=== PATIENT | male | born 1940 | race Caucasian/White ===

== ENCOUNTER 2020-03-17 11:54 | Outpatient (CLI) | payer MEDICARE, OTHER, SELFPAY ==
--- NOTE | ~2020-03-17 | CT_ITS ---
EXAMINATION: CT IAC/mastoids BI wo con DATE: 03/17/2020 14:23 INDICATION: Hearing loss. TECHNIQUE: Computed tomography (CT) of the temporal bones was performed without intravenous contrast. Automated exposure control and iterative reconstruction technique were employed. The dose-length pro duct was 276.05 mGy-cm. COMPARISON: Head CT 07/26/2011 FINDINGS: There are likely changes of ocular lens replacement surgeries. There is internal fixation o f right mandible. RIGHT TEMPORAL BONE: The right internal auditory canal, cochlea, vestibule, semicircular canals, vestibular aqueduct, gonsales tid canal, jugular bulb, facial nerve course, ossicles, Prussak space, and scutum are normal. There i s a myringotomy tube in expected position. There is a small volume of material in the external audito ry canal, likely cerumen. There is a right mastoid effusion. LEFT TEMPORAL BONE: The left internal auditory canal, cochlea, vestibule, semicircular canals, vestibular aqueduct, carot id canal, jugular bulb, facial nerve course, ossicles, Prussak space, scutum, tympanic membrane, and external auditory canal are normal. There is a trace left mastoid effusion. IMPRESSION: 1. Right myringotomy tube in expected position. 2. Right mastoid effusion. Trace left mastoid effusion. Reviewed, dictated and finalized at location A.
--- NOTE | ~2020-03-17 | CT_ITS ---
EXAMINATION: CT brain wo/w con DATE: 03/17/2020 14:24 INDICATION: Reduced mobility. Carotid artery stenosis. TECHNIQUE: Computed tomography (CT) of the head was performed without and with 100 cc Omnipaque 350 i ntravenous contrast. The dose-length product was 1210.67 mGy-cm. Automated exposure control and itera tive reconstruction technique were employed. COMPARISON: None FINDINGS: No acute intracranial hemorrhage, infarction, mass or mass effect. Generalized atrophy. The re are scattered moderate periventricular and subcortical white matter changes, most likely related t o small vessel ischemic disease (microangiopathy). No abnormal contrast enhancement. There is intracr anial atherosclerosis. No ventriculomegaly or midline shift. Paranasal sinuses and mastoids are pneum atized. No depressed skull fractures. Midline sagittal images are unremarkable. IMPRESSION: 1. No acute intracranial abnormality. 2: Chronic age-related findings. Reviewed, dictated and finalized at location A.
[2020-03-17 12:27] LABS: Basophils Absolute Auto 0.1 K/mm3 (0.0-0.1); Basophils Percent Auto 1.1 % (0.2-1.2); Eosinophils Absolute Auto 0.3 K/mm3 (0-0.3); Hematocrit 37.5 % (42.0-52.0); Hemoglobin 12.1 g/dL (14.0-18.0); Immature Granulocyte Absolute 0.01 K/mm3 (0.00-0.031); Immature Granulocyte Percent A 0.2 % (0-0.5); Lymphocytes Absolute Auto 1.32 K/mm3 (0.9-3.2); Mean Corpuscular HGB Conc 32.3 g/dl (32-36); Mean Corpuscular Hemoglobin 28.7 pg (26-34); Mean Corpuscular Volume 89.1 fl (80-100); Mean Platelet Volume 10.5 fl (7.4-10.4); Monocytes Absolute Auto 0.6 K/mm3 (0.1-0.6); Monocytes Percent Auto 9.7 % (2.6-8.5); Platelet Count Result 230 k/mm3 (150-375); Red Blood Count 4.21 M/mm3 (4.6-6.20); Red Cell Distribution Width 15.4 % (11.5-14.5); White Blood Count 6.3 K/mm3 (4.5-10.0)
[2020-03-17 14:09] LABS: Estimated Glomerular Filt Rate > 60
== END 2020-03-17 11:55 | disposition home or self-care (01) ==
PROVIDERS: PCP Internal Medicine; Visit Provider Internal Medicine
DX: E11.9 Type 2 diabetes mellitus without complications (principal); Z74.09 Other reduced mobility; Z85.89 Personal history of malignant neoplasm of other organs and systems; Z96.22 Myringotomy tube(s) status; H74.8X3 Other specified disorders of middle ear and mastoid, bilateral
CPT/HCPCS: 36415; 70470; 70480; 85025; Q9967

== ENCOUNTER 2020-04-22 12:38 | Inpatient (IN) | payer MEDICARE, OTHER, SELFPAY ==
[2020-04-22] VITALS (11 sets, daily range): BP systolic 135–158; BP diastolic 65–94; PULSE 50–93; RESP 12–19; TEMP 36.2–36.8; O2SAT 96–100; BMI 37.4; BMI 37.5
--- NOTE | ~2020-04-22 | XR_ITS ---
EXAMINATION: XR chest 1V portable DATE: 04/22/2020 13:13 INDICATION: Shortness of breath. Atrial fibrillation. TECHNIQUE: frontal view of the chest was obtained. COMPARISON: Chest radiograph dated 08/09/2019 FINDINGS: Mild elevation of the left hemidiaphragm. No focal airspace opacities, pulmonary edema, pleural effus ion or pneumothorax. Heart size appears enlarged however this may be exaggerated by AP technique and lordotic positioning. Old fracture deformities at the lateral right eighth rib and at the inferior as pect of the right scapular body. Multiple surgical clips project the right axilla and at the base of the right neck. IMPRESSION: 1. Heart size appears enlarged however this may be exaggerated by AP technique and lordotic positioni ng. No other acute cardiopulmonary disease. Reviewed, dictated and finalized at location A. IMPRESSION: 1. Heart size appears enlarged however this may be exaggerated by AP technique and lordotic positioning. No other acute cardiopulmonary disease.
[2020-04-22 13:00] LABS: Basophils Absolute Auto 0.1 K/mm3 (0.0-0.1); Basophils Percent Auto 0.8 % (0.2-1.2); Eosinophils Absolute Auto 0.3 K/mm3 (0-0.3); Eosinophils Percent Auto 3.8 % (0-4.4); Hematocrit 37.9 % (42.0-52.0); Hemoglobin 12.3 g/dL (14.0-18.0); Immature Granulocyte Absolute 0.03 K/mm3 (0.00-0.031); Immature Granulocyte Percent A 0.4 % (0-0.5); Lymphocytes Absolute Auto 1.31 K/mm3 (0.9-3.2); Lymphocytes Percent Auto 17.7 % (18.3-44.2); Mean Corpuscular HGB Conc 32.5 g/dl (32-36); Mean Corpuscular Hemoglobin 29.1 pg (26-34); Mean Corpuscular Volume 89.8 fl (80-100); Mean Platelet Volume 10.9 fl (7.4-10.4); Monocytes Absolute Auto 0.9 K/mm3 (0.1-0.6); Monocytes Percent Auto 11.8 % (2.6-8.5); Neutrophils Absolute Auto 4.8 K/mm3 (1.3-6.7); Neutrophils Percent Auto 65.5 % (45.5-73.1); Platelet Count Result 241 k/mm3 (150-375); Red Blood Count 4.22 M/mm3 (4.6-6.20); Red Cell Distribution Width 14.6 % (11.5-14.5); White Blood Count 7.4 K/mm3 (4.5-10.0)
--- NOTE | 2020-04-22 13:02 | ED.ARRPALP ---
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 Patient otherwise resting comfortably in the room with no other complaints Related Data Home Medications Medication Instructions Recorded Confirmed aspirin 81 mg tablet,delayed 81 mg PO DAILY 08/20/19 04/22/20 release blood sugar diagnostic #10 each 08/20/19 04/22/20 cholecalciferol (vitamin D3) 50 2,000 unit PO DAILY 08/20/19 04/22/20 mcg (2,000 unit) tablet desvenlafaxine succinate 100 mg 100 mg PO DAILY 08/20/19 04/22/20 tablet,extended release 24 hr ezetimibe 10 mg tablet 10 mg PO DAILY 08/20/19 04/22/20 oxycodone-acetaminophen 5 mg-325 1 tablet PO Q4H PRN 08/20/19 04/22/20 mg tablet omega-3 fatty acids 1,000 mg 2,000 mg PO DAILY cap 03/17/20 04/22/20 capsule quetiapine 50 mg tablet,extended 0.5 mg PO tablet 04/22/20 04/22/20 release 24 hr Allergies Allergy/AdvReac Type Severity Reaction Status Date / Time No Known Allergies Allergy Verified 04/22/20 12:53 Review of Systems Review of Systems: All systems reviewed & are unremarkable except as noted in HPI and below PMFSH Past Medical History Medical History Abnormal finding of blood chemistry, unspecified Anxiety with depression Aortic valve stenosis, acquired Atrial flutter Benign essential hypertension BMI 37.0-37.9, adult BMI 38.0-38.9,adult DM type 2 (diabetes mellitus, type 2) Encounter for routine adult health examination without abnormal findings Follow up Fracture, ribs History of head and neck cancer Resection of mandible with reconstruction (osteonecrosis) Hyperlipidemia Hypertension Hypothyroidism (acquired) Impaired functional mobility, balance, gait, and endurance Left carotid stenosis Multiple falls 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 Orthostatic hypotension Osteonecrosis Pulmonary nodules PVD (peripheral vascular disease) Vitamin D deficiency Surgical History Surgical History H/O neck surgery Status post myringotomy with insertion of tube Family History Family History Mother Diabetes mellitus Hypertension Family history of cardiovascular disease Family history of diabetes mellitus in first degree relative Family history of heart disease in male family member before age 55 Social History Social History Smoking status: Never smoker Second hand tobacco smoke exposure: No Alcohol intake: never Exam Narrative: Exam Narrative: GENERAL: Well-appearing, well-nourished, and in no acute distress. HEAD: Normocephalic, atraumatic. EYES: PERRLA and EOMI. ENT: Nares clear, no rhinorrhea or epistaxis. Mucous membranes moist. Oropharynx without tonsillar hypertrophy exudate or other lesions. NECK: Supple. No adenopathy or masses. CHEST: Clear to auscultation. No respiratory distress. No wheezes rales or rhonchi HEART: Regular rate and rhythm. II/ murmur. Normal peripheral pulses. ABDOMEN: Soft, nontender, nondistended EXTREMITIES: Normal range of motion. No edema. SKIN: Warm, dry, no rash. NEURO: No focal deficits. Alert and oriented x3
[2020-04-22] MEDS: SODIUM CHLORIDE 0.9% IV 500 ML 999 ML IV CONT ×2 (13:05→13:34)
[2020-04-22 13:10] LABS: INR 1.1; Partial Thromboplastin Time 29.7 SECONDS (22.3-36.8); Prothrombin Time 13.9 Seconds (11.1-14.7)
[2020-04-22 13:19] LABS: Alanine Aminotransferase 24 U/L (4-50); Albumin Level 4.1 g/dL (3.5-5.1); Alkaline Phosphatase 123 U/L (38-126); Aspartate Amino Transferase 35 U/L (17-59); Bilirubin,Total 0.4 mg/dL (0.2-1.3); Blood Urea Nitrogen 24 mg/dL (9-20); Calcium 8.9 mg/dL (8.4-10.2); Carbon Dioxide 27 mmol/L (22-30); Chloride 105 mmol/L (98-107); Estimated CRCL calculation 65 ml/min; Estimated Glomerular Filt Rate > 60; Glucose 117 mg/dL (75-110); Potassium 4.5 mmol/L (3.4-5.0); Sodium 137 mmol/L (137-145)
[2020-04-22 13:31] LABS: NT Pro B Type Natriuretic Pept 720 PG/ML (5-100); Troponin I 0.012 ng/mL (0.000-0.034)
[2020-04-22 14:51] LABS: Add Urine Microscopic? YES; Appearance Urine Clear (Clear); Bilirubin Urine Negative (Negative); Blood Urine Negative (Negative); Color Urine Yellow (Yellow); Glucose Urine UA Negative (Negative); Ketones Urine Negative (Negative); Leukocyte Esterase Ur Negative LEU/UL (Negative); Mucus Urine Rare /lpf; Nitrate Urine Negative (Negative); Protein Urine Negative (Negative); Specific Grav Ur 1.028 (1.001-1.035); Squamous Epithelial Cell Urine Occasional /hpf (Few); WBC Urine 0-3 /hpf
--- NOTE | 2020-04-22 15:18 | ECG_ITS ---
Measurements Intervals [place] Rate: 92 P: [place]: 0 QRS: 16 QRSD: 94 T: 75 QT: 332 QTc: 413 Interpretive Statements ATRIAL FLUTTER BORDERLINE ST-T WAVE ABNORMALITY- HIGH LATERAL LEADS ABNORMAL ECG Electronically Signed On 04-22-2020 15:39:31 CDT by Girish Tompkins D.O.
[2020-04-22 16:29] LABS: Troponin I 0.017 ng/mL (0.000-0.034)
[2020-04-22 16:33] LABS: Glucose Point of Care 90 (65-105)
--- NOTE | 2020-04-22 17:22 | PM.IMHP ---
H&P: HPI History of Present Illness Chief complaint: atrial flutter,orthostatic hypotension Narrative: Mitch Romo is a 80 year old male who has a history of aortic stenosis. His significant other stated that he had his last echo she believes in December. Patient has had some gait instability and shortness of breath with exertion. The patient had a visit with his primary care doctor today and they noted that he had an irregular heartbeat. Patient was found to be in atrial flutter with controlled rate. Cardiology has been consulted and suggested that the patient be admitted and have another echo. The patient was also orthostatic. Chest x-ray was read as heart size appears enlarged however may be exaggerated by AP technique and lordotic positioning. Troponins are negative so far x2. He has no complaints of chest pain. He has no palpitations. He is currently on an aspirin. His has bled score is 2 which appears to be high risk. No anticoagulation was started at this time. His atrial flutters 3-1 at this time. Review of Systems Review of Systems: All systems reviewed & are unremarkable except as noted in HPI and below Constitutional: Constitutional: Reports as per HPI and Reports no additional constitutional complaints Eyes: Eyes: Reports as per HPI and Reports no additional eye complaints ENT: Reports system reviewed and no additional complaints, except as documented and Reports Normal hearing present Cardiovascular: Cardiovascular: Reports no additional cardiovascular complaints Respiratory: Respiratory: Reports no additional respiratory complaints and Reports no additional respiratory complaints Gastrointestinal: Gastrointestinal: Reports as per HPI and Reports no additional gastrointestinal complaints Musculoskeletal: Musculoskeletal: Reports no additional musculoskeletal complaints Integumentary/Breasts: Skin/Breast: Reports system reviewed and no additional complaints, except as docu and Reports as per HPI Neurologic: Reports system reviewed and no additional complaints, except as documented, Reports as per HPI and Reports Normal hearing present Psychiatric: Psychiatric: Reports no additional psychiatric complaints and Reports as per HPI Endocrine: Endocrine: Reports no additional endocrine complaints Hematologic/Lymphatic: Hematologic/Lymphatic: Reports no additional hematologic/lymphatic complaints Allergic/Immunologic: Allergic/Immunologic: Reports no additional allergic/immunologic complaints [facility] Past Medical History Medical History (Updated 04/22/20 @ 17:36 by Neena Bueno NP) Abnormal finding of blood chemistry, unspecified Anxiety with depression Aortic valve stenosis, acquired Atrial flutter Atrial flutter Benign essential hypertension BMI 37.0-37.9, adult BMI 38.0-38.9,adult DM type 2 (diabetes mellitus, type 2) Encounter for routine adult health examination without abnormal findings Follow up Fracture, ribs History of head and neck cancer Resection of mandible with reconstruction (osteonecrosis) Hyperlipidemia Hypertension Hypothyroidism (acquired) Impaired functional mobility, balance, gait, and endurance Left carotid stenosis Multiple 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 H/O prostatectomy H/O rectal polypectomy H/O spinal fusion H/O ventral hernia repair History of bilateral carpal tunnel release Status post left hip replacement Status post myringotomy with insertion of tube Total knee replacement status Bilateral Family History Family History (Updated 04/22/20 @ 17:38
--- NOTE | 2020-04-22 17:57 | PC.NURSE ---
Called to give report to nurse. Was asked by Laura if pt was new onset of Afib or if this was ongoing. Informed Laura that this was new onset. Laura states let me call you back, we normally dont take new onset .
[2020-04-22 18:51] LABS: Glucose Point of Care 91 (65-105)
[2020-04-22] MEDS: FAMOTIDINE 20 MG/2 ML VIAL IV PUSH (21:09)
[2020-04-22] MEDS: LACTATED RINGERS 1,000 ML 75 ML IV CONT (23:04)
[2020-04-22 23:20] LABS: Glucose Point of Care 100 (65-105)
[2020-04-23] VITALS (19 sets, daily range): BP systolic 123–158; BP diastolic 72–92; PULSE 71–93; RESP 12–18; TEMP 36.4–36.9; O2SAT 95–99
[2020-04-23] MEDS: LEVOTHYROXINE SODIUM 125 MCG TABLET PO (05:41)
[2020-04-23 05:44] LABS: Basophils Absolute Auto 0.1 K/mm3 (0.0-0.1); Basophils Percent Auto 1.5 % (0.2-1.2); Eosinophils Absolute Auto 0.4 K/mm3 (0-0.3); Eosinophils Percent Auto 7.1 % (0-4.4); Hematocrit 37.2 % (42.0-52.0); Hemoglobin 11.9 g/dL (14.0-18.0); Immature Granulocyte Absolute 0.01 K/mm3 (0.00-0.031); Immature Granulocyte Percent A 0.2 % (0-0.5); Lymphocytes Absolute Auto 1.61 K/mm3 (0.9-3.2); Lymphocytes Percent Auto 26.6 % (18.3-44.2); Mean Corpuscular Hemoglobin 28.7 pg (26-34); Mean Corpuscular Volume 89.6 fl (80-100); Mean Platelet Volume 10.8 fl (7.4-10.4); Monocytes Absolute Auto 0.7 K/mm3 (0.1-0.6); Monocytes Percent Auto 10.7 % (2.6-8.5); Neutrophils Absolute Auto 3.3 K/mm3 (1.3-6.7); Neutrophils Percent Auto 53.9 % (45.5-73.1); Platelet Count Result 235 k/mm3 (150-375); Red Blood Count 4.15 M/mm3 (4.6-6.20); Red Cell Distribution Width 14.5 % (11.5-14.5); White Blood Count 6.1 K/mm3 (4.5-10.0)
--- NOTE | 2020-04-23 06:00 | ECHO_ITS ---
Patient Info Name: Mitch Romo Age: 80 years : 1940 Gender: Male Ht: 66 in Wt: 233 lbs BSA: 2.27 m2 BP: 123 / 72 mmHg Heart Rhythm: Atrial Flutter Technical Quality: Good Exam Date: 04/23/2020 11:04 AM Exam Location: [facility] Pul[facility] Patient Status: Outpatient Admit Date: 04/22/2020 Staff Ordering Physician: Gavin Fletcher PA-C Ethnographic Materials Conservator: Luis Manuel Chung RDCS, RT Attending Provider: Briana Ventura PA-C Referring Physician: Chance DEVLIN; Exam Type: CA echo doppler color flow Study Info Indications I49.8 - Other specified cardiac arrhythmias Complete two-dimensional, color flow and Doppler transthoracic echocardiogram is performed with contrast to opacify the left ventricle and to improve the deliniation of the left ventricle endocardial borders. Summary 1. Left ventricular systolic function is normal, estimated at 55-60%. 2. There is moderate concentric increased left ventricular wall thickness. 3. There is severe aortic valve stenosis with a peak velocity of 373 cm/s, mean gradient of 28 mmHg, and aortic valve area of 0.8 cm2. 4. Atrial flutter with controlled ventricular response. Left Ventricle Left ventricular chamber dimension is normal. Left ventricular systolic function is normal, estimated at 55-60%. There is moderate concentric increased left ventricular wall thickness. The left ventricular diastolic function is grade II diastolic dysfunction. Right Ventricle Right ventricular chamber dimension is normal. Left Atria Left atrial chamber dimension is moderately enlarged. Right Atria Right atrial chamber dimension is normal. Aortic Valve The aortic valve is trileaflet. There is moderate aortic valve sclerosis. There is severe aortic valve stenosis with a peak velocity of 373 cm/s, mean gradient of 28 mmHg, and aortic valve area of 0.8 cm2. There is mild aortic valve regurgitation. Pulmonic Valve The pulmonic valve is not well visualized. Mitral Valve The mitral valve has normal leaflets. There is mild mitral valve regurgitation. The mitral valve annulus is mildly calcified. Tricuspid Valve The tricuspid valve leaflets are normal. Pericardium/Pleural The pericardium appears normal. Aorta The aortic root size at the sinus of Valsalva is normal. Left Ventricular Outflow Tract Name Value Normal LVOT 2D LVOT Diameter 2.2 cm LVOT Doppler LVOT Peak Gradient 3 mmHg LVOT Mean Gradient 2 mmHg LVOT VTI 18 cm LVOT VTI/AV VTI Ratio 0.2 LVOT Stroke Volume 70 ml Mitral Valve Name Value Normal MV Doppler MV Peak Gradient 2 mmHg MV Mean Gradient 1 mmHg MV Decel [place] 429 cm/s2 MV PHT
[2020-04-23 06:05] LABS: Alanine Aminotransferase 22 U/L (4-50); Albumin Level 3.8 g/dL (3.5-5.1); Alkaline Phosphatase 112 U/L (38-126); Aspartate Amino Transferase 31 U/L (17-59); Bilirubin,Total 0.5 mg/dL (0.2-1.3); Blood Urea Nitrogen 20 mg/dL (9-20); Calcium 8.6 mg/dL (8.4-10.2); Carbon Dioxide 26 mmol/L (22-30); Chloride 104 mmol/L (98-107); Estimated CRCL calculation 73 ml/min; Estimated Glomerular Filt Rate > 60; Glucose 115 mg/dL (75-110); Potassium 4.2 mmol/L (3.4-5.0); Sodium 136 mmol/L (137-145)
[2020-04-23] MEDS: ONDANSETRON INJ 4 MG/2 ML VIAL IV PUSH (06:56)
[2020-04-23 08:24] LABS: Glucose Point of Care 122 (65-105)
[2020-04-23] MEDS: FAMOTIDINE 20 MG/2 ML VIAL IV PUSH ×2 (09:16→21:05)
[2020-04-23] MEDS: GABAPENTIN 400 MG CAPSULE 1200 MG PO ×3 (09:17→16:51)
[2020-04-23] MEDS: PRAVASTATIN SODIUM 20 MG TABLET PO (09:18)
[2020-04-23] MEDS: CHOLECALCIFEROL 1,000 UNIT TABLET 2000 UNITS PO (09:18)
[2020-04-23] MEDS: ASPIRIN 81 MG ENTERIC TABLET PO (09:19)
[2020-04-23] MEDS: OMEGA 3 POLYUNSAT FATTY ACIDS 1 GM CAP 2 GM PO (09:19)
[2020-04-23] MEDS: EZETIMIBE 10 MG TABLET PO (09:19)
[2020-04-23] MEDS: DESVENLAFAXINE SUCCINATE 50 MG TAB.ER.24H 100 MG PO (09:20)
[2020-04-23] MEDS: LACTATED RINGERS 1,000 ML 75 ML IV CONT (09:23)
--- NOTE | 2020-04-23 10:30 | PM.IMPN ---
Progress Note: A&P Assessment and Plan (1) Atrial flutter: Qualifiers: Atrial flutter type: unspecified Qualified Code(s): I48.92 - Unspecified atrial flutter Code(s): I48.92 - Unspecified atrial flutter Status: Acute Assessment and Plan: The patient has new-onset atrial flutter. Cardiology was consulted. His rate is well-controlled. He is not on any AV cisco blocking agents. His HAS-BLED score was 2 indicating a moderate bleeding risk. [id number] Score was 5. He was not anticoagulated due to recent falls, HAS-BLED score, and orthostasis. Await further cardiology recommendations. (2) Aortic stenosis: Code(s): I35.0 - Nonrheumatic aortic (valve) stenosis Status: Acute Assessment and Plan: Per reports, his previous echo demonstrated severe aortic stenosis. Repeat echocardiogram was ordered. Cardiology has been consulted. Management per cardiology. (3) Coronary artery disease: Code(s): I25.10 - Atherosclerotic heart disease of [place] coronary artery without angina pectoris Status: Chronic Assessment and Plan: He has a hx of CAD. He had a stress test 11/2018 which revealed infarction with no inducible ischemia. Continue ASA and statin. He is not on a beta-lucy. Await cardiology input. (4) Orthostatic hypotension: Code(s): I95.1 - Orthostatic hypotension Status: Acute Assessment and Plan: He was orthostatic during his PCP visit. Subsequent readings do not demonstrate orthostasis. Continue to monitor. (5) Hyperlipidemia: Qualifiers: Hyperlipidemia type: mixed hyperlipidemia Qualified Code(s): E78.2 - Mixed hyperlipidemia Code(s): E78.5 - Hyperlipidemia, unspecified Status: Acute Assessment and Plan: Continue pravastatin, omega-3, and ezetimibe. (6) Anxiety with depression: Code(s): F41.8 - Other specified anxiety disorders Status: Acute Assessment and Plan: No acute issues. He does not sleep well when he does not have his quetiapine. Continue quetiapine and desvenlafaxine. (7) Benign essential hypertension: Code(s): I10 - Essential (primary) hypertension Status: Acute Assessment and Plan: Losartan was discontinued by PCP due to orthostasis during his PCP visit. Repeat orthostatic BP measurements do not demonstrate orthostatic hypotension. Cardiology is on board. Blood pressures are reasonably controlled with mild elevation of 147 systolic. Continue to monitor. (8) Hypothyroidism (acquired): Code(s): E03.9 - Hypothyroidism, unspecified Status: Acute Assessment and Plan: TSH was 2.19. Continue levothyroxine. 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 Most recent HbA1c was 6.2. Continue ACHS glucose monitoring, sliding scale insulin, and hypoglycemia protocol. Continue januvia. Continue to monitor. Subjective Date/time seen: 04/23/20 10:30 Interval history: Mr. Romo is an 80 y.o. male who is seen in follow-up for atrial flutter and severe aortic stenosis. He went to an appointment with his primary care provider and was advised to proceed to the hospital for further cardiac evaluation as he was found to be in atrial flutter on EKG. He is awaiting an echocardiogram. He reports increasing dyspnea with ambulation of 50-100 feet. He reports a hx of exertional dyspnea for 6 weeks which worsened in the past week. He also reports gait unsteadiness and difficulty with balance. He was orthostatic and his losartan was discontinued by
[2020-04-23 13:13] LABS: Glucose Point of Care 112 (65-105)
[2020-04-23 18:30] LABS: Glucose Point of Care 151 (65-105)
[2020-04-23] MEDS: QUEtiapine FUMARATE 25 MG TABLET PO (21:05)
[2020-04-23 21:27] LABS: Glucose Point of Care 151 (65-105)
[2020-04-24] VITALS (13 sets, daily range): BP systolic 113–152; BP diastolic 67–97; PULSE 69–96; RESP 16–20; TEMP 36.4–36.8; O2SAT 95–98
[2020-04-24] MEDS: LEVOTHYROXINE SODIUM 125 MCG TABLET PO (05:58)
[2020-04-24 08:32] LABS: Glucose Point of Care 135 (65-105)
[2020-04-24] MEDS: EZETIMIBE 10 MG TABLET PO (08:48)
[2020-04-24] MEDS: OMEGA 3 POLYUNSAT FATTY ACIDS 1 GM CAP 2 GM PO (08:48)
[2020-04-24] MEDS: GABAPENTIN 400 MG CAPSULE 1200 MG PO ×3 (08:48→17:38)
[2020-04-24] MEDS: PRAVASTATIN SODIUM 20 MG TABLET PO (08:49)
[2020-04-24] MEDS: ASPIRIN 81 MG ENTERIC TABLET PO (08:49)
--- NOTE | 2020-04-24 09:30 | PC.NURSE ---
I notified pharmacy that I was missing the 0900 dose of Pepcid and the barcodes would not scan for the Vitamin D and Pritiq. They said they would tube up the medication and fix the barcodes in the computer.
[2020-04-24] MEDS: FAMOTIDINE 20 MG/2 ML VIAL IV PUSH ×2 (10:19→20:27)
[2020-04-24] MEDS: CHOLECALCIFEROL 1,000 UNIT TABLET 2000 UNITS PO (10:19)
[2020-04-24] MEDS: DESVENLAFAXINE SUCCINATE 50 MG TAB.ER.24H 100 MG PO (10:19)
--- NOTE | 2020-04-24 11:39 | PM.IMPN ---
Progress Note: A&P Assessment and Plan (1) Atrial flutter: Qualifiers: Atrial flutter type: unspecified Qualified Code(s): I48.92 - Unspecified atrial flutter Code(s): I48.92 - Unspecified atrial flutter Status: Acute Assessment and Plan: The patient has new-onset atrial flutter. Cardiology was consulted. His rate is well-controlled. His HAS-BLED score was 2 indicating a moderate bleeding risk. [id number] Score was 5. Discussed with Dr. Headley and will initiate therapeutic lovenox and hold Sunday for anticipated cardiac cath. Await further cardiology recommendations. (2) Aortic stenosis: Code(s): I35.0 - Nonrheumatic aortic (valve) stenosis Status: Acute Assessment and Plan: Per reports, his previous echo demonstrated severe aortic stenosis. Repeat echocardiogram was ordered and demonstrated severe aortic valve stenosis with a peak velocity of 373 cm/s, mean gradient of 28 mmHg, and aortic valve area of 0.8 cm2. Management per cardiology. (3) Coronary artery disease: Code(s): I25.10 - Atherosclerotic heart disease of [place] coronary artery without angina pectoris Status: Chronic Assessment and Plan: He has a hx of CAD. He had a stress test 11/2018 which revealed infarction with no inducible ischemia. Continue ASA and statin. He is not on a beta-lucy. Await cardiology input. (4) Orthostatic hypotension: Code(s): I95.1 - Orthostatic hypotension Status: Acute Assessment and Plan: He was orthostatic during his PCP visit. Subsequent readings do not demonstrate orthostasis. Continue to monitor. (5) Hyperlipidemia: Qualifiers: Hyperlipidemia type: mixed hyperlipidemia Qualified Code(s): E78.2 - Mixed hyperlipidemia Code(s): E78.5 - Hyperlipidemia, unspecified Status: Acute Assessment and Plan: Continue pravastatin, omega-3, and ezetimibe. (6) Anxiety with depression: Code(s): F41.8 - Other specified anxiety disorders Status: Acute Assessment and Plan: No acute issues. Continue quetiapine and desvenlafaxine. (7) Benign essential hypertension: Code(s): I10 - Essential (primary) hypertension Status: Acute Assessment and Plan: Losartan was discontinued by PCP due to orthostasis during his PCP visit. Repeat orthostatic BP measurements do not demonstrate orthostatic hypotension. Cardiology is on board. Blood pressures are reasonably but mildly elevated. Management per cardiology. (8) Hypothyroidism (acquired): Code(s): E03.9 - Hypothyroidism, unspecified Status: Acute Assessment and Plan: TSH was 2.19. Continue levothyroxine. (9) DM type 2 (diabetes mellitus, type 2): Qualifiers: Diabetes mellitus senior living insulin use: without extermination inspector use Diabetes mellitus complication status: without complication Qualified Code(s): E11.9 - Type 2 diabetes mellitus without complications Code(s): E11.9 - Type 2 diabetes mellitus without complications Status: Acute Assessment and Plan: Blood sugars were reviewed and are well-controlled. Most recent HbA1c was 6.2. Continue ACHS glucose monitoring, sliding scale insulin, and hypoglycemia protocol. Continue januvia. Continue to monitor. Subjective Date/time seen: 04/24/20 11:39 Interval history: Mr. Romo is an 80 y.o. male who is seen in follow-up for atrial flutter and severe aortic stenosis. He denies dyspnea, chest pain, and palpitations. He is eating well. He ambulated in the halls with therapy. He denies dizziness, lightheadedness, and headaches. He has no other concerns. Review of Systems Review of Systems: All systems reviewed & are unremarkable except as noted in HPI and below Exam Narrative: Exam Narrative: General: Pleasant and well-developed 80 y.o. male appears younger than his stated age sitting in the chair.
--- NOTE | 2020-04-24 12:20 | PM.PNCARD ---
Progress Note: A&P Additional Plan sever symptomatic, Atrial flutter, plan LMWH (hold on Sunday morning, statin, LHC on sunday Subjective Date/time seen: 04/24/20 12:20 Interval history: no acute events HR was been controlled in 90 in Tele No chest pain or SOB Review of Systems Review of Systems: All systems reviewed & are unremarkable except as noted in HPI and below Exam Const: General: comfortable and no acute distress Neck: Neck: not supple and no JVD Carotids: no bruits Resp: Effort & Inspection: normal respiratory effort Auscultation: clear to auscultation bilaterally, no crackles and no rales Cardio: Heart sounds: Murmur heart sound present (ESM at base) Other: Irregular rate and rhythm Extrem: General: no edema Objective Data Vital Signs Vital Signs: Vital Signs - 24 hr 04/23/20 15:00 04/23/20 15:45 04/23/20 15:48 Temperature Pulse Rate 91 71 80 Respiratory Rate Blood Pressure 126/79 132/84 Pulse Oximetry 04/23/20 15:51 04/23/20 16:00 04/23/20 18:00 Temperature 36.8 C Pulse Rate 92 91 92 Respiratory Rate 18 Blood Pressure 145/81 H 146/83 H Pulse Oximetry 99 04/23/20 20:00 04/23/20 22:03 04/23/20 22:04 Temperature 36.6 C 36.6 C 36.6 C Pulse Rate 93 85 90 Respiratory Rate 16 16 16 Blood Pressure 151/92 H 153/90 H 158/90 H Pulse Oximetry 96 95 96 04/24/20 00:00 04/24/20 02:00 04/24/20 04:00 Temperature 36.7 C Pulse Rate 77 69 75 Respiratory Rate 16 Blood Pressure 134/73 Pulse Oximetry 95 04/24/20 08:00 04/24/20 10:00 Temperature 36.4 C Pulse Rate 94 95 Respiratory Rate 20 Blood Pressure 146/67 H 145/74 H Pulse Oximetry 97 Intake/Output Intake/Output: Intake & Output 04/21/20 04/22/20 04/23/20 04/24/20 23:59 23:59 23:59 23:59 Intake Total 1000 2310 360 Balance 1000 2310 360 Meds/Results Medications: Active Medications Generic Name Dose Route Start Last Admin Trade Name Freq PRN Reason Stop Dose Admin Aspirin 81 mg 04/23/20 09:00 04/24/20 08:49 Aspirin Ec PO 81 mg DAILY YFN Administration Desvenlafaxine Succinate 100 mg 04/23/20 09:00 04/24/20 10:19 Pristiq PO 05/23/20 09:01 100 mg DAILY YFN Administration Dextrose 12.5 gm 04/22/20 17:47 Dextrose 50% Syringe IV PUSH PRN PRN Hypoglycemia Protocol Ezetimibe 10 mg 04/23/20 09:00 04/24/20 08:48 Zetia PO 10 mg DAILY YFN Administration Enoxaparin Sodium 105 mg 04/24/20 12:00 Lovenox SUB-Q Q12H YFN Famotidine 20 mg 04/22/20 21:00 04/24/20 10:19 Pepcid Iv IV PUSH 20 mg Q12HR YFN Administration Fish Oil 2 gm 04/23/20 09:00 04/24/20 08:48 Lovaza PO 2 gm DAILY YFN Administration Gabapentin 1,200 mg 04/23/20 09:00 04/24/20 08:48 Neurontin PO 1,200 mg TID YFN Administration Glucagon 1 mg 04/22/20 17:47 Glucagon For Inj IM PRN PRN Hypoglycemia Protocol Glucose 15 gm 04/22/20 17:47 Glutose 15 PO PRN PRN Hypoglycemia Protocol Dextrose 1,000 mls @ 100 mls/hr 04/22/20 17:47 Dextrose 5% 1,000 Ml IVPB PRN PRN Hypoglycemia Protocol Insulin Aspart 2 - 5 units 04/23/20 08:00 04/24/20 08:44 Novolog SUB-Q Not Given TIDWM [facility] Protocol Levothyroxine Sodium 125 mcg 04/23/20 06:30 04/24/20 05:58 Synthroid PO 125 mcg DAILY@0630 YFN Administration Ondansetron HCl 4 mg 04/22/20 16:19 04/23/20 06:56 Zofran Inj IV PUSH 4 mg Q4H PRN Administration Nausea Oxycodone/Acetaminophen 1 tablet 04/22/20 17:56 Percocet 5-325 Mg PO Q4H PRN Pain 7-10 Pravastatin Sodium 20 mg 04/23/20 09:00 04/24/20 08:49 Pravastatin Sodium PO 20 mg DAILY YFN Administration Quetiapine Fumarate 25 mg 04/23/20 21:00 04/23/20 21:05 Seroquel PO 25 mg HS YFN Administration Sitagliptin Phosphate 100 mg 04/23/20 09:00 04/24/20 08:49 Januvia PO 100 mg DAILY YFN
[2020-04-24 12:30] LABS: Glucose Point of Care 100 (65-105)
[2020-04-24] MEDS: ENOXAPARIN 120 MG/0.8 ML SYRINGE 105 MG SUB-Q (12:45)
[2020-04-24 17:38] LABS: Glucose Point of Care 113 (65-105)
[2020-04-24] MEDS: QUEtiapine FUMARATE 25 MG TABLET PO (20:27)
[2020-04-24 20:50] LABS: Glucose Point of Care 177 (65-105)
[2020-04-25] VITALS (16 sets, daily range): BP systolic 138–165; BP diastolic 73–92; PULSE 69–94; RESP 16–18; TEMP 36.3–36.6; O2SAT 95–99
[2020-04-25] MEDS: ENOXAPARIN 120 MG/0.8 ML SYRINGE 105 MG SUB-Q ×2 (00:36→12:27)
[2020-04-25 05:18] LABS: Basophils Absolute Auto 0.1 K/mm3 (0.0-0.1); Basophils Percent Auto 1.3 % (0.2-1.2); Eosinophils Absolute Auto 0.5 K/mm3 (0-0.3); Eosinophils Percent Auto 6.6 % (0-4.4); Hematocrit 34.9 % (42.0-52.0); Hemoglobin 11.1 g/dL (14.0-18.0); Immature Granulocyte Absolute 0.02 K/mm3 (0.00-0.031); Immature Granulocyte Percent A 0.3 % (0-0.5); Lymphocytes Absolute Auto 1.63 K/mm3 (0.9-3.2); Lymphocytes Percent Auto 23.4 % (18.3-44.2); Mean Corpuscular HGB Conc 31.8 g/dl (32-36); Mean Corpuscular Hemoglobin 28.4 pg (26-34); Mean Corpuscular Volume 89.3 fl (80-100); Mean Platelet Volume 10.7 fl (7.4-10.4); Monocytes Absolute Auto 0.8 K/mm3 (0.1-0.6); Monocytes Percent Auto 11.3 % (2.6-8.5); Neutrophils Percent Auto 57.1 % (45.5-73.1); Platelet Count Result 206 k/mm3 (150-375); Red Blood Count 3.91 M/mm3 (4.6-6.20); Red Cell Distribution Width 14.3 % (11.5-14.5)
[2020-04-25 05:35] LABS: Blood Urea Nitrogen 18 mg/dL (9-20); Calcium 8.6 mg/dL (8.4-10.2); Carbon Dioxide 28 mmol/L (22-30); Chloride 103 mmol/L (98-107); Estimated CRCL calculation 65 ml/min; Estimated Glomerular Filt Rate > 60; Glucose 110 mg/dL (75-110); Potassium 4.1 mmol/L (3.4-5.0); Sodium 136 mmol/L (137-145)
[2020-04-25] MEDS: LEVOTHYROXINE SODIUM 125 MCG TABLET PO (05:39)
[2020-04-25 08:26] LABS: Glucose Point of Care 105 (65-105)
[2020-04-25] MEDS: DESVENLAFAXINE SUCCINATE 50 MG TAB.ER.24H 100 MG PO (09:42)
[2020-04-25] MEDS: OMEGA 3 POLYUNSAT FATTY ACIDS 1 GM CAP 2 GM PO (09:43)
[2020-04-25] MEDS: GABAPENTIN 400 MG CAPSULE 1200 MG PO ×3 (09:43→16:23)
[2020-04-25] MEDS: PRAVASTATIN SODIUM 20 MG TABLET PO (09:43)
[2020-04-25] MEDS: FAMOTIDINE 20 MG/2 ML VIAL IV PUSH ×2 (09:44→20:15)
[2020-04-25] MEDS: ASPIRIN 81 MG ENTERIC TABLET PO (09:45)
[2020-04-25] MEDS: EZETIMIBE 10 MG TABLET PO (09:45)
[2020-04-25] MEDS: CHOLECALCIFEROL 1,000 UNIT TABLET 2000 UNITS PO (09:46)
--- NOTE | 2020-04-25 11:25 | PC.NURSE ---
Spoke with Dr. Headley about the orders for the cardiac catheterization scheduled for 04/26/2020. He stated that the orders were meant to be completed 04/26/2020 in the preop area.
[2020-04-25 11:51] LABS: Glucose Point of Care 121 (65-105)
--- NOTE | 2020-04-25 12:27 | PM.IMPN ---
Progress Note: A&P Assessment and Plan (1) Atrial flutter: Qualifiers: Atrial flutter type: unspecified Qualified Code(s): I48.92 - Unspecified atrial flutter Code(s): I48.92 - Unspecified atrial flutter Status: Acute Assessment and Plan: The patient has new-onset atrial flutter. Cardiology was consulted. His rate is controlled in the 90s. His HAS-BLED score was 2 indicating a moderate bleeding risk. [id number] Score was 5. Discuss[address] with [address] Headley. Continue therapeutic lovenox and hold after midnight tonight for cardiac cath tomorrow. (2) Aortic stenosis: Code(s): I35.0 - Nonrheumatic aortic (valve) stenosis Status: Acute Assessment and Plan: Per reports, his previous echo demonstrated severe aortic stenosis. Repeat echocardiogram was ordered and demonstrated severe aortic valve stenosis with a peak velocity of 373 cm/s, mean gradient of 28 mmHg, and aortic valve area of 0.8 cm2. Management per cardiology. (3) Coronary artery disease: Code(s): I25.10 - Atherosclerotic heart disease of [place] coronary artery without angina pectoris Status: Chronic Assessment and Plan: He has a hx of CAD. He had a stress test 11/2018 which revealed infarction with no inducible ischemia. Continue ASA and statin. He is not on a beta-lucy. Await cardiology input. (4) Orthostatic hypotension: Code(s): I95.1 - Orthostatic hypotension Status: Acute Assessment and Plan: He was orthostatic during his PCP visit. Subsequent readings do not demonstrate orthostasis. Continue to monitor. (5) Hyperlipidemia: Qualifiers: Hyperlipidemia type: mixed hyperlipidemia Qualified Code(s): E78.2 - Mixed hyperlipidemia Code(s): E78.5 - Hyperlipidemia, unspecified Status: Acute Assessment and Plan: Continue pravastatin, omega-3, and ezetimibe. (6) Anxiety with depression: Code(s): F41.8 - Other specified anxiety disorders Status: Acute Assessment and Plan: No acute issues. Continue quetiapine and desvenlafaxine. (7) Benign essential hypertension: Code(s): I10 - Essential (primary) hypertension Status: Acute Assessment and Plan: Losartan was discontinued by PCP due to orthostasis during his PCP visit. Repeat orthostatic BP measurements do not demonstrate orthostatic hypotension. Cardiology is on board. Blood pressures are reasonably controlled with some readings mildly elevated with systolic in the 140s. Continue to monitor. (8) Hypothyroidism (acquired): Code(s): E03.9 - Hypothyroidism, unspecified Status: Acute Assessment and Plan: TSH was 2.19. Continue levothyroxine. 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 Most recent HbA1c was 6.2. Continue ACHS glucose monitoring, sliding scale insulin, and hypoglycemia protocol. Continue januvia. Continue to monitor. Subjective Date/time seen: 04/25/20 12:27 Interval history: Mr. Romo is an 80 y.o. male who is seen in follow-up for atrial flutter and severe aortic stenosis. He is comfortable and awaiting cardiac cath tomorrow. His appetite is good. He denies chest pain, dyspnea at rest or with exertion, and palpitations. He denies dizziness, lightheadedness, and headaches. He had a regular bowel movement yesterday. He has no other complaints. Review of Systems Review of Systems: All systems reviewed & are unremarkable except as noted in HPI and below Exam Narrative: Exam Narrative: General
[2020-04-25 16:34] LABS: Glucose Point of Care 111 (65-105)
[2020-04-25] MEDS: QUEtiapine FUMARATE 25 MG TABLET PO (20:15)
[2020-04-25 21:32] LABS: Glucose Point of Care 115 (65-105)
[2020-04-26] VITALS (25 sets, daily range): BP systolic 110–160; BP diastolic 59–94; PULSE 67–94; RESP 12–20; TEMP 36.3–36.7; O2SAT 94–100
[2020-04-26 07:38] LABS: Glucose Point of Care 100 (65-105)
[2020-04-26] MEDS: FAMOTIDINE 20 MG/2 ML VIAL IV PUSH ×2 (08:09→20:36)
--- NOTE | 2020-04-26 10:19 | PM.IMPN ---
Progress Note: A&P Assessment and Plan (1) Atrial flutter: Qualifiers: Atrial flutter type: unspecified Qualified Code(s): I48.92 - Unspecified atrial flutter Code(s): I48.92 - Unspecified atrial flutter Status: Acute Assessment and Plan: The patient has new-onset atrial flutter. Cardiology was consulted. His rate is reasonably controlled. His HAS-BLED score was 2 indicating a moderate bleeding risk. [id number] Score was 5. Discussed with Dr. Headley and lovenox was initiated and held after midnight for cardiac cath today. Management per cardiology. (2) Aortic stenosis: Code(s): I35.0 - Nonrheumatic aortic (valve) stenosis Status: Acute Assessment and Plan: Per reports, his previous echo demonstrated severe aortic stenosis. Repeat echocardiogram was ordered and demonstrated severe aortic valve stenosis with a peak velocity of 373 cm/s, mean gradient of 28 mmHg, and aortic valve area of 0.8 cm2. Management per cardiology. (3) Coronary artery disease: Code(s): I25.10 - Atherosclerotic heart disease of [place] coronary artery without angina pectoris Status: Chronic Assessment and Plan: He has a hx of CAD. He had a stress test 11/2018 which revealed infarction with no inducible ischemia. Continue ASA and statin. He is not on a beta-lucy. He will undergo cardiac cath today. Management per cardiology. (4) Orthostatic hypotension: Code(s): I95.1 - Orthostatic hypotension Status: Acute Assessment and Plan: He was orthostatic during his PCP visit. Subsequent readings do not demonstrate orthostasis. He received IV fluids in the emergency department and losartan was discontinued prior to admission by his PCP. Continue to monitor. (5) Hyperlipidemia: Qualifiers: Hyperlipidemia type: mixed hyperlipidemia Qualified Code(s): E78.2 - Mixed hyperlipidemia Code(s): E78.5 - Hyperlipidemia, unspecified Status: Acute Assessment and Plan: Continue pravastatin, omega-3, and ezetimibe. (6) Anxiety with depression: Code(s): F41.8 - Other specified anxiety disorders Status: Acute Assessment and Plan: No acute issues. Continue quetiapine and desvenlafaxine. (7) Benign essential hypertension: Code(s): I10 - Essential (primary) hypertension Status: Acute Assessment and Plan: Losartan was discontinued by PCP due to orthostasis during his PCP visit. Repeat orthostatic BP measurements do not demonstrate orthostatic hypotension. Cardiology is on board. BP was elevated overnight. BP today is 137/78 at target. Continue to monitor. Await cardiology recommendations. (8) Hypothyroidism (acquired): Code(s): E03.9 - Hypothyroidism, unspecified Status: Acute Assessment and Plan: TSH was 2.19. Continue levothyroxine. (9) DM type 2 (diabetes mellitus, type 2): Qualifiers: Diabetes mellitus senior living insulin use: without senior living use Diabetes mellitus complication status: without complication Qualified Code(s): E11.9 - Type 2 diabetes mellitus without complications Code(s): E11.9 - Type 2 diabetes mellitus without complications Status: Acute Assessment and Plan: Blood sugars were reviewed and are well-controlled. Most recent HbA1c was 6.2. Continue ACHS glucose monitoring, sliding scale insulin, and hypoglycemia protocol. Continue januvia. Continue to monitor. Subjective Date/time seen: 04/26/20 10:19 Interval history: Mr. Romo is an 80 y.o. male who is seen in follow-up for atrial flutter and severe aortic stenosis. No acute events were noted overnight. He is awaiting cardic cath today. He ambulated the halls without difficulty today and has no complaints of chest pain, dyspnea, or palpitations. He is eating well. His bowels are regular. He has no urinary complaints. He has no complaints of cough, f
[2020-04-26 11:33] LABS: Glucose Point of Care 102 (65-105)
--- NOTE | 2020-04-26 12:37 | WPDMODSED ---
Moderate Sedation Note-Pt Data Patient Data Allergies Allergy/AdvReac Type Severity Reaction Status Date / Time No Known Allergies Allergy Verified 04/22/20 12:53 Home Medications Medication Instructions Recorded Confirmed Type pravastatin 20 mg tablet 20 mg PO DAILY #90 tablet 08/13/19 04/22/20 Rx aspirin 81 mg tablet,delayed 81 mg PO DAILY 08/20/19 04/22/20 History release blood sugar diagnostic #10 each 08/20/19 04/22/20 History cholecalciferol (vitamin D3) 50 2,000 unit PO DAILY 08/20/19 04/22/20 History mcg (2,000 unit) tablet desvenlafaxine succinate 100 mg 100 mg PO DAILY 08/20/19 04/22/20 History tablet,extended release 24 hr ezetimibe 10 mg tablet 10 mg PO DAILY 08/20/19 04/22/20 History gabapentin 600 mg tablet 1,200 mg PO TID #540 tablet 11/07/19 04/22/20 Rx levothyroxine 125 mcg tablet 125 mcg PO DAILY #90 tablet 02/06/20 04/22/20 Rx omega-3 fatty acids 1,000 mg 2,000 mg PO DAILY cap 03/17/20 04/22/20 History capsule quetiapine 25 mg PO HS 04/22/20 04/22/20 History sitagliptin [Januvia] 100 mg PO DAILY 04/22/20 04/22/20 History Current Medications: Active Medications Aspirin (Aspirin Ec) 81 mg PO DAILY [facility] Last Admin: 04/25/20 09:45 Dose: 81 mg Documented by: Desvenlafaxine Succinate (Pristiq) 100 mg PO DAILY [facility] Stop: 05/23/20 09:01 Last Admin: 04/25/20 09:42 Dose: 100 mg Documented by: Dextrose (Dextrose 50% Syringe) 12.5 gm IV PUSH PRN PRN; Protocol PRN Reason: Hypoglycemia Ezetimibe (Zetia) 10 mg PO DAILY [facility] Last Admin: 04/25/20 09:45 Dose: 10 mg Documented by: Famotidine (Pepcid Iv) 20 mg IV PUSH Q12HR [facility] Last Admin: 04/26/20 08:09 Dose: 20 mg Documented by: Fish Oil (Lovaza) 2 gm PO DAILY [facility] Last Admin: 04/25/20 09:43 Dose: 2 gm Documented by: Gabapentin (Neurontin) 1,200 mg PO TID [facility] Last Admin: 04/26/20 12:01 Dose: Not Given Documented by: Glucagon (Glucagon For Inj) 1 mg IM PRN PRN; Protocol PRN Reason: Hypoglycemia Glucose (Glutose 15) 15 gm PO PRN PRN; Protocol PRN Reason: Hypoglycemia Dextrose (Dextrose 5% 1,000 Ml) 1,000 mls @ 100 mls/hr IVPB PRN PRN; Protocol PRN Reason: Hypoglycemia Sodium Chloride (Normal Saline Iv) 500 mls @ 50 mls/hr IV CONT .Q10H [facility] Insulin Aspart (Novolog) 2 - 5 units SUB-Q TIDWM [facility]; Protocol Last Admin: 04/26/20 11:21 Dose: Not Given Documented by: Levothyroxine Sodium (Synthroid) 125 mcg PO DAILY@0630 [facility] Last Admin: 04/26/20 06:46 Dose: Not Given Documented by: Ondansetron HCl (Zofran Inj) 4 mg IV PUSH Q4H PRN PRN Reason: Nausea Last Admin: 04/23/20 06:56 Dose: 4 mg Documented by: Oxycodone/Acetaminophen (Percocet 5-325 Mg) 1 tablet PO Q4H PRN PRN Reason: Pain 7-10 Pravastatin Sodium (Pravastatin Sodium) 20 mg PO DAILY [facility] Last Admin: 04/25/20 09:43 Dose: 20 mg Documented by: Quetiapine Fumarate (Seroquel) 25 mg PO HS [facility] Last Admin: 04/25/20 20:15 Dose: 25 mg Documented by: Sitagliptin Phosphate (Januvia) 100 mg PO DAILY [facility] Last Admin: 04/25/20 09:43 Dose: 100 mg Documented by: Vitamin D (Vitamin D) 2,000 unit PO DAILY [facility] Last Admin: 04/25/20 09:46 Dose: 2,000 unit Documented by: Sedation/Anesthesia: No previous sedation/anesthesia problems (including family history). [facility] Past Medical History Medical History Abnormal finding of blood chemistry, unspecified Anxiety with depression Aortic valve stenosis, acquired Atrial flutter Atrial flutter Benign essential hypertension BMI 37.0-37.9, adult BMI 38.0-38.9,adult DM type 2 (diabetes mellitus, type 2) Encounter for routine adult health examination without abnormal findings Follow up Fracture, ribs History of head and neck cancer Resection of mandible with reconstruction (osteonecrosis) Hyperlipidemia Hypertension Hypothyroidism (acquired) Impaired functional mobility, balance, gait, and endurance Left carotid stenosis Multiple falls On [facility]
--- NOTE | 2020-04-26 12:37 | WPDHPUPDATE1 ---
History and Physical Update Update Date/Time: 04/26/20 12:37 History and Physical has been reviewed, including an updated exam of the patient. There are NO changes in the patient's condition. Risks, benefits, and alternatives have been discussed and questions answered. Patient agrees to proceed with procedure.
--- NOTE | 2020-04-26 12:37 | WPDCARDPROC ---
Cardiac Cath Procedure Note Date of procedure:: 04/26/20 Performing physician:: Hua Starks MD Date of service 04/26/2020 Indication:: severe aortic stenosis Brief clinical history:: this is a 80-year-old patient who does have a history of aortic stenosis and admitted to the hospital with shortness of breath, gait instability and was found to have orthostatic hypotension and new onset atrial flutter. echocardiogram suggestive to moderate or severe aortic stenosis. valve area reported to be 1 centimeter sq. Was brought to the [facility] for transcatheter aortic valve replacement. Procedure Procedure performed:: 1-Moderate sedation that started at 12:40 p.m.and ended at 2:05 p.m. with total duration 85 minutes using 3 mg of Versed and 75mcg fentanyl. The registered nurse was Pasquale Casiano. 2-Selective left and right coronary angiogram. 3- IFR of ostial left circumflex artery. 4- right heart catheterization. 4- Peripheral arterial distal aorta bilateral common, external iliacs bilateral arteries and bilateral common femoral arteries. 5-Deployment of 6 [place] Angio-Seal. Sedation/Medication given:: Moderate sedation. Access site:: Right common femoral artery and vein. Estimated blood loss:: 10cc Procedure note:: After informed consent patient was brought in to [facility] with the was draped and prepped in usual manner. Moderate sedation was given and the right groin was infiltrated using 1% lidocaine. 6 [place] sheath was obtained using micropuncture needle and the modified Seldinger technique. 7 [place] right femoral venous sheath was inserted using modified Seldinger technique. then after swan catheter was advanced to the right atrium, right ventricle, pulmonary artery with measurement of pressures and thermodilution cardiac output. We could not wedge just the pulmonary artery catheter.Selective left coronary angiogram was done using Five [place] CLS 3.5 guide catheter with the tip of the catheter placed in the left main coronary artery. then after that we did right away IFR of the ostium left circumflex artery lesion.Selective right coronary angiogram was done using JR4 catheter with the tip of the catheter placed to the right coronary artery. After that 5 [place] pigtail catheter was advanced To the distal our catheterization and peripheral angiogram was done.. Right common femoral arterial angiogram was done. Findings:: 1- left coronary artery is a large artery that divides into large LAD, large circumflex artery. Left main is Free of disease. 2- left anterior descending artery is a large artery that runs To the apex. Minimal irregularities. Medium-sized diagonal branch with minimal irregularities. 3- leftcircumflex artery is a large artery Has ostial 50% stenosis to 60%. Large OM 1 branch with minimal irregularities. 4- right coronary artery is Large artery and dominant and free of disease. 5- Opening arterial pressure was 120/80 and closing pressure 110/70. 6- right femoral artery angiogram shows no significant disease in the right common femoral artery. 7- Peripheral arterial angiogram shows no significant atherosclerotic disease however that left common iliac, left external iliac also severely tortuous. The right common iliac and external iliacs less tortuous. 8- IFR of ostial left circumflex artery lesion was 0.97. 9- right heart catheterization findings: - right atrial pressure was 10. - right ventricular pressure was 45/10. - pulmonary arterial pressure was 45/25 with a mean of 35. - thermodilution cardiac output was 4.5 liters/minute and the index was 2.12 - [place] cardiac output was 4.97 liters/minute and the index was 2.32 pulmonary artery oxygen saturation 54% - right atrial oxygen saturation was 58% - arterial oxygen saturation was 89% Conclusion:: 1- Ostial left circumflex artery 50% with IFR 0.97. 2- mild pulmonary hypertension. 3- tortuous left iliac arteries with no significant disease. 4- Underlying atrial flutter. Asse
--- NOTE | 2020-04-26 15:37 | PCCCNOTE ---
On 04/26/20, the student, Marcelle Olivier, provided care and completed [facility] documentation on this patient. I have reviewed the student's documentation and agree with the findings.
[2020-04-26] MEDS: GABAPENTIN 400 MG CAPSULE 1200 MG PO (16:18)
[2020-04-26] MEDS: OMEGA 3 POLYUNSAT FATTY ACIDS 1 GM CAP 2 GM PO (16:19)
[2020-04-26] MEDS: DESVENLAFAXINE SUCCINATE 50 MG TAB.ER.24H 100 MG PO (16:19)
[2020-04-26] MEDS: PRAVASTATIN SODIUM 20 MG TABLET PO (16:19)
[2020-04-26] MEDS: CHOLECALCIFEROL 1,000 UNIT TABLET 2000 UNITS PO (16:19)
[2020-04-26] MEDS: EZETIMIBE 10 MG TABLET PO (16:19)
[2020-04-26 16:28] LABS: Glucose Point of Care 89 (65-105)
[2020-04-26] MEDS: SODIUM CHLORIDE 0.9% IV 1,000 ML 100 ML IV CONT (16:28)
[2020-04-26] MEDS: ASPIRIN 81 MG ENTERIC TABLET PO (16:34)
[2020-04-26] MEDS: QUEtiapine FUMARATE 25 MG TABLET PO (20:36)
[2020-04-26 22:07] LABS: Glucose Point of Care 190 (65-105)
[2020-04-27] VITALS (12 sets, daily range): BP systolic 109–146; BP diastolic 56–81; PULSE 68–94; RESP 16–18; TEMP 36.6–36.7; O2SAT 94–98
[2020-04-27 05:08] LABS: Basophils Absolute Auto 0.1 K/mm3 (0.0-0.1); Basophils Percent Auto 0.8 % (0.2-1.2); Eosinophils Absolute Auto 0.4 K/mm3 (0-0.3); Eosinophils Percent Auto 4.6 % (0-4.4); Hematocrit 34.5 % (42.0-52.0); Hemoglobin 11.1 g/dL (14.0-18.0); Immature Granulocyte Absolute 0.02 K/mm3 (0.00-0.031); Immature Granulocyte Percent A 0.2 % (0-0.5); Lymphocytes Absolute Auto 1.16 K/mm3 (0.9-3.2); Mean Corpuscular HGB Conc 32.2 g/dl (32-36); Mean Corpuscular Hemoglobin 28.7 pg (26-34); Mean Corpuscular Volume 89.1 fl (80-100); Mean Platelet Volume 10.7 fl (7.4-10.4); Monocytes Absolute Auto 0.9 K/mm3 (0.1-0.6); Monocytes Percent Auto 10.6 % (2.6-8.5); Neutrophils Absolute Auto 5.8 K/mm3 (1.3-6.7); Neutrophils Percent Auto 69.8 % (45.5-73.1); Platelet Count Result 203 k/mm3 (150-375); Red Blood Count 3.87 M/mm3 (4.6-6.20); Red Cell Distribution Width 14.4 % (11.5-14.5); White Blood Count 8.3 K/mm3 (4.5-10.0)
[2020-04-27 05:17] LABS: Blood Urea Nitrogen 15 mg/dL (9-20); Calcium 8.5 mg/dL (8.4-10.2); Carbon Dioxide 27 mmol/L (22-30); Chloride 103 mmol/L (98-107); Estimated CRCL calculation 73 ml/min; Estimated Glomerular Filt Rate > 60; Glucose 100 mg/dL (75-110); Sodium 136 mmol/L (137-145)
[2020-04-27] MEDS: LEVOTHYROXINE SODIUM 125 MCG TABLET PO (06:37)
[2020-04-27] MEDS: FAMOTIDINE 20 MG/2 ML VIAL IV PUSH (08:22)
[2020-04-27] MEDS: ENOXAPARIN 120 MG/0.8 ML SYRINGE 105 MG SUB-Q (08:23)
[2020-04-27] MEDS: GABAPENTIN 400 MG CAPSULE 1200 MG PO ×3 (08:24→18:19)
[2020-04-27] MEDS: CHOLECALCIFEROL 1,000 UNIT TABLET 2000 UNITS PO (08:24)
[2020-04-27] MEDS: OMEGA 3 POLYUNSAT FATTY ACIDS 1 GM CAP 2 GM PO (08:24)
[2020-04-27] MEDS: DESVENLAFAXINE SUCCINATE 50 MG TAB.ER.24H 100 MG PO (08:24)
[2020-04-27] MEDS: ASPIRIN 81 MG ENTERIC TABLET PO (08:25)
[2020-04-27] MEDS: EZETIMIBE 10 MG TABLET PO (08:25)
[2020-04-27] MEDS: PRAVASTATIN SODIUM 20 MG TABLET PO (08:25)
[2020-04-27 08:34] LABS: Glucose Point of Care 138 (65-105)
--- NOTE | 2020-04-27 08:56 | PM.PNCARD ---
Progress Note: A&P Assessment and Plan (1) Aortic stenosis: Code(s): I35.0 - Nonrheumatic aortic (valve) stenosis Status: Acute Assessment and Plan: severe. Workup for TAVR will continue as an outpatient. (2) Coronary artery disease: Code(s): I25.10 - Atherosclerotic heart disease of [place] coronary artery without angina pectoris Status: Chronic Assessment and Plan: [id number] circumflex disease. Continue current meds (3) Atrial flutter: Qualifiers: Atrial flutter type: unspecified Qualified Code(s): I48.92 - Unspecified atrial flutter Code(s): I48.92 - Unspecified atrial flutter Status: Acute Assessment and Plan: discontinue enoxaparin and start Xarelto 20 mg p.o. daily. Plan for outpatient cardioversion and approximately 6 weeks. Discontinue fish oil to reduce bleeding risk (4) Left carotid stenosis: Code(s): I65.22 - Occlusion and stenosis of left carotid artery Status: Acute Subjective Date/time seen: 04/27/20 08:56 Interval history: Reason for admission: Weakness, atrial flutter, aortic stenosis Date of service 04/27/2020: Feels okay. Underwent coronary angiogram yesterday showing no obstructive coronary disease. Groin feels fine today. No chest pain or shortness of breath Review of Systems Review of Systems: All systems reviewed & are unremarkable except as noted in HPI and below Constitutional: Constitutional: Denies weakness Eyes: Eyes: Denies blurry vision ENT: Denies tinnitus Cardiovascular: Cardiovascular: Denies no additional cardiovascular complaints and Denies chest pain Respiratory: Respiratory: Denies cough Gastrointestinal: Gastrointestinal: Denies abdominal pain Genitourinary: Genitourinary: Denies dysuria Musculoskeletal: Musculoskeletal: Denies neck pain Integumentary/Breasts: Skin/Breast: Denies rash Neurologic: Denies confusion Psychiatric: Psychiatric: Denies behavioral changes Endocrine: Endocrine: Denies cold intolerance Hematologic/Lymphatic: Hematologic/Lymphatic: Denies easy bleeding Allergic/Immunologic: Allergic/Immunologic: Denies throat swelling Exam Const: General: comfortable and no acute distress Neck: Neck: not supple and no JVD Carotids: no bruits Resp: Effort & Inspection: normal respiratory effort Auscultation: clear to auscultation bilaterally, no crackles and no rales Cardio: Heart sounds: Murmur heart sound present (ESM at base) Other: regularly irregular. Right groin site has mild bruising but free of hematoma or bruit Skin: General skin exam: normal color Neuro: General: oriented to person Extrem: General: no edema Psych: Appearance: grossly normal Objective Data Vital Signs Vital Signs: Vital Signs - 24 hr 04/26/20 10:00 04/26/20 10:23 04/26/20 10:26 Temperature 36.5 C Pulse Rate 94 92 94 Respiratory Rate 18 Blood Pressure 137/78 146/89 H 151/85 H Pulse Oximetry 95 04/26/20 10:29 04/26/20 12:00 04/26/20 14:30 Temperature 36.3 C L Pulse Rate 92 80 86 Respiratory Rate 20 Blood Pressure 154/82 H 127/94 H Pulse Oximetry 97 04/26/20 14:45 04/26/20 15:00 04/26/20 15:15 Temperature Pulse Rate 81 78 70 Respiratory Rate 14 17 18 Blood Pressure 154/83 H 128/86 145/87 H Pulse Oximetry 96 94 96 04/26/20 15:48 04/26/20 16:00 04/26/20 16:15 Temperature 36.4 C Pulse Rate 84 90 90 Respiratory Rate 16 18 Blood Pressure 147/85 H 153/88 H Pulse Oximetry 99 99 04/26/20 17:15 04/26/20 18:15 04/26/20 19:15 Temperature 36.4 C 36.6 C 36.6 C Pulse Rate 76 78 79 Respiratory Rate 18 18 12 Blood Pressure 151/82 H 160/59 H 120/89 Pulse Oximetry 99 98 99 04/26/20 20:00 04/26/20 20:15 04/26/20 20:37 Temperature 36.6 C 36.6 C 36.6 C Pulse Rate 71 70 89 Respiratory Rate 12 16 12 Blood Pressure 120/89 125/90 152/81 H Pulse Oximetry 99 98 100 04/26/20 20:44 04/26/20 20:49 04/27/20 00:00 Temper
--- NOTE | 2020-04-27 11:24 | PM.DS ---
DS: Admitting Diagnosis Admitting Diagnosis Admitting Diagnosis: Unspecified atrial flutter DS: Discharge Diagnosis Discharge Diagnosis (1) Atrial flutter: Qualifiers: Atrial flutter type: unspecified Qualified Code(s): I48.92 - Unspecified atrial flutter Code(s): I48.92 - Unspecified atrial flutter Status: Acute (2) Aortic stenosis: Code(s): I35.0 - Nonrheumatic aortic (valve) stenosis Status: Acute (3) Coronary artery disease: Code(s): I25.10 - Atherosclerotic heart disease of [place] coronary artery without angina pectoris Status: Chronic (4) Orthostatic hypotension: Code(s): I95.1 - Orthostatic hypotension Status: Resolved (5) Hyperlipidemia: Qualifiers: Hyperlipidemia type: mixed hyperlipidemia Qualified Code(s): E78.2 - Mixed hyperlipidemia Code(s): E78.5 - Hyperlipidemia, unspecified Status: Acute (6) Anxiety with depression: Code(s): F41.8 - Other specified anxiety disorders Status: Acute (7) Benign essential hypertension: Code(s): I10 - Essential (primary) hypertension Status: Acute (8) Hypothyroidism (acquired): Code(s): E03.9 - Hypothyroidism, unspecified Status: Acute (9) DM type 2 (diabetes mellitus, type 2): Qualifiers: Diabetes mellitus complication status: without complication Diabetes mellitus [facility] insulin use: without bed bug exterminator use Qualified Code(s): E11.9 - Type 2 diabetes mellitus without complications Code(s): E11.9 - Type 2 diabetes mellitus without complications Status: Acute DS: Summary Hospital Course Reason for hospitalization: Atrial flutter Hospital Course: Mr. Romo is an 80 y.o. male with PMH significant for severe aortic stenosishypertension, T2DM, HLD, and hypothyroidism who presented to the emergency department at the request of his primary care doctor for the evaluation of atrial flutter noted on EKG at his outpatient PCP follow-up visit. He was also orthostatic and found to be very dehydrated so he was gently rehydrated. Initial workup in the emergency department revealed WBC 7,400, Hb 12.3, Hct 37.9, platelets 241, sodium 137, potassium 4.5, chloride 105, CO2 27, BUN 24, Cr 0.9, glucose 117, AST 35, ALT 24, ALP 123, troponin 0.012, BNP 720, UA with 3-5 RBC and 2 urobilinogen, CXR with possible heart enlargement with no other acute cardiopulmonary disease, and EKG with atrial flutter and borderline ST-T wave abnormality in the high lateral leads. Cardiology was consulted and the patient was not anticoagulated in the ED due to risk for falls and orthostatic hypotension. His rate was well-controlled. His orthostatic hypotension resolved with IV fluid rehydration. I discussed the case with cardiology and we started therapeutic lovenox as [id number] score 2was 5 and HAS-BLED score 2. Repeat echocardiogram was ordered and demonstrated severe aortic stenosis with a peak velocity of 373 cm/s, mean gradient of 28 mmHg, and aortic valve area of 0.8 cm2. He underwent cardiac catheterization 04/26/[address] Starks which reveale ostial left circumflex artery 50% with IFR 0.97, mild pulmonary hypertension, tortuous left iliac arteries with no significant disease, and underlying atrial flutter. He will be presented to the TAVR committee for consideration of TAVR. Blood pressures were elevated so I discussed this with cardiology and his losartan was resumed and he was monitored. He was discharged on xarelto and I discussed the risks of bleeding including fatal bleeding. He was cleared from a cardiology standpoint for discharge and he was discharged in stable condition on the afternoon of 04/27/20. He will follow-up with cardiology June 08, 2020 for cardioversion. He understood the plan for discharge and all questions were answered. Status at Discharge Functional status at discharge: independent ambulation Overall status at discharge: patient is back to baseline
[2020-04-27 11:30] LABS: Glucose Point of Care 121 (65-105)
[2020-04-27] MEDS: LOSARTAN POTASSIUM 25 MG TABLET PO (11:40)
--- NOTE | 2020-04-27 13:50 | PCCCNOTE ---
On 04/27/20, the student, Marcelle Olivier, provided care and completed [facility] documentation on this patient. I have reviewed the student's documentation and agree with the findings.
[2020-04-27 16:54] LABS: Glucose Point of Care 103 (65-105)
--- NOTE | 2020-04-27 17:26 | PM.CNCAR ---
Assessment and Plan Additional Plan 80-year-old man with a history of severe aortic valve stenosis. Echocardiogram done earlier this morning demonstrates valve area is critical at this time not surprisingly he is more symptomatic. Because of his valvular heart disease he has also developed atrial flutter. His atrial flutter is of unknown chronicity but has not been identified on previous exams. It is my opinion that he is probably more symptomatic from his aortic valve stenosis that he is of his atrial flutter since his heart rate is very well controlled indicating that he has significant AV node dysfunction. I would recommend arranging for right and left heart catheterization during this admission followed by a plan to be formulated for either surgical or percutaneous aortic valve replacement. Mark May MD [facility] History of Present Illness History of Present Illness Consult date/time: Date of service: 2019 Consult reason: aortic stenosis and shortness of breath Reason For Visit: atrial flutter,orthostatic hypotension Narrative: this is an 80-year-old man who has a history of aortic valve stenosis and is followed by Dr. Fuentes of our practice. He apparently was seen by his PCP day prior to admission and was reporting symptoms of increasing exertional shortness of breath. By physical exam he was somewhat orthostatic and he was found to be atrial flutter which was not previously identified. He was admitted to the hospital for evaluation of this and in this setting I been asked to see him in consultation. The patient in my opinion is not really aware of his arrhythmia. He does not really note the onset abnormal cardiac eating or tachy palpitations. His atrial flutter is very well rate controlled his sh heart rate is in the range of about 90 beats per minute most of the time. He is followed in our office by Dr. Fuentes as mentioned above and is known to have aortic valve disease. Aortic stenosis was measured by last echocardiogram in the office with the estimated valve area of about 1.0 cm2. He was either asymptomatic or mildly symptomatic and ongoing longitudinal follow-up of this was recommended. The patient states that in the last 2 months or so he is noticing a significant decrease in his exertional tolerance because of shortness of breath. As a normal daily life activities which he could previously perform without much difficulty he now has to stop because of dyspnea. He is not having any chest pain he is not experiencing orthopnea or PND. An echocardiogram was done upon this admission which I read a short time ago upon seeing the patient and his valve area looks to be severe with a peak systolic velocity in the aorta of about 3.8 m/sec and a calculated valve area of about 0.7-0.8. Long discussion was had with the patient about the fact that he has aortic valve stenosis appears to be quite severe at this point he also is in atrial flutter which is strictly speaking I would describe as being up uncertain chronicity. Review of Systems Constitutional: Constitutional: Reports lethargy Eyes: Eyes: Reports no additional eye complaints ENT: Reports system reviewed and no additional complaints, except as documented Cardiovascular: Cardiovascular: Reports as per HPI Respiratory: Respiratory: Reports dyspnea on exertion Gastrointestinal: Gastrointestinal: Reports no additional gastrointestinal complaints Genitourinary: Genitourinary: Reports no additional male genitourinary complaints Musculoskeletal: Musculoskeletal: Reports no additional musculoskeletal complaints Integumentary/Breasts: Skin/Breast: Reports system reviewed and no additional complaints, except as docu Neurologic: Reports system reviewed and no additional complaints, except as documented Psychiatric: Psychiatric: Reports no additional psychiatric complaints Endocrine: Endocrine: Reports no additional endocrine complaints Hematologic/Lymphatic: Hematologic
[2020-04-27] MEDS: RIVAROXABAN 20 MG TABLET PO (18:19)
== END 2020-04-27 18:37 | disposition home or self-care (01) | DRG 287 ==
LOC: ANHED 16:21 → ANH2MED 16:53
PROVIDERS: Emergency Medicine Emergency Medical Services; Internal Medicine Cardiovascular Disease; Nurse Practitioner; Physician Assistant; Admitting Provider Internal Medicine; Emergency Provider Emergency Medicine; PCP Internal Medicine; Visit Provider Internal Medicine
PROC: 4A033BC Measurement of Arterial Pressure, Coronary, Percutaneous Approach (ICD-10-PCS; CPT 93571; principal; 2020-04-26 11:45)
PROC: 4A023N8 Measurement of Cardiac Sampling and Pressure, Bilateral, Percutaneous Approach (ICD-10-PCS; 2020-04-26 11:45)
PROC: 4A023N8 Measurement of Cardiac Sampling and Pressure, Bilateral, Percutaneous Approach (ICD-10-PCS; CPT 93566; 2020-04-26 11:45)
DX: I35.0 Nonrheumatic aortic (valve) stenosis; I48.92 Unspecified atrial flutter; I27.20 Pulmonary hypertension, unspecified; E11.51 Type 2 diabetes mellitus with diabetic peripheral angiopathy without gangrene; I65.22 Occlusion and stenosis of left carotid artery; I95.1 Orthostatic hypotension; I10 Essential (primary) hypertension; I25.10 Atherosclerotic heart disease of native coronary artery without angina pectoris; E78.2 Mixed hyperlipidemia; E55.9 Vitamin D deficiency, unspecified; F41.8 Other specified anxiety disorders; R29.6 Repeated falls; Z96.642 Presence of left artificial hip joint; Z96.653 Presence of artificial knee joint, bilateral; Z79.82 Long term (current) use of aspirin; Z79.84 Long term (current) use of oral hypoglycemic drugs; Z85.46 Personal history of malignant neoplasm of prostate; Z98.1 Arthrodesis status; Z98.42 Cataract extraction status, left eye; Z98.41 Cataract extraction status, right eye
CPT/HCPCS: 36415; 71045; 80048; 80053; 81001; 82948; 83735; 83880; 84443; 84484; 85025; 85610; 85730; 93005; 93306; 93456; 93571; 96361; 96365; 96375; 97110; 97116; 97161; 97165; 97530; 99285; A9270; C1760; C1769; C1887; C1894; G0269; G0378; J0583; J1644; J1650; J2250; J2405; J3010; J7030; J7040; J7120

== ENCOUNTER 2020-06-05 01:21 | Outpatient (CLI) | payer MEDICARE, OTHER, SELFPAY ==
[2020-06-05 19:30] LABS: SARS-CoV-2 RNA PCR Negative
== END 2020-06-05 01:22 | disposition home or self-care (01) ==
LOC: ANHCOVIDDT 01:22
PROVIDERS: PCP Internal Medicine; Visit Provider Internal Medicine Cardiovascular Disease
DX: Z01.812 Encounter for preprocedural laboratory examination (principal); Z11.59 Encounter for screening for other viral diseases
CPT/HCPCS: 87635; C9803; U0003

== ENCOUNTER → 2020-06-08 01:23 | Day surgery (SDC) | payer MEDICARE, OTHER, SELFPAY ==
[2020-06-07 16:23] VITALS: BMI 36.3
--- NOTE | 2020-06-08 06:17 | ECG_ITS ---
Measurements Intervals Lawson Rate: 70 P: 50 AK: 212 QRS: 2 QRSD: 96 T: 32 QT: 378 QTc: 410 Interpretive Statements SINUS RHYTHM WITH FIRST DEGREE AV BLOCK EARLY PRECORDIAL R/S TRANSITION LEFT VENTRICULAR HYPERTROPHY ABNORMAL ECG Electronically Signed On 06-08-2020 9:23:00 CDT by Girish Tompkins D.O.
--- NOTE | 2020-06-08 11:27 | SUR.PREOP ---
Pt brought to [facility] rm 04 by wheelchair with . EKG performed and given to Dr. Fuentes. Procedure cancelled d/t normal rhythm per EKG. Pt taken to private car by wheelchair with
== END ==
PROVIDERS: PCP Internal Medicine; Visit Provider Internal Medicine Cardiovascular Disease
PROC: 5A2204Z Restoration of Cardiac Rhythm, Single (ICD-10-PCS; principal; 2020-06-08 10:00)
DX: I48.91 Unspecified atrial fibrillation (principal); Z53.8 Procedure and treatment not carried out for other reasons
CPT/HCPCS: 93005; 99211; G0463; J7040

== ENCOUNTER 2020-07-27 11:53 | Outpatient (CLI) | payer MEDICARE, OTHER, SELFPAY ==
--- NOTE | ~2020-07-27 | XR_ITS ---
EXAMINATION: XR hand LT min 3V INDICATION: Left hand pain TECHNIQUE: Three views of the left hand are obtained. 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 No fracture is identi fied. There is soft tissue swelling of the hand. Calcified atherosclerosis is noted. IMPRESSION: 1. Advanced polyarticular osteoarthritis without acute osseous abnormality identified. Reviewed, dictated and finalized at location A. IMPRESSION: 1. Advanced polyarticular osteoarthritis without acute osseous abnormality iden tified.
--- NOTE | ~2020-07-27 | XR_ITS ---
EXAMINATION: XR hip LT min 3V w AP pelvis INDICATION: Left hip pain TECHNIQUE: AP view of the pelvis and three views of the left hip are obtained. COMPARISON: None available FINDINGS: There is no fracture. Changes of left total hip arthroplasty are noted. No hardware failure or loosening is identified. There is advanced osteoarthritis in the right hip. Surgical changes are noted in the lumbar spine. There is calcified atherosclerosis. IMPRESSION: 1. No acute osseous abnormality. Reviewed, dictated and finalized at location A.
--- NOTE | ~2020-07-27 | XR_ITS ---
EXAMINATION: XR wrist LT min 3V DATE: 07/27/2020 12:37 INDICATION: Left wrist pain and swelling TECHNIQUE: Three views of the left wrist were obtained. COMPARISON: None available FINDINGS: There is advanced osteoarthritis of the wrist. No fracture is identified. Wrist soft tissue swelling is noted. There is calcified atherosclerosis. IMPRESSION: 1. Soft tissue swelling and advanced osteoarthritis without evidence of acute osseous abnormality. Reviewed, dictated and finalized at location A. IMPRESSION: 1. Soft tissue swelling and advanced osteoarthritis without evidence of acute o sseous abnormality.
[2020-07-27 12:27] LABS: Basophils Absolute Auto 0.1 K/mm3 (0.0-0.1); Basophils Percent Auto 0.6 % (0.2-1.2); Eosinophils Absolute Auto 0.2 K/mm3 (0-0.3); Eosinophils Percent Auto 1.5 % (0-4.4); Hematocrit 31.2 % (42.0-52.0); Immature Granulocyte Absolute 0.03 K/mm3 (0.00-0.031); Immature Granulocyte Percent A 0.3 % (0-0.5); Lymphocytes Absolute Auto 1.12 K/mm3 (0.9-3.2); Lymphocytes Percent Auto 10.9 % (18.3-44.2); Mean Corpuscular HGB Conc 32.1 g/dl (32-36); Mean Corpuscular Hemoglobin 25.6 pg (26-34); Mean Platelet Volume 10.2 fl (7.4-10.4); Monocytes Absolute Auto 0.7 K/mm3 (0.1-0.6); Neutrophils Absolute Auto 8.2 K/mm3 (1.3-6.7); Neutrophils Percent Auto 79.7 % (45.5-73.1); Platelet Count Result 260 k/mm3 (150-375); Red Cell Distribution Width 14.7 % (11.5-14.5); White Blood Count 10.3 K/mm3 (4.5-10.0)
[2020-07-27 12:40] LABS: Anion Gap 4 mmol/L (8-16); Blood Urea Nitrogen 21 mg/dL (9-20); CRP 8.4 mg/dL (<1.0); Calcium 9.3 mg/dL (8.4-10.2); Carbon Dioxide 30 mmol/L (22-30); Chloride 104 mmol/L (98-107); Estimated Glomerular Filt Rate > 60; Glucose 111 mg/dL (75-110); Potassium 4.6 mmol/L (3.4-5.0); Sodium 138 mmol/L (137-145); Uric Acid 4.3 mg/dL (3.5-8.5)
[2020-07-27 12:42] LABS: Rheumatoid Factor < 8.6 IU/ML (<12)
[2020-07-27 13:36] LABS: Erythrocyte Sedimentation Rate 28 mm/hr (0-20)
[2020-07-30 21:42] LABS: Anti Cyclic Citrullinated Pept <16 Units (<20)
== END 2020-07-27 11:54 | disposition home or self-care (01) ==
PROVIDERS: PCP Internal Medicine; Visit Provider Internal Medicine
DX: M25.442 Effusion, left hand (principal); M70.62 Trochanteric bursitis, left hip; M25.552 Pain in left hip
CPT/HCPCS: 36415; 73110; 73130; 73502; 80048; 84550; 85025; 85652; 86140; 86200; 86430

== ENCOUNTER 2020-09-06 12:50 | Outpatient (CLI) | payer MEDICARE, OTHER, SELFPAY ==
--- NOTE | ~2020-09-06 | US_ITS ---
EXAMINATION: US art doppler w press JUAN CANCINO EXAM DATE: 09/06/2020 13:40 INDICATION: I73.9 - Peripheral vascular disease, unspecified Decreased Pulses Left Foot. TECHNIQUE: Segmental pressures and plethysmographic and Doppler waveforms of the brachial and lower e xtremity arteries were obtained. There is no prior study for comparison. FINDINGS: Right and left brachial artery pressures of 152 mm Hg and 150 mm Hg, respectively, are concordant (no rmal difference <= 30 mmHg). RIGHT LEG: The ankle-brachial index (KARLA) is 1.11 (normal >= 0.9-1). The great toe-brachial index (TBI) is 0.84 (normal >= 0.65). The lower extremity ratios, segmental pressure gradients as follows; Dorsalis pedis: 1.11 (169 mmHg). Posterior tibial: Could not obtain ( mmHg). (Normal gradients <= 20-30 mmHg between adjacent levels on the same leg or the same levels on the two legs). Arterial waveforms are monophasic dorsalis pedis, otherwise biphasic. Could not obtain thigh pressures. LEFT LEG: The ankle-brachial index (KARLA) is 1.22 (normal >= 0.9-1). The great toe-brachial index (TBI) is 0.74 (normal >= 0.65). The lower extremity ratios, segmental pressure gradients as follows; Dorsalis pedis: 1.22 (185 mmHg). Posterior tibial: Could not obtain ( mmHg). (Normal gradients <= 20-30 mmHg between adjacent levels on the same leg or the same levels on the two legs). Arterial waveforms are monophasic dorsalis pedis, otherwise biphasic. Could not obtain thigh pressures. IMPRESSION: 1. Right ankle-brachial index 1.11, normal. 2. Left ankle-brachial index 1.22, normal. Reviewed, dictated and finalized at location A. 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
== END 2020-09-06 12:51 | disposition home or self-care (01) ==
PROVIDERS: PCP Internal Medicine; Visit Provider Internal Medicine
DX: I73.9 Peripheral vascular disease, unspecified (principal); M79.606 Pain in leg, unspecified; R20.9 Unspecified disturbances of skin sensation
CPT/HCPCS: 93923

== ENCOUNTER 2020-09-13 16:52 | Outpatient (CLI) | payer MEDICARE, OTHER, SELFPAY ==
--- NOTE | ~2020-09-13 | CT_ITS ---
EXAMINATION: CTA abd aorta runoff DATE: 09/13/2020 17:34 INDICATION: Peripheral vascular disease, occult lower extremity TECHNIQUE: Computed tomographic angiography (CTA) of the abdomen, pelvis, and both lower extremities was performed with 150 mL Omnipaque-350 intravenous contrast. The dose-length product (DLP) was 1738. 34 mGy-cm. Maximum intensity projection 3D-reconstructions of the arteries were created by the techno logist on a separate workstation. Automated exposure control and iterative reconstruction technique w ere employed. COMPARISON: None FINDINGS: ABDOMINAL AORTA AND ITS BRANCHES: There is calcified atherosclerosis of the aorta without aneurysm or dissection. Calcified atheroscler osis is also noted in the proximal superior mesenteric artery. The celiac axis and inferior mesenteri c artery are normal in appearance. There is a single right renal artery. Three left renal arteries ar e present. PELVIC VASCULATURE: There is a large vessel calcified atherosclerosis without hemodynamically significant stenosis. RIGHT LOWER EXTREMITY VASCULATURE: There is mild calcified atherosclerosis throughout the superficial femoral artery without hemodynamic ally significant stenosis. Evaluation of the popliteal artery is limited by streak artifact from knee arthroplasty. The tibioperoneal trunk is unremarkable. There is calcified atherosclerosis with occlu nilay involving much of the posterior tibial artery. The anterior tibial artery demonstrates mild athe rosclerosis without hemodynamically significant stenosis. There are areas of calcified atherosclerosi s with focal moderate stenosis in the peroneal artery. There is a three-vessel runoff at the ankle. LEFT LOWER EXTREMITY VASCULATURE: There is mild calcified atherosclerosis throughout the superficial femoral artery without hemodynamic ally significant stenosis. Evaluation of the popliteal artery is limited by streak artifact from knee arthroplasty. The tibioperoneal trunk is unremarkable. There is calcified atherosclerosis throughout the anterior tibial, posterior tibial, and peroneal arteries with multifocal areas of occlusion and reconstitution the anterior tibial artery and peroneal artery are patent at the ankle. ADDITIONAL FINDINGS: Minimal dependent atelectasis is present in the lung bases. The liver, pancreas, gallbladder, and adr enal glands are normal. There is a 13 mm cyst in the otherwise normal spleen. Cysts of the kidneys me asure up to 2.4 cm on the left. No pathologically enlarged abdominal or pelvic lymph nodes are identi fied. There is no free intraperitoneal gas or evidence of bowel obstruction. There are changes of mes h ventral hernia repair. A moderate volume of colonic stool is present. Colonic diverticulosis is pre sent without evidence of diverticulitis. There are changes of left total hip arthroplasty. There is s evere right hip osteoarthritis. Bilateral total knee arthroplasties are noted. There is a large right inguinal hernia containing fat. Severe thoracic and lumbar spondylosis is noted with changes of post erior fusion seen in the lumbar spine. There is advanced osteoarthritis of the right midfoot. IMPRESSION: 1. Vascular disease as detailed above. Reviewed, dictated and finalized at location A. 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
[2020-09-13 17:14] LABS: Estimated Glomerular Filt Rate > 60
== END 2020-09-13 16:53 | disposition home or self-care (01) ==
PROVIDERS: PCP Internal Medicine; Visit Provider Internal Medicine
DX: R20.9 Unspecified disturbances of skin sensation (principal); I35.0 Nonrheumatic aortic (valve) stenosis; R09.89 Other specified symptoms and signs involving the circulatory and respiratory systems; I70.0 Atherosclerosis of aorta; I70.8 Atherosclerosis of other arteries; I70.213 Atherosclerosis of native arteries of extremities with intermittent claudication, bilateral legs; D73.4 Cyst of spleen; K57.30 Diverticulosis of large intestine without perforation or abscess without bleeding; Z96.642 Presence of left artificial hip joint; M16.11 Unilateral primary osteoarthritis, right hip; K40.90 Unilateral inguinal hernia, without obstruction or gangrene, not specified as recurrent; M19.071 Primary osteoarthritis, right ankle and foot
CPT/HCPCS: 75635; Q9967

== ENCOUNTER 2020-11-18 15:00 | Outpatient (RCR) | payer MEDICARE, OTHER, SELFPAY ==
[2020-08-20 15:55] VITALS: BP 168/70; PULSE 65; RESP 16; TEMP 36.4; O2SAT 97
[2020-08-23 19:07] LABS: Glucose Point of Care 115 (65-105)
[2020-08-25 14:33] LABS: Glucose Point of Care 92 (65-105)
[2020-08-26 14:55] LABS: Glucose Point of Care 94 (65-105)
[2020-09-09 14:45] LABS: Glucose Point of Care 114 (65-105)
[2020-09-09 14:45] LABS: Glucose Point of Care 82 (65-105)
[2020-09-13 14:36] LABS: Glucose Point of Care 85 (65-105)
[2020-09-15 14:46] LABS: Glucose Point of Care 110 (65-105)
[2020-09-20 15:03] LABS: Glucose Point of Care 99 (65-105)
[2020-09-27 15:00] LABS: Glucose Point of Care 94 (65-105)
[2020-09-29 15:06] LABS: Glucose Point of Care 88 (65-105)
[2020-10-04 14:59] LABS: Glucose Point of Care 124 (65-105)
[2020-10-11 14:59] LABS: Glucose Point of Care 94 (65-105)
[2020-10-14 15:14] LABS: Glucose Point of Care 111 (65-105)
[2020-10-14 15:14] LABS: Glucose Point of Care 99 (65-105)
[2020-10-14 15:14] LABS: Glucose Point of Care 111 (65-105)
[2020-10-18 15:36] LABS: Glucose Point of Care 130 (65-105)
[2020-10-18 15:36] LABS: Glucose Point of Care 80 (65-105)
[2020-10-18 15:36] LABS: Glucose Point of Care 75 (65-105)
[2020-10-20 15:07] LABS: Glucose Point of Care 107 (65-105)
[2020-10-21 15:09] LABS: Glucose Point of Care 88 (65-105)
[2020-10-25 16:22] LABS: Glucose Point of Care 111 (65-105)
[2020-10-27 16:05] LABS: Glucose Point of Care 102 (65-105)
[2020-10-27 16:05] LABS: Glucose Point of Care 119 (65-105)
[2020-10-28 16:10] LABS: Glucose Point of Care 97 (65-105)
[2020-11-01 18:01] LABS: Glucose Point of Care 127 (65-105)
[2020-11-03 16:18] LABS: Glucose Point of Care 127 (65-105)
[2020-11-04 18:50] LABS: Glucose Point of Care 108 (65-105)
[2020-11-08 16:13] LABS: Glucose Point of Care 136 (65-105)
[2020-11-10 16:34] LABS: Glucose Point of Care 85 (65-105)
[2020-11-11 16:04] LABS: Glucose Point of Care 96 (65-105)
[2020-11-15 16:12] LABS: Glucose Point of Care 90 (65-105)
[2020-11-17 16:13] LABS: Glucose Point of Care 77 (65-105)
[2020-11-18 16:00] LABS: Glucose Point of Care 131 (65-105)
== END 2020-11-18 23:59 | disposition home or self-care (01) ==
LOC: ANHCPREHAB 15:00
PROVIDERS: PCP Internal Medicine; Visit Provider Internal Medicine Cardiovascular Disease
DX: Z95.2 Presence of prosthetic heart valve (principal); E11.9 Type 2 diabetes mellitus without complications; Z79.899 Other long term (current) drug therapy
CPT/HCPCS: 82948; 93798

== ENCOUNTER 2020-12-31 10:01 | Outpatient (RCR) | payer MEDICARE, OTHER, SELFPAY ==
[2020-12-31 10:50] LABS: Hematocrit 29.7 % (42.0-52.0); Hemoglobin 8.7 g/dL (14.0-18.0)
[2020-12-31 11:35] VITALS: BP 141/71; PULSE 62; RESP 16; TEMP 36.5; O2SAT 98
[2020-12-31 11:50] VITALS: BP 152/65; PULSE 62; RESP 15; TEMP 36.7; O2SAT 100
[2020-12-31 12:50] VITALS: BP 157/83; PULSE 67; RESP 16; TEMP 36.5; O2SAT 100
[2020-12-31 13:50] VITALS: BP 181/91; PULSE 63; RESP 18; TEMP 36.4; O2SAT 100
[2020-12-31 14:40] VITALS: BP 154/65; PULSE 67; RESP 17; TEMP 36.8; O2SAT 100
== END 2021-03-30 23:59 | disposition home or self-care (01) ==
LOC: ANHLAB 10:01
PROVIDERS: PCP Internal Medicine; Visit Provider Internal Medicine
DX: D50.0 Iron deficiency anemia secondary to blood loss (chronic) (principal)
CPT/HCPCS: 36415; 36430; 85014; 85018; 86850; 86900; 86901; 86920; J7050; P9016

== ENCOUNTER → 2021-01-08 05:17 | Outpatient (CLI) | payer MEDICARE, OTHER, SELFPAY ==
[2021-01-08 19:34] LABS: SARS-CoV-2 RNA PCR Negative
== END ==
PROVIDERS: PCP Internal Medicine; Visit Provider Internal Medicine Gastroenterology
DX: Z01.812 Encounter for preprocedural laboratory examination (principal); Z20.822 Contact with and (suspected) exposure to COVID-19
CPT/HCPCS: C9803; U0003; U0005

== ENCOUNTER 2021-01-12 01:18 | Day surgery (SDC) | payer MEDICARE, OTHER, SELFPAY ==
[2021-01-03 13:55] VITALS: BMI 34.8
[2021-01-12 08:12] VITALS: BP 130/75; PULSE 59; RESP 16; TEMP 36.4; O2SAT 99; BMI 36.2
[2021-01-12] MEDS: LACTATED RINGERS 1,000 ML 150 ML IV CONT (08:29)
[2021-01-12] MEDS: AMPICILLIN 2 GM/NS 100 ML 2 GM/100 ML BAG IVPB (08:32)
[2021-01-12 08:37] LABS: Glucose Point of Care 108 (65-105)
--- NOTE | 2021-01-12 08:42 | PM.HPGS ---
History of Present Illness History of Present Illness Consent: Risks, benefits, and alternatives have been discussed and questions answered. Patient agrees to proceed with procedure. Chief complaint: iron deficiency anemia Narrative: Mitch Romo is a 81 year old male who has been found to have iron deficiency anemia. His blood counts have been dropping requiring that he have a transfusion Review of Systems Review of Systems: All systems reviewed & are unremarkable except as noted in HPI and below PMFSH Past Medical History Medical History Abnormal finding of blood chemistry, unspecified Anxiety with depression Aortic valve stenosis, acquired Atrial flutter Atrial flutter Atrial flutter Benign essential hypertension BMI 35.0-35.9,adult BMI 36.0-36.9,adult DM type 2 (diabetes mellitus, type 2) Encounter for routine adult health examination with abnormal findings Encounter for routine adult health examination without abnormal findings Follow up Fracture, ribs Hearing loss of both ears Hip pain, left History of head and neck cancer Resection of mandible with reconstruction (osteonecrosis) Hospital discharge follow-up Hyperlipidemia Hypertension Hypothyroidism (acquired) Impaired functional mobility, balance, gait, and endurance Iron deficiency anemia Left carotid stenosis Multiple falls Need for shingles vaccine On oysterman drug therapy Orthostatic hypotension Osteonecrosis Painful and cold lower extremity Prostate cancer Status post prostatectomy Pulmonary nodules PVD (peripheral vascular disease) Swelling of joint, hand, left Vitamin D deficiency Surgical History Surgical History H/O bilateral cataract extraction H/O elbow surgery Left H/O inguinal hernia repair H/O neck surgery Radical neck surgery for cancer with subsequent radiation and chemotherapy. H/O prostatectomy H/O rectal polypectomy H/O spinal fusion H/O ventral hernia repair History of bilateral carpal tunnel release Status post left hip replacement Status post myringotomy with insertion of tube Total knee replacement status Bilateral Family History Family History Mother Diabetes mellitus Hypertension Family history of cardiovascular disease Family history of diabetes mellitus in first degree relative Family history of heart disease in male family member before age 55 Sibling Hypertension Brother and sister Diabetes mellitus Brother and sister Social History Social History Social History: Patient has a son and daughter he is retired from [employer]. 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 His significant other is a nurse. Patient is a lifelong nonsmoker. He does use any marijuana or illicit drugs. He does use any alcohol either. He desires to be a full code. Smoking status: Never smoker Second hand tobacco smoke exposure: Yes Alcohol intake: never Substance use: never Substance use type: does not use Living arrangements: with family Gender identity (if verbalized by the patient): Male Spiritual care concerns: No Meds Home Medications and Allergies Home Medications Medication Instructions Recorded Confirmed Type blood sugar diagnostic #10 each 08/20/19 12/30/20 History cholecalciferol (vitamin D3) 50 2,000 unit PO DAILY 08/20/19 01/12/21 History mcg (2,000 unit) tablet desvenlafaxine succinate 100 mg 100 mg PO DAILY 08/20/19 01/12/21 History tablet,extended release 24 hr quetiapine 50 mg PO HS 04/22/20 01/12/21 History rivaroxaban [Xarelto] 20 mg PO DAILY@1700 #30 tablet 04/27/20 01/12/21 Rx ezetimibe 10 mg tablet 10 mg PO DAILY #90 tablet 07/13/20 01/12/21 Rx hydrocodone 5 mg-acetaminophen 325 See Rx Inst
--- NOTE | 2021-01-12 08:51 | WPDANESEPPF ---
Anes - Initial Pre Proc Eval Procedure: Operation Date: 01/12/21 09:00 Proposed Procedures p Esophagogastroduodenoscopy & Colonoscopy - Andi Pope MD Date/Time: 01/12/21 08:51 Surgeon: Andi Pope MD Pre Op Diagnosis: iron deficiency anemia Patient Data Age: 81 Gender: M Height: 5 ft 6 in Weight: 101.8 kg Last Vital Signs Temp 97.6 F 01/12/21 08:12 Pulse 59 L 01/12/21 08:12 Resp 16 01/12/21 08:12 BP 130/75 01/12/21 08:12 Pulse Ox 99 01/12/21 08:12 Allergies Allergy/AdvReac Type Severity Reaction Status Date / Time No Known Allergies Allergy Verified 01/12/21 08:11 Home Medications Medication Instructions Recorded Confirmed Type blood sugar diagnostic #10 each 08/20/19 12/30/20 History cholecalciferol (vitamin D3) 50 2,000 unit PO DAILY 08/20/19 01/12/21 History mcg (2,000 unit) tablet desvenlafaxine succinate 100 mg 100 mg PO DAILY 08/20/19 01/12/21 History tablet,extended release 24 hr quetiapine 50 mg PO HS 04/22/20 01/12/21 History rivaroxaban [Xarelto] 20 mg PO DAILY@1700 #30 tablet 04/27/20 01/12/21 Rx ezetimibe 10 mg tablet 10 mg PO DAILY #90 tablet 07/13/20 01/12/21 Rx hydrocodone 5 mg-acetaminophen 325 See Rx Instructions PO PRN PRN #60 08/26/20 01/12/21 Rx mg tablet tablet losartan 25 mg tablet See Rx Instructions .ROUTE 10/04/20 01/12/21 Rx .COMPLEX #90 tablet blood sugar diagnostic #100 ea 10/25/20 12/30/20 Rx gabapentin 300 mg capsule 600 mg PO BID 90 Days #360 cap 11/01/20 01/12/21 Rx levothyroxine 125 mcg tablet 125 mcg PO DAILY #90 tablet 11/01/20 01/12/21 Rx pravastatin 20 mg tablet See Rx Instructions .ROUTE 11/01/20 01/12/21 Rx .COMPLEX #90 tablet sitagliptin 100 mg tablet 100 mg PO DAILY #90 tablet 11/01/20 01/12/21 Rx ferrous sulfate 325 mg (65 mg 325 mg PO BID #60 tablet 12/30/20 01/12/21 Rx iron) tablet stannous fluoride [Fluoride] 1 applic DENTAL TID 01/03/21 01/12/21 History Laboratory Tests 01/12/21 08:27 POC Capillary Glucose 108 mg/dl mg/dl (65-105) Patient hx anesthesia problems: none Family hx anesthesia problems: none PMFSH Past Medical History Medical History Abnormal finding of blood chemistry, unspecified Anxiety with depression Aortic valve stenosis, acquired Atrial flutter Atrial flutter Atrial flutter Benign essential hypertension BMI 35.0-35.9,adult BMI 36.0-36.9,adult DM type 2 (diabetes mellitus, type 2) Encounter for routine adult health examination with abnormal findings Encounter for routine adult health examination without abnormal findings Follow up Fracture, ribs Hearing loss of both ears Hip pain, left History of head and neck cancer Resection of mandible with reconstruction (osteonecrosis) Hospital discharge follow-up Hyperlipidemia Hypertension Hypothyroidism (acquired) Impaired functional mobility, balance, gait, and endurance Iron deficiency anemia Left carotid stenosis Multiple falls Need for shingles vaccine 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 H/O prostatectomy H/O rectal polypectomy H/O spinal fusion H/O ventral hernia repair History of bilateral carpal tunnel release Status post left hip replacement Status post myringotomy with insertion of tube Total knee replacement status Bilateral Family History Family History Mother Diabetes mellitus Hypertension Family history of cardiovascu
[2021-01-12] MEDS: GENTAMICIN 80MG/SOD CHL 50 ML 80 MG/50 ML BAG 100 MG IVPB (09:01)
[2021-01-12 09:30] VITALS: BP 101/53; PULSE 52; RESP 16; O2SAT 94
[2021-01-12 09:40] VITALS: BP 126/68; PULSE 51; RESP 16; O2SAT 98
[2021-01-12 09:50] VITALS: BP 135/70; PULSE 55; RESP 16; O2SAT 100
--- NOTE | 2021-01-12 10:36 | SUR.PHASEII ---
Dr. Pope made aware of positive H. Pylori.
== END 2021-01-12 10:05 | disposition home or self-care (01) ==
PROVIDERS: PCP Internal Medicine; Visit Provider Internal Medicine Gastroenterology
PROC: 0DJ08ZZ Inspection of Upper Intestinal Tract, Via Natural or Artificial Opening Endoscopic (ICD-10-PCS; CPT 43235; principal; 2021-01-12 09:00)
DX: D50.9 Iron deficiency anemia, unspecified (principal); K21.00 Gastro-esophageal reflux disease with esophagitis, without bleeding; K29.50 Unspecified chronic gastritis without bleeding; B96.81 Helicobacter pylori [H. pylori] as the cause of diseases classified elsewhere; K22.70 Barrett's esophagus without dysplasia; K57.30 Diverticulosis of large intestine without perforation or abscess without bleeding; I48.92 Unspecified atrial flutter; I10 Essential (primary) hypertension; E11.51 Type 2 diabetes mellitus with diabetic peripheral angiopathy without gangrene; E78.5 Hyperlipidemia, unspecified; E03.9 Hypothyroidism, unspecified; F41.8 Other specified anxiety disorders; Z85.46 Personal history of malignant neoplasm of prostate; E55.9 Vitamin D deficiency, unspecified; Z98.1 Arthrodesis status; Z79.01 Long term (current) use of anticoagulants; Z79.84 Long term (current) use of oral hypoglycemic drugs; Z79.891 Long term (current) use of opiate analgesic
CPT/HCPCS: 45378; 43239; 87081; 88305; 88342; J0290; J1580; J2704; J7120

== ENCOUNTER 2021-08-04 13:29 | Outpatient (CLI) | payer MEDICARE, OTHER, SELFPAY ==
--- NOTE | ~2021-08-04 | XR_ITS ---
EXAMINATION: XR chest 2V EXAM DATE: 08/04/2021 13:49 INDICATION: Possible aspiration Last Night, Cough/Wheeze Today. TECHNIQUE: Frontal and lateral projections of the chest obtained and reviewed. There is no prior shirlene dy for comparison. FINDINGS: Stent across the aortic valve. The lungs are clear. There are no pleural effusions. The cardiomediastinal silhouette is within normal limits. There is no pneumothorax suspected. Moderate thoracic spondylosis. Lumbar posterior fusion hardware. Right axillary surgical clips. IMPRESSION: No acute cardiopulmonary findings. Reviewed, dictated and finalized at location B.
== END 2021-08-04 13:30 | disposition home or self-care (01) ==
LOC: ANHIMG 13:34
PROVIDERS: PCP Internal Medicine; Visit Provider Internal Medicine
DX: R05.9 Cough, unspecified (principal)
CPT/HCPCS: 71046

== ENCOUNTER 2021-10-31 15:18 | Outpatient (CLI) | payer MEDICARE, OTHER, SELFPAY ==
--- NOTE | ~2021-10-31 | XR_ITS ---
XR elbow LT 2V DATE: 10/31/2021 15:40 INDICATION: Abscess of bursa TECHNIQUE: AP and lateral views COMPARISON: 07/26/2011 left elbow FINDINGS: There is dorsal soft tissue swelling at the elbow and proximal forearm. There are 2 plates along the distal humerus with multiple through screws, providing internal fixation for an old comminuted distal humeral fracture. There is a plate with multiple through screws along the dorsal aspect of olecranon process in very pr oximal shaft. No recent fracture or dislocation is detected. No joint effusion is evident. No periosteal reaction or definite bone destruction is noted. It is osteoarthritic change at the elbo w joint. IMPRESSION: Postoperative change of the distal humerus and proximal ulna Posterior soft tissue swelling of the elbow and proximal forearm No periosteal reaction or obvious bone destruction is noted. 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 LEY CAR OPERATOR IMPRESSION: Postoperative change of the distal humerus and proximal ulna Posterior soft tissue swelling of the elbow and proximal forearm No periosteal reaction or obvious bone destruction is noted. 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
== END 2021-10-31 15:19 | disposition home or self-care (01) ==
PROVIDERS: PCP Internal Medicine; Visit Provider Internal Medicine
DX: M71.029 Abscess of bursa, unspecified elbow (principal); Z98.890 Other specified postprocedural states; M79.89 Other specified soft tissue disorders; M19.022 Primary osteoarthritis, left elbow
CPT/HCPCS: 73070

== ENCOUNTER 2021-11-11 15:35 | Outpatient (CLI) | payer MEDICARE, OTHER, SELFPAY ==
[2021-11-11 16:25] LABS: Basophils Absolute Auto 0.1 K/mm3 (0.0-0.1); Basophils Percent Auto 0.7 % (0.2-1.2); Eosinophils Absolute Auto 0.1 K/mm3 (0-0.3); Eosinophils Percent Auto 0.7 % (0-4.4); Hematocrit 40.1 % (42.0-52.0); Hemoglobin 12.6 g/dL (14.0-18.0); Immature Granulocyte Absolute 0.03 K/mm3 (0.00-0.031); Immature Granulocyte Percent A 0.3 % (0-0.5); Lymphocytes Percent Auto 13.1 % (18.3-44.2); Mean Corpuscular HGB Conc 31.4 g/dl (32-36); Mean Corpuscular Hemoglobin 30.2 pg (26-34); Mean Corpuscular Volume 96.2 fl (80-100); Mean Platelet Volume 9.7 fl (7.4-10.4); Monocytes Absolute Auto 0.9 K/mm3 (0.1-0.6); Monocytes Percent Auto 8.8 % (2.6-8.5); Neutrophils Absolute Auto 8.2 K/mm3 (1.3-6.7); Neutrophils Percent Auto 76.4 % (45.5-73.1); Platelet Count Result 310 k/mm3 (150-375); Red Blood Count 4.17 M/mm3 (4.6-6.20); Red Cell Distribution Width 12.5 % (11.5-14.5); White Blood Count 10.7 K/mm3 (4.5-10.0)
[2021-11-11 16:37] LABS: Alanine Aminotransferase 17 U/L (4-50); Albumin Level 3.9 g/dL (3.5-5.1); Alkaline Phosphatase 113 U/L (38-126); Anion Gap 6 mmol/L (8-16); Aspartate Amino Transferase 25 U/L (17-59); Bilirubin,Total 0.6 mg/dL (0.2-1.3); Blood Urea Nitrogen 19 mg/dL (9-20); CRP 8.2 mg/dL (<1.0); Calcium 9.5 mg/dL (8.4-10.2); Carbon Dioxide 28 mmol/L (22-30); Chloride 103 mmol/L (98-107); Estimated Glomerular Filt Rate > 60; Glucose 120 mg/dL (65-110); Potassium 4.6 mmol/L (3.4-5.0); Sodium 137 mmol/L (137-145)
[2021-11-11 17:02] LABS: Erythrocyte Sedimentation Rate 34 mm/hr (0-20)
== END 2021-11-11 15:36 | disposition home or self-care (01) ==
PROVIDERS: PCP Internal Medicine; Visit Provider Orthopaedic Surgery
DX: M25.522 Pain in left elbow (principal); M25.422 Effusion, left elbow
CPT/HCPCS: 36415; 80053; 85025; 85652; 86140; 87070; 87075; 87077; 87186; 87205

== ENCOUNTER 2021-11-14 11:27 | Emergency (ER) | payer MEDICARE, OTHER, SELFPAY ==
--- NOTE | ~2021-11-14 | CT_ITS ---
EXAMINATION: CT brain wo con DATE: 11/14/2021 11:50 INDICATION: Fall, left-sided head injury, left periorbital hematoma. Patient is on blood thinners. Hi story of osteonecrosis of the mandible. TECHNIQUE: Computed tomography (CT) of the head was performed without intravenous contrast. The mA wa s adjusted according to patient size. Iterative reconstruction technique was employed. Exam dose: 60 5.33 mGy-cm total exam DLP. COMPARISON: 03/17/2020 CT brain FINDINGS: Vertebrobasilar and prominent bilateral carotid siphon and supraclinoid internal carotid ar beck calcifications are noted. There is nonspecific diminished attenuation cerebral white matter, lik isabella due to chronic small vessel ischemic changes. No intracranial mass lesion or hemorrhage or cerebrovascular accident is evident. There is minimal bi lateral basal ganglia calcification. There is moderate central and cortical cerebral atrophy. No subdural or epidural hematoma is detected. No fracture or bone destruction of the cranial vault. The mastoid air cells are unremarkable. Minimal mucoperiosteal thickening of the paranasal sinuses. IMPRESSION: Cerebral atherosclerosis and chronic small vessel ischemic changes of the cerebral white matter No acute intracranial finding. Moderate central and cortical cerebral atrophy No skull fracture Reviewed, dictated and finalized at Location [facility]. Reviewed, dictated and finalized at location A. LOGY NAVIGATOR
--- NOTE | ~2021-11-14 | CT_ITS ---
EXAMINATION: CT facial bones wo con DATE: 11/14/2021 11:50 INDICATION: Left-sided head injury. Left periorbital hematoma. TECHNIQUE: Computed tomography (CT) of the facial bones and maxillofacial region was performed withou t intravenous contrast. Automated exposure control and iterative reconstruction technique were employ ed. Exam dose: 276.83 mGy-cm total exam DLP. COMPARISON: November 14, 2021 CT brain FINDINGS: Plate and screws of the right side of the mandible are noted. There is minimal mucoperiosteal thickening of the paranasal sinuses. Frontozygomatic sutures, orbital rims and philip, zygomatic arches and remainder of the facial bones a re intact, without evidence of recent fracture. No orbital blowout fracture. Leftward deviation of the nasal septum. C1 and C2 appear normally aligned and the odontoid process is intact. Levoscoliosis of the cervical spine. Severe degenerative disc disease at included C4-5 and C5-6. Prominent uncovertebral joint spurring at C3-4 and C4-5 and C5-C6. Degenerative change of the cervica l apophyseal joints. IMPRESSION: No orbital or facial fracture is demonstrated Reviewed, dictated and finalized at [facility]. Reviewed, dictated and finalized at location A. S SPECIALIST
[2021-11-14 11:29] VITALS: BP 149/85; PULSE 71; RESP 17; TEMP 36.7; O2SAT 100
--- NOTE | 2021-11-14 14:17 | ED.GENADULT ---
HPI - General Adult General Chief complaint: Head Injury Stated complaint: Fall Time Seen by Provider: 11/14/21 12:46 Source: patient Mode of arrival: ambulatory Limitations: no limitations History of Present Illness HPI narrative: Patient presents for evaluation after sustaining a ground-level fall yesterday around 1630. He indicates he tripped while outdoors and landed on the concrete. He hit his face against the ground. No loss of consciousness. He is on xarelto normally for a-fib but his last dose of medication was 24 hrs prior to time of the fall. He has a planned left elbow surgery tomorrow with Dr Ardon so was advised to stop his xarelto. He notes some bruising around the left eye. He denies any dizziness, nausea, vomiting. Denies headache. She did experience the pain in the parietal aspect of his head when he stood up this morning after getting up out of bed. The pain was mild and resolved within seconds. He contacted his jewelry drilling machine operator, who advised that he come in for further evaluation. Denies any neck pain or any other injuries. Date of last tetanus was about 7 to 8 years ago. Related Data Home Medications Medication Instructions Recorded Confirmed blood sugar diagnostic #10 each 08/20/19 11/02/21 cholecalciferol (vitamin D3) 50 2,000 unit PO DAILY 08/20/19 11/02/21 mcg (2,000 unit) tablet desvenlafaxine succinate 100 mg 100 mg PO DAILY 08/20/19 11/02/21 tablet,extended release 24 hr stannous fluoride 1 applic DENTAL TID 01/03/21 11/02/21 trazodone 50 mg tablet 50 mg PO QHS PRN 02/04/21 11/02/21 aspirin 81 mg tablet,delayed 81 mg PO DAILY 04/22/21 11/02/21 release lorazepam 0.5 mg tablet 0.5 mg PO DAILY PRN 09/09/21 11/02/21 mirtazapine 15 mg tablet 22.5 mg PO DAILY tablet 09/09/21 11/02/21 Allergies Allergy/AdvReac Type Severity Reaction Status Date / Time No Known Allergies Allergy Verified 11/14/21 11:37 Review of Systems Review of Systems: CONSTITUTIONAL: Denies fever, chills, or sweats. EYES: Denies visual changes, redness, or discharge. ENT: Denies rhinorrhea, congestion, sore throat, or otalgia. CARDIOVASCULAR: Denies chest pain, palpitations, or edema. RESPIRATORY: Denies cough or dyspnea. GASTROINTESTINAL: Denies abdominal pain, nausea, vomiting, or diarrhea. GENITOURINARY: Denies dysuria or hematuria. SKIN: Reports bruising around the left eye. Denies rash or itching. MUSCULOSKELETAL: Denies back pain, joint pain, or myalgia. NEUROLOGIC: Denies headache, numbness, dizziness, or weakness. PSYCHIATRIC: Denies anxiety or depression. [facility] Past Medical History Medical History Abnormal finding of blood chemistry, unspecified Anxiety with depression Aortic valve stenosis, acquired Atrial flutter Atrial flutter Benign essential hypertension BMI 33.0-33.9,adult BMI 35.0-35.9,adult BMI 36.0-36.9,adult Cough DM type 2 (diabetes mellitus, type 2) Encounter for Medicare annual wellness exam Encounter for routine adult health examination with abnormal findings Encounter for routine adult health examination without abnormal findings Follow up Fracture, ribs Hearing loss of both ears Hip pain, left History of head and neck cancer Resection of mandible with reconstruction (osteonecrosis) History of prostate cancer Hospital discharge follow-up Hx of colonic polyps Hyperlipidemia Hypertension Hypothyroidism (acquired) Impaired functional mobility, balance, gait, and endurance Iron deficiency anemia Left carotid stenosis Multiple falls Need for shingles vaccine On senior living drug therapy Orthostatic hypotension Osteonecrosis Painful and cold lower extremity Peripheral neuropathy Prostate cancer Status post prostatectomy Pulmonary nodules PVD (peripheral vascular disease) Skin cancer SVT (supraventricular tachycardia) Swelling of joint, hand, left Vitamin D deficiency Surgical History Surgical History (Reviewed 11/14/21 @ 1
[2021-11-14] MEDS: TETANUS,DIPHTHERIA,AC PERTUSSIS ADULT (0.5 ML) BOOSTRIX IM (14:22)
== END 2021-11-14 14:31 | disposition home or self-care (01) ==
PROVIDERS: Emergency Provider Nurse Practitioner; PCP Internal Medicine
DX: S05.12XA Contusion of eyeball and orbital tissues, left eye, initial encounter (principal); Z23 Encounter for immunization; I48.92 Unspecified atrial flutter; I10 Essential (primary) hypertension; E11.42 Type 2 diabetes mellitus with diabetic polyneuropathy; E11.51 Type 2 diabetes mellitus with diabetic peripheral angiopathy without gangrene; E78.5 Hyperlipidemia, unspecified; E03.9 Hypothyroidism, unspecified; I65.22 Occlusion and stenosis of left carotid artery; I35.0 Nonrheumatic aortic (valve) stenosis; D50.9 Iron deficiency anemia, unspecified; E55.9 Vitamin D deficiency, unspecified; F41.8 Other specified anxiety disorders; Z86.010 Personal history of colon polyps; Z85.46 Personal history of malignant neoplasm of prostate; Z85.828 Personal history of other malignant neoplasm of skin; Z85.89 Personal history of malignant neoplasm of other organs and systems; Z90.79 Acquired absence of other genital organ(s); Z79.82 Long term (current) use of aspirin; Z79.01 Long term (current) use of anticoagulants; Z98.42 Cataract extraction status, left eye; Z98.41 Cataract extraction status, right eye; Z98.1 Arthrodesis status; Z95.2 Presence of prosthetic heart valve; Z96.642 Presence of left artificial hip joint; Z96.653 Presence of artificial knee joint, bilateral; I67.2 Cerebral atherosclerosis; W01.0XXA Fall on same level from slipping, tripping and stumbling without subsequent striking against object, initial encounter
CPT/HCPCS: 70450; 70486; 90471; 90715; 99284

== ENCOUNTER 2021-12-08 13:49 | Outpatient (CLI) | payer MEDICARE, OTHER, SELFPAY ==
[2021-12-08 14:38] LABS: Basophils Absolute Auto 0.1 K/mm3 (0.0-0.1); Basophils Percent Auto 1.1 % (0.2-1.2); Eosinophils Absolute Auto 0.1 K/mm3 (0-0.3); Eosinophils Percent Auto 1.7 % (0-4.4); Hematocrit 34.4 % (42.0-52.0); Immature Granulocyte Absolute 0.02 K/mm3 (0.00-0.031); Immature Granulocyte Percent A 0.3 % (0-0.5); Lymphocytes Absolute Auto 1.36 K/mm3 (0.9-3.2); Lymphocytes Percent Auto 19.3 % (18.3-44.2); Mean Corpuscular Hemoglobin 29.7 pg (26-34); Mean Platelet Volume 10.2 fl (7.4-10.4); Monocytes Absolute Auto 0.7 K/mm3 (0.1-0.6); Monocytes Percent Auto 9.2 % (2.6-8.5); Neutrophils Absolute Auto 4.8 K/mm3 (1.3-6.7); Neutrophils Percent Auto 68.4 % (45.5-73.1); Platelet Count Result 181 k/mm3 (150-375); Red Cell Distribution Width 13.3 % (11.5-14.5)
[2021-12-08 14:49] LABS: Anion Gap 5 mmol/L (8-16); Blood Urea Nitrogen 23 mg/dL (9-20); Calcium 8.9 mg/dL (8.4-10.2); Carbon Dioxide 29 mmol/L (22-30); Chloride 103 mmol/L (98-107); Estimated Glomerular Filt Rate > 60; Glucose 104 mg/dL (65-110); Potassium 4.5 mmol/L (3.4-5.0); Sodium 137 mmol/L (137-145)
== END 2021-12-08 13:50 | disposition home or self-care (01) ==
LOC: ANHLAB 13:51
PROVIDERS: PCP Internal Medicine; Visit Provider Internal Medicine
DX: R60.0 Localized edema (principal); R60.9 Edema, unspecified; I10 Essential (primary) hypertension
CPT/HCPCS: 36415; 80048; 85025

== ENCOUNTER 2021-12-15 15:09 | Outpatient (CLI) | payer MEDICARE, OTHER, SELFPAY ==
[2021-12-15 16:03] LABS: Anion Gap 4 mmol/L (8-16); Blood Urea Nitrogen 29 mg/dL (9-20); Carbon Dioxide 32 mmol/L (22-30); Chloride 101 mmol/L (98-107); Estimated Glomerular Filt Rate > 60; Glucose 111 mg/dL (65-110); Potassium 4.3 mmol/L (3.4-5.0); Sodium 137 mmol/L (137-145)
== END 2021-12-15 15:10 | disposition home or self-care (01) ==
LOC: ANHLAB 15:12
PROVIDERS: PCP Internal Medicine; Visit Provider Internal Medicine
DX: R60.9 Edema, unspecified (principal); I10 Essential (primary) hypertension
CPT/HCPCS: 36415; 80048

== ENCOUNTER 2022-01-09 08:13 | Outpatient (CLI) | payer MEDICARE, OTHER, SELFPAY ==
[2022-01-09 08:49] LABS: Basophils Absolute Auto 0.1 K/mm3 (0.0-0.1); Basophils Percent Auto 0.8 % (0.2-1.2); Eosinophils Absolute Auto 0.5 K/mm3 (0-0.3); Eosinophils Percent Auto 8.1 % (0-4.4); Hematocrit 21.6 % (42.0-52.0); Immature Granulocyte Absolute 0.01 K/mm3 (0.00-0.031); Immature Granulocyte Percent A 0.2 % (0-0.5); Lymphocytes Absolute Auto 1.58 K/mm3 (0.9-3.2); Lymphocytes Percent Auto 26.1 % (18.3-44.2); Mean Corpuscular HGB Conc 30.1 g/dl (32-36); Mean Corpuscular Volume 93.1 fl (80-100); Mean Platelet Volume 9.7 fl (7.4-10.4); Monocytes Absolute Auto 0.7 K/mm3 (0.1-0.6); Monocytes Percent Auto 10.9 % (2.6-8.5); Neutrophils Absolute Auto 3.3 K/mm3 (1.3-6.7); Neutrophils Percent Auto 53.9 % (45.5-73.1); Platelet Count Result 204 k/mm3 (150-375); Red Blood Count 2.32 M/mm3 (4.6-6.20); Red Cell Distribution Width 14.6 % (11.5-14.5); White Blood Count 6.1 K/mm3 (4.5-10.0)
[2022-01-09 08:51] LABS: Add Urine Microscopic? NO; Appearance Urine Clear (Clear); Bilirubin Urine Negative (Negative); Blood Urine Negative (Negative); Color Urine Yellow (Yellow); Glucose Urine UA Negative (Negative); Ketones Urine Negative (Negative); Leukocyte Esterase Ur Negative LEU/UL (Negative); Nitrate Urine Negative (Negative); Protein Urine Negative (Negative); Specific Grav Ur 1.023 (1.001-1.035); Urobilinogen Urine Negative mg/dL (<2.0)
[2022-01-09 08:56] LABS: Hemoglobin 6.5 g/dL (14.0-18.0)
[2022-01-09 08:58] LABS: INR 1.1; Prothrombin Time 14.2 Seconds (11.1-14.7)
[2022-01-09 09:00] LABS: Alanine Aminotransferase 20 U/L (4-50); Albumin Level 3.5 g/dL (3.5-5.1); Alkaline Phosphatase 83 U/L (38-126); Anion Gap 4 mmol/L (8-16); Aspartate Amino Transferase 38 U/L (17-59); Bilirubin,Total 0.1 mg/dL (0.2-1.3); Blood Urea Nitrogen 22 mg/dL (9-20); Calcium 8.3 mg/dL (8.4-10.2); Carbon Dioxide 26 mmol/L (22-30); Chloride 107 mmol/L (98-107); Cholesterol 107 mg/dL (0-200); Estimated Glomerular Filt Rate > 60; Glucose 142 mg/dL (65-110); HDL Direct 46 mg/dL; Sodium 137 mmol/L (137-145); Triglycerides 80 mg/dL (<150)
[2022-01-09 09:11] LABS: LDL Cholesterol Direct 38 mg/dL
[2022-01-09 09:30] LABS: Prostate Specific Antigen < 0.1 ng/mL (< OR = 4.0)
[2022-01-09 09:32] LABS: Iron 14 ug/dL (49-181)
[2022-01-09 09:41] LABS: Percent Iron Saturation 4 % (20-50)
[2022-01-09 09:54] LABS: Free T4 Free Thyroxine 0.78 ng/mL (0.78-2.19); Vitamin D 25 Hydroxy 79.8 ng/mL
[2022-01-09 10:05] LABS: Hemoglobin A1C 5.9 % (<5.7)
== END 2022-01-09 08:14 | disposition home or self-care (01) ==
PROVIDERS: PCP Internal Medicine; Visit Provider Internal Medicine
DX: K92.1 Melena (principal); Z85.46 Personal history of malignant neoplasm of prostate; E55.9 Vitamin D deficiency, unspecified; E11.9 Type 2 diabetes mellitus without complications; E78.2 Mixed hyperlipidemia; E03.9 Hypothyroidism, unspecified; Z79.899 Other long term (current) drug therapy; I10 Essential (primary) hypertension
CPT/HCPCS: 36415; 80053; 80061; 81003; 82306; 82728; 83036; 83540; 83550; 84153; 84439; 84443; 85025; 85610

== ENCOUNTER 2022-01-09 09:31 | Inpatient (IN) | payer MEDICARE, OTHER, SELFPAY ==
[2022-01-09] VITALS (23 sets, daily range): BP systolic 97–143; BP diastolic 47–65; PULSE 56–78; RESP 18–20; TEMP 36.5–37.8; O2SAT 96–100; BMI 32.3
--- NOTE | 2022-01-09 12:57 | ED.GIBLEED ---
HPI - GI Bleed General Chief complaint: Recheck/Abnormal Lab/Rx Stated complaint: low in iron Source: patient and family Mode of arrival: ambulatory Limitations: no limitations History of Present Illness HPI Narrative: 82-year-old male presents emergency room secondary to black stools. Been gone for several days. He contacted his primary physician he came and had some outpatient labs done today. He called him to come back to the emergency room because his hemoglobin was less than 7. Patient had a scope done a few months ago and had an ulcer at that time. There is no history of any bleeding ulcers. At that time there was no bleeding from the ulcer. He has been taking Xarelto but he stopped that on Sunday. He is feeling extremely fatigued and weak at this time. Denies any chest pain or shortness of breath. Related Data Home Medications Medication Instructions Recorded Confirmed blood sugar diagnostic #10 each 08/20/19 12/20/21 cholecalciferol (vitamin D3) 50 2,000 unit PO DAILY 08/20/19 12/20/21 mcg (2,000 unit) tablet desvenlafaxine succinate 100 mg 100 mg PO DAILY 08/20/19 12/20/21 tablet,extended release 24 hr stannous fluoride 1 applic DENTAL TID 01/03/21 12/20/21 trazodone 50 mg tablet 50 mg PO QHS PRN 02/04/21 12/20/21 aspirin 81 mg tablet,delayed 81 mg PO DAILY 04/22/21 12/20/21 release lorazepam 0.5 mg tablet 0.5 mg PO DAILY PRN 09/09/21 12/20/21 mirtazapine 15 mg tablet 22.5 mg PO DAILY tablet 09/09/21 12/20/21 amoxicillin 500 mg capsule 500 mg PO ONCE PRN cap 12/08/21 12/20/21 cephalexin 500 mg capsule 500 mg PO Q8H PRN 12/19/21 12/20/21 Allergies Allergy/AdvReac Type Severity Reaction Status Date / Time No Known Allergies Allergy Verified 01/09/22 11:01 Review of Systems Review of Systems: CONSTITUTIONAL: Denies fever, chills, or sweats. Feeling fatigue and weak EYES: Denies visual changes, redness, or discharge. ENT: Denies rhinorrhea, congestion, sore throat, or otalgia. CARDIOVASCULAR: Denies chest pain, palpitations, or edema. RESPIRATORY: Denies cough or dyspnea. GASTROINTESTINAL: Denies abdominal pain, nausea, vomiting, or diarrhea. Having black stools GENITOURINARY: Denies dysuria or hematuria. SKIN: Denies rash or itching. MUSCULOSKELETAL: Denies back pain, joint pain, or myalgia. NEUROLOGIC: Denies headache, numbness, or weakness. PSYCHIATRIC: Denies anxiety or depression. [facility] Past Medical History Medical History Abnormal finding of blood chemistry, unspecified Anxiety with depression Aortic valve stenosis, acquired Atrial flutter Atrial flutter Benign essential hypertension BMI 33.0-33.9,adult BMI 34.0-34.9,adult BMI 35.0-35.9,adult BMI 36.0-36.9,adult Cough DM type 2 (diabetes mellitus, type 2) Edema Encounter for Medicare annual wellness exam Encounter for routine adult health examination with abnormal findings Encounter for routine adult health examination without abnormal findings Follow up Fracture, ribs Hearing loss of both ears Hip pain, left History of head and neck cancer Resection of mandible with reconstruction (osteonecrosis) History of prostate cancer Hospital discharge follow-up Hx of colonic polyps Hyperlipidemia Hypertension Hypothyroidism (acquired) Impaired functional mobility, balance, gait, and endurance Iron deficiency anemia Left carotid stenosis Multiple falls Need for shingles vaccine On long term acute care registered nurse drug therapy Orthostatic hypotension Osteonecrosis Painful and cold lower extremity Peripheral neuropathy Prostate cancer Status post prostatectomy Pulmonary nodules PVD (peripheral vascular disease) Skin cancer SVT (supraventricular tachycardia) Swelling of joint, hand, left Vitamin D deficiency Surgical History Surgical History H/O bilateral cataract extraction H/O elbow surgery Left H/O inguinal hernia repair H/O neck surgery
--- NOTE | 2022-01-09 14:00 | PM.IMHP ---
H&P: HPI History of Present Illness Date/Time: 01/09/22 14:00 Chief Complaint: Dark stools and low hemoglobin. Narrative: This is a pleasant 82-year-old male with history of peptic ulcer, atrial fibrillation/flutter on chronic anticoagulation, aortic valve stenosis status post TAVR, hypertension, peripheral vascular disease, diabetes, and other comorbidities who presented to the emergency department for evaluation of dark stools and low hemoglobin. He reports passing 2 to 3 black, tarry stools daily for the last 2 days. This morning he contacted his doctor who ordered some lab work and he was found to have a hemoglobin and hematocrit of 6.5 and 21.6% respectively. mentions that he has looked a bit pale these last several days and the patient endorses feeling more fatigued and short of breath with exertion. He denies syncope, presyncope, epigastric pain, abdominal pain, belching, bloating, nausea, and vomiting. Review of Systems Review of Systems: Twelve systems were reviewed. No fever, chills, or sweats. He is currently taking cephalexin 3 times a day for the next month or so as he had septic arthritis in the left elbow, status post incision and drainage and removal of hardware per Dr. Ardon about a month ago. He is not having any discomfort at the site when he denies redness and drainage at this site. Except as documented, all other systems were reviewed and are negative. [facility] Past Medical History Medical History (Updated 01/09/22 @ 20:15 by Abigail Duron PA-C) Anxiety with depression Aortic valve stenosis Status post TAVR. 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 Hyperlipidemia Hypothyroidism Iron deficiency anemia Left carotid stenosis Orthostatic hypotension Osteonecrosis Peripheral neuropathy Peripheral vascular disease Prostate cancer Status post prostatectomy. Pulmonary nodules Skin cancer Type 2 diabetes mellitus Vitamin D deficiency Surgical History Surgical History (Updated 01/09/22 @ 13:27 by Abigail Duron PA-C) History of bilateral carpal tunnel release History of bilateral cataract extraction History of bilateral knee replacement History of colonoscopy with polypectomy History of elbow surgery Left elbow surgery. History of inguinal hernia repair History of prostatectomy History of radical neck dissection History of spinal fusion History of total left hip arthroplasty History of transcatheter aortic valve replacement (TAVR) (07/2020) History of ventral hernia repair Status post myringotomy with insertion of tube Status post surgical removal of malignant neoplasm of skin Family History Family History Mother Diabetes mellitus Hypertension Family history of cardiovascular disease Family history of diabetes mellitus in first degree relative Family history of heart disease in male family member before age 55 Sibling Hypertension Brother and sister Diabetes mellitus Brother and sister Social History Social History (Updated 01/09/22 @ 20:04 by Abigail Duron PA-C) Social History: The patient lives in [place]. He is retired from [employer]. Lifelong nonsmoker. No alcohol or illicit substance abuse. Surrogate decision maker: Jose Romo, son or Vani Wild, significant other. Code status: Full code. Spiritual care concerns: No Meds Home Medications and Allergies Home Medications Medication Instructions Recorded Confirmed Type blood sugar diagnostic #10 each 08/20/19 01/09/22 History cholecalciferol (vitamin D3) 50 2,000 unit PO DAILY 08/20/19 01/09/22 History mcg (2,000 unit) tablet desvenlafaxine succinate 100 mg 100 mg PO DAILY 08/20/19 01/09/22 History tablet,extended release 24 hr Xarelto 20 mg PO DAILY@1700 #30 tablet 04/27/20 01/09/22 Rx
[2022-01-09] MEDS: SODIUM CHLORIDE 0.9% IV 250 ML 30 ML IV CONT (19:08)
[2022-01-09 20:09] LABS: Glucose Point of Care 138 mg/dl (65-105)
[2022-01-09 21:10] LABS: CRP < 0.5 mg/dL (<1.0)
[2022-01-09] MEDS: PANTOPRAZOLE SODIUM IV 40 MG VIAL IV PUSH (21:46)
[2022-01-09] MEDS: QUEtiapine FUMARATE 25 MG TABLET 50 MG PO (21:46)
[2022-01-10] MEDS: CEPHALEXIN 500 MG CAPSULE PO ×3 (00:30→23:02)
[2022-01-10 00:36] LABS: Hematocrit 24.8 % (42.0-52.0); Hemoglobin 7.8 g/dL (14.0-18.0)
[2022-01-10 05:53] VITALS: BP 156/68; PULSE 66; RESP 17; TEMP 36.8; O2SAT 98
[2022-01-10 06:20] LABS: Hematocrit 24.3 % (42.0-52.0); Hemoglobin 7.8 g/dL (14.0-18.0); Mean Corpuscular HGB Conc 32.1 g/dl (32-36); Mean Corpuscular Hemoglobin 27.7 pg (26-34); Mean Corpuscular Volume 86.2 fl (80-100); Platelet Count Result 205 k/mm3 (150-375); Red Blood Count 2.82 M/mm3 (4.6-6.20); Red Cell Distribution Width 15.2 % (11.5-14.5); White Blood Count 5.7 K/mm3 (4.5-10.0)
[2022-01-10 06:31] LABS: Alanine Aminotransferase 18 U/L (4-50); Albumin Level 3.1 g/dL (3.5-5.1); Alkaline Phosphatase 75 U/L (38-126); Anion Gap 3 mmol/L (8-16); Aspartate Amino Transferase 32 U/L (17-59); Bilirubin,Total 0.4 mg/dL (0.2-1.3); Blood Urea Nitrogen 17 mg/dL (9-20); Calcium 8.2 mg/dL (8.4-10.2); Carbon Dioxide 28 mmol/L (22-30); Chloride 107 mmol/L (98-107); Estimated CRCL calculation 60 ml/min; Estimated Glomerular Filt Rate > 60; Glucose 109 mg/dL (65-110); Magnesium 2.2 mg/dL (1.6-2.3); Potassium 4.2 mmol/L (3.4-5.0); Sodium 138 mmol/L (137-145)
[2022-01-10 06:59] LABS: Thyroid Stimulating Hormone Reflex 0.899 uIU/mL (0.465-4.68)
[2022-01-10] MEDS: PANTOPRAZOLE SODIUM IV 40 MG VIAL IV PUSH ×2 (08:12→20:50)
--- NOTE | 2022-01-10 08:17 | WPDGICN ---
Assessment and Plan Assessment and plan (1) Melena: Code(s): K92.1 - Melena Status: Acute Assessment and Plan: Probable upper gastrointestinal bleed. We will hold his Xarelto and I will schedule him for EGD to be done tomorrow. After 2 units of blood his hemoglobin has increased from 6.4-7.8 (2) Profound anemia: Code(s): D64.9 - Anemia, unspecified Status: Acute Assessment and Plan: He was anemic last year at this time when I performed EGD and colonoscopy. At that time his blood counts were not is low. Hemoglobin was 11.8 and I believe iron levels were low also. His hemoglobin is up to 14 in August, dropped to 12.6 in November and is now 6.5 as noted above. (3) BMI 34.0-34.9,adult: Code(s): Z68.34 - Body mass index [BMI] 34.0-34.9, adult Status: Acute Assessment and Plan: he believes that his weight has been stable. (4) Hx of colonic polyps: Code(s): Z86.010 - Personal history of colonic polyps Status: Acute Assessment and Plan: he had a colonoscopy 1 year ago. He had diverticular disease but no polyps were seen at that time. (5) Aortic stenosis: Qualifiers: Cardiac valve disease etiology: etiology unspecified Qualified Code(s): I35.0 - Nonrheumatic aortic (valve) stenosis Code(s): I35.0 - Nonrheumatic aortic (valve) stenosis Status: Acute (6) Atrial flutter: Qualifiers: Atrial flutter type: unspecified Qualified Code(s): I48.92 - Unspecified atrial flutter Code(s): I48.92 - Unspecified atrial flutter Status: Acute Assessment and Plan: he has been maintained on Xarelto. Denies any recent palpitations (7) Septic arthritis: Code(s): M00.9 - Pyogenic arthritis, unspecified Status: Acute Assessment and Plan: He is currently taking cephalexin 3 times a day for the next month or so as he had septic arthritis in the left elbow, status post incision and drainage and removal of hardware per Dr. Ardon about a month ago. He is not having any discomfort at the site when he denies redness and drainage at this site. Except as documented, all other systems were reviewed and are negative. He denies fever chills GI Consult Note Consult date/time: 01/10/22 08:17 HPI: Mitch Romo is a 82 year old male presented to the emergency room yesterday when his primary care physician had ordered lab work finding his hemoglobin was 6.5. The patient had black stools for the last couple of days. It began Sunday. He states that he stopped taking Xarelto either Sunday or Sunday. He has had no nausea, vomiting, heartburn or abdominal pain. He denies using NSAIDs, other than the fact that he does take his aspirin. He is chronically on Xarelto, having a history of atrial flutter and also aortic valve stenosis. He has a history of peptic ulcer disease. I had performed an EGD on him a year so back which was unremarkable for any acute changes. His had noticed that he was looking pale recently and he has been quite fatigued lately, short of breath with walking around. He has not had any vomiting nausea or abdominal pain. He is maintained on omeprazole. He has not been using any NSAIDs, although he does take aspirin daily Review of Systems Review of Systems: All systems reviewed & are unremarkable except as noted in HPI and below PMFSH Past Medical History Medical History Anxiety with depression Aortic valve stenosis Status post TAVR. 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 Hyperlipidemia Hypothyroidism Iron deficiency anemia Left carotid stenosis Orthostatic hypotension Osteonecrosis Peripheral neuropathy Peripheral vascular disease Prostate cancer Status post prostatectomy. Pulmonary nodules
[2022-01-10 08:20] LABS: Glucose Point of Care 110 mg/dl (65-105)
[2022-01-10 08:21] VITALS: O2SAT 98
[2022-01-10 11:37] LABS: Glucose Point of Care 123 mg/dl (65-105)
--- NOTE | 2022-01-10 13:07 | PM.IMPN ---
Progress Note: A&P Assessment and Plan (1) Melena: Code(s): K92.1 - Melena Status: Acute Assessment and Plan: - Patient reports melena for the last several days and no has profound anemia. He has been started on IV Protonix b.i.d. and will be NPO after midnight for possible endoscopy tomorrow. Dr. Pope has been consulted and his input is appreciated. -Dr. Pope to do EGD tomorrow. -hold Xarelto -monitor H&H trend and transfuse as needed. -fall precautions (2) Profound anemia: Qualifiers: Anemia type: other cause Code(s): D64.9 - Anemia, unspecified Status: Acute Assessment and Plan: - Acute on chronic anemia secondary to GI blood loss. Transfuse to stable hemoglobin. - Trend Hgb/Hct on CBC. (3) Septic arthritis: Qualifiers: Septic arthritis location: elbow Septic arthritis organism: due to unspecified organism Laterality: left Qualified Code(s): M00.9 - Pyogenic arthritis, unspecified Code(s): M00.9 - Pyogenic arthritis, unspecified Status: Acute Assessment and Plan: - Recent left elbow septic arthritis. Continue cephalexin 500 mg t.i.d.. 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 Initiate sliding scale insulin, Accu-Cheks, and hypoglycemic protocol. -hold oral hypoglycemics. Subjective Date/time seen: 01/10/22 7130 This patient was examined at the bedside in interval assessment after being admitted last evening with complaints having dark stools for the past 2 days. Hemoglobin on presentation was 6.5 with hematocrit of 21.6 and patient was fatigued and short of breath on exertion. Patient's hemoglobin continues to be 7.8 with a hematocrit of 24.3. As his stools were dark GI was consulted and Dr. Pope is holding his Xarelto currently and he will have EGD performed tomorrow. Patient denies any current pain, dyspnea, nausea, vomiting, diarrhea. Review of Systems Review of Systems: All systems reviewed & are unremarkable except as noted in HPI and below Exam Narrative: General: Well-developed elderly male lying in bed at this time in no acute distress HEENT: PERRL, EOMI. Sclerae anicteric. Conjunctiva pale. Tacky mucous membranes. Oropharynx clear. Defects in the right lower face from previous resection of cancer. Neck: Supple. Respiratory: Lungs are clear to auscultation bilaterally. Cardiovascular: Regular rate and rhythm with S1-S2. Soft murmur at the left upper sternal border. Gastrointestinal: Abdomen is soft, protuberant, nontender, and nondistended with positive bowel sounds. Skin: Warm and dry. Generalized pallor. Musculoskeletal: Left elbow incision site is healed. There is a small round area on the tip of the elbow that looks like it had previously been opened but is now scabbed over. There is perhaps a mild surrounding erythema but no warmth, tenderness, or induration. He has good range of motion without pain. Extremities: No cyanosis or clubbing. 1+ juan manuel ankle edema. Neurological: Alert. Cranial nerves 2-12 are grossly intact. No gross focal deficits to casual conversation. Psychiatric: Pleasant and cooperative with normal mood and affect. Judgment and insight intact. Objective Data Vital Signs Vital Signs: Vital Signs - 24 hr 01/09/22 13:15 01/09/22 13:16 01/09/22 13:17 Temperature Pulse Rate Respiratory Rate Blood Pressure 105/52 L Pulse Oximetry 100 100 99 01/09/22 13:30 01/09/22 13:45 01/09/22 14:00 Temperature Pulse Rate Respiratory Rate Blood Pressure Pulse Oximetry 100 100 100
[2022-01-10 14:00] VITALS: BP 119/64; PULSE 65; RESP 18; TEMP 36.2; O2SAT 99
[2022-01-10 16:46] LABS: Glucose Point of Care 130 mg/dl (65-105)
[2022-01-10] MEDS: MIRTAZAPINE 7.5 MG TABLET 22.5 MG PO (20:50)
[2022-01-10] MEDS: QUEtiapine FUMARATE 25 MG TABLET 50 MG PO (20:50)
[2022-01-10 22:27] VITALS: BP 135/58; PULSE 69; RESP 14; TEMP 37.5; O2SAT 99
[2022-01-10 23:13] LABS: Glucose Point of Care 120 mg/dl (65-105)
[2022-01-11] VITALS (8 sets, daily range): BP systolic 112–138; BP diastolic 53–66; PULSE 59–68; RESP 17–21; TEMP 36.1–36.9; O2SAT 97–100
[2022-01-11 06:30] LABS: Basophils Absolute Auto 0.1 K/mm3 (0.0-0.1); Basophils Percent Auto 1.1 % (0.2-1.2); Eosinophils Absolute Auto 0.4 K/mm3 (0-0.3); Eosinophils Percent Auto 7.4 % (0-4.4); Hematocrit 25.1 % (42.0-52.0); Hemoglobin 7.9 g/dL (14.0-18.0); Immature Granulocyte Absolute 0.01 K/mm3 (0.00-0.031); Immature Granulocyte Percent A 0.2 % (0-0.5); Lymphocytes Absolute Auto 1.57 K/mm3 (0.9-3.2); Mean Corpuscular HGB Conc 31.5 g/dl (32-36); Mean Corpuscular Hemoglobin 27.9 pg (26-34); Mean Corpuscular Volume 88.7 fl (80-100); Monocytes Absolute Auto 0.6 K/mm3 (0.1-0.6); Monocytes Percent Auto 11.4 % (2.6-8.5); Neutrophils Absolute Auto 2.8 K/mm3 (1.3-6.7); Neutrophils Percent Auto 50.9 % (45.5-73.1); Platelet Count Result 213 k/mm3 (150-375); Red Blood Count 2.83 M/mm3 (4.6-6.20); Red Cell Distribution Width 15.1 % (11.5-14.5); White Blood Count 5.4 K/mm3 (4.5-10.0)
[2022-01-11 06:41] LABS: Alanine Aminotransferase 17 U/L (4-50); Albumin Level 3.1 g/dL (3.5-5.1); Alkaline Phosphatase 78 U/L (38-126); Anion Gap 1 mmol/L (8-16); Aspartate Amino Transferase 28 U/L (17-59); Bilirubin,Total 0.5 mg/dL (0.2-1.3); Blood Urea Nitrogen 15 mg/dL (9-20); Carbon Dioxide 30 mmol/L (22-30); Chloride 106 mmol/L (98-107); Estimated CRCL calculation 60 ml/min; Estimated Glomerular Filt Rate > 60; Glucose 111 mg/dL (65-110); Magnesium 2.1 mg/dL (1.6-2.3); Potassium 3.7 mmol/L (3.4-5.0); Sodium 137 mmol/L (137-145)
[2022-01-11 07:59] LABS: Glucose Point of Care 118 mg/dl (65-105)
[2022-01-11] MEDS: CEPHALEXIN 500 MG CAPSULE PO (08:45)
[2022-01-11] MEDS: BUMETANIDE 1 MG TABLET PO (08:45)
[2022-01-11] MEDS: PRAVASTATIN SODIUM 20 MG TABLET BY MOUTH (08:45)
[2022-01-11] MEDS: CHOLECALCIFEROL 1,000 UNITS TABLET 2000 UNITS PO (08:45)
[2022-01-11] MEDS: DESVENLAFAXINE SUCCINATE 50 MG TAB.ER.24H 100 MG PO (08:45)
[2022-01-11] MEDS: EZETIMIBE 10 MG TABLET BY MOUTH (08:45)
[2022-01-11] MEDS: LOSARTAN POTASSIUM 25 MG TABLET BY MOUTH (08:45)
[2022-01-11] MEDS: PANTOPRAZOLE SODIUM IV 40 MG VIAL IV PUSH (08:46)
[2022-01-11 11:02] LABS: Glucose Point of Care 130 mg/dl (65-105)
--- NOTE | 2022-01-11 11:03 | SUR.PREOP ---
1100- DR. MERAZ AWARE OF PT VALVE REPLACEMENT. DR. MERAZ STATES NO ANTIBIOTICS NECESSARY. PT INFORMED.
--- NOTE | 2022-01-11 11:05 | PC.NURSE ---
pt at egd in gi lab
--- NOTE | 2022-01-11 12:00 | WPDANESEPPF ---
Anes - Initial Pre Proc Eval Procedure: Operation Date: 01/11/22 13:00 Proposed Procedures p Esophagogastroduodenoscopy - Andi Pope MD Date/Time: 01/11/22 12:00 Surgeon: SHANA Naranjo Pre Op Diagnosis: Upper Gi Bleed, Anemia, Anticoagulated Patient Data Age: 82 Gender: M Height: 1.68 m Weight: 96 kg Last Vital Signs Temp 36.1 C L 01/11/22 10:45 Pulse 68 01/11/22 10:45 Resp 18 01/11/22 10:45 BP 122/53 L 01/11/22 10:45 Pulse Ox 97 01/11/22 10:45 Allergies Allergy/AdvReac Type Severity Reaction Status Date / Time No Known Allergies Allergy Verified 01/11/22 10:59 Home Medications Medication Instructions Recorded Confirmed Type blood sugar diagnostic #10 each 08/20/19 01/11/22 History cholecalciferol (vitamin D3) 50 2,000 unit PO DAILY 08/20/19 01/11/22 History mcg (2,000 unit) tablet desvenlafaxine succinate 100 mg 100 mg PO DAILY 08/20/19 01/11/22 History tablet,extended release 24 hr Xarelto 20 mg PO DAILY@1700 #30 tablet 04/27/20 01/11/22 Rx blood sugar diagnostic #100 ea 10/25/20 01/11/22 Rx trazodone 50 mg tablet 50 mg PO QHS PRN 02/04/21 01/11/22 History aspirin 81 mg tablet,delayed 81 mg PO DAILY 04/22/21 01/11/22 History release ezetimibe 10 mg tablet See Rx Instructions .ROUTE 07/15/21 01/11/22 Rx .COMPLEX #90 tablet omeprazole 40 mg capsule,delayed See Rx Instructions .ROUTE 08/09/21 01/11/22 Rx release .COMPLEX #180 cap pravastatin 20 mg tablet See Rx Instructions .ROUTE 08/09/21 01/11/22 Rx .COMPLEX #90 tablet lorazepam 0.5 mg tablet 0.5 mg PO DAILY PRN 09/09/21 01/11/22 History mirtazapine 15 mg tablet 22.5 mg PO DAILY tablet 09/09/21 01/11/22 History losartan 25 mg tablet See Rx Instructions .ROUTE 10/21/21 01/11/22 Rx .COMPLEX #90 tablet levothyroxine 125 mcg tablet See Rx Instructions .ROUTE 11/01/21 01/11/22 Rx .COMPLEX #90 tablet sitagliptin 100 mg tablet See Rx Instructions .ROUTE 11/01/21 01/11/22 Rx .COMPLEX #90 tablet bumetanide 1 mg tablet 1 mg PO DAILY #30 tablet 12/08/21 01/11/22 Rx cephalexin 500 mg capsule 500 mg PO 0800,1600,0000 12/19/21 01/11/22 History quetiapine [Seroquel] 50 mg PO QHS 01/09/22 01/11/22 History Laboratory Tests 01/10/22 01/10/22 01/11/22 16:44 23:10 06:10 WBC 5.4 K/mm3 K/mm3 (4.5-10.0) RBC 2.83 M/mm3 L M/mm3 (4.6-6.20) Hgb 7.9 g/dL L g/dL (14.0-18.0) Hct 25.1 % L % (42.0-52.0) MCV 88.7 fl fl (80-100) MCH 27.9 pg pg (26-34) MCHC 31.5 g/dl L g/dl (32-36) RDW 15.1 % H % (11.5-14.5) Plt Count 213 k/mm3 k/mm3 (150-375) MPV 10.0 fl fl (7.4-10.4) Immature Gran % (Auto) 0.2 % % (0-0.5) Neut % (Auto) 50.9 % % (45.5-73.1) Lymph % (Auto) 29.0 % % (18.3-44.2) Stoddard % (Auto) 11.4 % H % (2.6-8.5) Eos % (Auto) 7.4 % H % (0-4.4) Baso % (Auto) 1.1 % % (0.2-1.2) Lymph # (Auto) 1.57 K/mm3 K/mm3 (0.9-3.2) Stoddard # (Auto) 0.6 K/mm3 K/mm3 (0.1-0.6) Eos # (Auto) 0.4 K/mm3 H K/mm3 (0-0.3) Baso # (Auto) 0.1 K/mm3 K/mm3 (0.0-0.1) Abs Immat Gran (auto) 0.01 K/mm3 K/mm3 (0.00-0.031) Absolute Neuts (auto) 2.8 K/mm3 K/mm3 (1.3-6.7) Absolute Nucleated RBC 0.0 K/mm3 K/mm3 (0.0-0.012) Nucleated RBC % 0.0 % % (0.0-0.2) Sodium Potassium Chloride Carbon Dioxide Anion Gap BUN Creatinine Estim Creat Clear Calc Estimated GFR Glucose POC Capillary Glucose 130 mg/dl H mg/dl 120 mg/dl H mg/dl (65-105) (65-105) Calcium Magnesium Total Bilirubin AST ALT Alkaline Phosphatase Total Protein Albumin 01/11/22
[2022-01-11] MEDS: SIMETHICONE ORAL SUSPENSION 20 MG/0.3 ML 30 ML BOTTLE 0.6 ML PO (12:56)
[2022-01-11] MEDS: LACTATED RINGERS 1,000 ML 150 ML IV CONT (12:59)
--- NOTE | 2022-01-11 14:11 | PM.DS ---
DS: Admitting Diagnosis Discharge Date 01/11/2022 Admitting Diagnosis 1) Melena 2) Profound Anemia 3) Septic Arthritis 4) Type 2 DM DS: Discharge Diagnosis Discharge Diagnosis (1) Melena: Code(s): K92.1 - Melena Status: Acute Assessment and Plan: - Patient reports melena for the last several days and no has profound anemia. He has been started on IV Protonix b.i.d. and will be NPO after midnight for possible endoscopy tomorrow. Dr. Pope has been consulted and his input is appreciated. -Dr. Pope to do EGD tomorrow. -hold Xarelto -monitor H&H trend and transfuse as needed. -fall precautions - 01/11/22: Date of discharge - Pt. has had no further melena. His anemia is stable and is slightly increased today over yesterday. EGD showed no abnormalities. Pt. has tolerated a po diet and is stable for discharge at this time. He will need follow up with his PCP and Solar Installation Supervisor within one week's time for further evaluation and to review the recommended labs that are going to be ordered to recheck his Hgb. The general recommendation from GI is to decrease the dose of anticoagulation if it is possible, however, the patient is being treated for a-fib/flutter and the recommended dose of Xarelto is 20 mg po daily for Non-valvular Atrial fibrillation according to the guidelines. As there is no active bleeding and his Hgb is stable, I will defer to Cardiology as outpatient whether or not to decrease the dose of Xarelto. (2) Profound anemia: Qualifiers: Anemia type: other cause Code(s): D64.9 - Anemia, unspecified Status: Acute Assessment and Plan: - Acute on chronic anemia secondary to GI blood loss. Transfuse to stable hemoglobin. - Trend Hgb/Hct on CBC. - 01/11/22: Date of discharge - Pt. has had no further melena. His anemia is stable and is slightly increased today over yesterday. EGD showed no abnormalities. Pt. has tolerated a po diet and is stable for discharge at this time. He will need follow up with his PCP and Solar Installation Supervisor within one week's time for further evaluation and to review the recommended labs that are going to be ordered to recheck his Hgb. The general recommendation from GI is to decrease the dose of anticoagulation if it is possible, however, the patient is being treated for a-fib/flutter and the recommended dose of Xarelto is 20 mg po daily for Non-valvular Atrial fibrillation according to the guidelines. As there is no active bleeding and his Hgb is stable, I will defer to Cardiology as outpatient whether or not to decrease the dose of Xarelto. (3) Septic arthritis: Qualifiers: Laterality: left Septic arthritis location: elbow Septic arthritis organism: due to unspecified organism Qualified Code(s): M00.9 - Pyogenic arthritis, unspecified Code(s): M00.9 - Pyogenic arthritis, unspecified Status: Acute Assessment and Plan: - Recent left elbow septic arthritis. Continue cephalexin 500 mg t.i.d.. - 01/11/22: Date of discharge - Pt. will be advised to continue his home dose of Keflex. (4) Type 2 diabetes mellitus: Qualifiers: Diabetes mellitus complication status: without complication Diabetes mellitus client services manager insulin use: without client services manager use Qualified Code(s): E11.9 - Type 2 diabetes mellitus without complications Code(s): E11.9 - Type 2 diabetes mellitus without complications Status: Acute Assessment and Plan: - Recent hemoglobin A1c was less than 6%. Initiate sliding scale insulin, Accu-Cheks, and hypoglycemic protocol. -hold oral hypoglycemics. - 01/11/22: Pt's home oral hypoglycemics were held while he was here and he was receiving SSI for diabetic coverage. The pt.'s home medication will be continued upon discharge as he has good control. DS: Summary Hospital Course Reason for hospitalization: Dark Stool and anemia Hospital Course: This pleasant 82-year-old male with history of peptic ulcer, atrial fibril
--- NOTE | 2022-01-11 14:27 | PC.NURSE ---
On 01/11/22, the student, Garrett Araujo, provided care and completed [facility] documentation on this patient. I have reviewed the student's documentation and agree with the findings.
--- NOTE | 2022-01-11 15:02 | PC.NURSE ---
Informed hospitalist Anupama of Md Pope's recommendation to decrease xarelto dose, pt currently taking 20 mg po daily. Md Pope recommended 10 mg po daily. Md Fuentes sanitary engineering teacher called per 's request, awaiting call back to see if ok to decrease xarelto to 10 mg po daily.
--- NOTE | 2022-01-11 15:22 | PC.NURSE ---
pt to follow up outpatient with Md Fuentes r/t xarelto dosing.
== END 2022-01-11 15:55 | disposition home or self-care (01) | DRG 378 ==
LOC: ANHED 12:17 → ANH3MEDSUR 16:40
PROVIDERS: Internal Medicine Gastroenterology; Physician Assistant; Admitting Provider Internal Medicine; Emergency Provider Emergency Medicine; PCP Internal Medicine; Visit Provider Nurse Practitioner Adult Health
PROC: 0DJ08ZZ Inspection of Upper Intestinal Tract, Via Natural or Artificial Opening Endoscopic (ICD-10-PCS; CPT 43235; principal; 2022-01-11 13:00)
DX: K92.1 Melena (principal); D62 Acute posthemorrhagic anemia; I48.92 Unspecified atrial flutter; M00.9 Pyogenic arthritis, unspecified; K21.9 Gastro-esophageal reflux disease without esophagitis; I35.0 Nonrheumatic aortic (valve) stenosis; F41.8 Other specified anxiety disorders; E11.42 Type 2 diabetes mellitus with diabetic polyneuropathy; E78.5 Hyperlipidemia, unspecified; E03.9 Hypothyroidism, unspecified; I10 Essential (primary) hypertension; D50.9 Iron deficiency anemia, unspecified; R29.6 Repeated falls; R91.8 Other nonspecific abnormal finding of lung field; I65.22 Occlusion and stenosis of left carotid artery; E55.9 Vitamin D deficiency, unspecified; I48.91 Unspecified atrial fibrillation; Z96.642 Presence of left artificial hip joint; Z96.653 Presence of artificial knee joint, bilateral; E66.9 Obesity, unspecified; Z68.34 Body mass index [BMI] 34.0-34.9, adult; Z79.82 Long term (current) use of aspirin; Z85.89 Personal history of malignant neoplasm of other organs and systems; Z85.46 Personal history of malignant neoplasm of prostate; Z85.828 Personal history of other malignant neoplasm of skin; Z98.42 Cataract extraction status, left eye; Z98.41 Cataract extraction status, right eye; Z98.1 Arthrodesis status; Z95.2 Presence of prosthetic heart valve; Z86.010 Personal history of colon polyps; Z79.01 Long term (current) use of anticoagulants; Z87.11 Personal history of peptic ulcer disease
CPT/HCPCS: 36415; 36430; 80053; 80061; 81003; 82306; 82728; 82948; 83036; 83540; 83550; 83735; 84153; 84439; 84443; 85014; 85018; 85025; 85027; 85610; 86140; 86850; 86900; 86901; 86920; 96374; 96376; 99285; A9270; C9113; G0378; J2704; J7050; J7120; P9016

== ENCOUNTER 2022-01-14 10:45 | Outpatient (CLI) | payer MEDICARE, OTHER, SELFPAY ==
[2022-01-14 11:18] LABS: Basophils Absolute Auto 0.1 K/mm3 (0.0-0.1); Eosinophils Absolute Auto 0.3 K/mm3 (0-0.3); Eosinophils Percent Auto 3.9 % (0-4.4); Hemoglobin 8.7 g/dL (14.0-18.0); Immature Granulocyte Absolute 0.02 K/mm3 (0.00-0.031); Immature Granulocyte Percent A 0.3 % (0-0.5); Lymphocytes Absolute Auto 1.21 K/mm3 (0.9-3.2); Lymphocytes Percent Auto 16.8 % (18.3-44.2); Mean Corpuscular HGB Conc 31.1 g/dl (32-36); Mean Corpuscular Hemoglobin 27.4 pg (26-34); Mean Corpuscular Volume 88.1 fl (80-100); Mean Platelet Volume 9.8 fl (7.4-10.4); Monocytes Absolute Auto 0.6 K/mm3 (0.1-0.6); Monocytes Percent Auto 8.7 % (2.6-8.5); Neutrophils Percent Auto 69.3 % (45.5-73.1); Platelet Count Result 283 k/mm3 (150-375); Red Blood Count 3.18 M/mm3 (4.6-6.20); Red Cell Distribution Width 14.6 % (11.5-14.5); White Blood Count 7.2 K/mm3 (4.5-10.0)
== END 2022-01-14 10:46 | disposition home or self-care (01) ==
LOC: ANHLAB 10:47
PROVIDERS: PCP Internal Medicine; Visit Provider Nurse Practitioner Adult Health
DX: D64.9 Anemia, unspecified (principal)
CPT/HCPCS: 36415; 85025

== ENCOUNTER 2022-02-08 12:59 | Inpatient (IN) | payer MEDICARE, OTHER, SELFPAY ==
[2022-02-08] VITALS (38 sets, daily range): BP systolic 76–145; BP diastolic 35–86; PULSE 56–74; RESP 9–24; TEMP 36.1–36.8; O2SAT 98–100; BMI 35.4
--- NOTE | ~2022-02-08 | NM_ITS ---
EXAMINATION: NM Meckel's DATE: 02/10/2022 13:23 INDICATION: Blood in stool. TECHNIQUE: 15.1 mCi Tc 99m pertechnetate was administered intravenously. Scintigraphic images of the abdomen were obtained for one hour. COMPARISON: CT abdomen and pelvis 09/13/2020 FINDINGS: There is no ectopic gastric mucosa to suggest a Meckel's diverticulum. IMPRESSION: 1. No ectopic gastric mucosa to suggest a Meckel's diverticulum. Reviewed, dictated and finalized at location A.
--- NOTE | 2022-02-08 13:24 | ED.RECABL ---
HPI - Recheck/Abnormal Lab/Rx General Chief Complaint: Recheck/Abnormal Lab/Rx Stated Complaint: shortness of breath, weak, low hgb Time Seen by Provider: 02/08/22 13:23 Source: patient and family Limitations: no limitations History of Present Illness HPI narrative: Patient is 83 years old white male came to the emergency room with low hemoglobin of 6.2 yesterday. Patient complaining of intermittent black stools since January 2022. Currently on aspirin and Xarelto for atrial fibrillation. Patient complaining of general weakness, shortness of breath on exertion for a while. He denies any fever, chills, nausea, vomiting, chest pain or abdominal pain Related Data Home Medications Medication Instructions Recorded Confirmed blood sugar diagnostic #10 each 08/20/19 01/23/22 cholecalciferol (vitamin D3) 50 2,000 unit PO DAILY 08/20/19 01/23/22 mcg (2,000 unit) tablet desvenlafaxine succinate 100 mg 100 mg PO DAILY 08/20/19 01/23/22 tablet,extended release 24 hr trazodone 50 mg tablet 50 mg PO QHS PRN 02/04/21 01/23/22 aspirin 81 mg tablet,delayed 81 mg PO DAILY 04/22/21 01/23/22 release lorazepam 0.5 mg tablet 0.5 mg PO DAILY PRN 09/09/21 01/23/22 cephalexin 500 mg capsule 500 mg PO 0800,1600,0000 12/19/21 01/23/22 quetiapine [Seroquel] 50 mg PO QHS 01/09/22 01/23/22 mirtazapine 15 mg tablet 15 mg PO DAILY 01/20/22 01/23/22 Allergies Allergy/AdvReac Type Severity Reaction Status Date / Time No Known Allergies Allergy Verified 01/11/22 10:59 Review of Systems Review of Systems: All systems reviewed & are unremarkable except as noted in HPI and below PMFSH Past Medical History Medical History A-fib Anxiety with depression Aortic valve stenosis Status post TAVR. 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 Hyperlipidemia Hypothyroidism Iron deficiency anemia Left carotid stenosis Orthostatic hypotension Osteonecrosis Peripheral neuropathy Peripheral vascular disease Prostate cancer Status post prostatectomy. Pulmonary nodules Skin cancer Type 2 diabetes mellitus Vitamin D deficiency Surgical History Surgical History History of bilateral carpal tunnel release History of bilateral cataract extraction History of bilateral knee replacement History of colonoscopy with polypectomy History of elbow surgery Left elbow surgery. History of inguinal hernia repair History of prostatectomy History of radical neck dissection History of spinal fusion History of total left hip arthroplasty History of transcatheter aortic valve replacement (TAVR) (07/2020) History of ventral hernia repair Status post myringotomy with insertion of tube Status post surgical removal of malignant neoplasm of skin Family History Family History Mother Diabetes mellitus Hypertension Family history of cardiovascular disease Family history of diabetes mellitus in first degree relative Family history of heart disease in male family member before age 55 Sibling Hypertension Brother and sister Diabetes mellitus Brother and sister Social History Social History Social History: The patient lives in [place]. He is retired from [employer]. Lifelong nonsmoker. No alcohol or illicit substance abuse. Surrogate decision maker: Jose Romo, son or Vani Wild, significant other. Code status: Full code. Smoking status: Never smoker Spiritual care concerns: No Exam Narrative: General appearance: Well-developed, well-nourished Skin: Normal color Head: Normocephalic, nontraumatic Eyes: Clear conjunctiva ENT: Oropharynx normal, ears normal, nose normal Neck: Supple, nontender
[2022-02-08 13:36] LABS: Basophils Absolute Auto 0.1 K/mm3 (0.0-0.1); Basophils Percent Auto 0.9 % (0.2-1.2); Eosinophils Absolute Auto 0.1 K/mm3 (0-0.3); Eosinophils Percent Auto 1.9 % (0-4.4); Immature Granulocyte Absolute 0.03 K/mm3 (0.00-0.031); Immature Granulocyte Percent A 0.5 % (0-0.5); Lymphocytes Absolute Auto 0.86 K/mm3 (0.9-3.2); Mean Corpuscular HGB Conc 29.9 g/dl (32-36); Mean Corpuscular Hemoglobin 23.4 pg (26-34); Mean Corpuscular Volume 78.5 fl (80-100); Mean Platelet Volume 10.4 fl (7.4-10.4); Monocytes Absolute Auto 0.5 K/mm3 (0.1-0.6); Monocytes Percent Auto 8.9 % (2.6-8.5); Neutrophils Absolute Auto 4.2 K/mm3 (1.3-6.7); Neutrophils Percent Auto 72.8 % (45.5-73.1); Platelet Count Result 355 k/mm3 (150-375); Red Blood Count 2.56 M/mm3 (4.6-6.20); Red Cell Distribution Width 17.3 % (11.5-14.5); White Blood Count 5.7 K/mm3 (4.5-10.0)
[2022-02-08 13:46] LABS: Alanine Aminotransferase 18 U/L (4-50); Albumin Level 3.7 g/dL (3.5-5.1); Alkaline Phosphatase 76 U/L (38-126); Anion Gap 2 mmol/L (8-16); Aspartate Amino Transferase 32 U/L (17-59); Bilirubin,Total 0.3 mg/dL (0.2-1.3); Blood Urea Nitrogen 25 mg/dL (9-20); Calcium 8.5 mg/dL (8.4-10.2); Carbon Dioxide 28 mmol/L (22-30); Chloride 105 mmol/L (98-107); Estimated CRCL calculation 61 ml/min; Estimated Glomerular Filt Rate > 60; Glucose 119 mg/dL (65-110); Potassium 4.4 mmol/L (3.4-5.0); Sodium 135 mmol/L (137-145)
[2022-02-08 13:50] LABS: Hematocrit 20.1 % (42.0-52.0)
[2022-02-08 13:51] LABS: Anisocytosis 1+ (NORMAL); Hypochromasia 2+ (NORMAL); INR 1.5; Macrocytosis 1+ (NORMAL); Ovalocytes 1+ (NORMAL); Platelet Estimate Adequate (Adequate); Poikilocytosis 3+ (NORMAL); Prothrombin Time 17.1 Seconds (11.1-14.7)
[2022-02-08 13:52] LABS: Helmet Cells 1+ (NORMAL); Partial Thromboplastin Time 32.1 SECONDS (22.3-36.8); Schistocytes 1+ (NORMAL)
[2022-02-08] MEDS: SODIUM CHLORIDE 0.9% IV 1,000 ML 999 ML IV CONT (14:14)
[2022-02-08 14:55] LABS: SARS-CoV-2 RNA PCR Negative
--- NOTE | 2022-02-08 15:23 | WPDGICN ---
Assessment and Plan Assessment and plan (1) Anemia: Qualifiers: Anemia type: iron deficiency Iron deficiency anemia type: chronic blood loss Qualified Code(s): D50.0 - Iron deficiency anemia secondary to blood loss (chronic) Code(s): D64.9 - Anemia, unspecified Status: Acute Assessment and Plan: was again his hemoglobin has dropped, now down to 6.0. Blood transfusion has been ordered by the emergency room physician. Xarelto is being held. I explained to his that we did not start him on iron is since he left the hospital because we did want to be confused with black stools (2) GI bleed: Qualifiers: GI bleed type/associated pathology: gastritis Gastritis type: unspecified gastritis Qualified Code(s): K29.71 - Gastritis, unspecified, with bleeding Code(s): K92.2 - Gastrointestinal hemorrhage, unspecified Status: Acute Assessment and Plan: obviously has recurrent gastrointestinal bleeding of obscure origin and negative EGD and colonoscopy. I will schedule him for capsule endoscopy of the small bowel. I explained to the patient and his as did the physicians at [facility], that often no specific site is seen when bleeding is caused by an anticoagulant. (3) Atrial fibrillation: Qualifiers: Atrial fibrillation type: unspecified chronic Qualified Code(s): I48.20 - Chronic atrial fibrillation, unspecified Code(s): I48.91 - Unspecified atrial fibrillation Status: Acute (4) S/P TAVR (transcatheter aortic valve replacement): Code(s): Z95.2 - Presence of prosthetic heart valve Status: Acute Assessment and Plan: As noted above he has been restarted on Xarelto but it is hoped that he may be able to be switched to Plavix after having Watchman procedure (5) Hypotension: Code(s): I95.9 - Hypotension, unspecified Status: Acute Assessment and Plan: on arrival his blood pressure was 84/35, a little higher now GI Consult Note Consult date/time: 02/08/22 15:23 HPI: Mitch Romo is a 82 year old male who presented emergency room with weakness and shortness of breath. Yesterday he had a blood count done and was found to have a hemoglobin of 6.2. He has had black tarry stools last few days. He was hospitalized just 1 month ago with a similar occurrence. He has been on Xarelto for atrial fibrillation and aortic valvular stenosis which has been repaired. After his last discharge he stayed off Xarelto for 8 days with the consent of his ruffling hemmer automatic. It was restarted 2 weeks ago and now he is having tarry stools again. He denies nausea vomiting abdominal pain or any other gastrointestinal symptoms. His appetite is good. Neck weight 2 weeks ago his hemoglobin was 8.7. Exactly 1 year ago I had seen him for the same type of problem, severe anemia. EGD and colonoscopy were done to investigate his anemia And nothing was found at that time other than diverticulosis and mild gastritis. his states that he because of recurrent bleeding, his ruffling hemmer automatic is considering taking him off Xarelto. First he will need to have a NEIDA which is scheduled for February 19. Following that it was planned that he would undergo a Watchman procedure. After that he would be on Xarelto for few more weeks and then switch to Plavix. Review of Systems Review of Systems: All systems reviewed & are unremarkable except as noted in HPI and below [facility] Past Medical History Medical History A-fib Anxiety with depression Aortic valve stenosis Status post TAVR. 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 Hyperlipidemia Hypothyroidism Iron deficiency anemia Left carotid stenosis Orthostatic hypotension Osteonecrosis Peripheral neuropathy Periphera
[2022-02-08] MEDS: PANTOPRAZOLE SODIUM IV 40 MG VIAL IV PUSH (15:55)
[2022-02-08] MEDS: TUBING, BLOOD PLUM PUMP TUBING 1 EACH XX (15:56)
[2022-02-08] MEDS: SODIUM CHLORIDE 0.9% IV 250 ML 30 ML IV CONT (15:56)
--- NOTE | 2022-02-08 16:45 | ADMGEN ---
This patient, Mitch Romo, was admitted to Medical Room 255-. Patient/family oriented to hospital policies and general routines including ID bracelet, bed and alarms, visiting hours, pain management, procedures, bathroom and other care routines, personal items, smoking policy, room service/diet, and visiting hours. Information on how to activate the Rapid Response Team has been discussed. Patient/Family are encouraged to report perceived risks to care and to ask questions if they do not understand what they are told or what they should do.
--- NOTE | 2022-02-08 20:00 | PM.IMHP ---
H&P: HPI History of Present Illness Date/Time: 02/08/22 20:00 Chief Complaint: Low hemoglobin. Narrative: This is a Linette bello 82-year-old male with history of peptic ulcer, atrial fibrillation/flutter on chronic anticoagulation, aortic valve stenosis status post TAVR, hypertension, peripheral vascular disease, diabetes, and several other comorbidities who presented to the emergency department for evaluation from home after he was found to have a low hemoglobin on labs drawn yesterday. He is known to myself and the hospitalist service with a recent admission on 01/09/2022 for melena and symptomatic anemia after presenting with similar complaints. Upper endoscopy per Dr. Pope showed nonerosive reflux disease with no evidence of bleeding. He received a couple of units of blood and was discharged within 2 days. His anticoagulation was resumed a week thereafter and he was seen by his script coordinator on at which time he was apparently referred for consideration of Watchman device. Unfortunately he continues to have intermittent dark stools and has become progressively more weak and short of breath and labs drawn yesterday reportedly showed a hemoglobin of 6.2 and he was referred back to the ER. He has not had any overt dark tarry stools for several days though his stool was Hemoccult positive in the ER. Today his hemoglobin hematocrit were 6.0 and 20.1% respectively and he is being admitted in this setting. At the time my evaluation he is receiving his 2nd unit of blood and is feeling okay. He denies lightheadedness, dizziness, chest pain, pleuritic pain, nausea, and vomiting. Review of Systems Review of Systems: Twelve systems were reviewed. No fever, chills, or sweats. No cold or flu symptoms. Intermittent claudication of the left lower leg due to known vascular disease. Followed by Dr. Velasquez. Appetite is good. Except as documented, all other systems were reviewed and are negative. [facility] Past Medical History Medical History (Updated 02/08/22 @ 20:42 by Abigail Duron PA-C) Anxiety with depression Aortic valve stenosis Status post TAVR. 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 Hyperlipidemia Hypothyroidism Iron deficiency anemia Left carotid stenosis Orthostatic hypotension Osteonecrosis Paroxysmal atrial fibrillation Peripheral neuropathy Peripheral vascular disease Prostate cancer Status post prostatectomy. Pulmonary nodules Skin cancer Type 2 diabetes mellitus Vitamin D deficiency Surgical History Surgical History History of bilateral carpal tunnel release History of bilateral cataract extraction History of bilateral knee replacement History of colonoscopy with polypectomy History of elbow surgery Left elbow surgery. History of inguinal hernia repair History of prostatectomy History of radical neck dissection History of spinal fusion History of total left hip arthroplasty History of transcatheter aortic valve replacement (TAVR) (07/2020) History of ventral hernia repair Status post myringotomy with insertion of tube Status post surgical removal of malignant neoplasm of skin Family History Family History Mother Diabetes mellitus Hypertension Family history of cardiovascular disease Family history of diabetes mellitus in first degree relative Family history of heart disease in male family member before age 55 Sibling Hypertension Brother and sister Diabetes mellitus Brother and sister Social History Social History (Updated 02/08/22 @ 20:31 by Abigail Duron PA-C) Social History: The patient lives in [place]. He is retired from [employer]. Lifelong nonsmoker. No alcohol or illicit substance abuse. Surrogate dec
[2022-02-08] MEDS: SODIUM CHLORIDE 0.9% IV 250 ML 30 ML (20:41)
[2022-02-08] MEDS: SODIUM CHLORIDE 0.9% IV 1,000 ML 100 ML IV CONT (23:04)
[2022-02-08] MEDS: QUEtiapine FUMARATE 25 MG TABLET 50 MG PO (23:04)
[2022-02-08] MEDS: CEPHALEXIN 500 MG CAPSULE PO (23:05)
[2022-02-08] MEDS: MIRTAZAPINE 15 MG TABLET PO (23:05)
[2022-02-09] VITALS (16 sets, daily range): BP systolic 114–176; BP diastolic 51–100; PULSE 53–76; RESP 14–18; TEMP 36.2–36.7; O2SAT 96–100
[2022-02-09 00:13] LABS: Glucose Point of Care 97 mg/dl (65-105)
[2022-02-09 00:33] LABS: Hematocrit 24.4 % (42.0-52.0); Hemoglobin 7.5 g/dL (14.0-18.0)
[2022-02-09] MEDS: SODIUM CHLORIDE 0.9% IV 250 ML 30 ML IV CONT (01:58)
[2022-02-09 06:13] LABS: Basophils Absolute Auto 0.1 K/mm3 (0.0-0.1); Basophils Percent Auto 1.4 % (0.2-1.2); Eosinophils Absolute Auto 0.3 K/mm3 (0-0.3); Eosinophils Percent Auto 6.5 % (0-4.4); Hematocrit 26.9 % (42.0-52.0); Hemoglobin 8.3 g/dL (14.0-18.0); Immature Granulocyte Absolute 0.01 K/mm3 (0.00-0.031); Immature Granulocyte Percent A 0.2 % (0-0.5); Lymphocytes Absolute Auto 1.19 K/mm3 (0.9-3.2); Lymphocytes Percent Auto 24.3 % (18.3-44.2); Mean Corpuscular HGB Conc 30.9 g/dl (32-36); Mean Corpuscular Hemoglobin 25.2 pg (26-34); Mean Corpuscular Volume 81.8 fl (80-100); Mean Platelet Volume 9.9 fl (7.4-10.4); Monocytes Absolute Auto 0.6 K/mm3 (0.1-0.6); Monocytes Percent Auto 12.9 % (2.6-8.5); Neutrophils Absolute Auto 2.7 K/mm3 (1.3-6.7); Neutrophils Percent Auto 54.7 % (45.5-73.1); Platelet Count Result 284 k/mm3 (150-375); Red Blood Count 3.29 M/mm3 (4.6-6.20); Red Cell Distribution Width 17.9 % (11.5-14.5); White Blood Count 4.9 K/mm3 (4.5-10.0)
[2022-02-09 06:24] LABS: Anion Gap 3 mmol/L (8-16); Blood Urea Nitrogen 20 mg/dL (9-20); Calcium 7.8 mg/dL (8.4-10.2); Carbon Dioxide 27 mmol/L (22-30); Chloride 107 mmol/L (98-107); Estimated CRCL calculation 69 ml/min; Estimated Glomerular Filt Rate > 60; Glucose 94 mg/dL (65-110); Magnesium 2.2 mg/dL (1.6-2.3); Potassium 4.2 mmol/L (3.4-5.0); Sodium 137 mmol/L (137-145)
--- NOTE | 2022-02-09 06:55 | WPDGIPROGNO ---
Progress Note: A&P Assessment and Plan (1) Anemia: Qualifiers: Anemia type: iron deficiency Iron deficiency anemia type: chronic blood loss Qualified Code(s): D50.0 - Iron deficiency anemia secondary to blood loss (chronic) Code(s): D64.9 - Anemia, unspecified Status: Acute Assessment and Plan: was again his hemoglobin has dropped, now down to 6.0. Blood transfusion has been ordered by the emergency room physician. Xarelto is being held. I explained to his that we did not start him on iron is since he left the hospital because we did want to be confused with black stools 5/5 after receiving a total 3 units of blood, his hemoglobin is 8.3. There is no evidence of active bleeding this morning. (2) GI bleed: Qualifiers: GI bleed type/associated pathology: gastritis Gastritis type: unspecified gastritis Qualified Code(s): K29.71 - Gastritis, unspecified, with bleeding Code(s): K92.2 - Gastrointestinal hemorrhage, unspecified Status: Acute Assessment and Plan: obviously has recurrent gastrointestinal bleeding of obscure origin and negative EGD and colonoscopy. I will schedule him for capsule endoscopy of the small bowel. I explained to the patient and his as did the physicians at [facility], that often no specific site is seen when bleeding is caused by an anticoagulant. 5 Givens capsule study has just been started. We will have images to review tomorrow. By lunch time we can start him on clear or full liquids. I told that the capsule will progressed more readily if he is moving about somewhat this morning. (3) Atrial fibrillation: Qualifiers: Atrial fibrillation type: unspecified chronic Qualified Code(s): I48.20 - Chronic atrial fibrillation, unspecified Code(s): I48.91 - Unspecified atrial fibrillation Status: Acute (4) S/P TAVR (transcatheter aortic valve replacement): Code(s): Z95.2 - Presence of prosthetic heart valve Status: Acute Assessment and Plan: As noted above he has been restarted on Xarelto but it is hoped that he may be able to be switched to Plavix after having Watchman procedure (5) Hypotension: Code(s): I95.9 - Hypotension, unspecified Status: Acute Assessment and Plan: on arrival his blood pressure was 84/35, a little higher now 5/5 today blood pressure is 176/58 Subjective Date/time seen: 02/09/22 06:55 He has had no black stools during the night. He did have 1 yesterday evening about time was coming up to his room. He is NPO, and has just received his Givens capsule for the video endoscopy study. We should be able to upload the pictures late today for review tomorrow. Review of Systems Review of Systems: All systems reviewed & are unremarkable except as noted in HPI and below Exam Const: General: alert Nutritional Appearance: overweight Orientation/consciousness: patient oriented x3 Resp: Auscultation: clear to auscultation bilaterally Cardio: Rhythm: regular rhythm GI: Auscultation: normal bowel sounds Skin: General skin exam: no ecchymosis, no petechiae and pallor Neuro: General: patient oriented x3 Objective Data Vital Signs Vital Signs: Vital Signs - 24 hr 02/08/22 13:11 02/08/22 13:22 02/08/22 13:23 Temperature 36.6 C Pulse Rate 57 L 59 L 58 L Respiratory Rate 18 14 12 Blood Pressure 84/35 L 98/55 L Pulse Oximetry 100 100 02/08/22 13:30 02/08/22 13:32 02/08/22 13:45 Temperature Pulse Rate 57 L 57 L 59 L Respiratory Rate 14 14 14 Blood Pressure 97/53 L Pulse Oximetry 100 100 02/08/22 13:46 02/08/22 14:00 02/08/22 14:02 Temperature Pulse Rate 57 L 62 59 L Respiratory Rate 12 19 15 Blood Pressure 92/48 L 76/54 L Pulse Oximetry 02/08/22 14:03 02/08/22 14:12 02/08/22 14:15 Temperature Pulse Rate 74 58 L 56 L Respiratory Rate 16 13 Blood Pressure 80/70 L Pulse Ox
--- NOTE | 2022-02-09 06:58 | SUR.OPER ---
Patient in room 255 when for the swallowing of endoscopy capsule. Instructions for patient undergoing Capsule Endoscopy reviewed with patient. Consent form signed. Sensor array applied to patient's abdomen and connected to recorded. Patient swallowed capsule with 16 ozs of water infused with Simethicone. Patient instructed they may have clear liquids at 0835 this AM and eat or drink at 1035 this AM. This was also reported to the floor nurse. Patient instructed that GI nurse will return at 1500 this afternoon for removal of recording device.
--- NOTE | 2022-02-09 08:15 | P.PNIM_ITS ---
Progress Note: A&P Assessment and Plan (1) Profound anemia: Qualifiers: Anemia type: unspecified type Qualified Code(s): D64.9 - Anemia, unspecified Code(s): D64.9 - Anemia, unspecified Status: Acute Assessment and Plan: * Patient once again presents with symptomatic anemia with a hemoglobin of 6.0, likely due to ongoing GI loss. * Current H/H 8.3/26.9 * Transfused 2 units since admission * GI consulted * EGD was performed recently did not show any bleeding * Capsule endoscopy * Transfuse to stable hemoglobin. * Trend H&H. * Seems to be an acute blood loss anemia * Hold aspirin * Get anemia labs in the am (2) GI bleed: Qualifiers: GI bleed type/associated pathology: gastritis Gastritis type: unspecified gastritis Qualified Code(s): K29.71 - Gastritis, unspecified, with bleeding Code(s): K92.2 - Gastrointestinal hemorrhage, unspecified Status: Acute Assessment and Plan: * Ongoing occult GI blood loss with intermittent melena. * Continue IV Protonix 40 mg BID * Dr. Peters consulted, input appreciated. * NPO for capsule endoscopy (3) Hypotension: Code(s): I95.9 - Hypotension, unspecified Status: Acute Assessment and Plan: * Current BP is 151/90 * Seems to be resolved * Secondary to hypovolemia from profound anemia. Improved with blood transfusion. * Hold antihypertensives and monitor closely. (4) Type 2 diabetes mellitus: Qualifiers: Diabetes mellitus half-way insulin use: without half-way use Diabetes mellitus complication status: without complication Qualified Code(s): E11.9 - Type 2 diabetes mellitus without complications Code(s): E11.9 - Type 2 diabetes mellitus without complications Status: Acute Assessment and Plan: Recent hemoglobin A1c was 5.9%. * Hold sitagliptin as he will be NPO tonight. * Initiate sliding scale insulin, Accu-Cheks, and hypoglycemic protocol. (5) Paroxysmal atrial fibrillation: Code(s): I48.0 - Paroxysmal atrial fibrillation Status: Acute Assessment and Plan: Currently in a sinus rhythm. * Xarelto on hold secondary to anemia and GI blood loss. * Possible candidate for Watchman device per cardiology. (6) Chronic anticoagulation: Code(s): Z79.01 - [facility] (current) use of anticoagulants Status: Acute Assessment and Plan: On Xarelto for stroke prophylaxis due to paroxysmal atrial fibrillation. * Xarelto on hold secondary to anemia and GI blood loss. * As above, possible candidate for Watchman device. (7) Hypertension: Code(s): I10 - Essential (primary) hypertension Status: Acute Assessment and Plan: * Current BP is 151/90 * Restart home losartan and metoprolol * Trend BP * Adjust therapy as indicated Time Spent With Patient Time with patient: Greater than 35 minutes Subjective Date/time seen: 02/09/22 08:15 Interval history: Date/Time: 02/08/22 20:00 Narrative: This is a Linette bello 82-year-old male with history of peptic ulcer, atrial fibrillation/flutter on chronic anticoagulation, aortic valve stenosis status post TAVR, hypertension, peripheral vascular disease, diabetes, and several other comorbidities who presented to the emergency department for evaluation from home after he was found to have a low hemoglobin on labs drawn yesterday. He is known to myself and the hospitalist service with a recent
--- NOTE | 2022-02-09 08:15 | PM.IMPN ---
Progress Note: A&P Assessment and Plan (1) Profound anemia: Qualifiers: Anemia type: unspecified type Qualified Code(s): D64.9 - Anemia, unspecified Code(s): D64.9 - Anemia, unspecified Status: Acute Assessment and Plan: Patient once again presents with symptomatic anemia with a hemoglobin of 6.0, likely due to ongoing GI loss. Current H/H 8.3/26.9 Transfused 2 units since admission GI consulted EGD was performed recently did not show any bleeding Capsule endoscopy Transfuse to stable hemoglobin. Trend H&H. Seems to be an acute blood loss anemia Hold aspirin Get anemia labs in the am (2) GI bleed: Qualifiers: GI bleed type/associated pathology: gastritis Gastritis type: unspecified gastritis Qualified Code(s): K29.71 - Gastritis, unspecified, with bleeding Code(s): K92.2 - Gastrointestinal hemorrhage, unspecified Status: Acute Assessment and Plan: Ongoing occult GI blood loss with intermittent melena. Continue IV Protonix [address] Peters consulted, input appreciated. NPO for capsule endoscopy (3) Hypotension: Code(s): I95.9 - Hypotension, unspecified Status: Acute Assessment and Plan: Current BP is 151/90 Seems to be resolved Secondary to hypovolemia from profound anemia. Improved with blood transfusion. Hold antihypertensives and monitor closely. (4) Type 2 diabetes mellitus: Qualifiers: Diabetes mellitus fdc insulin use: without fdc use Diabetes mellitus complication status: without complication Qualified Code(s): E11.9 - Type 2 diabetes mellitus without complications Code(s): E11.9 - Type 2 diabetes mellitus without complications Status: Acute Assessment and Plan: Recent hemoglobin A1c was 5.9%. Hold sitagliptin as he will be NPO tonight. Initiate sliding scale insulin, Accu-Cheks, and hypoglycemic protocol. (5) Paroxysmal atrial fibrillation: Code(s): I48.0 - Paroxysmal atrial fibrillation Status: Acute Assessment and Plan: Currently in a sinus rhythm. Xarelto on hold secondary to anemia and GI blood loss. Possible candidate for Watchman device per cardiology. (6) Chronic anticoagulation: Code(s): Z79.01 - last greaser (current) use of anticoagulants Status: Acute Assessment and Plan: On Xarelto for stroke prophylaxis due to paroxysmal atrial fibrillation. Xarelto on hold secondary to anemia and GI blood loss. As above, possible candidate for Watchman device. (7) Hypertension: Code(s): I10 - Essential (primary) hypertension Status: Acute Assessment and Plan: Current BP is 151/90 Restart home losartan and metoprolol Trend BP Adjust therapy as indicated Time Spent With Patient Time with patient: Greater than 35 minutes Subjective Date/time seen: 02/09/22 08:15 Interval history: Date/Time: 02/08/22 20:00 Narrative: This is a Linette bello 82-year-old male with history of peptic ulcer, atrial fibrillation/flutter on chronic anticoagulation, aortic valve stenosis status post TAVR, hypertension, peripheral vascular disease, diabetes, and several other comorbidities who presented to the emergency department for evaluation from home after he was found to have a low hemoglobin on labs drawn yesterday. He is known to myself and the hospitalist service with a recent admission on 01/09/2022 for melena and symptomatic anemia after presenting with similar complaints. Upper endoscopy per Dr. Pope showed nonerosive reflux disease with no evidence of bleeding. He received a couple of units of blood and was discharged within 2 days. His anticoagulation was resumed a week thereafter and he was seen by his assembling fabricator on at which time he was apparently referred for consideration of Watchman device. Unfortunately he continues to have intermittent dark
[2022-02-09 09:21] LABS: Glucose Point of Care 100 mg/dl (65-105)
[2022-02-09] MEDS: PANTOPRAZOLE SODIUM IV 40 MG VIAL IV PUSH (09:45)
[2022-02-09] MEDS: CEPHALEXIN 500 MG CAPSULE PO ×2 (09:45→16:27)
[2022-02-09] MEDS: EZETIMIBE 10 MG TABLET PO (09:45)
[2022-02-09] MEDS: DESVENLAFAXINE SUCCINATE 50 MG TAB.ER.24H PO (09:46)
[2022-02-09 11:41] LABS: Glucose Point of Care 100 mg/dl (65-105)
[2022-02-09] MEDS: SODIUM CHLORIDE 0.9% IV 1,000 ML 100 ML IV CONT ×2 (11:51→21:20)
--- NOTE | 2022-02-09 16:07 | SUR.OPER ---
Recorder box removal from patient in room 255. Patient voiced no complaints. States they have understanding of instructions.
[2022-02-09 16:32] LABS: Glucose Point of Care 95 mg/dl (65-105)
--- NOTE | 2022-02-09 20:16 | PC.NURSE ---
Report given to Dorothy Simon Pt being moved to room 330-2 Pt aware and belongings sent with patient
[2022-02-09] MEDS: QUEtiapine FUMARATE 25 MG TABLET 50 MG PO (21:14)
[2022-02-09] MEDS: MIRTAZAPINE 15 MG TABLET PO (21:14)
[2022-02-09 21:39] LABS: Glucose Point of Care 94 mg/dl (65-105)
[2022-02-10] MEDS: CEPHALEXIN 500 MG CAPSULE PO ×4 (00:13→23:10)
[2022-02-10] MEDS: LEVOTHYROXINE SODIUM 125 MCG TABLET BY MOUTH (05:32)
[2022-02-10 05:49] VITALS: BP 148/65; PULSE 61; RESP 18; TEMP 36.6; O2SAT 95
--- NOTE | 2022-02-10 06:53 | WPDGIPROGNO ---
Progress Note: A&P Assessment and Plan (1) Anemia: Qualifiers: Anemia type: iron deficiency Iron deficiency anemia type: chronic blood loss Qualified Code(s): D50.0 - Iron deficiency anemia secondary to blood loss (chronic) Code(s): D64.9 - Anemia, unspecified Status: Acute Assessment and Plan: was again his hemoglobin has dropped, now down to 6.0. Blood transfusion has been ordered by the emergency room physician. Xarelto is being held. I explained to his that we did not start him on iron is since he left the hospital because we did want to be confused with black stools 5/5 after receiving a total 3 units of blood, his hemoglobin is 8.3. There is no evidence of active bleeding this morning. (2) GI bleed: Qualifiers: GI bleed type/associated pathology: gastritis Gastritis type: unspecified gastritis Qualified Code(s): K29.71 - Gastritis, unspecified, with bleeding Code(s): K92.2 - Gastrointestinal hemorrhage, unspecified Status: Acute Assessment and Plan: obviously has recurrent gastrointestinal bleeding of obscure origin and negative EGD and colonoscopy. I will schedule him for capsule endoscopy of the small bowel. I explained to the patient and his as did the physicians at [facility], that often no specific site is seen when bleeding is caused by an anticoagulant. 02/09 Givens capsule study has just been started. We will have images to review tomorrow. By lunch time we can start him on clear or full liquids. I told that the capsule will progressed more readily if he is moving about somewhat this morning. 02/10 Capsule study is entirely negative for any site of gastrointestinal bleeding. Likewise, there was no blood present between the esophagus and terminal ileum. (3) Atrial fibrillation: Qualifiers: Atrial fibrillation type: unspecified chronic Qualified Code(s): I48.20 - Chronic atrial fibrillation, unspecified Code(s): I48.91 - Unspecified atrial fibrillation Status: Acute Assessment and Plan: 02/10 After his last hospitalization, Dr. Fuentes told him that he could stay off Xarelto for 1 week. The patient is due to have his [facility] at [facility] in 10 days. We will consult Cardiology as to what to do with Xarelto between now and then (4) S/P TAVR (transcatheter aortic valve replacement): Code(s): Z95.2 - Presence of prosthetic heart valve Status: Acute Assessment and Plan: As noted above he has been restarted on Xarelto but it is hoped that he may be able to be switched to Plavix after having Watchman procedure (5) Hypotension: Code(s): I95.9 - Hypotension, unspecified Status: Acute Assessment and Plan: on arrival his blood pressure was 84/35, a little higher now 02/09 today blood pressure is 176/58 Subjective Date/time seen: 02/10/22 06:53 he had 1 bowel movement yesterday. It was more normal color, not black and tarry. Capsule study is in progress. I have began looking at the images. So far nothing seen in the stomach or duodenum. Hopefully will have all images reviewed by this afternoon. I spoke to the patient and his this morning. The plan is that he is going to have his MARY a week from Sunday at [facility], but he sees Dr. Fuentes here. I have just completed reviewing the images from his video capsule endoscopy. There was no blood present in the upper gastrointestinal tract or small bowel. No lesions were seen anywhere throughout. Exam Const: General: alert Nutritional Appearance: overweight Orientation/consciousness: patient oriented x3 Resp: Auscultation: clear to auscultation bilaterally Cardio: Rhythm: regular rhythm GI: Auscultation: normal bowel sounds Skin: General skin exam: no ecchymosis, no petechiae and pallor Neuro: General: patient oriented x3 Objective Data Vital Signs Vital Signs: Vital Sign
[2022-02-10 08:00] VITALS: O2SAT 97
[2022-02-10 08:26] LABS: Glucose Point of Care 95 mg/dl (65-105)
[2022-02-10 08:56] LABS: Basophils Absolute Auto 0.1 K/mm3 (0.0-0.1); Eosinophils Absolute Auto 0.2 K/mm3 (0-0.3); Eosinophils Percent Auto 3.1 % (0-4.4); Immature Granulocyte Absolute 0.02 K/mm3 (0.00-0.031); Immature Granulocyte Percent A 0.3 % (0-0.5); Lymphocytes Absolute Auto 1.44 K/mm3 (0.9-3.2); Mean Corpuscular Hemoglobin 25.2 pg (26-34); Mean Platelet Volume 9.6 fl (7.4-10.4); Monocytes Absolute Auto 0.7 K/mm3 (0.1-0.6); Monocytes Percent Auto 9.5 % (2.6-8.5); Neutrophils Absolute Auto 4.8 K/mm3 (1.3-6.7); Neutrophils Percent Auto 66.1 % (45.5-73.1); Platelet Count Result 295 k/mm3 (150-375); Red Blood Count 3.57 M/mm3 (4.6-6.20); Red Cell Distribution Width 18.2 % (11.5-14.5); White Blood Count 7.2 K/mm3 (4.5-10.0)
[2022-02-10 09:09] LABS: Alanine Aminotransferase 17 U/L (4-50); Albumin Level 3.5 g/dL (3.5-5.1); Alkaline Phosphatase 80 U/L (38-126); Anion Gap 3 mmol/L (8-16); Aspartate Amino Transferase 30 U/L (17-59); Bilirubin,Total 0.6 mg/dL (0.2-1.3); Blood Urea Nitrogen 12 mg/dL (9-20); Calcium 8.3 mg/dL (8.4-10.2); Carbon Dioxide 29 mmol/L (22-30); Chloride 107 mmol/L (98-107); Estimated CRCL calculation 62 ml/min; Estimated Glomerular Filt Rate > 60; Glucose 99 mg/dL (65-110); Potassium 4.1 mmol/L (3.4-5.0); Sodium 139 mmol/L (137-145)
[2022-02-10] MEDS: SODIUM CHLORIDE 0.9% IV 1,000 ML 100 ML IV CONT (09:10)
[2022-02-10] MEDS: EZETIMIBE 10 MG TABLET PO (09:11)
[2022-02-10] MEDS: DESVENLAFAXINE SUCCINATE 50 MG TAB.ER.24H PO (09:11)
[2022-02-10] MEDS: PANTOPRAZOLE SODIUM IV 40 MG VIAL IV PUSH (09:11)
--- NOTE | 2022-02-10 10:45 | PM.IMPN ---
Progress Note: A&P Assessment and Plan (1) Profound anemia: Qualifiers: Anemia type: unspecified type Qualified Code(s): D64.9 - Anemia, unspecified Code(s): D64.9 - Anemia, unspecified Status: Acute Assessment and Plan: Patient once again presents with symptomatic anemia with a hemoglobin of 6.0, likely due to ongoing GI loss. Current H/H 9.0/30.0 Transfused 2 units since admission GI consulted EGD was performed recently did not show any bleeding Capsule endoscopy no signs of bleeding Saundra did not show any abnormality Transfuse to stable hemoglobin. Trend H&H. Seems to be an acute blood loss anemia Hold aspirin Get anemia labs Iron >10, TIBC 418, % Sat 2, Folate 560, B12 >20, ferritin 10.60, Transferrin 296 Combination of iron deficiency/acute blood loss Started Iron 325mg PO BID with stool softners (2) GI bleed: Qualifiers: GI bleed type/associated pathology: gastritis Gastritis type: unspecified gastritis Qualified Code(s): K29.71 - Gastritis, unspecified, with bleeding Code(s): K92.2 - Gastrointestinal hemorrhage, unspecified Status: Acute Assessment and Plan: Ongoing occult GI blood loss with intermittent melena. Continue IV Protonix [address] Pope consulted, input appreciated. NPO for capsule endoscopy (3) Hypotension: Code(s): I95.9 - Hypotension, unspecified Status: Acute Assessment and Plan: Current BP is 148/65 Seems to be resolved Secondary to hypovolemia from profound anemia. Improved with blood transfusion. Hold antihypertensives and monitor closely. (4) Type 2 diabetes mellitus: Qualifiers: Diabetes mellitus alf insulin use: without terminal operations supervisor use Diabetes mellitus complication status: without complication Qualified Code(s): E11.9 - Type 2 diabetes mellitus without complications Code(s): E11.9 - Type 2 diabetes mellitus without complications Status: Acute Assessment and Plan: Recent hemoglobin A1c was 5.9%. Hold sitagliptin as he will be NPO tonight. Initiate sliding scale insulin, Accu-Cheks, and hypoglycemic protocol. Glucose 107 and stable (5) Paroxysmal atrial fibrillation: Code(s): I48.0 - Paroxysmal atrial fibrillation Status: Acute Assessment and Plan: Currently in a sinus rhythm. Xarelto on hold secondary to anemia and GI blood loss. Possible candidate for Watchman device per cardiology. (6) Chronic anticoagulation: Code(s): Z79.01 - nursing home (current) use of anticoagulants Status: Acute Assessment and Plan: On Xarelto for stroke prophylaxis due to paroxysmal atrial fibrillation. Xarelto on hold secondary to anemia and GI blood loss. As above, possible candidate for Watchman device. Continue to hold Xarelto (7) Hypertension: Code(s): I10 - Essential (primary) hypertension Status: Acute Assessment and Plan: Current BP is 148/65 Restart home losartan and metoprolol Trend BP Adjust therapy as indicated Subjective Date/time seen: 02/10/22 18:25 Interval history: Date/Time: 02/08/22 20:00 Narrative: This is a Linette belol 82-year-old male with history of peptic ulcer, atrial fibrillation/flutter on chronic anticoagulation, aortic valve stenosis status post TAVR, hypertension, peripheral vascular disease, diabetes, and several other comorbidities who presented to the emergency department for evaluation from home after he was found to have a low hemoglobin on labs drawn yesterday. He is known to myself and the hospitalist service with a recent admission on 01/09/2022 for melena and symptomatic anemia after presenting with similar complaints. Upper endoscopy per Dr. Pope showed nonerosive reflux disease with no evidence of bleeding. He received a couple of units of blood and was discharged within 2 days. His anticoagulation was resume
--- NOTE | 2022-02-10 10:45 | P.PNIM_ITS ---
Progress Note: A&P Assessment and Plan (1) Profound anemia: Qualifiers: Anemia type: unspecified type Qualified Code(s): D64.9 - Anemia, unspecified Code(s): D64.9 - Anemia, unspecified Status: Acute Assessment and Plan: * Patient once again presents with symptomatic anemia with a hemoglobin of 6.0, likely due to ongoing GI loss. * Current H/H 9.0/30.0 * Transfused 2 units since admission * GI consulted * EGD was performed recently did not show any bleeding * Capsule endoscopy no signs of bleeding * Saundra did not show any abnormality * Transfuse to stable hemoglobin. * Trend H&H. * Seems to be an acute blood loss anemia * Hold aspirin * Get anemia labs Iron >10, TIBC 418, % Sat 2, Folate 560, B12 >20, ferritin 10.60, Transferrin 296 * Combination of iron deficiency/acute blood loss * Started Iron 325mg PO BID with stool softners (2) GI bleed: Qualifiers: GI bleed type/associated pathology: gastritis Gastritis type: unspecified gastritis Qualified Code(s): K29.71 - Gastritis, unspecified, with bleeding Code(s): K92.2 - Gastrointestinal hemorrhage, unspecified Status: Acute Assessment and Plan: * Ongoing occult GI blood loss with intermittent melena. * Continue IV Protonix 40 mg BID * Dr. Pope consulted, input appreciated. * NPO for capsule endoscopy (3) Hypotension: Code(s): I95.9 - Hypotension, unspecified Status: Acute Assessment and Plan: * Current BP is 148/65 * Seems to be resolved * Secondary to hypovolemia from profound anemia. Improved with blood transfusion. * Hold antihypertensives and monitor closely. (4) Type 2 diabetes mellitus: Qualifiers: Diabetes mellitus exterminator termite insulin use: without exterminator termite use Diabetes mellitus complication status: without complication Qualified Code(s): E11.9 - Type 2 diabetes mellitus without complications Code(s): E11.9 - Type 2 diabetes mellitus without complications Status: Acute Assessment and Plan: Recent hemoglobin A1c was 5.9%. * Hold sitagliptin as he will be NPO tonight. * Initiate sliding scale insulin, Accu-Cheks, and hypoglycemic protocol. * Glucose 107 and stable (5) Paroxysmal atrial fibrillation: Code(s): I48.0 - Paroxysmal atrial fibrillation Status: Acute Assessment and Plan: Currently in a sinus rhythm. * Xarelto on hold secondary to anemia and GI blood loss. * Possible candidate for Watchman device per cardiology. (6) Chronic anticoagulation: Code(s): Z79.01 - exterminator termite (current) use of anticoagulants Status: Acute Assessment and Plan: On Xarelto for stroke prophylaxis due to paroxysmal atrial fibrillation. * Xarelto on hold secondary to anemia and GI blood loss. * As above, possible candidate for Watchman device. * Continue to hold Xarelto (7) Hypertension: Code(s): I10 - Essential (primary) hypertension Status: Acute Assessment and Plan: * Current BP is 148/65 * Restart home losartan and metoprolol * Trend BP * Adjust therapy as indicated Subjective Date/time seen: 02/10/22 18:25 Interval history: Date/Time: 02/08/22 20:00 Narrative: This is a Linette bello 82-year-old male with history of peptic ulcer, atrial fibrillation/flutter on chronic anticoagulation, aortic valve stenosis status post TAVR, hypertension, peripheral vascular disease, diabetes, and several other c
[2022-02-10 12:07] LABS: Glucose Point of Care 144 mg/dl (65-105)
--- NOTE | 2022-02-10 13:49 | PM.CNCAR ---
Assessment and Plan Assessment and plan (1) Paroxysmal atrial fibrillation: Code(s): I48.0 - Paroxysmal atrial fibrillation Status: Acute Assessment and Plan: In the process a Watchman workup. He is scheduled for a NEIDA on February 20. He has follow-up with Dr. Tran that day. Obviously long-term anticoagulation is not recommended. This is why Watchman workup is in progress. For now, would hold off on further anticoagulation. Continue aspirin. Can resume anticoagulation at time of NEIDA in preparation for Watchman device. Ideally 45 days of anticoagulation after Watchman procedure but again for now will hold off on anticoagulation until seen on February 20. (2) Chronic anticoagulation: Code(s): Z79.01 - FDC (current) use of anticoagulants Status: Acute Assessment and Plan: As above (3) Hypertension: Code(s): I10 - Essential (primary) hypertension Status: Acute (4) GI bleed: Qualifiers: GI bleed type/associated pathology: gastritis Gastritis type: unspecified gastritis Qualified Code(s): K29.71 - Gastritis, unspecified, with bleeding Code(s): K92.2 - Gastrointestinal hemorrhage, unspecified Status: Acute Assessment and Plan: Scans pending (5) Profound anemia: Qualifiers: Anemia type: unspecified type Qualified Code(s): D64.9 - Anemia, unspecified Code(s): D64.9 - Anemia, unspecified Status: Acute Assessment and Plan: Status post transfusion (6) S/P TAVR (transcatheter aortic valve replacement): Code(s): Z95.2 - Presence of prosthetic heart valve Status: Acute Assessment and Plan: On aspirin History of Present Illness History of Present Illness Consult date/time: 02/10/22 13:49 Requesting physician: Andi Pope MD Consult reason: Other (Bleeding on Xarelto) Reason For Visit: Anemia/GI bleed/on Xarelto Narrative: Reason for consultation: Bleeding while on Xarelto Date of service 02/10/2022 Requesting provider: Dr. Pope History patient 82-year-old male patient of mine who has a history of ulcer disease, atrial fibrillation/flutter on chronic anticoagulation. Aortic valve stenosis status post TAVR. Peripheral vascular disease diabetes. He came to the hospital because labs are drawn through [facility] in preparation for a TAVR. Patient was found to be significantly anemic with a hemoglobin in the 6 range. He was admitted for further workup and evaluation. He was recently hospitalized on 01/09/2022 for melena and symptomatic anemia. He underwent an upper endoscopy which showed nonerosive reflux disease but no active signs of bleeding. He was given 2 units of blood anticoagulation was resumed week after discharge. Patient has been having intermittent dark stools and had program progressively more weak and short of breath over the past several weeks. He was admitted with hemoglobin of 6.2. He denies any chest pain, unusual swelling, syncope, presyncope, paroxysmal nocturnal dyspnea, orthopnea Review of Systems Review of Systems: All systems reviewed & are unremarkable except as noted in HPI and below Constitutional: Constitutional: Reports weakness Eyes: Eyes: Denies blurry vision ENT: Reports Normal hearing present Cardiovascular: Cardiovascular: Denies chest pain Respiratory: Respiratory: Reports dyspnea Gastrointestinal: Gastrointestinal: Denies abdominal pain and Reports melena Genitourinary: Genitourinary: Denies dysuria Musculoskeletal: Musculoskeletal: Denies neck pain Integumentary/Breasts: Skin/Breast: Denies dry skin Neurologic: Denies headache(s) Psychiatric: Psychiatric: Denies anxiety Endocrine: Endocrine: Denies excessive sweating Hematologic/Lymphatic: Hematologic/Lymphatic: Denies easy bleeding Allergic/Immunologic: Allergic/Immunologic: Denies GI upset with certain foods PMFSH Past Medical History Medical History (Reviewed
[2022-02-10 14:00] VITALS: BP 163/69; PULSE 74; RESP 18; TEMP 37.1; O2SAT 99
[2022-02-10 16:04] LABS: Transferrin 296 mg/dL (206-381)
[2022-02-10 16:44] LABS: Iron < 10 ug/dL (49-181)
[2022-02-10 16:53] LABS: Percent Iron Saturation 2 % (20-50)
[2022-02-10 17:12] LABS: Folic Acid > 20.0 ng/mL (2.76->20)
[2022-02-10] MEDS: DOCUSATE SODIUM 100 MG CAPSULE PO (20:23)
[2022-02-10] MEDS: QUEtiapine FUMARATE 25 MG TABLET 50 MG PO (20:23)
[2022-02-10] MEDS: FERROUS SULFATE 324 MG TABLET PO (20:23)
[2022-02-10] MEDS: MIRTAZAPINE 15 MG TABLET PO (20:23)
[2022-02-10 20:59] LABS: Glucose Point of Care 156 mg/dl (65-105)
[2022-02-10 22:00] VITALS: BP 150/73; PULSE 66; RESP 18; TEMP 37.3; O2SAT 98
[2022-02-11] MEDS: SODIUM CHLORIDE 0.9% IV 1,000 ML 100 ML IV CONT (04:31)
[2022-02-11 05:00] VITALS: BP 162/72; PULSE 78; RESP 18; TEMP 36.5; O2SAT 97
[2022-02-11 05:03] VITALS: BP 152/74
[2022-02-11 05:06] VITALS: BP 162/79
[2022-02-11] MEDS: LEVOTHYROXINE SODIUM 125 MCG TABLET BY MOUTH (05:48)
[2022-02-11 07:20] LABS: Basophils Absolute Auto 0.1 K/mm3 (0.0-0.1); Basophils Percent Auto 1.5 % (0.2-1.2); Eosinophils Absolute Auto 0.2 K/mm3 (0-0.3); Eosinophils Percent Auto 4.1 % (0-4.4); Hematocrit 27.2 % (42.0-52.0); Hemoglobin 8.2 g/dL (14.0-18.0); Immature Granulocyte Absolute 0.02 K/mm3 (0.00-0.031); Immature Granulocyte Percent A 0.3 % (0-0.5); Lymphocytes Absolute Auto 1.03 K/mm3 (0.9-3.2); Lymphocytes Percent Auto 17.7 % (18.3-44.2); Mean Corpuscular HGB Conc 30.1 g/dl (32-36); Mean Corpuscular Hemoglobin 25.4 pg (26-34); Mean Corpuscular Volume 84.2 fl (80-100); Mean Platelet Volume 10.4 fl (7.4-10.4); Monocytes Absolute Auto 0.8 K/mm3 (0.1-0.6); Neutrophils Absolute Auto 3.7 K/mm3 (1.3-6.7); Neutrophils Percent Auto 63.4 % (45.5-73.1); Platelet Count Result 284 k/mm3 (150-375); Red Blood Count 3.23 M/mm3 (4.6-6.20); Red Cell Distribution Width 18.5 % (11.5-14.5); White Blood Count 5.8 K/mm3 (4.5-10.0)
[2022-02-11 07:32] LABS: Alanine Aminotransferase 14 U/L (4-50); Albumin Level 3.2 g/dL (3.5-5.1); Alkaline Phosphatase 73 U/L (38-126); Anion Gap 3 mmol/L (8-16); Aspartate Amino Transferase 30 U/L (17-59); Bilirubin,Total 0.3 mg/dL (0.2-1.3); Blood Urea Nitrogen 17 mg/dL (9-20); Carbon Dioxide 27 mmol/L (22-30); Chloride 107 mmol/L (98-107); Estimated CRCL calculation 62 ml/min; Estimated Glomerular Filt Rate > 60; Glucose 107 mg/dL (65-110); Sodium 137 mmol/L (137-145)
[2022-02-11 07:55] LABS: Glucose Point of Care 116 mg/dl (65-105)
[2022-02-11] MEDS: CEPHALEXIN 500 MG CAPSULE PO (08:31)
[2022-02-11] MEDS: FERROUS SULFATE 324 MG TABLET PO (08:31)
[2022-02-11] MEDS: EZETIMIBE 10 MG TABLET PO (08:31)
[2022-02-11] MEDS: polyethylene glycoL 3350 17 GM POWD.PACK PO (08:32)
[2022-02-11] MEDS: PANTOPRAZOLE SODIUM IV 40 MG VIAL IV PUSH (08:32)
[2022-02-11] MEDS: DOCUSATE SODIUM 100 MG CAPSULE PO (08:32)
[2022-02-11] MEDS: METOPROLOL SUCCINATE EXT REL 25 MG TABCR PO (08:56)
[2022-02-11] MEDS: DESVENLAFAXINE SUCCINATE 50 MG TAB.ER.24H PO (08:56)
[2022-02-11] MEDS: LOSARTAN POTASSIUM 25 MG TABLET PO (08:56)
--- NOTE | 2022-02-11 10:00 | P.DS_ITS ---
DS: Admitting Diagnosis Discharge Date 02/11/22 1000 Admitting Diagnosis Acute blood loss anemia/GI bleed DS: Discharge Diagnosis Discharge Diagnosis (1) Profound anemia: Qualifiers: Anemia type: unspecified type Qualified Code(s): D64.9 - Anemia, unspecified Code(s): D64.9 - Anemia, unspecified Status: Acute Assessment and Plan: * Patient once again presents with symptomatic anemia with a hemoglobin of 6.0, likely due to ongoing GI loss. * Current H/H 8.2/27.2 * Transfused 2 units since admission * GI consulted * EGD was performed recently did not show any bleeding * Capsule endoscopy no signs of bleeding * Lyman did not show any abnormality * Transfuse to stable hemoglobin. * Trend H&H. * Seems to be an acute blood loss anemia * Hold aspirin * Get anemia labs Iron >10, TIBC 418, % Sat 2, Folate 560, B12 >20, ferritin 10.60, Transferrin 296 * Combination of iron deficiency/acute blood loss * Started Iron 325mg PO BID with stool softeners (2) GI bleed: Qualifiers: GI bleed type/associated pathology: gastritis Gastritis type: unspecified gastritis Qualified Code(s): K29.71 - Gastritis, unspecified, with bleeding Code(s): K92.2 - Gastrointestinal hemorrhage, unspecified Status: Acute Assessment and Plan: * Ongoing occult GI blood loss with intermittent melena. * Continue IV Protonix 40 mg BID * Dr. Pope consulted, input appreciated. * NPO for capsule endoscopy (3) Hypotension: Code(s): I95.9 - Hypotension, unspecified Status: Acute Assessment and Plan: * Current BP is 162/72 * Seems to be resolved * Secondary to hypovolemia from profound anemia. Improved with blood transfusion. * Hold antihypertensives and monitor closely. (4) Type 2 diabetes mellitus: Qualifiers: Diabetes mellitus complication status: without complication Diabetes mellitus penitentiary insulin use: without penitentiary use Qualified Code(s): E11.9 - Type 2 diabetes mellitus without complications Code(s): E11.9 - Type 2 diabetes mellitus without complications Status: Acute Assessment and Plan: Recent hemoglobin A1c was 5.9%. * Hold sitagliptin as he will be NPO tonight. * Initiate sliding scale insulin, Accu-Cheks, and hypoglycemic protocol. * Glucose 107 and stable (5) Paroxysmal atrial fibrillation: Code(s): I48.0 - Paroxysmal atrial fibrillation Status: Acute Assessment and Plan: Currently in a sinus rhythm. * Xarelto on hold secondary to anemia and GI blood loss. * Possible candidate for Watchman device per cardiology. (6) Chronic anticoagulation: Code(s): Z79.01 - alf (current) use of anticoagulants Status: Acute Assessment and Plan: On Xarelto for stroke prophylaxis due to paroxysmal atrial fibrillation. * Xarelto on hold secondary to anemia and GI blood loss. * As above, possible candidate for Watchman device. * Continue to hold Xarelto (7) Hypertension: Code(s): I10 - Essential (primary) hypertension Status: Acute Assessment and Plan: * Current BP is 162/72 * Restart home losartan and metoprolol * Trend BP * Adjust therapy as indicated DS: Summary Hospital Course Hospital Course: Patient is an 82-year-old male with a past medical history of pud, atrial fib, aortic valve stenosis with a TAVR, hypertension, PVD, diabetes who presented to the emergency
--- NOTE | 2022-02-11 10:00 | PM.DS ---
DS: Admitting Diagnosis Discharge Date 02/11/22 1000 Admitting Diagnosis Acute blood loss anemia/GI bleed DS: Discharge Diagnosis Discharge Diagnosis (1) Profound anemia: Qualifiers: Anemia type: unspecified type Qualified Code(s): D64.9 - Anemia, unspecified Code(s): D64.9 - Anemia, unspecified Status: Acute Assessment and Plan: Patient once again presents with symptomatic anemia with a hemoglobin of 6.0, likely due to ongoing GI loss. Current H/H 8.2/27.2 Transfused 2 units since admission GI consulted EGD was performed recently did not show any bleeding Capsule endoscopy no signs of bleeding Saundra did not show any abnormality Transfuse to stable hemoglobin. Trend H&H. Seems to be an acute blood loss anemia Hold aspirin Get anemia labs Iron >10, TIBC 418, % Sat 2, Folate 560, B12 >20, ferritin 10.60, Transferrin 296 Combination of iron deficiency/acute blood loss Started Iron 325mg PO BID with stool softeners (2) GI bleed: Qualifiers: GI bleed type/associated pathology: gastritis Gastritis type: unspecified gastritis Qualified Code(s): K29.71 - Gastritis, unspecified, with bleeding Code(s): K92.2 - Gastrointestinal hemorrhage, unspecified Status: Acute Assessment and Plan: Ongoing occult GI blood loss with intermittent melena. Continue IV Protonix [address] Pope consulted, input appreciated. NPO for capsule endoscopy (3) Hypotension: Code(s): I95.9 - Hypotension, unspecified Status: Acute Assessment and Plan: Current BP is 162/72 Seems to be resolved Secondary to hypovolemia from profound anemia. Improved with blood transfusion. Hold antihypertensives and monitor closely. 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 Hold sitagliptin as he will be NPO tonight. Initiate sliding scale insulin, Accu-Cheks, and hypoglycemic protocol. Glucose 107 and stable (5) Paroxysmal atrial fibrillation: Code(s): I48.0 - Paroxysmal atrial fibrillation Status: Acute Assessment and Plan: Currently in a sinus rhythm. Xarelto on hold secondary to anemia and GI blood loss. Possible candidate for Watchman device per cardiology. 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 Xarelto on hold secondary to anemia and GI blood loss. As above, possible candidate for Watchman device. Continue to hold Xarelto (7) Hypertension: Code(s): I10 - Essential (primary) hypertension Status: Acute Assessment and Plan: Current BP is 162/72 Restart home losartan and metoprolol Trend BP Adjust therapy as indicated DS: Summary Hospital Course Hospital Course: Patient is an 82-year-old male with a past medical history of pud, atrial fib, aortic valve stenosis with a TAVR, hypertension, PVD, diabetes who presented to the emergency room for evaluation of anemia on labs. Patient has had multiple episodes of anemia requiring blood transfusion. Dr. Pope was consulted and patient underwent a capsule endoscopy. Patient is also recently had an EGD and colonoscopy which did not have any abnormalities found at that time. Upon arrival to the ED patient had hemoglobin of 6.2. Patient was given 3 units total of PRBCs. Patient also went through Saundra procedure which did not show any abnormalities at this time. H&H was stable today at 9 and 33.
[2022-02-14 19:36] LABS: Glucose Point of Care 130 mg/dl (65-105)
== END 2022-02-11 11:55 | disposition home or self-care (01) | DRG 811 ==
LOC: ANHED 13:35 → ANH2MED 15:36 → ANH3MEDSUR 02-10 16:09 → ANH2MED 02-13 14:07 → ANH3MEDSUR 02-13 14:07
PROVIDERS: Internal Medicine Gastroenterology; Physician Assistant; Admitting Provider Internal Medicine; Emergency Provider Emergency Medicine; PCP Internal Medicine; Visit Provider Nurse Practitioner
PROC: 0DJ07ZZ Inspection of Upper Intestinal Tract, Via Natural or Artificial Opening (ICD-10-PCS; CPT 91110; principal; 2022-02-09 07:00)
DX: D62 Acute posthemorrhagic anemia (principal); K29.71 Gastritis, unspecified, with bleeding; K92.1 Melena; M87.9 Osteonecrosis, unspecified; I48.20 Chronic atrial fibrillation, unspecified; Z20.822 Contact with and (suspected) exposure to COVID-19; I95.9 Hypotension, unspecified; I48.0 Paroxysmal atrial fibrillation; Z79.01 Long term (current) use of anticoagulants; F41.8 Other specified anxiety disorders; E78.5 Hyperlipidemia, unspecified; Z85.46 Personal history of malignant neoplasm of prostate; E03.9 Hypothyroidism, unspecified; E11.51 Type 2 diabetes mellitus with diabetic peripheral angiopathy without gangrene; I10 Essential (primary) hypertension; E11.42 Type 2 diabetes mellitus with diabetic polyneuropathy; Z95.2 Presence of prosthetic heart valve; Z82.49 Family history of ischemic heart disease and other diseases of the circulatory system; Z79.899 Other long term (current) drug therapy; E86.1 Hypovolemia
CPT/HCPCS: 36415; 36430; 78290; 80048; 80053; 82607; 82728; 82746; 82948; 83540; 83550; 83735; 84466; 85014; 85018; 85025; 85610; 85730; 86850; 86900; 86901; 86920; 91110; 96361; 96374; 96375; 99285; A9270; A9512; C9113; C9803; G0378; J7030; J7050; P9016; U0003; U0005

== ENCOUNTER 2022-10-26 12:49 | Outpatient (CLI) | payer MEDICARE, OTHER, SELFPAY ==
--- NOTE | ~2022-10-26 | US_ITS ---
EXAMINATION: US soft tissue buttock RT DATE: 10/26/2022 13:32 INDICATION: Right buttock mass. TECHNIQUE: Multiple grayscale and Doppler ultrasound images of the buttocks were obtained. COMPARISON: CT abdomen and pelvis 09/13/20 FINDINGS: There is an ill-defined hyperechoic subcutaneous mass measuring 2-3 cm in right buttock in the patient's area of concern. IMPRESSION: 1. Ill-defined hyperechoic subcutaneous mass measuring 2-3 cm in right buttock in the patient's area of concern, likely inflammation. Reviewed, dictated and finalized at location A. NERATION TECHNICIAN
== END 2022-10-26 12:50 | disposition home or self-care (01) ==
LOC: ANHIMG 12:54
PROVIDERS: PCP Internal Medicine; Visit Provider Internal Medicine
DX: R22.41 Localized swelling, mass and lump, right lower limb (principal)
CPT/HCPCS: 76705

== ENCOUNTER 2023-07-31 09:21 | Outpatient (CLI) | payer MEDICARE, OTHER, SELFPAY ==
--- NOTE | ~2023-07-31 | US_ITS ---
EXAMINATION: US carotid duplex BI DATE: 07/31/2023 10:49 INDICATION: Carotid stenosis TECHNIQUE: Grayscale, color Doppler, and pulsed Doppler images of the cervical carotid arteries were obtained. The degree of vessel stenosis is placed in one of the following categories: normal, <50%, 5 0-69%, >=70% but less than near-occlusion, near-occlusion, or total occlusion. Note that percent sten osis relative to normal distal artery lumen diameter is indirectly measured from velocity measurement s as described by Flaco, et al. Radiology 2003; 229:340-346. Notes: Normal: Peak systolic velocity <125 centimeters/sec and no plaque <50%. Peak systolic velocity <125 ( EDV <40; ICA/CCA PSV ratio <2.0; used these factors only a tandem lesions or low cardiac output or co ntralateral disease) 50-69 %: PSV 125-230 (EDV 40-100; ratio 2-4) >= 70% but less than near occlusion: PSV greater than 230 (EDV > 100; ratio> 4.0) Near Occlusion: PSV that is variable; markedly narrowed lumen Occlusion: Absent flow on color/spectral Doppler and no lumen on best scale. COMPARISON: None. FINDINGS: RIGHT: The right common carotid artery (CCA) peak systolic velocity (PSV) is 58 cm/s. The right internal car otid artery (ICA) PSV is 60 cm/s. The right ICA end-diastolic velocity (EDV) is 20 cm/s. The right IC A/CCA PSV ratio is 1.0. The external carotid artery (ECA) PSV is 188 cm/s. Flow not identified in the vertebral artery. LEFT: The left CCA PSV is 89 cm/s. The left ICA PSV is 64 cm/s. The left ICA EDV is 22 cm/s. The left ICA/C CA PSV ratio is 0.7. The ECA PSV is 79 cm/s. There is antegrade flow in the left vertebral artery. IMPRESSION: 1. Less than 50% stenosis in the right internal carotid artery by sonographic criteria. 2. Less than 50% stenosis in the left internal carotid artery by sonographic criteria. 3: No identifiable flow in the right vertebral artery. Reviewed, dictated and finalized at location L. IMPRESSION: 1. Less than 50% stenosis in the right internal carotid artery by sonographic c riteria. 2. Less than 50% stenosis in the left internal carotid artery by sonographic cr iteria. 3: No identifiable flow in the right vertebral artery.
== END 2023-07-31 09:22 | disposition home or self-care (01) ==
LOC: ANHIMG 09:23
PROVIDERS: PCP Internal Medicine; Visit Provider Internal Medicine
DX: I65.23 Occlusion and stenosis of bilateral carotid arteries (principal); R09.89 Other specified symptoms and signs involving the circulatory and respiratory systems
CPT/HCPCS: 93880

== ENCOUNTER 2024-01-15 14:01 | Outpatient (CLI) | payer MEDICARE, OTHER, SELFPAY ==
--- NOTE | ~2024-01-15 | US_ITS ---
EXAMINATION:US venous doppler LE RT INDICATION:Leg edema TECHNIQUE: Multiple grayscale, color flow and Doppler images of the right lower extremity deep venous systems were obtained and reviewed. COMPARISON:No prior studies for comparison. FINDINGS: The common femoral, superficial femoral and popliteal veins demonstrate normal respiratory variation, augmentation and compressibility. Color flow is also seen within the posterior tibial, pe roneal, greater saphenous and profunda veins. IMPRESSION: 1: No lower extremity deep venous thrombosis. Reviewed, dictated and finalized at location A.
== END 2024-01-15 14:02 | disposition home or self-care (01) ==
PROVIDERS: PCP Internal Medicine; Visit Provider Internal Medicine Cardiovascular Disease
DX: R60.0 Localized edema (principal)
CPT/HCPCS: 93971

== ENCOUNTER 2024-03-04 13:09 | Emergency (ER) | payer MEDICARE, OTHER, SELFPAY ==
--- NOTE | ~2024-03-04 | US_ITS ---
EXAMINATION: US venous doppler [facility] DATE: 03/04/2024 15:42 INDICATION: leg swelling . TECHNIQUE: Grayscale images without and with compression and Doppler images of the left lower extremi ty veins were obtained. COMPARISON: None FINDINGS: The left common femoral vein, profunda (deep) femoral vein, femoral vein, popliteal vein, peroneal v ein, posterior tibial veins, gastrocnemius vein, and greater saphenous vein are patent. IMPRESSION: Patent left lower extremity veins. No evidence of deep venous thrombosis. Reviewed, dictated and finalized at location K.
[2024-03-04 13:13] VITALS: BP 108/62; PULSE 58; RESP 20; TEMP 37; O2SAT 97
[2024-03-04 15:53] LABS: Basophils Absolute Auto 0.1 K/mm3 (0.0-0.1); Basophils Percent Auto 0.6 % (0.2-1.2); Eosinophils Absolute Auto 0.3 K/mm3 (0-0.3); Eosinophils Percent Auto 3.5 % (0-4.4); Hematocrit 40.8 % (42.0-52.0); Hemoglobin 12.9 g/dL (14.0-18.0); Immature Granulocyte Absolute 0.02 K/mm3 (0.00-0.031); Immature Granulocyte Percent A 0.3 % (0-0.5); Lymphocytes Absolute Auto 1.58 K/mm3 (0.9-3.2); Lymphocytes Percent Auto 19.8 % (18.3-44.2); Mean Corpuscular HGB Conc 31.6 g/dl (32-36); Mean Corpuscular Hemoglobin 29.9 pg (26-34); Mean Corpuscular Volume 94.7 fl (80-100); Mean Platelet Volume 9.9 fl (7.4-10.4); Monocytes Absolute Auto 0.7 K/mm3 (0.1-0.6); Monocytes Percent Auto 9.2 % (2.6-8.5); Neutrophils Absolute Auto 5.3 K/mm3 (1.3-6.7); Neutrophils Percent Auto 66.6 % (45.5-73.1); Platelet Count Result 198 k/mm3 (150-375); Red Blood Count 4.31 M/mm3 (4.6-6.20); Red Cell Distribution Width 13.6 % (11.5-14.5)
[2024-03-04 16:02] VITALS: BP 125/67; PULSE 68; RESP 20; O2SAT 98
[2024-03-04 16:06] LABS: Alanine Aminotransferase 23 U/L (6-50); Albumin Level 3.8 g/dL (3.5-5.1); Alkaline Phosphatase 89 U/L (38-126); Anion Gap 4 mmol/L (4-12); Aspartate Amino Transferase 34 U/L (17-59); Bilirubin,Total 0.4 mg/dL (0.2-1.3); Blood Urea Nitrogen 24 mg/dL (9-20); Calcium 8.9 mg/dL (8.4-10.2); Carbon Dioxide 29 mmol/L (22-30); Chloride 105 mmol/L (98-107); Estimated CRCL calculation 65 ml/min; Estimated Glomerular Filt Rate > 60; Glucose 147 mg/dL (65-110); Potassium 4.3 mmol/L (3.4-5.0); Sodium 138 mmol/L (137-145)
[2024-03-04 16:15] LABS: NT Pro B Type Natriuretic Pept 291 pg/mL (19.9-100)
--- NOTE | 2024-03-04 16:28 | ED.EXTPRO ---
HPI - Extremity Problem General Chief complaint: Extremity Problem,Nontraumatic Stated complaint: left leg pain Time Seen by Provider: 03/04/24 13:45 History of Present Illness HPI Narrative: [age] male presents to the emergency department for evaluation for left leg swelling. Patient does have a history of a total hip replacement on the right approximately 2 months ago, patient did have recent bilateral lower extremity swelling and did have an outpatient ultrasound of the right leg showing no evidence of DVT. Family is still concerned about the possibility of a DVT on the left leg. Patient states he always does have some swelling of the left leg. Related Data Home Medications Medication Instructions Recorded Confirmed blood sugar diagnostic (Blood #10 ea 08/20/19 12/05/23 Glucose Test strips) cholecalciferol (vitamin D3) 50 2,000 unit PO DAILY 08/20/19 12/05/23 mcg (2,000 unit) tablet desvenlafaxine succinate 100 mg 25 mg PO DAILY 08/20/19 12/05/23 tablet,extended release 24 hr (Pristiq) trazodone 50 mg tablet 50 mg PO QHS PRN Anxiety 02/04/21 12/05/23 aspirin 81 mg tablet,delayed 81 mg PO DAILY 04/22/21 12/05/23 release (Adult Low Dose Aspirin) lorazepam 0.5 mg tablet 0.5 mg PO DAILY PRN Anxiety 09/09/21 12/05/23 quetiapine 50 mg tablet (Seroquel) 50 mg PO QHS 01/09/22 12/05/23 mirtazapine 15 mg tablet 15 mg PO HS 01/20/22 12/05/23 metoprolol succinate 25 mg 25 mg PO DAILY 02/08/22 12/05/23 tablet,extended release 24 hr Fish oil 1,300 mg BYWVUTH 02/28/23 12/05/23 ibuprofen 800 mg tablet 800 mg PO Q6H PRN 02/28/23 12/05/23 multivitamin 1 tablet PO DAILY 02/28/23 12/05/23 Allergies Allergy/AdvReac Type Severity Reaction Status Date / Time No Known Allergies Allergy Verified 03/04/24 13:30 Review of Systems Review of Systems: All systems reviewed & are unremarkable except as noted in HPI and below PMFSH Past Medical History Medical History (Updated 03/04/24 @ 16:31 by Sher Altman MD) Acute UTI Anxiety with depression Aortic valve stenosis Status post TAVR. 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 Hyperlipidemia Hypothyroidism Iron deficiency anemia Left carotid stenosis Mass of right hip region Need for shingles vaccine Oral infection Orthostatic hypotension Osteonecrosis Paroxysmal atrial fibrillation Peripheral neuropathy Peripheral vascular disease Prostate cancer Status post prostatectomy. Pulmonary nodules Rhus dermatitis Skin cancer Strain of left trapezius muscle Vitamin D deficiency Wrist pain, left Surgical History Surgical History History of bilateral carpal tunnel release History of bilateral cataract extraction History of bilateral knee replacement History of colonoscopy with polypectomy History of elbow surgery Left elbow surgery. History of inguinal hernia repair History of prostatectomy History of radical neck dissection History of spinal fusion History of total left hip arthroplasty History of transcatheter aortic valve replacement (TAVR) (07/2020) History of ventral hernia repair Status post myringotomy with insertion of tube Status post surgical removal of malignant neoplasm of skin Family History Family History Mother Diabetes mellitus Hypertension Family history of cardiovascular disease Family history of diabetes mellitus in first degree relative Family history of heart disease in male family member before age 55 Sibling Hypertension Brother and sister Di
== END 2024-03-04 16:41 | disposition home or self-care (01) ==
PROVIDERS: Emergency Provider Emergency Medicine; PCP Internal Medicine
DX: R22.43 Localized swelling, mass and lump, lower limb, bilateral (principal); I35.0 Nonrheumatic aortic (valve) stenosis; I48.0 Paroxysmal atrial fibrillation; I48.92 Unspecified atrial flutter; I65.22 Occlusion and stenosis of left carotid artery; I10 Essential (primary) hypertension; E11.42 Type 2 diabetes mellitus with diabetic polyneuropathy; E78.5 Hyperlipidemia, unspecified; E03.9 Hypothyroidism, unspecified; D50.9 Iron deficiency anemia, unspecified; M19.90 Unspecified osteoarthritis, unspecified site; F41.8 Other specified anxiety disorders; Z98.1 Arthrodesis status; Z95.2 Presence of prosthetic heart valve; Z96.642 Presence of left artificial hip joint; Z96.653 Presence of artificial knee joint, bilateral; Z85.828 Personal history of other malignant neoplasm of skin; Z87.440 Personal history of urinary (tract) infections; Z98.42 Cataract extraction status, left eye; Z98.41 Cataract extraction status, right eye; Z90.79 Acquired absence of other genital organ(s); Z79.82 Long term (current) use of aspirin; Z79.84 Long term (current) use of oral hypoglycemic drugs; Z79.899 Other long term (current) drug therapy
CPT/HCPCS: 36415; 80053; 83880; 85025; 93971; 99284

== ENCOUNTER 2024-04-21 12:58 | Outpatient (CLI) | payer MEDICARE, OTHER, SELFPAY ==
--- NOTE | ~2024-04-21 | XR_ITS ---
Left Knee Technique: AP, lateral, and sunrise views were obtained. Clinical History: Pain Findings: No fracture or dislocation is seen. Left knee arthroplasty in place. Soft tissues are unrem arkable. No joint effusion is seen. Impression: No acute abnormality. Left knee arthroplasty in place. Reviewed, dictated and finalized at location . Impression: No acute abnormality. Left knee arthroplasty in place.
== END 2024-04-21 12:59 | disposition home or self-care (01) ==
LOC: ANHIMG 13:15
PROVIDERS: PCP Internal Medicine; Visit Provider Internal Medicine
DX: M25.562 Pain in left knee (principal)
CPT/HCPCS: 73564

== ENCOUNTER 2024-09-22 08:21 | Outpatient (CLI) | payer MEDICARE, OTHER, SELFPAY ==
--- NOTE | ~2024-09-22 | XR_ITS ---
MODIFIED ESOPHAGRAM HISTORY: Dysphagia. TECHNIQUE: Modified barium esophagram was performed on 09/22/2024. I administered fluoroscopy and per formed the exam with speech pathologist. Patient was seated for lateral fluoroscopic imaging for ing estion of thin liquids, pudding, solids and quantified amounts, followed by thin liquids in uncontrol led amounts. This was recorded on tape. A single fluoroscopic spot image was also recorded. The DAP f or this procedure was 0.827 Gycm2. The amount of fluoroscopy time used during this procedure was 1.1 minutes. FINDINGS: Oral stage: Adequate function. Pharyngeal stage: Postoperative changes at the neck with multiple surgical clips project over the pha rynx. There is mild to moderate vallecular residue. No laryngeal penetration or aspiration. Cervical/esophageal stage: Adequate function. IMPRESSION: Postoperative changes at the neck and mild to moderate vallecular residue. No laryngeal p enetration or aspiration. Please correlate with speech pathologist findings and specific feeding rec ommendations. Reviewed, dictated and finalized at location A. E TRIMMER IMPRESSION: Postoperative changes at the neck and mild to moderate vallecular r esidue. No laryngeal penetration or aspiration. Please correlate with speech p athologist findings and specific feeding recommendations.
--- NOTE | 2024-09-22 12:30 | REHSTMBS ---
Assessment and note entered by Guerline Fitzpatrick, FACILITIES FLIGHT CHECK PILOT Modified Barium Swallow Evaluation Feeding Type Recommended Oral Food Consistency Soft and Bite Size, Level 6 Liquid Consistency Thin (0) Treatment Recommendations Effortful Swallow,Laryngeal Elevation Exercise, Tongue Base Exercise ST Clinical Summary MODIFIED BARIUM SWALLOW STUDY This patient was seen for an outpatient Modified Barium Swallow study at the request of his hospitalist. He reported that solid foods get stuck when he is attempting to swallowing them. He also reported occasional, random difficulty with thin liquids. Patient reported a history of throat cancer with radiation. He stated that a portion of his right jaw was removed however they attempted to place a plate in the same area which never healed and it had to be removed; at that location, he is missing several teeth but he has the other teeth in the front, side, and back on the right side. Patient stated that he always cuts his food into small pieces before placing in the mouth as he is aware that solids can be troublesome. Today the patient was viewed in the lateral position to the level of C5/C6. He was presented with thin liquid contrast medium per cup, then pudding mixed with semi-solid contrast medium, and then fruit cocktail and indu cracker pieces, both coated with the semi-solid mixture. On each presentation, he exhibited quick swallows with no evidence of penetration or aspiration. Results were discussed with patient and he voiced understanding. He was instructed in the use of head flexion to assist with swallowing, add moisture to meats, such as gravies and soups, small bites and sips. Due to the history of surgery and radiation, and current complaints, patient may benefit from direct Speech Therapy for strengthening exercises and safe swallowing techniques. Please order at his facility or through [facility] outpatient. Thank you for this referral.
--- NOTE | 2024-09-23 08:23 | REHSTMBS ---
Assessment and note entered by Guerline Fitzpatrick, BLOCK ENGRAVER Modified Barium Swallow Evaluation Feeding Type Recommended Oral Food Consistency Soft and Bite Size, Level 6 Liquid Consistency Thin (0) Treatment Recommendations Effortful Swallow,Laryngeal Elevation Exercise, Tongue Base Exercise ST Clinical Summary MODIFIED BARIUM SWALLOW STUDY This patient was seen for an outpatient Modified Barium Swallow study at the request of his hospitalist. He reported that solid foods get stuck when he is attempting to swallowing them. He also reported occasional, random difficulty with thin liquids. Patient reported a history of throat cancer with radiation. He stated that a portion of his right jaw was removed however they attempted to place a plate in the same area which never healed and it had to be removed; at that location, he is missing several teeth but he has the other teeth in the front, side, and back on the right side. Patient stated that he always cuts his food into small pieces before placing in the mouth as he is aware that solids can be troublesome. Today the patient was viewed in the lateral position to the level of C5/C6. He was presented with thin liquid contrast medium per cup, then pudding mixed with semi-solid contrast medium, and then fruit cocktail and indu cracker pieces, both coated with the semi-solid mixture. On each presentation, he exhibited quick swallows with no evidence of penetration or aspiration. Moderate vallecular residue was noted manny times during this procedure, requiring secondary swallows to clear. Results were discussed with patient and he voiced understanding. He was instructed in the use of head flexion to assist with swallowing, add moisture to meats, such as gravies and soups, small bites and sips. Due to the history of surgery and radiation, and current complaints, patient may benefit from direct Speech Therapy for strengthening exercises and safe swallowing techniques. Please order at his facility or through [facility] outpatient. Thank you for this referral.
--- OUTSIDE RECORDS SUMMARY | 2024-09-28 06:45 | XMS_ITS | Encounter Summary ---
Author Organization [facility] Address [address] [place] [address] Care Team Providers Care Regional Operations Director Name Role Phone Fawad Hirsch MD Primary Care Provider [phone] Reason for Visit * Reason Comments Refill Request Encounter Details Date Type Department Care Team (Late st Contact Info) Description 06/06/2015 Refill [facility] - Endocrinology [address], [address] [place] [address] Denise Ribeiro MD [address] [place], [place] [id number] Refill Request Social History Tobacco Use Types Packs/Day Years Used Date Smoking Tobacco: Never Assessed Sex and Gender Information Value Date Recorded Sex Assigned at Not on file Gender Identity Not on file Sexual Orientation Not on file documented as of this encounter Plan of Treatment Not on file documented as of this encounter Visit Diagnoses Not on filedocumented in this encounter Care Teams Regional Operations Director Relationship Specialty Start Date End Date Fawad Hirsch MD [address] [place] [id number] PCP - General 07/23/12 documented as of this encounter
--- OUTSIDE RECORDS SUMMARY | 2024-09-28 06:45 | XMS_ITS | Clinical Summary ---
Author Organization [facility] Address [address] [place] [address] Care Team Providers Care Security Escort Name Role Phone Fawad Hirsch MD Primary Care Provider [phone] Source Comments [facility],non-owned Affiliates and Associated Physician Practices is amultiple site organization consisting of ambulatory clinics and hospital sitesin [place], [place], [place] and [place]. This disclosure is being madepursuant to the Care Everywhere program and may not contain all information available regarding this patient. Last updated 18.[facility] Allergies No known active allergies Medications * Be aware that medications may not be up to date on this document. Alwaysverify current medications with the patient. Medication Sig Dispensed Refills Start Date End Date Status predniSONE (DELTASONE) 5 MG tablet TAKE ONE TO TWO TABLETS BY MOUTH ONCE DAILY FOR INFLAMMATION 60 Tab 0 06/07/2015 Active Additional Information Patient not taking.Reported on 10/05/2015 gabapentin (NEURONTIN) 600 MG tablet 2 qam and 2 qhs 360 Tab 3 09/22/2015 Active amoxicillin (AMOXIL) 500 MG capsule TAKE FOUR CAPSULES BY MOUTH ONE HOUR BEFORE APPOINTMENT 08/16/2020 Active desvenlafaxine succinate ER 24hr (PRISTIQ) 100 MG tablet 09/07/2020 Active Social History Tobacco Use Types Packs/Day Years Used Date Smoking Tobacco: Never Alcohol Use Standard Drinks/Week Comments No 0 (1 standard drink = 0.6 oz pur e alcohol) Sex and Gender Information Value Date Recorded Sex Assigned at Not on file Gender Identity Not on file Sexual Orientation Not on file Last Filed Vital Signs Vital Sign Reading Time Taken Comments Blood Pressure 138/84 10/05/2015 3:53 PM RERECORDING MIXER Pulse 78 10/05/2015 3:53 PM RERECORDING MIXER Temperature - - Respiratory Rate 18 07/24/2012 11:5 0 AM CDT Oxygen Saturation 94% 07/24/2012 11: 50 AM CDT Inhaled Oxygen Concentration - - Weight 114.4 kg (252 lb 1.6 oz) 10/05/2015 3:53 PM RERECORDING MIXER Height 170.2 cm (5' 7 ) 10/05/2015 3:53 PM RERECORDING MIXER Body Mass Index 39.48 10/05/2015 3:53 PM RERECORDING MIXER Plan of Treatment Health Maintenance Due Date Last Done Comments MEDICARE AWV ? 12 MONTHS 1940 DTAP/TDAP/TD VACCINES (1 - Tdap) 01/08/1959 ZOSTER VACCINE (1 of 2) 01/08/1990 PNEUMOCOCCAL VACCINE 65+ (1 of 1 - PCV) 01/08/2005 Respiratory Syncytial Virus (RSV) Vaccine Pt: or over 60 yrs (1 - 1-dose 75+ series) 01/08/2015 DEPRESSION SCREENING 10/08/2023 COVID-19 VACCINE (1 - 2023-2 5 season) 2024 INFLUENZA VACCINE (#1) 2024 HEPATITIS B VACCINE Aged Out No longe r eligible based on patient's age to complete this topic HIB VACCINE Aged Out No longer eligi ble based on patient's age to complete this topic HPV VACCINE Aged Out No longer eligi ble based on patient's age to complete this topic MENINGOCOCCAL VACCINE Aged Out No shilpi sol eligible based on patient's age to complete this topic Care Teams Security Escort Relationship Specialty Start Date End Date Fawad Hirsch MD [address] [place] [address] PCP - General 07/23/12
--- OUTSIDE RECORDS SUMMARY | 2024-09-28 06:45 | XMS_ITS | Encounter Summary ---
Author Organization [facility] Address [address] [place] [address] Care Team Providers Care Natural Resource Manager Name Role Phone Fawad Hirsch MD Primary Care Provider [phone] Reason for Referral * OP/Amb RFL Auth (Routine) - Closed Specialty Diagnoses / Procedures Referred By Hunter t Referred To Contact Diagnoses Left hip pain Procedures [place] DRAIN/INJECT LARGE JOINT/BURSA Estella Hardy PA-C [address] [place] [id number] Referral ID Status Reason Start Date Expiration Date Visits Re quested Visits Authorized [id number] Closed 08/20/2020 08/20/2021 1 1 RNATIONAL SALES REPRESENTATIVE Reason for Visit * Reason Comments Establish Care Encounter Details Date Type Department Care Team (Late st Contact Info) Description 08/20/2020 12:45 PM INTERNATIONAL SALES REPRESENTATIVE Office Visit [facility] [id number] [place] [address], [address] [place] [address] Estella Hardy PA-C [address] [place] [id number] Left hip pain (Primary Dx); Greater trochanteric bursitis of left hip Social History Tobacco Use Types Packs/Day Years Used Date Smoking Tobacco: Never Alcohol Use Standard Drinks/Week Comments No 0 (1 standard drink = 0.6 oz pur e alcohol) Sex and Gender Information Value Date Recorded Sex Assigned at Not on file Gender Identity Not on file Sexual Orientation Not on file COVID-19 Exposure Response Date Recorded In the last month, have you been in contact with someone who was confirmed or suspected to have Coronavirus / COVID-19? No / Unsure 08/20/2020 2:00 PM INTERNATIONAL SALES REPRESENTATIVE documented as of this encounter Progress Notes * Estella Hardy PA-C - 08/20/2020 1:20 PM CST Chief complaint: Left hip pain History of present illness: Patient presents today for evaluation of left hip pain [facility]'s Left ABBY 2008. Pain March 2020. Started using walking stick for 6 weeks. Buttock and lateral hip pain. Currently on Xeralto post procedure for Aortic valve replacement. History of Bilateral knee arthroplasties. Has been experiencing balance issues x 1 year. Patient is D iabetic has history of neuropathy and is on Gabapentin. Most recent Hgb A1C was 6.2. Describes his fist few steps are painful and occasionally his leg will want to buckle. He is unable to tolerate laying on his left side. Medrol Dose pack by PCP no relief in pain. Medications: Amoxicillin, aspirin, vitamin D3, Pristiq, Zetia, Neurontin, Januvia, Cozaar, Pravachol, Seroquel, Xarelto, Synthroid, trazodone, and Dennis 5/325 Allergies no known drug allergies Past surgical history: Hernia repair, bilateral carpal tunnel release, bilateral total knee arthroplasties, prostatectomy, left total hip arthroplasty, right neck dissection, T&A, tongue screw removal and lymph node followed by radiation and chemo, abdominal ventral hernia repair, left ankle arthroscopy left elbow ORIF, lumbar decompression fusion, cardiac catheterization, T AVR procedure Physical examination: 80-year-old male, 5 ft 7252 lb alert oriented in no distress mood and affect are appropriate. Nontender to palpation right groin. Painless passive hip internal and external range of motion. Lower extremity motor strength graded 5/5 with resisted hip abduction/adduction and resisted hip flexion. Radiographs: AP pelvis and lateral view of his left hip were obtained in the office today dated 08/20/2020 demonstrate left noncemented femoral stem. Acetabular cup demonstrates asymmetric polyethylene liner wear with vertical cup orientation and 2 screw fixation. Assessment: Left trochanteric bursitis Left total hip Arthroplasty Plan: Proceeded with trochanteric bursa injection. Patient will follow up in 1 month. Orthopedic Procedure note Procedure: Left hip injection The knee was marked and prepped with ChloraPrep. Under sterile technique injected left hip trochanteric bursa with 3 cc of 1 percent lidocaine, and 1 cc of 80 milligram Depo-Medrol. The patient tolerated the procedure well. RNATIONAL SALES REPRESENTATIVE documented in this encounter Procedure Notes * Edwige Ricks RT(R) - 08/20/2020 12:58 PM CSTAssociated Order(s): XR HIP LEFT 2VW OR MORE See progress notes for results RNATIONAL SALES REPRESENTATIVE documented in this encounter Plan of Treatment Not on file documented as of this encounter Procedures Procedure Name Priority Date/Time Associated Diagnosis Comments XR HIP LEFT 2VW OR MORE Routine 08/20/2020 12:50 PM INTERNATIONAL SALES REPRESENTATIVE Left hip pain documented in this encounter Results * XR HIP LEFT 2VW OR MORE (08/20/2020 12:50 PM INTERNATIONAL SALES REPRESENTATIVE) Anatomical Region Laterality Modality Pelvis, Lower Extremity Computed Radiography Narrative 08/20/2020 12:58 PM INTERNATIONAL SALES REPRESENTATIVE Edwige Ricks RT(R) ? 08/20/2020 ??2:46 PM See progress notes for results Estella Hardy PA-C DIAGNOSTIC IMAGING ORDERABLES documented in this encounter Visit Diagnoses Diagnosis Left hip pain- Primary Pain in joint, pelvic region and thigh Greater trochanteric bursitis of left hip Enthesopathy of hip region Left hip pain Pain in joint, pelvic region and thigh documented in this encounter Administered Medications Inactive Administered Medications - up to 3 most recent administrations Medication Order MAR Action Action Date Dose Rate Site lidocaine PF (XYLOCAINE MPF) 1 % injection 3 mL 3 mL, Intra-articular, ONCE, 1 dose, On Sun08/20/20 at 1400 $ Given 08/20/2020 1:37 PM INTERNATIONAL SALES REPRESENTATIVE 3 mL Left Knee methylPREDNISolone acetate (DEPO-Medrol) injection 80 mg 80 mg, Intra-articular, ONCE, 1 dose, On Sun08/20/20 at 1400 $ Given 08/20/2020 1:42 PM INTERNATIONAL SALES REPRESENTATIVE 80 mg Left Hip documented in this encounter Care Teams Natural Resource Manager Relationship Specialty Start Date End Date Fawad Hirsch MD [address] [place] [address] PCP - General 07/23/12 documented as of this encounter
--- OUTSIDE RECORDS SUMMARY | 2024-09-28 06:45 | XMS_ITS | Patient Health Summary ---
Author Organization [facility] Address [address] [place] [address] Care Team Providers Care Glass Rolling Machine Operator Name Role Phone Fawad Hirsch MD Primary Care Provider [phone] Note from [facility],non-owned Affiliates and Associated Physician Practices is amultiple site organization consisting of ambulatory clinics and hospital sitesin [place], [place], [place] and [place]. This disclosure is being madepursuant to the Care Everywhere program and may not contain all information available regarding this patient. Last updated 18.[facility] Allergies No known active allergies Medications * Be aware that medications may not be up to date on this document. Alwaysverify current medications with the patient. * predniSONE (DELTASONE) 5 MG tablet(Started 06/07/2015) TAKE ONE TO TWO TABLETS BY MOUTH ONCE DAILY FOR INFLAMMATION * gabapentin (NEURONTIN) 600 MG tablet(Started 09/22/2015) 2 qam and 2 qhs 3 refills left * amoxicillin (AMOXIL) 500 MG capsule(Started 08/16/2020) TAKE FOUR CAPSULES BY MOUTH ONE HOUR BEFORE APPOINTMENT * desvenlafaxine succinate ER 24hr (PRISTIQ) 100 MG tablet(Started 09/07/2020) Social History Tobacco Use Types Packs/Day Years [...] Comments Blood Pressure 138/84 10/05/2015 3:53 PM GUM MACHINE FILLER Pulse 78 10/05/2015 3:53 PM GUM MACHINE FILLER Temperature - - Respiratory Rate 18 07/24/2012 11:5 0 AM CDT Oxygen Saturation 94% 07/24/2012 11: 50 AM CDT Inhaled Oxygen Concentration - - Weight 114.4 kg (252 lb 1.6 oz) 10/05/2015 3:53 PM GUM MACHINE FILLER Height 170.2 cm (5' 7 ) 10/05/2015 3:53 PM GUM MACHINE FILLER Body Mass Index 39.48 10/05/2015 3:53 PM GUM MACHINE FILLER Procedures * XR HIP LEFT 2VW OR MORE(Performed 08/20/2020) Performed for Left hip pain * IR FL FOR NEEDLE BIOSPY(Performed 07/24/2012) Performed for Pain in joint, ankle and foot * MRI FOOT RIGHT WO CONTRAST(Performed 07/09/2012) Performed for Pain in joint, ankle and foot * MRI ANKLE RIGHT WO CONTRAST(Performed 07/09/2012) Performed for Pain in joint, ankle and foot Results * XR HIP LEFT 2VW OR MORE (08/20/2020 12:50 PM GUM MACHINE FILLER) Anatomical Region Laterality Modality Pelvis, Lower Extremity Computed Radiography Narrative 08/20/2020 12:58 PM GUM MACHINE FILLER Edwige Ricks, RT(R) ? 08/20/2020 ??2:46 PM See progress notes for results Estella Hardy PA-C DIAGNOSTIC IMAGING ORDERABLES * IR FL FOR NEEDLE BIOSPY (07/24/2012 1:46 PM CDT) Anatomical Region Laterality Modality Lung, Abdomen, Chest, Breast X-R ay Angiography 07/24/2012 2:43 PM CDT Impressions 07/24/2012 2:59 PM CDT Successful fluoroscopic guided right ankle joint and right subtalar joint steroid injection as described above. Narrative 07/24/2012 2:59 PM CDT FLUOROSCOPIC GUIDED RIGHT ANKLE JOINT AND RIGHT SUBTALAR JOINT STEROID INJECTION CLINICAL INDICATION: Severe right ankle pain with marked arthritic change of the ankle joint and subtalar joints. Physician: Dr. Box. Complications: None. Sedation: None. Fluoroscopy Time: 10.8 minutes. Procedure/findings: Informed consent was obtained. Following sterile prep and administration of 1% lidocaine local anesthesia a 25-gauge needle was advanced into both the ankle joint and posterior subtalar joint under fluoroscopic guidance. 0.5 mL Omnipaque 300 injection into each joint confirmed intra-articular position of the needle. Following this a mixture containing 40 mg of Kenalog diluted in 3 mL 0.5% Marcaine was injected into each joint. The needle was removed and hemostasis achieved immediately after. Procedure Note Edvin Box MD - 07/24/2012 FLUOROSCOPIC GUIDED RIGHT ANKLE JOINT AND RIGHT SUBTALAR JOINT STEROID INJECTION CLINICAL INDICATION: Severe right ankle pain with marked arthritic change of the ankle joint and subtalar joints. Physician: Dr. Box. Complications: None. Sedation: None. Fluoroscopy Time: 10.8 minutes. Procedure/findings: Informed consent was obtained. Following sterile prep and administration of 1% lidocaine local anesthesia a 25-gauge needle was advanced into both the ankle joint and posterior subtalar joint under fluoroscopic guidance. 0.5 mL Omnipaque 300 injection into each joint confirmed intra-articular position of the needle. Following this a mixture containing 40 mg of Kenalog diluted in 3 mL 0.5% Marcaine was injected into each joint. The needle was removed and hemostasis achieved immediately after. IMPRESSION Successful fluoroscopic guided right ankle joint and right subtalar joint steroid injection as described above. Denise Ribeiro MD IR ORDERABLES * MRI FOOT NON IV CONTRAST RIGHT (07/09/2012 1:45 PM CDT) Anatomical Region Laterality Modality Magnetic Resonan ce 07/09/2012 1:51 PM CDT Impressions 07/09/2012 4:08 PM CDT MARKED SEVERE ARTHRITIC CHANGE INVOLVING THE ANKLE JOINT, SUBTALAR JOINTS, AND MIDFOOT WITH EXTENSIVE SYNOVIAL HYPERTROPHY ABOUT THE ANKLE AND SUBTALAR JOINTS. FOCAL SPLIT TEAR OF THE PERONEUS BREVIS TENDON OCCURRING INFERIOR TO THE LATERAL MALLEOLUS. Narrative 07/09/2012 4:08 PM CDT MRI RIGHT ANKLE WITHOUT CONTRAST MRI RIGHT FOOT WITHOUT CONTRAST CLINICAL INDICATION: Severe right ankle and right foot pain, swelling, and limited range of motion. TECHNIQUE: Standard MR pulse sequences of the right ankle and right foot were obtained in all three orthogonal planes without contrast. FINDINGS: MRI right ankle: There is marked severe arthritic change noted throughout the ankle joint, subtalar joints, and midfoot. There are innumerable sites of high-grade full-thickness cartilage loss with subchondral cystic change and mild marrow edema noted at each of these articulations. There is a focal split tear of the peroneus brevis tendon occurring inferior to the lateral malleolus. The peroneus longus tendon is within normal limits. Signal of the medial and anterior tendons are within normal limits. The anterior and posterior tibiofibular ligaments, anterior and posterior talofibular ligaments, calcaneofibular ligament, and deltoid ligaments are intact. Signal of the Achilles tendon and plantar aponeurosis are within normal limits. The structures of the sinus tarsi and tarsal tunnel are intact. Intermediate signal compatible with synovial hypertrophy is noted throughout the ankle and subtalar joints. MRI right foot: The metatarsophalangeal and interphalangeal joints are within normal limits. Configuration of the sesamoids is within normal limits. Signal of the flexor and dorsal extensor tendons are within normal limits. The capsular structures of the metatarsophalangeal and interphalangeal joints are intact. Procedure Note Edvin Box MD - 07/09/2012 MRI RIGHT ANKLE WITHOUT CONTRAST MRI RIGHT FOOT WITHOUT CONTRAST CLINICAL INDICATION: Severe right ankle and right foot pain, swelling, and limited range of motion. TECHNIQUE: Standard MR pulse sequences of the right ankle and right foot were obtained in all three orthogonal planes without contrast. FINDINGS: MRI right ankle: There is marked severe arthritic change noted throughout the ankle joint, subtalar joints, and midfoot. There are innumerable sites of high-grade full-thickness cartilage loss with subchondral cystic change and mild marrow edema noted at each of these articulations. There is a focal split tear of the peroneus brevis tendon occurring inferior to the lateral malleolus. The peroneus longus tendon is within normal limits. Signal of the medial and anterior tendons are within normal limits. The anterior and posterior tibiofibular ligaments, anterior and posterior talofibular ligaments, calcaneofibular ligament, and deltoid ligaments are intact. Signal of the Achilles tendon and plantar aponeurosis are within normal limits. The structures of the sinus tarsi and tarsal tunnel are intact. Intermediate signal compatible with synovial hypertrophy is noted throughout the ankle and subtalar joints. MRI right foot: The metatarsophalangeal and interphalangeal joints are within normal limits. Configuration of the sesamoids is within normal limits. Signal of the flexor and dorsal extensor tendons are within normal limits. The capsular structures of the metatarsophalangeal and interphalangeal joints are intact. IMPRESSION MARKED SEVERE ARTHRITIC CHANGE INVOLVING THE ANKLE JOINT, SUBTALAR JOINTS, AND MIDFOOT WITH EXTENSIVE SYNOVIAL HYPERTROPHY ABOUT THE ANKLE AND SUBTALAR JOINTS. FOCAL SPLIT TEAR OF THE PERONEUS BREVIS TENDON OCCURRING INFERIOR TO THE LATERAL MALLEOLUS. Denise Ribeiro MD MR ORDERABLES * MRI ANKLE RIGHT WO CONTRAST (07/09/2012 1:45 PM CDT) Anatomical Region Laterality Modality Magnetic Resonan ce 07/09/2012 1:51 PM CDT Impressions 07/09/2012 4:08 PM CDT MARKED SEVERE ARTHRITIC CHANGE INVOLVING THE ANKLE JOINT, SUBTALAR JOINTS, AND MIDFOOT WITH EXTENSIVE SYNOVIAL HYPERTROPHY ABOUT THE ANKLE AND SUBTALAR JOINTS. FOCAL SPLIT TEAR OF THE PERONEUS BREVIS TENDON OCCURRING INFERIOR TO THE LATERAL MALLEOLUS. Narrative 07/09/2012 4:08 PM CDT MRI RIGHT ANKLE WITHOUT CONTRAST MRI RIGHT FOOT WITHOUT CONTRAST CLINICAL INDICATION: Severe right ankle and right foot pain, swelling, and limited range of motion. TECHNIQUE: Standard MR pulse sequences of the right ankle and right foot were obtained in all three orthogonal planes without contrast. FINDINGS: MRI right ankle: There is marked severe arthritic change noted throughout the ankle joint, subtalar joints, and midfoot. There are innumerable sites of high-grade full-thickness cartilage loss with subchondral cystic change and mild marrow edema noted at each of these articulations. There is a focal split tear of the peroneus brevis tendon occurring inferior to the lateral malleolus. The peroneus longus tendon is within normal limits. Signal of the medial and anterior tendons are within normal limits. The anterior and posterior tibiofibular ligaments, anterior and posterior talofibular ligaments, calcaneofibular ligament, and deltoid ligaments are intact. Signal of the Achilles tendon and plantar aponeurosis are within normal limits. The structures of the sinus tarsi and tarsal tunnel are intact. Intermediate signal compatible with synovial hypertrophy is noted throughout the ankle and subtalar joints. MRI right foot: The metatarsophalangeal and interphalangeal joints are within normal limits. Configuration of the sesamoids is within normal limits. Signal of the flexor and dorsal extensor tendons are within normal limits. The capsular structures of the metatarsophalangeal and interphalangeal joints are intact. Procedure Note Edvin Box MD - 07/09/2012 MRI RIGHT ANKLE WITHOUT CONTRAST MRI RIGHT FOOT WITHOUT CONTRAST CLINICAL INDICATION: Severe right ankle and right foot pain, swelling, and limited range of motion. TECHNIQUE: Standard MR pulse sequences of the right ankle and right foot were obtained in all three orthogonal planes without contrast. FINDINGS: MRI right ankle: There is marked severe arthritic change noted throughout the ankle joint, subtalar joints, and midfoot. There are innumerable sites of high-grade full-thickness cartilage loss with subchondral cystic change and mild marrow edema noted at each of these articulations. There is a focal split tear of the peroneus brevis tendon occurring inferior to the lateral malleolus. The peroneus longus tendon is within normal limits. Signal of the medial and anterior tendons are within normal limits. The anterior and posterior tibiofibular ligaments, anterior and posterior talofibular ligaments, calcaneofibular ligament, and deltoid ligaments are intact. Signal of the Achilles tendon and plantar aponeurosis are within normal limits. The structures of the sinus tarsi and tarsal tunnel are intact. Intermediate signal compatible with synovial hypertrophy is noted throughout the ankle and subtalar joints. MRI right foot: The metatarsophalangeal and interphalangeal joints are within normal limits. Configuration of the sesamoids is within normal limits. Signal of the flexor and dorsal extensor tendons are within normal limits. The capsular structures of the metatarsophalangeal and interphalangeal joints are intact. IMPRESSION MARKED SEVERE ARTHRITIC CHANGE INVOLVING THE ANKLE JOINT, SUBTALAR JOINTS, AND MIDFOOT WITH EXTENSIVE SYNOVIAL HYPERTROPHY ABOUT THE ANKLE AND SUBTALAR JOINTS. FOCAL SPLIT TEAR OF THE PERONEUS BREVIS TENDON OCCURRING INFERIOR TO THE LATERAL MALLEOLUS. Denise Ribeiro MD MR ORDERABLES Care Teams Glass Rolling Machine Operator Relationship Specialty Start Date End Date Fawad Hirsch MD [address] [place] [id number] [facility] - General 07/23/12
--- OUTSIDE RECORDS SUMMARY | 2024-09-28 06:45 | XMS_ITS | Referral Summary ---
Author Organization [facility] Address [address] [place] [address] Care Team Providers Care Geoscientist Name Role Phone Fawad Hirsch MD Primary Care Provider [phone] Source Comments [facility],non-owned Affiliates and Associated Physician Practices is amultiple site organization consisting of ambulatory clinics and hospital sitesin [place], [place], [place] and [place]. This disclosure is being madepursuant to the Care Everywhere program and may not contain all information available regarding this patient. Last updated 18.[facility] Allergies No known active allergies Medications * [...] Comments Blood Pressure 138/84 10/05/2015 3:53 PM FUNCTIONAL ANALYST Pulse 78 10/05/2015 3:53 PM FUNCTIONAL ANALYST Temperature - - Respiratory Rate 18 07/24/2012 11:5 0 AM CDT Oxygen Saturation 94% 07/24/2012 11: 50 AM CDT Inhaled Oxygen Concentration - - Weight 114.4 kg (252 lb 1.6 oz) 10/05/2015 3:53 PM FUNCTIONAL ANALYST Height 170.2 cm (5' 7 ) 10/05/2015 3:53 PM FUNCTIONAL ANALYST Body Mass Index 39.48 10/05/2015 3:53 PM FUNCTIONAL ANALYST Plan of Treatment Not on file Care Teams Geoscientist Relationship Specialty Start Date End Date Fawad Hirsch MD [address] [place] [address] PCP - General 07/23/12
--- OUTSIDE RECORDS SUMMARY | 2024-09-28 06:45 | XMS_ITS | Encounter Summary ---
Author Organization [facility] Health Address [address] [facility] [place] [address] Care Team Providers Care Health Workers Name Role Phone Denise Ribeiro MD Primary Care Provider Encounter Details Date Type Department Care Team (Latest Contact Info) Description 07/09/2012 12:19 PM CDT - 07/09/2012 11:59 PM CDT Hospital Encounter [facility] Imaging Services - MRI [address] [place] [address] Discharge Disposition: Home or Self Care Social History Tobacco Use Types Packs/Day Years Used Date Smoking Tobacco: Never Assessed Sex and Gender Information Value Date Recorded Sex Assigned at Not on file Gender Identity Not on file Sexual Orientation Not on file documented as of this encounter Miscellaneous Notes * Miscellaneous Scans - Document, Scanned - 07/11/2012 10:07 PM CDT * Miscellaneous Scans - Document, Scanned - 07/11/2012 9:57 PM CDT documented in this encounter Plan of Treatment Not on file documented as of this encounter Procedures Procedure Name Priority Date/Time Associated Diagnosis Comments MRI ANKLE RIGHT WO CONTRAST Routine 07/09/2012 1:45 PM CDT Pain in joint, ankle and foot documented in this encounter Results * MRI ANKLE RIGHT WO CONTRAST (07/09/2012 [...] LATERAL MALLEOLUS. Denise Ribeiro MD MR ORDERABLES documented in this encounter Visit Diagnoses Diagnosis Pain in joint, ankle and foot documented in this encounter Care Teams Health Workers Relationship Specialty Start Date End Date Denise Ribeiro MD [address] [place] [address] PCP - General 06/28/12 07/22/12 documented as of this encounter
--- OUTSIDE RECORDS SUMMARY | 2024-09-28 06:45 | XMS_ITS | Encounter Summary ---
Author Organization [facility] Address [address] [place] [address]. [place], [place] [id number] [place] [address] Care Team Providers Care Aquatic Habitat Biologist Name Role Phone Unavailable Primary Care Provider Unavailabl e Encounter Details Date Type Department Care Team (Late st Contact Info) Description 06/11/2013 Abstract [facility] CONVERSION [address] [place], [place] [id number] Jon Shanks MD [address] [place] [address], [address] [place] [address] Social History Tobacco Use Types Packs/Day Years Used Date Smoking Tobacco: Never Assessed Sex and Gender Information Value Date Recorded Sex Assigned at Not on file Legal Sex Male 4:35 PM CDT Gender Identity Not on file Sexual Orientation Not on file documented as of this encounter Plan of Treatment Not on file documented as of this encounter Visit Diagnoses Not on filedocumented in this encounter
--- OUTSIDE RECORDS SUMMARY | 2024-09-28 06:45 | XMS_ITS | Encounter Summary ---
Author Organization [facility] Health Address [address] [facility] [place] [address] Care Team Providers Care Surgical Instrument Repair Specialist Name Role Phone Fawad Hirsch MD Primary Care Provider [phone] Encounter Details Date Type Department Care Team (Latest Contact Info) Description 08/10/2020 Travel Social History Tobacco Use Types Packs/Day Years [...] have Coronavirus / COVID-19? No / Unsure 08/10/2020 12:14 PM BUSINESS CONTINUITY ANALYST documented as of this encounter Plan of Treatment Not on file documented as of this encounter Visit Diagnoses Not on filedocumented in this encounter Care Teams Surgical Instrument Repair Specialist Relationship Specialty Start Date End Date Fawad Hirsch MD [address] [place] [address] PCP - General 07/23/12 documented as of this encounter
--- OUTSIDE RECORDS SUMMARY | 2024-09-28 06:45 | XMS_ITS | Encounter Summary ---
Author Organization [facility] Address [address] [facility] [place] [address] Care Team Providers Care Phone Circuit Operator Name Role Phone Fawad Hirsch MD Primary Care Provider [phone] Reason for Visit * Reason Onset Date Comments MEDICATION REFILL 09/22/2015 Encounter Details Date Type Department Care Team (Late st Contact Info) Description 09/22/2015 Refill [facility] - Endocrinology [address] [facility], [address] [place] [address] Denise Ribeiro MD [address] [facility] [address] [place] [id number] MEDICATION REFILL Social History Tobacco Use Types Packs/Day Years Used Date Smoking Tobacco: Never Assessed Sex and Gender Information Value Date Recorded Sex Assigned at Not on file Gender Identity Not on file Sexual Orientation Not on file documented as of this encounter Plan of Treatment Not on file documented as of this encounter Visit Diagnoses Not on filedocumented in this encounter Care Teams Phone Circuit Operator Relationship Specialty Start Date End Date Fawad Hirsch MD [address] [facility] [phone] PCP - General 07/23/12 documented as of this encounter
--- OUTSIDE RECORDS SUMMARY | 2024-09-28 06:45 | XMS_ITS | Encounter Summary ---
Author Organization [facility] Health Address [address] [facility] [place] [address] Care Team Providers Care Account Manager Sales Representative Name Role Phone Fawad Hirsch MD Primary Care Provider [phone] Encounter Details Date Type Department Care Team (Latest Contact Info) Description 08/20/2020 Travel Social History Tobacco Use Types Packs/Day [...] COVID-19? No / Unsure 08/20/2020 2:00 PM PIPE FINISHER documented as of this encounter Plan of Treatment Not on file documented as of this encounter Visit Diagnoses Not on filedocumented in this encounter Care Teams Account Manager Sales Representative Relationship Specialty Start Date End Date Fawad Hirsch MD [address] [place] [phone] PCP - General 07/23/12 documented as of this encounter
--- OUTSIDE RECORDS SUMMARY | 2024-09-28 06:45 | XMS_ITS | Encounter Summary ---
Author Organization [facility] Address [address] [place] [address] Care Team Providers Care Director Paid Media Name Role Phone Fawad Hirsch MD Primary Care Provider [phone] Reason for Visit * Reason Comments Pain Hip left hip pain Encounter Details Date Type Department Care Team (Late st Contact Info) Description 09/17/2020 11:00 AM KAYAKING INSTRUCTOR Office Visit [facility] Orthopedics [address] [place] [phone] Estella Hardy PA-C [address] [place] [phone] Greater trochanteric bursitis of left hip (Primary Dx) Social History Tobacco Use Types Packs/Day Years [...] COVID-19? No / Unsure 08/20/2020 2:00 PM KAYAKING INSTRUCTOR documented as of this encounter Progress Notes * Estella Hardy PA-C - 09/17/2020 11:06 AM CST Chief complaint: Left hip pain History of present illness: Patient presents today follow-up left trochanteric bursa injection. Reports cortisone injection took approximately 3 weeks prior to being effective. Currently rates his pain 0 to 1/10. Ambulates with a walking stick. Patient has had recent vascular workup. And is being referred to a vascular surgeon for his peripheral vascular disease. Currently on Xeralto post procedure for Aortic valve replacement. History of Bilateral knee arthroplasties. Has been experiencing balance issues x 1 year. Patient is tolerating laying left side-lying. Physical examination: 80-year-old male, 5 ft 7 252 lb alert oriented in no distress mood and affect are appropriate. Nontender to palpation right groin. Painless passive hip internal and external range of motion. Lower extremity motor strength graded 5/5 with resisted hip abduction/adduction and resisted hip flexion. Ambulating with a mild antalgic gait. Assessment: Left trochanteric bursitis, resolved Left total hip Arthroplasty Plan: Follow up as needed. Instructed in ITB stretching. Can repeat injection in 3 months. KING INSTRUCTOR * Ro Toscano - 09/17/2020 10:59 AM CST Patient walks in with walking stick. Patient says pain has decreased since cortisone injection in left hip. KING INSTRUCTOR documented in this encounter Plan of Treatment Not on file documented as of this encounter Visit Diagnoses Diagnosis Greater trochanteric bursitis of left hip- Primary Enthesopathy of hip region documented in this encounter Care Teams Director Paid Media Relationship Specialty Start Date End Date Fawad Hirsch MD [address] [place] [address] PCP - General 07/23/12 documented as of this encounter
--- OUTSIDE RECORDS SUMMARY | 2024-09-28 06:45 | XMS_ITS | Encounter Summary ---
Author Organization [facility] Address [address] [place] [address] Care Team Providers Care Lead Applier Name Role Phone Fawad Hirsch MD Primary Care Provider [phone] Reason for Visit * Reason Onset Date Comments Question 08/13/2020 Encounter Details Date Type Department Care Team (Late st Contact Info) Description 08/13/2020 Telephone [facility] Orthopedics [id number] [place] [phone] [place] [address] [address] Question Social History Tobacco Use Types Packs/Day Years [...] COVID-19? No / Unsure 08/10/2020 12:14 PM COVERAGE SPECIALIST documented as of this encounter Miscellaneous Notes * Telephone Encounter - Jeremy Lott - 08/17/2020 10:55 AM COVERAGE SPECIALIST Patient will be seen Sunday08/20/20 RAGE SPECIALIST * Telephone Encounter - Cely Oglesby 08/13/2020 9:11 AM CST Who is calling? Chandrika @ Dr Fawad Hirsch What is the reason for call? Chandrika is wanting to know if the patient can be worked in sooner? They have been trying different medications and he is not getting any relief and he is getting worse. Expected Response from the Clinic? Call back RAGE SPECIALIST documented in this encounter Plan of Treatment Not on file documented as of this encounter Visit Diagnoses Not on filedocumented in this encounter Care Teams Lead Applier Relationship Specialty Start Date End Date Fawad Hirsch MD [address] [place] [phone] PCP - General 07/23/12 documented as of this encounter
--- OUTSIDE RECORDS SUMMARY | 2024-09-28 06:45 | XMS_ITS | Encounter Summary ---
Author Organization [facility] Address [address] [facility] [place] [address] Care Team Providers Care Audio Visual Tech Name Role Phone Fawad Hirsch MD Primary Care Provider [phone] Reason for Visit * Reason Comments Follow-up inflammatory arthrit is Encounter Details Date Type Department Care Team (Late st Contact Info) Description 10/05/2015 4:00 PM CHILDBIRTH AND INFANT CARE TEACHER Office Visit [facility] Medical [facility] - Endocrinology [address] [facility], [address] [place] [address] Peggy Arita, DIRECT ENTRY [place] [address] [facility] [address] [address] Inflammatory arthritis (Primary Dx) Social History Tobacco Use Types Packs/Day Years Used Date Smoking Tobacco: Never Alcohol Use Standard Drinks/Week Comments No 0 (1 standard drink = 0.6 oz pur e alcohol) Sex and Gender Information Value Date Recorded Sex Assigned at Not on file Gender Identity Not on file Sexual Orientation Not on file documented as of this encounter Last Filed Vital Signs Vital Sign Reading Time Taken Comments Blood Pressure 138/84 10/05/2015 3:53 PM CHILDBIRTH AND INFANT CARE TEACHER Pulse 78 10/05/2015 3:53 PM CHILDBIRTH AND INFANT CARE TEACHER Temperature - - Respiratory Rate - - Oxygen Saturation - - Inhaled Oxygen Concentration - - Weight 114.4 kg (252 lb 1.6 oz) 10/05/2015 3:53 PM CHILDBIRTH AND INFANT CARE TEACHER Height 170.2 cm (5' 7 ) 10/05/2015 3:53 PM CHILDBIRTH AND INFANT CARE TEACHER Body Mass Index 39.48 10/05/2015 3:53 PM CHILDBIRTH AND INFANT CARE TEACHER documented in this encounter Progress Notes * Peggy Arita, EZEKIEL-MARIS - 10/05/2015 4:09 PM CST Rheumatology Office Visit Patient: Mitch Romo Date of : 1940 Age: 75 y.o. Sex: male PCP: Fawad Hirsch MD Encounter Date: 10/05/2015 Provider: RAF Valle SUBJECTIVE Chief Complaint(s): Chief Complaint Patient presents with ??? Follow-up inflammatory arthritis HPI: Patient comes in today accompanied by his for routine follow-up on presumed inflammatory arthritis. He was previously maintaining this condition with low- dose prednisone. However, he has been off of it now for 2 months. He is status post lumbar surgery on July [address] Gtz at [facility] in which he had a fusion of L2 to L5 for spinal stenosis. He is recovering fairly w ell. He continues with physical therapy. The surgery has been successful and he is feeling better. Patient had x-rays at his last appointment with Dr. Gtz and these were normal per patient. His next appointment with him is November 04. Patient states I feel pretty good . He stopped his prednisone 5 days prior to the surgery and after the surgery he wanted to try to go without it. Dr. Gtz was also in agreement with him not returning to the prednisone immediately after surgery due to possible interference with bone growth and healing. Patient states he is doing fine without the prednisone. He denies joint pain, stiffness, swelling. Patient does continue with gabapentin for neuropathy.In fact, Dr. Gtz increased his gabapentin to 2 tabs in the morning and 2 tabs in the evening. This remains effective. Patient has no complaints today. Follow-up in 6 months. Current Medications: Current Outpatient Prescriptions Medication ??? gabapentin (NEURONTIN) 600 MG tablet ??? predniSONE (DELTASONE) 5 MG tablet No current facility-administered medications for this visit. Medical History: There is no problem list on file for this patient. Allergies/Intolerance: No Known Allergies Surgical History: No past surgical history on file. Family History: No family history on file. ROS: General/Constitutional Recent Weight Gain: No Recent Weight Loss: No Fatigue: No Weakness: No Fever: No Cardiovascular: Chest pain:No High Blood Pressure: No Heart Murmur: No Irregular Heart Beat: No Respiratory: Shortness of breath at rest: No Awakening suddenly short of breath: No Swollen ankles or legs: No Hemoptysis: No Cough:No Wheezing:No Gastrointestinal: Nausea: No Jaundice: No Vomiting: No Hematemesis: No Constipation: No Blood in stool: No Black tarry stool: No Heartburn: No Frequent diarrhea: No Musculoskeletal Joint stiffness or swelling: No Morning stiffness: No Radiating pain to extremities: No Painful joints: No Integumentary Lower leg discoloration: No Nipple discharge: No Rash: No Hives: No Skin lesions(s): No Color changes in hands or feet related to cold: No Neurologic: Headache: No Dizziness: No Fainting: No Tingling/Numbness: No Memory loss: No Psychiatric: Excessive worries: No Anxiety: No Easily agitated: No Difficulty falling asleep: No Difficulty staying asleep: No OBJECTIVE Vitals: Vitals: 10/05/15 1553 BP: 138/84 Pulse: 78 Weight: 114.352 kg (252 lb 1.6 oz) Examination: General General Appearance: well developed, well nourished, no acute distress noted Head: normocephalic HEENT: unremarkable Lymph Nodes: no lymphadenopathy noted Chest: normal Heart: regular rate and rhythm, grade 3/6 systolic murmur heard best at aortic region, rubs or gallops noted, S1, S2 Audible. Peripheral Pulses: 2+ radial Skin: warm, dry and intact, no suspicious lesions noted. Neurologic: cranial nerves II-XII grossly intact Lungs: clear to auscultation bilaterally, resp even and nonlabored, no tactile fremitus, no cough noted. Musculoskeletal: full range of motion, no swelling or deformities noted, currently wearing back brace Extremities: no clubbing, cyanosis or edema, no venous stasis, no ulcerations noted Psych: alert and oriented. ASSESSMENT ICD-10-CM ICD-9-CM 1. Inflammatory arthritis M19.90 714.9 PLAN Stable. Continue current regimen. Follow up in 6 months. DBIRTH AND INFANT CARE TEACHER documented in this encounter Plan of Treatment Not on file documented as of this encounter Visit Diagnoses Diagnosis Inflammatory arthritis- Primary Unspecified inflammatory polyarthropathy documented in this encounter Care Teams Audio Visual Tech Relationship Specialty Start Date End Date Fawad Hirsch MD [address] [place] [address] PCP - General 07/23/12 documented as of this encounter
--- OUTSIDE RECORDS SUMMARY | 2024-09-28 06:45 | XMS_ITS | Encounter Summary ---
Author Organization [facility] Health Address [address] [place] [address] Care Team Providers Care Transportation Modeler Name Role Phone Fawad Hirsch MD Primary Care Provider [phone] Encounter Details Date Type Department Care Team (Latest Contact Info) Description 07/24/2012 11:10 AM CDT - 07/24/2012 11:59 PM CDT Hospital Encounter [facility] [address] [place] [address] Denise Ribeiro MD [address] [place] [address] [facility] Discharge Disposition: Home or Self Care Social History Tobacco Use Types Packs/Day Years Used Date Smoking Tobacco: Never Assessed Sex and Gender Information Value Date Recorded Sex Assigned at Not on file Gender Identity Not on file Sexual Orientation Not on file documented as of this encounter Last Filed Vital Signs Vital Sign Reading Time Taken Comments Blood Pressure 112/71 07/24/2012 11:50 AM CDT Pulse 72 07/24/2012 11:50 AM CDT Temperature - - Respiratory Rate 18 07/24/2012 11:50 AM CDT Oxygen Saturation 94% 07/24/2012 11:50 AM CDT Inhaled Oxygen Concentration - - Weight 113.4 kg (250 lb) 07/24/2012 11:50 AM CDT Height 170.2 cm (5' 7 ) 07/24/2012 11:50 AM CDT Body Mass Index 39.16 07/24/2012 11:50 AM CDT documented in this encounter Discharge Instructions * Discharge Instructions* Alice Lorenzo RN - 07/24/2012 1:44 PM CDT Discharge Medications: See Medication Sheet Discharge Procedure Orders DISCHARGE DIET INSTRUCTIONS Diet as tolerated NO LIFTING OVER Order Specific Question Answer Comments For how long? One day How many pounds? [address] Ribeiro if you experience any of the following: (1) Moderate bleeding from procedure site (2) severe pain from region of procedure and/or (3) feeling light-headed or about to pass out. Please avoid smoking and second hand smoke. The following belongings have been returned to you: Equipment At Home: Blood Glucose Monitor WEIGHT MONITORING - If you have heart failure, weigh yourself every morning. Contact your physician if your weight increases by 3 pounds in 1 day OR 5 pounds in 1 week. WHAT TO DO IF SYMPTOMS WORSEN - Contact your physician if you have shortness of breath/difficulty breathing, or any swelling of your legs, ankles or feet. The discharge and medication instructions have been reviewed with me and my questions have been answered. I have received a copy of the discharge instructions. 07/24/2012 * Discharge Instructions* Document, Scanned - 07/27/2012 8:45 AM CDT documented in this encounter Miscellaneous Notes * Miscellaneous Scans - Document, Scanned - 07/27/2012 8:45 AM CDT * Miscellaneous Scans - Document, Scanned - 07/27/2012 8:45 AM CDT documented in this encounter Plan of Treatment Not on file documented as of this encounter Procedures Procedure Name Priority Date/Time Associated Diagnosis Comments IR FL FOR NEEDLE BIOSPY Routine 07/24/2012 1:46 PM CDT Pain in joint, ankle and foot documented in this encounter Results * IR FL FOR NEEDLE BIOSPY (07/24/2012 [...] described above. Denise Ribeiro MD IR ORDERABLES documented in this encounter Visit Diagnoses Diagnosis Pain in joint, ankle and foot documented in this encounter Administered Medications Inactive Administered Medications - up to 3 most recent administrations Medication Order MAR Action Action Date Dose Rate Site bupivacaine (MARCAINE PF) 0.25% injection ADS Med 1 dose, Starting on Sun07/24/12 at 1244, Until Sun07/24/12 at 1313, OMAYRA LORENZO: cabinet override $ Given 07/24/2012 1:13 PM CDT 30 mL iohexol (OMNIPAQUE 300) contrast Other, CONTRAST ONCE, Starting on Sun07/24/12 at 1311, Until She 07/25/12 at 0917 $ Given 07/24/2012 1:38 PM CDT 2 mL lidocaine (XYLOCAINE MPF) 1 % injection Infiltration, ONCE, 1 dose, On Sun07/24/12 at 1330 $ Given 07/24/2012 1:10 PM CDT 10 mL lidocaine (XYLOCAINE MPF) 1 % injection Infiltration, ONCE, 1 dose, On Sun07/24/12 at 1345 $ Given 07/24/2012 1:26 PM CDT 10 mL lidocaine (XYLOCAINE MPF) 1% injection ADS Med 1 dose, Starting on Sun07/24/12 at 1244, Until Sun07/24/12 at 1310, OMAYRA LORENZO: cabinet override triamcinolone acetonide (KENALOG-40) 40 mg/mL injection ADS Med 1 dose, Starting on Sun07/24/12 at 1244, Until Sun07/24/12 at 1312, OMAYRA LORENZO: cabinet override Shake well before using. triamcinolone acetonide (KENALOG-40) injection 40 mg 40 mg, Intra-articular, INTRA-PROCEDURE MULTIPLE, Starting on Sun07/24/12 at 1309, Until She 07/25/12 at 0917, Shake well before using. $ Given 07/24/2012 1:28 PM CDT 40 mg $ Given 07/24/2012 1:12 PM CDT 40 mg documented in this encounter Active and Recently Administered Medications Times are shown in CDT. Scheduled Medication Order 07/22/2012 07/23/2012 07/24/2012 iohexol (OMNIPAQUE 300) contrast (CANCELED) Other, CONTRAST ONCE, Starting on Sun07/24/12 at 1311, Until She 07/25/12 at 0917 1338 ($ Given - Prov ider: Edvin Box MD - Comment: right ankle) lidocaine (XYLOCAINE MPF) 1 % injection (COMPLETED) Infiltration, ONCE, 1 dose, On Sun07/24/12 at 1330 1310 ($ Given - Prov ider: Edvin Box MD) lidocaine (XYLOCAINE MPF) 1 % injection (COMPLETED) Infiltration, ONCE, 1 dose, On Sun07/24/12 at 1345 1326 ($ Given - Prov ider: Edvin Box MD - Comment: right ankle) triamcinolone acetonide (KENALOG-40) injection 40 mg (CANCELED) 40 mg, Intra-articular, INTRA-PROCEDURE MULTIPLE, Starting on Sun07/24/12 at 1309, Until She 07/25/12 at 0917, Shake well before using. 1312 ($ Given - Prov ider: Edvin Box MD - Comment: right ankle)1328 ($ Given - Provider: Edvin Box MD - Comment: right ankle) No Frequency Medication Order 07/22/2012 07/23/2012 07/24/2012 bupivacaine (MARCAINE PF) 0.25% injection ADS Med (COMPLETED) 1 dose, Starting on Sun07/24/12 at 1244, Until Sun07/24/12 at 1313, OMAYRA LORENZO: cabinet override 1313 ($ Given - Prov ider: Edvin Box MD - Comment: per Dr. Box, right ankle injection) documented in this encounter Care Teams Transportation Modeler Relationship Specialty Start Date End Date Fawad Hirsch MD [address] [place] [address] PCP - General 07/23/12 documented as of this encounter
--- OUTSIDE RECORDS SUMMARY | 2024-09-28 06:45 | XMS_ITS | Encounter Summary ---
Author Organization [facility] Address [address] [place] [address] Care Team Providers Care Food Safety Specialist Name Role Phone Fawad Hirsch MD Primary Care Provider [phone] Encounter Details Date Type Department Care Team (Late st Contact Info) Description 08/20/2020 12:50 PM CAT DOG OR OTHER PET GROOMER Ancillary Procedure [facility] - Radiology [id number] [place] [id number] Estella Hardy PA-C [id number] [phone] Left hip pain Social History Tobacco Use Types Packs/Day Years [...] COVID-19? No / Unsure 08/20/2020 2:00 PM CAT DOG OR OTHER PET GROOMER documented as of this encounter Plan of Treatment Not on file documented as of this encounter Procedures Procedure Name Priority Date/Time Associated Diagnosis Comments XR HIP LEFT 2VW OR MORE Routine 08/20/2020 12:50 PM CAT DOG OR OTHER PET GROOMER Left hip pain documented in this encounter Results * XR HIP LEFT 2VW OR MORE (08/20/2020 12:50 PM CAT DOG OR OTHER PET GROOMER) Anatomical Region Laterality Modality Pelvis, Lower Extremity Computed Radiography Narrative 08/20/2020 12:58 PM CAT DOG OR OTHER PET GROOMER Edwige Ricks, RT(R) ? 08/20/2020 ??2:46 PM See progress notes for results Estella Hardy PA-C DIAGNOSTIC IMAGING ORDERABLES documented in this encounter Visit Diagnoses Diagnosis Left hip pain Pain in joint, pelvic region and thigh documented in this encounter Care Teams Food Safety Specialist Relationship Specialty Start Date End Date Fawad Hirsch MD [address] [place] [address] PCP - General 07/23/12 documented as of this encounter
--- OUTSIDE RECORDS SUMMARY | 2024-09-28 06:45 | XMS_ITS | Encounter Summary ---
Author Organization [facility] Address [address] [facility] [place] [address] Care Team Providers Care Picker And Packer Name Role Phone Denise Ribeiro MD Primary Care Provider Encounter Details Date Type Department Care Team (Latest Contact Info) Description 07/09/2012 12:19 PM CDT - 07/09/2012 11:59 PM CDT Hospital Encounter [facility] Services - MRI [facility] [place] [address] Denise Ribeiro MD [address] [place] [id number] Discharge Disposition: Home or Self Care Social [...] Name Priority Date/Time Associated Diagnosis Comments MRI FOOT RIGHT WO CONTRAST Routine 07/09/2012 1:45 PM CDT Pain in joint, ankle and foot documented in this encounter Results * MRI FOOT NON IV CONTRAST RIGHT [...] and interphalangeal joints are intact. Procedure Note Edivn Box MD - 07/09/2012 MRI RIGHT ANKLE [...] foot documented in this encounter Care Teams Picker And Packer Relationship Specialty Start Date End Date Denise Ribeiro MD [address] [place] [address] PCP - General 06/28/12 07/22/12 documented as of this encounter
--- OUTSIDE RECORDS SUMMARY | 2024-09-28 06:45 | XMS_ITS | Encounter Summary ---
Author Organization [facility] Address [address] [facility] [place] [address] Care Team Providers Care Science Center Display Builder Name Role Phone Fawad Hirsch MD Primary Care Provider [phone] Reason for Visit * Reason Comments Refill Request Encounter Details Date Type Department Care Team (Late st Contact Info) Description 09/20/2015 Refill [facility] - Endocrinology [address], [address] [place] [phone] Denise Ribeiro MD [address] [facility] [address] [place] [address] Refill Request Social History Tobacco Use Types Packs/Day Years Used Date Smoking Tobacco: Never Assessed Sex and Gender Information Value Date Recorded Sex Assigned at Not on file Gender Identity Not on file Sexual Orientation Not on file documented as of this encounter Miscellaneous Notes * Telephone Encounter - Irma Francois RT - 09/20/2015 2:46 PM CST GIUSEPPE 11/05/14 Canceled last 2 appointments Has upcoming appointment on 10/05/15 he can 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
--- OUTSIDE RECORDS SUMMARY | 2024-09-28 06:45 | XMS_ITS | Encounter Summary ---
Author Organization [facility] Address [address] [place] [address] Care Team Providers Care Calibration Tester Name Role Phone Fawad Hirsch MD Primary Care Provider [phone] Reason for Visit * Reason Comments Refill Request Encounter Details Date Type Department Care Team (Late st Contact Info) Description 04/11/2015 Refill [facility] - Endocrinology [address] [facility], [address] [place] [address] Denise Ribeiro MD [address] [facility] [address] [place], [place] [phone] Refill Request Social History Tobacco Use Types [...] on filedocumented in this encounter Care Teams Calibration Tester Relationship Specialty Start Date End Date Fawad Hirsch MD [address] [place] [phone] PCP - General 07/23/12 documented as of this encounter
--- OUTSIDE RECORDS SUMMARY | 2024-09-28 06:45 | XMS_ITS | Encounter Summary ---
Author Organization [facility] Address [address] [place] [address] Care Team Providers Care Bilingual Teacher Assistant Name Role Phone Fawad Hirsch MD Primary Care Provider [phone] Encounter Details Date Type Department Care Team (Late st Contact Info) Description 12/29/2020 Orders Only [facility] - COVID Vax [address] [place] [address] Luis Alberto Miller MD [address] [place] [address] Need for vaccination Social History Tobacco Use Types Packs/Day Years [...] as of this encounter Visit Diagnoses Diagnosis Need for vaccination Need for prophylactic vaccination and inoculation against unspecified single disease documented in this encounter Care Teams Bilingual Teacher Assistant Relationship Specialty Start Date End Date Fawad Hirsch MD [address] [place] [address] PCP - General 07/23/12 documented as of this encounter
--- OUTSIDE RECORDS SUMMARY | 2024-09-28 06:45 | XMS_ITS | Clinical Summary ---
Author Organization [facility] Address [address] [place] [address]. [place], [place] [id number] [place] [address] Care Team Providers Care Internal Controls Analyst Name Role Phone Unavailable Primary Care Provider Unavailabl e Social History Tobacco Use Types Packs/Day Years Used Date Smoking Tobacco: Never Assessed Sex and Gender Information Value Date Recorded Sex Assigned at Not on file Legal Sex Male 4:35 PM CDT Gender Identity Not on file Sexual Orientation Not on file Plan of Treatment Health Maintenance Due Date Last Done Comments DTaP, Tdap and Td Vaccines ( 1 - Tdap) 01/08/1959 Zoster Vaccines (1 of 2) 01/08/1990 RSV Immunization or 60+ Years (1 - 1-dose 60+ series) 2000 Pneumococcal Vaccine: 65+ Ye ars (1 of 1 - PCV) 01/08/2005 COVID-19 Vaccine (2023-2 5 season) 2024 Influenza Adult (#1) 2024 Meningococcal Vaccine Aged Out No shilpi sol eligible based on patient's age to complete this topic RSV Immunizations Under 20 Months Aged Out No longer eligible based on patient's age to complete this topic
--- OUTSIDE RECORDS SUMMARY | 2024-09-28 06:47 | XMS_ITS | Data Portability ---
Author Organization [place] [facility] [place] [employer], Main Office Address [address] [place] [address] Care Team Providers Care Professional Golf Tournament Player Name Role Phone LORE BARGER Primary Care Provider LORE BARGER Referring Provider [phone] Assessment Encounter Date Assessment Date Assessment LastModified by Organization Details LastModified Time 03/14/2023 03/14/2023 HPI: 83-year-old male who came in today for evaluation of his right hip pain. This pain has progressively gotten worse over last several months. At this point he is fairly miserable. He is having pain mostly in the right-sided low back and into the buttocks. At this point is not having any groin pain or any thigh pain. Patient uses a 4 wheeled walker on a full-time basis. He feels that the right leg gives out at times also he has issues with balance. Patient has a significant past medical history with his heart. He has had heart valve replacement done. He had a issue of AFib was on Xarelto. He had a bleeding issue which was never diagnosed exactly where but he did require transfusions. He subsequently underwent minuteman procedure and this is allowed him to be able to be off blood thinners at this point. His hemoglobin has been stable since that time. Physical exam: 83-year-old male he is alert pleasant. He is 5 ft 5 217 lb and his BMI is 36.1. The majority of his weight through his abdomen and. He has difficult time getting up on the exam table. He states he cannot lift the right leg up onto the step. Laying supine he has about a 20 degree flexion contracture of the hip. He has had his right knee replaced and with the hip flexed his knee straightens out to 0? ? ?. So this is a true hip flexion contracture he has. His hip flexes to 90 he externally rotates to 10 internally rotates to 0. He has pain in the buttocks and low back with range of motion of hip. He is unable to the Stinchfield maneuver because of too much pain in the low back. There is no increased swelling in lower extremities. +Dorsalis pedis pulse in his foot. 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 His was with him today as well. Had long discussion with them. I think the only way is going to get improvement of his symptoms which seem to be emanating from his hip since they are reproduced with range of motion of the hip and not as severe coming from his back which is the typical scenario for back pain her in this area. He does not have groin pain which is the more typical hip pain. The big issue with him is going to get his cardiac status and also the fact that he is very obese which is going to had difficulty to the surgery. I think given his significant cardiac history he is at higher risk and this would be better done at a larger facility with the medical staff thing needed to take care of him postoperatively. I did talk with him about talking to his tax services intern to make sure that he is even a surgical candidate before pursuing other options. I did give him the names of Dr. Rolle as well as Dr. Fountain at [facility]. They are also aware of a [facility] that they are comfortable with and they can certainly get his opinion well. I did recommend uses walker on a full-time basis to prevent falls or injuries. He does use occasional ibuprofen but I think that he needs to minimize this given his cardiac status and anti-inflammator ies can exacerbate congestive heart failure. They are going to call his tax services intern and start there. Can see the patient back as needed at this point. 30 minutes was spent in treatment patient more than half this [id number]-[id number] conversation alfred Not available 03/14/2023 12:17:53 Plan of Treatment Reminders Order Date Submit Date Provider Last Modified By Organization Details Last Modified Time Details Appointments None recorded. Lab None recorded. Referral None recorded. Procedures None recorded. Surgeries None recorded. Imaging XR, hip + pelvis, unilateral 2022 023 [email or web address] [facility] [place], [address], [place], [address], 3 16:12:26 Medication Orders None recorded. Patient TargetsNo targets recorded. Patient InstructionsNo instructions recorded. Reason for Referral None Reported. Results Created Date Observation Date Name Description Value Unit Range Abnormal Flag Note LastModifiedBy Organization Detail LastModifiedTime 03/14/20 23 XR, hip + pelvi s, unila teral No observ ation record ed. [email or web address] [facility] [place] [address], [place], [address], 03/14/2023 12:10:50 Result Notes None recorded. Problems Name Problem SNOMED Code Status Onset Date Resolution Date Notes Provider Name and Address Organization Details Recorded Time Pain of left elbow joint 2578078789177 9104 Active 2021 Not Available [facility] 3 00:45:50 Dry skin 96415467 Active 2019 Not Available [facility] 3 00:45:50 Acute osteomyeli tis of radius 091485897 Active 2021 Not Available [facility] 3 00:45:50 Hypertensi ve disorder 28927186 Active Not Available [facility] 3 00:45:50 Peripheral vascular disease 441886138 Active 2019 Not Available [facility] 3 00:45:50 Osteomyeli tis 86348827 Active 2021 Not Available [facility] 3 00:45:50 Long-term current use of anticoagul ant 823016687 Active 2019 Not Available [facility] 3 00:45:51 Diabetes mellitus 61088199 Active Not Available [facility] 3 00:45:51 Pain in right hip joint 6866395491916 02 Active 2022 DAIJA Rascon[place] [employer] [facility] 3 10:16:01 Problem Notes None recorded. Procedures Surgical History Date Name Laterality Status Provider Name and Address Organization Details Recorded Time Carpal tunnel surgery completed DAIJA [place]con [place] [facility] 03/14/2023 10:16:26 Shoulder completed DAIJA Rascon [place] [facility] 03/14/2023 10:17:23 Prostate completed Not Available [facility] 00:43:19 Back Surgery completed Not Available [facility] 12/06/2022 00:43:19 hernia repair completed Not Available [facility] 12/06/2022 00:43:19 Neck completed Not Available [facility] 10/2022 00:43:19 total knee replacement completed Not Available [facility] 12/06/2022 00:43:19 total replacement of hip completed Not Available [facility] 12/06/2022 00:43:19 Imaging Results Imaging Date Name Status LastModified by Organiz ation Details LastModified Time 03/14/2023 XR, hip + pelvis, unilateral completed [email or web address] [facility] [place] [address] [facility] [address], [place], [address], 03/14/2023 12:10:50 Procedure Notes None recorded. Medical Equipment None Reported. Medications Name Sig Start Date Stop Date Status Note LastModified by Organization Details LastModified Time quetiapine 25 mg tablet active Not Available Not Available Not Available amoxicillin 500 mg capsule TAKE FOUR CAPSULES BY MOUTH ONE HOUR BEFORE APPOINTME NT 03/14 completed Not Available Not Available Not Available prednisone 10 mg tablet active Not Available Not Available Not Available gabapentin 600 mg tablet 11/11 completed Not Available Not Available Not Available doxycycline hyclate 100 mg capsule TAKE 1 CAPSULE BY MOUTH EVERY 12 HOURS 03/14 completed Not Available Not Available Not Available clindamycin HCl 300 mg capsule 06/03 completed Not Available Not Available Not Available trazodone 50 mg tablet TAKE 1 TO 2 TABLETS BY MOUTH EVERY DAY AT BEDTIME active Not Available Not Available No t Available hydrocodone 5 mg-acetamin ophen 325 mg tablet TAKE 1 TABLET BY MOUTH 3 TO 4 TIMES DAILY NEEDED FOR PAIN active Not Available Not Available No t Available fluocinonid e 0.05 % topical gel APPLY 1 THIN LAYER TOPICALLY TWICE DAILY active Not Available Not Available No t Available Synthroid 125 mcg tablet active Not Available Not Available Not Available potassium chloride ER 10 mEq tablet,exte nded release active Not Available Not Available Not Available metronidazo le 500 mg tablet TAKE 1 TABLET BY MOUTH EVERY 12 HOURS 11/11 completed Not Available Not Available Not Available clopidogrel 75 mg tablet TAKE 1 TABLET BY MOUTH ONCE DAILY 03/14 completed Not Available Not Available Not Available omeprazole 40 mg capsule,del ayed release TAKE 1 CAPSULE BY MOUTH ONCE DAILY active Not Available Not Available No t Available tramadol 50 mg tablet 11/01 completed Not Available Not Available Not Available ofloxacin 0.3 % ear drops active Not Available Not Available Not Available lorazepam 0.5 mg tablet active Not Available Not Available Not Available cephalexin 500 mg capsule TAKE 1 CAPSULE BY MOUTH THREE TIMES DAILY 05/03 completed Not Available Not Available Not Available losartan 25 mg tablet TAKE 1 TABLET BY MOUTH ONCE DAILY active Not Available Not Available No t Available nystatin-tr iamcinolone 100,000 unit/g-0.1 % topical cream APPLY TO THE AFFECTED AREA(S) TWICE DAILY 11/11 completed Not Available Not Available Not Available gabapentin 300 mg capsule 11/11 completed Not Available Not Available Not Available bumetanide 1 mg tablet 03/14 completed Not Available Not Available Not Available pravastatin 20 mg tablet TAKE 1 TABLET BY MOUTH ONCE DAILY active Not Available Not Available No t Available mupirocin 2 % topical ointment APPLY OINTMENT TOPICALLY THREE TIMES DAILY 05/03 completed Not Available Not Available Not Available mirtazapine 15 mg tablet TAKE 1 & 1/2 (ONE & ONE-HALF) TABLETS BY MOUTH ONCE DAILY AT BEDTIME FOR 14 DAYS active Not Available Not Available No t Available gabapentin 100 mg capsule 11/11 completed Not Available Not Available Not Available metoprolol succinate ER 25 mg tablet,exte nded release 24 hr TAKE 1 TABLET BY MOUTH ONCE DAILY active Not Available Not Available No t Available SF 5000 Plus 1.1 % dental cream BRUSH AT LEAST 3 TIMES PER DAY active Not Available Not Available No t Available clotrimazol e 1 % topical cream APPLY TO RASH AREAS ON THIGHS TWICE DAILY FOR 4 WEEKS. 05/03 completed Not Available Not Available Not Available irbesartan 300 mg tablet TAKE 1 TABLET BY MOUTH ONCE DAILY active Not Available Not Available No t Available amoxicillin 875 mg-potassiu m clavulanate 125 mg tablet 06/03 completed Not Available Not Available Not Available ceftriaxone 2 gram solution for injection 05/03 completed Not Available Not Available Not Available ezetimibe 10 mg tablet active Not Available Not Available Not Available Ciprodex 0.3 %-0.1 % ear drops,suspe nsion INSTILL 4 DROPS INTO RIGHT EAR TWICE DAILY active Not Available Not Available No t Available bupropion HCl XL 150 mg 24 hr tablet, extended release TAKE 1 TABLET BY MOUTH ONCE DAILY IN THE MORNING 11/11 completed Not Available Not Available Not Available duloxetine 30 mg capsule,del ayed release TAKE 1 CAPSULE BY MOUTH ONCE DAILY FOR 30 DAYS 11/11 completed Not Available Not Available Not Available duloxetine 60 mg capsule,del ayed release 11/11 completed Not Available Not Available Not Available aspirin 2021 active Not Available Not Available Not Avai lable Trixaicin 05/03 completed Not Available Not Available Not Available quetiapine 50 mg tablet TAKE 1 TABLET BY MOUTH ONCE DAILY IN THE EVENING 11/11 completed Not Available Not Available Not Available Januvia 100 mg tablet TAKE 1 TABLET BY MOUTH ONCE DAILY active Not Available Not Available No t Available FeroSul 325 mg (65 mg iron) tablet TAKE 1 TABLET BY MOUTH TWICE DAILY FOR 30 DAYS active Not Available Not Available No t Available desvenlafax ine succinate ER 100 mg tablet,exte nded release 24 hr active Not Available Not Available Not Available quetiapine ER 50 mg tablet,exte nded release 24 hr active Not Available Not Available Not Available Tradjenta 5 mg tablet 11/01 completed Not Available Not Available Not Available Xarelto 20 mg tablet TAKE 1 TABLET BY MOUTH ONCE DAILY AT 5PM 05/03 completed Not Available Not Available Not Available cholecalcif alexa (vit D3) 1,000 unit-vitami n K2 (MK4) 100 mcg tablet Take by oral route. 2021 active Not Available Not Available Not Avai lable Fluad Quad 6513-4742(6 5yr up)(PF) 60 mcg (15 mcg x 4)/0.5mL IM syringe PHARMACIS T ADMINISTE RED IMMUNIZAT ION ADMINISTE RED AT TIME OF DISPENSIN G 11/11 completed Not Available Not Available Not Available Vitals Date Recorded Body mass index (BMI) Body height Body weight Provider Name and Address Organization Details Last Updated DateTime 12/26/2021 35.5 kg/m2 162.56 cm 19551.62 g Not Available [facility] 12/06/2022 00:43:31 Date Recorded Body mass index (BMI) Body height Body weight Provider Name and Address Organization Details Last Updated DateTime 04/06/2022 35.5 kg/m2 162.56 cm 16389.62 g Not Available [facility] 12/06/2022 00:43:31 Date Recorded Body mass index (BMI) Body height Body weight Provider Name and Address Organization Details Last Updated DateTime 07/06/2022 35.5 kg/m2 162.56 cm 89252.62 g Not Available [facility] 12/06/2022 00:43:31 Date Recorded Body height Provider Name an d Address Organization Details Last Updated DateTime 05/03/2022 162.56 cm Not Available [facility] 00:43:30 Date Recorded Body height Body mass index (BMI) Body weight Provider Name and Address Organization Details Last Updated DateTime 03/14/2023 165.1 cm 36.1 kg/m2 36920.54 g DAIJA Rascon [place] [facility] 03/14/2023 10:46:08 Social History Question Answer Notes LastModified by Organizat ion Details LastModified Time Tobacco Smoking Status Never Smoker Not Available [facility] 12/06/2022 00:41:56 What Is Your Level Of Alcohol Consumption? None [id number] Information not available 12/06/2022 Sex: Unknown Functional Status None recorded. Mental Status None recorded. Family History Relationship Description Onset Age of this Age Resolved Age Notes LastModified by Organization Details LastModified Time Mother Heart disease [id number] Not available 12/06/2022 00:43:20 Mother Family history of malignant neoplasm [id number] Not available 12/06/2022 00:43:20 Mother Hypertensive disorder [id number] Not available 12/06/2022 00:43:20 Mother Diabetes mellitus [id number] Not available 12/06/2022 00:43:20 Brother Hypertensive disorder [id number] Not available 12/06/2022 00:43:20 Sister Hypertensive disorder [id number] Not available 12/06/2022 00:43:20 Sister Diabetes mellitus [id number] Not available 12/06/2022 00:43:20 Father Diabetes mellitus [id number] Not available 12/06/2022 00:43:20 Medical History Condition Response BLINDNESS N KIDNEY STONES N CARPAL TUNNEL SYNDROME N MRSA N LUNG DISEASE/DISORDER N HISTORY OF DRUG ABUSE N RADIATION / CHEMOTHERAPY N COPD N ANKLE PAIN N SPORTS INJURY N BLOOD DISEASES N SCHIZOPHRENIA N SHINGLES N DEPRESSION (INCLUDING POST ) N BOWEL PROBLEMS N SHOULDER PAIN N STROKE/TIA N ULCERS N KNEE PAIN N BENIGN PROSTATIC HYPERPLASIA N OBESITY N GERD/NAUSEA N ANEURYSM N URINARY/BLADDER/KIDNEY PROBLEMS N CORONARY ARTERY DISEASE (CAD) N ADDICTION CONCERNS N USE OF BLOOD THINNERS Y SKIN PROBLEMS N EMPHYSEMA N PERIPHERAL VASCULAR DISEASE Y MUSCLE,JOINT OR BONE PROBLEMS N DVT N STOMACH ULCERS N BLOOD CLOTS N USE OF NSAIDS N CONCUSSION OR SPINAL TRAUMA N NEUROPATHY N AIDS/HIV N FRACTURES N HYPERTENSION Y ELBOW PAIN N TOURETTE'S N Metal allergy N ANXIETY DISORDER N BLOOD TRANSFUSION N ANEMIA/BLOOD DISORDER Y BIPOLAR DISORDER N BRONCHITIS N OSTEOARTHRITIS N TUBERCULOSIS N FOOT PROBLEM N HEART VALVE DISORDERS N ALLERGIES/HAYFEVER N SOFT TISSUE INJURY N INFECTIOUS DISEASE N HEART ARRHYTHMIA Y INSOMNIA N HIGH CHOLESTEROL / HYPERLIPIDEMIA N RHEUMATOID ARTHRITIS N EDEMA N CHRONIC PAIN SYNDROME N CAROTID BLOCKAGE N BACK / NECK PROBLEMS N HAVE YOU BEEN HOSPITALIZED OR SEEN IN [facility] IN THE PAST YEAR ? N BURSITIS N HERNIATED DISC N DIALYSIS N FIBROMYALGIA N OSTEOPOROSIS N ARTHRITIS Y NO SIGNIFICANT PAST MEDICAL HISTORY N PERIPHERAL NEUROPATHY N DIABETES, TYPE Y HEARTBURN / REFLUX N HEPATITIS / LIVER DISEASE N GOUT N ALZHEIMER'S DISEASE N SLEEP DISORDER N HERPES N HEADACHES/MIGRAINES N SEIZURES/EPILEPSY N VASCULAR DISEASE Y Blood Disorder N HIP PAIN N DIZZINESS N HEAD TRAUMA OR INJURY N HEART DISEASE/HEART PROBLEMS Y MULTIPLE SCLEROSIS N CANCER: SPECIFY Y CARDIAC ARRHYTHMIA N ANESTHESIA COMPLICATIONS N ATRIAL FIBRILLATION N AUTOIMMUNE DISEASE N Past Encounters Encounter ID Performer Location Encounter Start Date Encounter Closed Date Diagnosis/Indication Diagnosis SNOMED-CT Code Diagnosis ICD10 Code [id number] [facility] [place] [address] [place] [address] 12/09/2020 00:00:00 12/13/2020 13:42:46 [id number] [facility] [place] [address] [place] [address] 03/17/2021 00:00:00 03/21/2021 14:09:44 [id number] [facility] [place] [address] [place] [address] 06/20/2021 00:00:00 06/20/2021 16:51:46 [id number] [facility] [place] [address] [place] [address] 09/26/2021 00:00:00 09/29/2021 08:35:23 [id number] [facility] [place] [address] [place] [address] 11/11/2021 00:00:00 11/13/2021 20:13:36 [id number] [facility] [place] [address] [place] [address] 11/28/2021 00:00:00 11/28/2021 18:30:59 [id number] [facility] [place] [address] [place] [address] 12/12/2021 00:00:00 12/12/2021 17:53:04 [id number] [facility] [place] [address] [place] [address] 12/26/2021 00:00:00 12/27/2021 11:22:20 [id number] [facility] [place] [address] [place] [address] 04/06/2022 00:00:00 04/06/2022 16:55:21 [id number] [facility] [place] [address] [place] [address] 05/03/2022 00:00:00 05/03/2022 08:54:58 [id number] [facility] [place] [address] [place] [address] 07/06/2022 00:00:00 07/06/2022 19:16:28 [id number] FLORINA Bernal [facility] [place] [address] [facility] [address] [place] [address] 03/14/2023 10:09:04 03/14/2023 12:25:24 Pain in right hip joint [id number] 14143 M25.551 Health Concerns Section Related Observation LastModified by Organization Detai ls LastModified Time None Recorded Concern Status LastModified by Organization Details LastModified Time None Recorded Advance Directives Directive None Recorded Payers Encounter Date Sequence Insurance Name Policy Number Policy Avila Covered Member ID Avila Member ID Guarantor Name 03/14/2023 1 [place] Mitch Romo [id number] Mitch Romo 03/14/2023 2 [employer] [facility] (MEDICARE SUPPLEMENT) Mitch Romo [id number] Mitch Romo
--- OUTSIDE RECORDS SUMMARY | 2024-09-28 06:47 | XMS_ITS | CONTINUITY OF CARE DOCUMENT ---
Author Name quincy mathew Address Unknown Organization [place] Office Address [address] [address] Phone [phone] Care Team Providers Care Fluorescent Lighting Model Maker Name Role Phone Humaira FORRESTER, Jin Unavailable [phone] Humaira FORRESTER, Jin Unavailable CHARBEL FORRESTER, LORE Unavailable INSURANCE PROVIDERS Payer name Policy type / Coverage type Fabiana red green party ID [employer] [id number] [place] Medicare [id number]
--- OUTSIDE RECORDS SUMMARY | 2024-09-28 06:48 | XMS_ITS | Continuity of Care Document ---
Author Organization [facility] Address [address] [place] [address] [address] [place] [address] Phone Care Team Providers Care Dictaphone Mechanic Name Role Phone Yepez PT,MPT,ATC, Josh Unavailable Unavai lable Procedures Procedure Date PT RE-EVALUATION THERAPEUTIC EXERCISES FUNC ACTIVITY Mobility: Walking And Moving Limitaion- Discharge Mobility: Walking And Moving Limitation- Goal Medications Name Dose Freq Route DOC Dec THERAPEUTIC EXERCISES FUNC ACTIVITY Medications Name Dose Freq Route DOC Dec THERAPEUTIC EXERCISES FUNC ACTIVITY Medications Name Dose Freq Route DOC Dec THERAPEUTIC EXERCISES FUNC ACTIVITY THERAPEUTIC EXERCISES FUNC ACTIVITY THERAPEUTIC EXERCISES FUNC ACTIVITY Medications Name Dose Freq Route DOC Nov THERAPEUTIC EXERCISES FUNC ACTIVITY THERAPEUTIC EXERCISES FUNC ACTIVITY THERAPEUTIC EXERCISES FUNC ACTIVITY THERAPEUTIC EXERCISES FUNC ACTIVITY THERAPEUTIC EXERCISES FUNC ACTIVITY THERAPEUTIC EXERCISES FUNC ACTIVITY Medications Name Dose Freq Route DOC Oct Progress Note THERAPEUTIC EXERCISES FUNC ACTIVITY Mobility: Walking And Moving Limitations -Curent Mobility: Walking And Moving Limitation- Goal Medications Name Dose Freq Route DOC Oct THERAPEUTIC EXERCISES FUNC ACTIVITY THERAPEUTIC EXERCISES FUNC ACTIVITY THERAPEUTIC EXERCISES FUNC ACTIVITY THERAPEUTIC EXERCISES FUNC ACTIVITY THERAPEUTIC EXERCISES FUNC ACTIVITY THERAPEUTIC EXERCISES FUNC ACTIVITY THERAPEUTIC EXERCISES FUNC ACTIVITY THERAPEUTIC EXERCISES FUNC ACTIVITY THERAPEUTIC EXERCISES FUNC ACTIVITY THERAPEUTIC EXERCISES FUNC ACTIVITY THERAPEUTIC EXERCISES FUNC ACTIVITY Mobility: Walking And Moving Limitations -Curent Mobility: Walking And Moving Limitation- Goal Medications Name Dose Freq Route DOC Sep THERAPEUTIC EXERCISES FUNC ACTIVITY THERAPEUTIC EXERCISES FUNC ACTIVITY THERAPEUTIC EXERCISES FUNC ACTIVITY THERAPEUTIC EXERCISES FUNC ACTIVITY THERAPEUTIC EXERCISES FUNC ACTIVITY THERAPEUTIC EXERCISES FUNC ACTIVITY THERAPEUTIC EXERCISES FUNC ACTIVITY THERAPEUTIC EXERCISES FUNC ACTIVITY THERAPEUTIC EXERCISES FUNC ACTIVITY Medications Name Dose Freq Route DOC Aug THERAPEUTIC EXERCISES FUNC ACTIVITY Mobility: Walking And Moving Limitations -Curent Mobility: Walking And Moving Limitation- Goal Medications Name Dose Freq Route DOC Aug THERAPEUTIC EXERCISES FUNC ACTIVITY Medications Name Dose Freq Route DOC Aug THERAPEUTIC EXERCISES FUNC ACTIVITY Medications Name Dose Freq Route DOC Aug THERAPEUTIC EXERCISES FUNC ACTIVITY Medications Name Dose Freq Route DOC Aug THERAPEUTIC EXERCISES FUNC ACTIVITY Medications Name Dose Freq Route DOC Aug THERAPEUTIC EXERCISES FUNC ACTIVITY Medications Name Dose Freq Route DOC Aug THERAPEUTIC EXERCISES Medications Name Dose Freq Route DOC Aug THERAPEUTIC EXERCISES NEUROMUSCULAR RE-ED Medications Name Dose Freq Route DOC Aug THERAPEUTIC EXERCISES Medications Name Dose Freq Route DOC Aug PT EVALUATION THERAPEUTIC EXERCISES Mobility: Walking And Moving Limitations -Curent Mobility: Walking And Moving Limitation- Goal Medications Name Dose Freq Route DOC Aug Pain Assess Positive DOC 2014 BMI High F/U Plan DOC No Falls or 1 Fall w/o Injury Screened f or Fall Risk Functional Outcome Assessmen t documented, deficits identified, treatment plan es Advance Directives Directive Yes / No Effective Date File Name No Information Encounters Encounter Description Practice Location Reason(s) For Visit Diagnoses Date Provider Providers Copied on Encounter [facility], [place], [place], [id number], tel:[phone] [place] No Information Mar-0 8-201 6 [place], [place], [place]. [facility], [place], [place], [address], tel:[phone] [place] No Information Mar-0 3-201 6 [place], [place]. [facility], [place], [place], [address], tel:[phone] [place] No Information Mar-0 1-201 6 [facility] [place] [place]. [facility], [place], [place], [address], tel:[phone] [place] No Information Nov-2 5-201 6 [facility] [place] [place]. [facility], [place], [place], [address], [place] tel:[phone] [place] No Information 6 Yepez Josh. , [place], [place]. [facility], [place], [place], [address], [place] tel:[phone] [place] No Information 6 Emily Hogue. [address] [facility], [address], [place], [place], [facility], [place]. tel: [phone] [facility], [place], [place], [address], [place] tel:[phone] [place] No Information 6 Lucho Melaran. , [place], [place]. [facility], [place], [place], [address], [place] tel:[phone] [place] No Information 6 Lucho Josh. , [place], [place]. [facility], [place], [place], [address], [place] tel:[phone] [place] No Information 0 6 Lucho Josh. , [place], [place]. [facility], [place], [place], [address], [place] tel:[phone] [place] No Information 0 6 Lucho Josh. , [place], [place]. [facility], [place], [place], [address], [place] tel:[phone] [place] No Information 0 6 Lucho Josh. , [place], [place]. [facility], [place], [place], [address], [place] tel:[phone] [place] No Information 6 Lucho Josh. , [place], [place]. [facility], [place], [place], [address], [place] tel:[phone] [place] No Information 6 Yepez Josh. , [place], [place]. [facility], [address], [place], [place], [address], [place] tel:[phone] [place] No Information 6 Yepez Josh. , [place], [place]. [facility], [place], [place], [address], [place] tel:[phone] [place] No Information 6 Yepez Josh. , [place]. [facility], [place], [place], [address], [place] tel:[phone] [place] No Information 6 Yepez Josh. , [place], [place]. [facility], [place], [place], [address], [place] tel:[phone] [place] No Information 6 Yepez Josh. , [place], [place]. [facility], [place], [place], [address], [place] tel:[phone] [place] No Information 6 Yepez Josh. , [place], [place]. [facility], [place], [place], [address], [place] tel:[phone] [place] No Information 6 Yepez Josh. , [place], [place]. [facility], [place], [place], [address], [place] tel:[phone] [place] No Information 5 Yepez Josh. , [place]. [facility], [place], [place], [address], [place] tel:[phone] [place] No Information 5 Yepez Josh. , [place], [place]. [facility], [place], [place], [address], [place] tel:[phone] [place] No Information Dec-2 4-201 5 Yepez Josh. , [place], [place]. [facility], [address], [place], [place], [address], [place] tel:[phone] [place] No Information Dec-2 2-201 5 Yepez Josh. , [place], [place]. [facility], [place], [place], [address], [place] tel:[phone] [place] No Information Dec-1 8-201 5 Yepze Josh. , [place], [place]. [facility], [address], [place], [place], [address], [place] tel:[phone] [place] No Information Dec-1 7-201 5 Yepez Josh. , [place], [place]. [facility], [place], [place], [address], [place] tel:[phone] [place] No Information Dec-1 5-201 5 Yepez Josh. , [place], [place]. [facility], [address], [place], [place], [address], [place] tel:[phone] [place] No Information Dec-1 1-201 5 Yepez Josh. , [place], [place]. [facility], [address], [place], [place], [address], [place] tel:[phone] [place] No Information Dec-1 0-201 5 Yepez Josh. , [place], [place]. [facility], [place], [place], [address], [place] tel:[phone] [place] No Information Dec-0 8-201 5 Yepez Josh. , [place], [place]. [facility], [place], [place], [address], [place] tel:[phone] [place] No Information Dec-0 4-201 5 Yepez Josh. , [place], [place]. [facility], [place], [place], [address], [place] tel:[phone] [place] No Information Dec-0 3-201 5 Yepez Josh. , [place]. [facility], [address], [place], [place], [address], [place] tel:[phone] [place] No Information Dec-0 1-201 5 Yepez Josh. , [place]. [facility], [address], [place], [place], [address], [place] tel:[phone] [place] No Information Nov-2 7-201 5 Yepez Josh. , [place]. [facility], [address], [place], [place], [address], [place] tel:[phone] [place] No Information Nov-2 5-201 5 Yepez Josh. , [place]. [facility], [address], [place], [place], [address], [place] tel:[phone] [place] No Information Nov-2 4-201 5 Yepez Josh. , [place]. [facility], [address], [place], [place], [address], [place] tel:[phone] [place] No Information Nov-2 0-201 5 Yepez Josh. , [place]. [facility], [address], [place], [place], [address], [place] tel:[phone] [place] No Information Nov-1 9-201 5 Yepez Josh. , [place], [place]. [facility], [address], [place], [place], [address], [place] tel:[phone] [place] No Information Aug-1 7-201 5 Yepez Josh. , [place]. [facility], [place], [place], [address], [place] tel:[phone] [place] No Information Nov-1 3-201 5 Yepez Josh. , [place]. [facility], [place], [place], [address], tel:[phone] [place] No Information 2 5 [place], . [facility], [place], [place], [address], tel:[phone] [place] No Information 0- 5 [place], . [facility], [place], [place], [address], tel:[phone] [place] No Information 6 5 [facility] , [place], [place]. [facility] [facility], [place], [place], [address], tel:[phone] [place] Other abnormalities of gait and mobilityMuscle weakness (generalized)Hi story of fallingLow back painFusion of spine, lumbar region 5 [facility] Family History Family Member Type Diagnosis Age At Onset No Information Payers Payer name Insurance type Covered democrat ID Authorjennia tinichole(s) Medicare [place] [id number] POC [id number] [facility] [id number] Social History Type Description Quantity Date Captured Comments Sex Male Smoking Status No Information Chief Complaint And Reason For Visit No Information Reason For Referral Reason For Referral No Information History Of Present Illness Encounter Date Complaint History Of Prese nt Illness No Information Functional Status Date Functional Assessmen t No Information Instructions Date Instruction Additional Infor mation No Information Assessments Type Assessment Date No Information Patient Care Teams Name Effective Dates (start - stop) Status Members No Information
--- OUTSIDE RECORDS SUMMARY | 2024-09-28 06:48 | XMS_ITS | Continuity of Care Document ---
Author Organization [facility] Address [address] [place] [address] Phone Care Team Providers Care Director Business Management Name Role Phone Bronson Gutierrez Unavailable Unavailable Procedures Procedure Date Office/outpatient Visit, Est Dilated Retinal Exam W Interpretation Eye Exam & Treatment Dilated Retinal Exam W Interpretation No Script Frames Deluxe Progressive Lens, Plastic Anti-reflective Coating Eye Exam & Treatment Dilated Retinal Exam W Interpretation Au Refraction Eye Exam & Treatment Refraction Advance Directives Directive Yes / No Effective Date File Name No Information Encounters Encounter Description Practice Location Reason(s) For Visit Diagnoses Date Provider Providers Copied on Encounter Office/outpat ient Visit, Est [facility], [address] [place] [address] [address], [place], [place], [address], [place] tel:[phone] [facility] No Information 1-201 0 Brenda Dobson. [address], [place], [address], [place]. tel:[phone] [facility], [address] [place] [address] [address], [place], [place], [address], [place] tel:[phone] [facility] No Information May-0 5-200 9 Brenda Dobson. [address] , [address], [place], [address], [place]. tel:[phone] [facility] Eye [facility], [address], [place], [place], [address], [place] tel:[phone] [facility] No Information Aug-0 5-200 8 [employer] . [address] [facility], [address], [place], [place], [address], [place]. tel:[phone] Referring Provider: Bronson Borjas, [address], [place], [place], [facility]. tel:[phone] Provider: Patsy Coombs, [address] [place], [place], [facility]. tel:[phone] [facility], [address], [place], [place], [address], tel:[phone] [facility] No Information Aug-0 4-200 8 Brneda Dobson. [facility] [address] , [address], [place], [place], [facility], [place]. tel:[phone] [facility] Eye [facility], [address] [place] [address] [address], [place], [place], [address], tel:[phone] [facility] No Information Haroon-0 6-200 7 Brenda Dobson. [address] [place], [place] [address] , [address], [place], [place], [facility], . tel:[phone] Family History Family Member Type Diagnosis Age At Onset No Information Payers Payer name Insurance type Covered republican ID Authoriza tion(s) [place] [id number] [facility] [id number] Social History Type Description Quantity Date Captured [...]
--- OUTSIDE RECORDS SUMMARY | 2024-09-28 06:48 | XMS_ITS | Continuity of Care Document ---
Author Organization [facility] Address [address] [place] [address] Phone Care Team Providers Care Color Repairer Name Role Phone Laiht Hopson MD Unavailable Unavailable Allergies, Adverse Reactions, Alerts Substance Reaction Status Criticality No Known Allergies Active No Inform ation Medications Medication Instructions Dosage Effective Dates (start - stop) Status Comments PRISTIQ (unknown strength) Not Available - Active DIOVAN (unknown strength) Not Available - Active PRAVASTATIN SODIUM (unknown strength) Not Available - Active TRADJENTA (unknown strength) Not Available - Active SEROQUEL (unknown strength) Not Available - Active ASPIRIN (unknown strength) Not Available - Active GABAPENTIN (unknown strength) Not Available - Active ZETIA (unknown strength) Not Available - Active SYNTHROID (unknown strength) Not Available - Active FISH OIL (unknown strength) Not Available - Active MOTRIN (unknown strength) Not Available - Active Procedures Procedure Date RADEX SPI LUMBOSAC 2/3 VIEWS OFFICE CONSULTATION OFFICE/OUTPATIENT VISIT EST X-RAY EXAM HIP UNI W PELVIS 2-3 VIEWS OFFICE/OUTPATIENT VISIT EST X-RAY EXAM HIPS BI W PELVIS 2 VIEWS OFFICE/OUTPATIENT VISIT EST RADEX KNE COMPL 4/MORE VIEWS RADEX KNE COMPL 4/MORE VIEWS X-RAY EXAM HIP UNI W PELVIS 2-3 VIEWS Sc X-RAY EXAM HIP UNI W PELVIS 2-3 VIEWS Sc OFFICE/OUTPATIENT VISIT EST OFFICE/OUTPATIENT VISIT EST OFFICE/OUTPATIENT VISIT EST MU Reporting OFFICE/OUTPATIENT VISIT EST MU Reporting OFFICE/OUTPATIENT VISIT EST MU Reporting Advance Directives Directive Yes / No Effective Date File Name No Information Encounters Encounter Description Practice Location Reason(s) For Visit Diagnoses Date Provider Providers Copied on Encounter OFFICE CONSULTATION [facility], [address], [address], tel:[phone] [facility] LBP and right buttock pain (chief complaint) Body mass index (BMI) 40.0-44.9, adultLow back painLumbar radiculopathySt atus post lumbar spinal fusionPrimary osteoarthritis of right hip 8 Mark Anthony Ozuna. [address] [facility], [place], [place], [id number] . tel:[phone] [facility], [address], [address], tel:[phone] [facility] Sacroiliac joint dysfunction of right sideDJD (degenerative joint disease), lumbosacral 8 Mark Anthony Sonok. [address] [facility], [place], [place], [address] . tel: [phone] OFFICE/OUTPAT IENT VISIT EST [facility], [address], [address], tel:[phone] [facility] LBP and right buttock/hi p pain (chief complaint) Body mass index (BMI) 40.0-44.9, adultPrimary osteoarthritis of right hipDJD (degenerative joint disease), lumbosacralSacr oiliac joint dysfunction of right side 8 Mark Anthony Ozuna. [address] [facility], [place], [place], [id number] . tel:[phone] Referring Provider: Fawad Duran, [address], [place], [address]. tel:[phone] OFFICE/OUTPAT IENT VISIT EST [facility], [address], [address], [place] tel:[phone] [facility] Right hip painPrimary osteoarthritis of right hipHistory of total left hip arthroplastySac roiliitisLumbar degenerative disc diseaseBody mass index (BMI) 36.0-36.9, adult Jun-2 8 L'Hommedi eu White. [address] [facility], [place], [place], [address] . tel: [phone] OFFICE/OUTPAT IENT VISIT EST [facility], [address] [address], [place], [address], [place] tel:[phone] [facility] Right hip painHistory of total left hip replacementBody mass index (BMI) 39.0-39.9, adult Haroon- 7 L'Hommedi eu White. [address] [facility], [place], [place], [address] . tel: [phone] OFFICE/OUTPAT IENT VISIT EST [facility], [address] [address], [place], [address], [place] tel:[phone] [facility] Pain in right kneePain in left kneePain in right hipPain in left hipPresence of left artificial hip jointPresence of right artificial knee jointPresence of left artificial knee joint 6 Ziyad Alexis. [address], [place], [place], [id number] . tel: [phone] OFFICE/OUTPAT IENT VISIT EST [facility], [address] [address], [place], [address], [place] tel:[phone] [facility] Bilateral hip pain (chief complaint) Status post left ABBY (chief complaint) Hip weaknessIliotib ial band tendonitisHisto ry of arthroplasty of left hip 5 Ziyad Alexis. [address], [place], [place], [id number] . tel:[phone] Referring Provider: Fawad Duran, [address], [place], [address]. tel:[phone] OFFICE/OUTPAT IENT VISIT EST [facility], [address], [address], [place] tel:[phone] [facility] Knee joint replacement (nonglobal)Hip joint replacement (nonglobal) Jan- 4 Yusuf Winter. [address] [place], [place], [address] . tel:[phone] Referring Provider: Fawad Duran, [address], [place], [address]. tel:[phone] OFFICE/OUTPAT IENT VISIT EST [facility], [address], [address], [place] tel:[phone] [facility] Knee joint replacementHip joint replacementOste oarthrosis, unspecified whether generalized or localized, involving pelvic region and thigh 3 Yusuf Winter. [address] [place], [place], [address] . tel:[phone] OFFICE/OUTPAT IENT VISIT EST [facility], [address], [address], [place] tel:[phone] [facility] rt ankle arthritis (chief complaint) Dietary surveillance and counselingUnspe cified arthropathy involving ankle and foot Jul-0 2 Bagwe Senthil. [address] [place], [place], [address] . tel:[phone] Referring Provider: Fawad Duran, [address], [place], [address]. tel:[phone] [facility], [address], [address], [place] tel:[phone] [facility] Sil Castillo foot/ankle pain (chief complaint) Dietary surveillance and counselingHyper tension, UnspecifiedUnsp ecified arthropathy involving ankle and foot Sep-0 2 Bagwe Senthil. [address] [place], [place], [address] . tel: [phone] Referring Provider: Fawad Duran, [address], [place], [address]. tel:[phone] Family History Family Member Type Diagnosis Age At Onset Father Problem (finding) Maternal history of olayinka betes mellitus Mother Problem (finding) Cancer Father Problem (finding) Heart disease Mother Problem (finding) Heart disease Mother Problem (finding) Maternal history of olayinka betes mellitus Sister Problem (finding) hypertension Sister Problem (finding) Maternal history of olayinka betes mellitus Brother Problem (finding) hypertension Brother Problem (finding) Maternal history of olayinka betes mellitus Father Problem (finding) hypertension Mother Problem (finding) hypertension Payers Payer name Insurance type Covered democrat ID Authoriza tion(s) No Information Social History Type Description Quantity Date Captured Comments Alcohol Use Details Unknown Caffeine Use Details Unknown Tobacco Use Status No Information Smoking Status No Information Sex Male Vital Signs Date / Time: Height Weight BMI Pulse Rate Blood Pressure Temperature Respiratory Rate Body Surface Area Head Circumference Head Circ. Percentile Wt./Marty. Percentile BMI percentile Pulse Ox Inhaled Ox 2:54 PM 66.00 in 113.398 kg (250.00 lbs) 40.3 5 kg/m eter (2) Chief Complaint And Reason For Visit From encounter dated '08/01/2018 14:40'. LBP and right buttock pain (chief complaint) Reason For Referral Reason For Referral No Information Plan Of Treatment Date Type Action Status Goal Dietary management education , guidance, and counseling completed Goal Dietary management education , guidance, and counseling completed Referral Ordered: RADEX SPI LUMBOSAC 2/3 VIEWS spine, lumbar ordered Referral Ordered: INJ FORAMEN EPIDURAL L/S spine, lumbar Appointment date/timeframe: 08/01/2018 ordered Referral Ordered: INJECT SACROILIAC JOINT spine, lumbar Appointment date/timeframe: 08/01/2018 ordered Referral Ordered: X-RAY EXAM HIP UNI W PELVIS 2-3 VIEWS RT hip ordered Referral Ordered: FLUOROSCOPIC GUIDANCE NEEDLE PLACEMENT RT hip ordered Referral Ordered: X-RAY EXAM HIPS BI W PELVIS 2 VIEWS ordered Referral Ordered: X-RAY EXAM HIPS BI W PELVIS 2 VIEWS Bilateral ordered Referral Ordered: RADEX KNE COMPL 4/MORE VIEWS LT ordered Referral Ordered: RADEX KNE COMPL 4/MORE VIEWS RT ordered Referral Ordered: X-RAY EXAM HIP UNI W PELVIS 2-3 VIEWS LT ordered Referral Ordered: X-RAY EXAM HIP UNI W PELVIS 2-3 VIEWS RT ordered Referral Ordered: RADEX HIP UNI COMPL MINIMUM 2 VIEWS Bilateral ordered Referral Ordered: JOINT SURVEY SINGLE VIEW 2 OR MORE JOINTS ordered Referral Ordered: RADEX PELVIS 1/2 VIEWS ordered Referral Ordered: RADEX HIP UNI COMPL MINIMUM 2 VIEWS LT ordered Referral Ordered: RADEX KNE 3 VIEWS Bilateral ordered Referral Ordered: RADEX ANKLE COMPL MINIMUM 3 VIEWS RT ordered History Of Present Illness Encounter Date Complaint History Of Prese nt Illness LBP and right buttock pain LBP and right buttock/hip pain Status post left ABBY Bilateral hip pain Functional Status Date Functional Assessmen t No Information Instructions Date Instruction Additional Infor mation Rest and Ice. Related to Lumba r radiculopathy Dietary management e ducation, guidance, and counseling Related to Body mass index (BMI) 40.0-44.9, adult Apply ice 20 min per hour Relate d to Primary osteoarthritis of right hip Dietary management e ducation, guidance, and counseling Related to Body mass index (BMI) 40.0-44.9, adult Giving encouragement to exercise Related to Body mass index (BMI) 36.0-36.9, adult Call for increase in pain Relate d to History of total left hip replacement Discussed treatment options Rela dina to History of total left hip replacement Giving encouragement to exercise Related to Body mass index (BMI) 39.0-39.9, adult Discussed treatment options Rela dina to Pain in left hip Weight bearing status as directe d. Related to Iliotibial band tendonitis Home exercise program. Related t o Iliotibial band tendonitis Discussed treatment options Rela dina to Iliotibial band tendonitis Activity as tolerated OTC medication - Activity as tolerated OTC anti-inflammatories (NSAIDs) Dietary counseling Related to Di etary surveillance counseling Dietary counseling Related to Di etary surveillance counseling Fall risk home exerc ise program handout provided Assessments Type Assessment Date assessment Body mass index (BMI) 40.0-44.9, adult assessment Low back pain assessment Lumbar radiculopathy assessment Status post lumbar spinal fusion assessment Primary osteoarthritis of right hip Patient Care Teams Name Effective Dates (start - stop) Status Members No Information
== END 2024-09-22 08:22 | disposition home or self-care (01) ==
LOC: ANHIMG 08:23
PROVIDERS: PCP Internal Medicine
DX: R13.10 Dysphagia, unspecified (principal); Z98.890 Other specified postprocedural states
CPT/HCPCS: 92611

== ENCOUNTER 2024-11-12 09:55 | Outpatient (CLI) | payer MEDICARE, OTHER, SELFPAY ==
--- NOTE | ~2024-11-12 | XR_ITS ---
AP and oblique views of the bilateral ribs, and AP and lateral chest radiographs Clinical History: Pain Findings: No rib fracture is seen. Osseous alignment is anatomic. Lungs are clear, without focal cons olidation or pleural effusion. Cardiomediastinal contour is prominent, status post aortic valve repla cement. Soft tissues are unremarkable. Impression: No rib fracture is seen. Clear lungs. Reviewed, dictated and finalized at [facility]. ESTATE UNDERWRITER Impression: No rib fracture is seen. Clear lungs.
[2024-11-12 10:19] LABS: Basophils Absolute Auto 0.1 K/mm3 (0.0-0.1); Basophils Percent Auto 0.5 % (0.2-1.2); Eosinophils Percent Auto 0.1 % (0-4.4); Hematocrit 40.6 % (42.0-52.0); Hemoglobin 12.9 g/dL (14.0-18.0); Immature Granulocyte Absolute 0.06 K/mm3 (0.00-0.031); Immature Granulocyte Percent A 0.4 % (0-0.5); Lymphocytes Absolute Auto 0.49 K/mm3 (0.9-3.2); Lymphocytes Percent Auto 3.3 % (18.3-44.2); Mean Corpuscular HGB Conc 31.8 g/dl (32-36); Mean Corpuscular Hemoglobin 29.2 pg (26-34); Mean Corpuscular Volume 91.9 fl (80-100); Mean Platelet Volume 10.6 fl (7.4-10.4); Monocytes Absolute Auto 0.6 K/mm3 (0.1-0.6); Monocytes Percent Auto 4.1 % (2.6-8.5); Neutrophils Absolute Auto 13.6 K/mm3 (1.3-6.7); Neutrophils Percent Auto 91.6 % (45.5-73.1); Platelet Count Result 157 k/mm3 (150-375); Red Blood Count 4.42 M/mm3 (4.6-6.20); Red Cell Distribution Width 15.2 % (11.5-14.5); White Blood Count 14.9 K/mm3 (4.5-10.0)
--- OUTSIDE RECORDS SUMMARY | 2024-11-12 10:47 | XMS_ITS | Clinical Summary ---
Author Organization [facility] Address [address] [place] [address] Care Team Providers Care Crating And Moving Estimator Name Role Phone Unavailable Primary Care Provider [...] 01/08/1959 Zoster Vaccines (1 of 2) 01/08/1990 Pneumococcal Vaccine: 65+ Ye ars (1 of 1 - PCV) 01/08/2005 RSV Immunization or 60+ Years (1 - 1-dose 75+ series) 01/08/2015 COVID-19 Vaccine (2023-2 5 season) 2024 Influenza Adult (#1) 2024 Meningococcal B Vaccine Aged Out No l onger eligible based on patient's age to complete this topic Meningococcal Vaccine Aged Out No shilpi sol eligible based on patient's age to complete this topic RSV Immunizations Under 20 Months Aged Out No longer eligible based on patient's age to complete this topic
--- OUTSIDE RECORDS SUMMARY | 2024-11-12 10:47 | XMS_ITS | Encounter Summary ---
Author Organization [facility] Address [address] [place] [address] Care Team Providers Care Third Officer Name Role Phone Fawad Hirsch MD Primary Care Provider [phone] Fawad Hirsch MD Primary Care Provider [phone] Fawad Hirsch MD Unavailable [phone] Anders Cho MD Unavailable [phone] Krsi Quintero MD Unavailable [phone] Zulma Faye MD Unavailable [phone] Encounter Details Date Type Department Care Team (Late st Contact Info) Description 06/16/2020 Telephone [facility] [address] [place] [address] Transcribed Order, Provider Social History Tobacco Use Types Packs/Day Years Used Date Smoking Tobacco: Never Smokeless Tobacco: Never Alcohol Use Standard Drinks/Week Comments No 0 (1 standard drink = 0.6 oz pur e alcohol) Sex and Gender Information Value Date Recorded Sex Assigned at Not on file Legal Sex Male 3:52 AM 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 Gender Identity Male 09/15/2020 1:37 PM 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 Sexual Orientation Straight 02/03/2019 5: 15 PM CDT documented as of this encounter Plan of Treatment Not on file documented as of this encounter Visit Diagnoses Not on filedocumented in this encounter Care Teams Third Officer Relationship Specialty Start Date End Date Fawad Hirsch MD [address] [place] [address] PCP - General 05/17/17 12/07/20 Fawad Hirsch MD [address] [place] [address] PCP - General 12/08/20 Fawad Hirsch MD [address] [facility] [address] [place] [address] 12/08/20 Anders Cho MD [address] [place] [address] Referring Physician Otolaryngology 12/03/18 Kris Quintero MD [address] [place] [address] Surgeon Vascular Surgery 06/22/22 Zulma Faye MD [address] [place] [address] Surgeon Vascular Surgery 05/19/24 documented as of this encounter
--- OUTSIDE RECORDS SUMMARY | 2024-11-12 10:47 | XMS_ITS | Data Portability ---
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 His [...] talk with him about talking to his fundraising officer to make sure that he is even a surgical candidate before pursuing other options. I did give him the names of Dr. Rolle as well as Dr. Fountain at [facility]. They are also aware of a [facility] that they are comfortable with and they can certainly get his opinion well. I did recommend uses walker on a full-time basis to prevent falls or injuries. He does use occasional ibuprofen but I think that he needs to minimize this given his cardiac status and anti-inflammator ies can exacerbate congestive heart failure. They are going to call his fundraising officer and start there. Can see the patient back as needed at this point. 30 minutes was spent in treatment patient more than half this [id number] conversation alfred Not available 03/14/2023 12:17:53 Plan of Treatment Reminders Order Date Submit Date Provider Last Modified By Organization Details Last Modified Time Details Appointments None recorded. Lab None recorded. Referral None recorded. Procedures None recorded. Surgeries None recorded. Imaging XR, hip + pelvis, unilateral 2022 023 [email or web address] [facility] [place], [address], [place], [address], 3 16:12:26 Medication Orders None recorded. Patient TargetsNo targets recorded. Patient InstructionsNo instructions recorded. Reason for Referral None Reported. Results Created Date Observation Date Name Description Value Unit Range Abnormal Flag Note LastModifiedBy Organization Detail LastModifiedTime 03/14/20 23 XR, hip + pelvi s, unila teral No observ ation record ed. [email or web address] [facility] [place] [address], [place], [address], 03/14/2023 12:10:50 Result Notes None recorded. Problems Name Problem SNOMED Code Status Onset Date Resolution Date Notes Provider Name and Address Organization Details Recorded Time Pain of left elbow joint 9117111285645 9104 Active 2021 Not Available [facility] 3 00:45:50 Dry skin 13219231 Active 2019 Not Available [facility] 3 00:45:50 Acute osteomyeli tis of radius 357281880 Active 2021 Not Available [facility] 3 00:45:50 Hypertensi ve disorder 02588698 Active Not Available [facility] 3 00:45:50 Peripheral vascular disease 826608557 Active 2019 Not Available [facility] 3 00:45:50 Osteomyeli tis 65838753 Active 2021 Not Available [facility] 3 00:45:50 Long-term current use of anticoagul ant 169664387 Active 2019 Not Available [facility] 3 00:45:51 Diabetes mellitus 51189373 Active Not Available [facility] 3 00:45:51 Pain in right hip joint 5237898502393 02 Active 2022 DAIJA Rascon, [place] [employer] 3 10:16:01 Problem Notes None recorded. Procedures Surgical History Date Name Laterality Status Provider Name and Address Organization Details Recorded Time Carpal tunnel surgery completed DAIJA Rascon [place] [facility] 03/14/2023 10:16:26 Shoulder completed DAIJA Rascon [place] [facility] 03/14/2023 10:17:23 Prostate completed Not Available [facility] 00:43:19 Back Surgery completed Not Available [facility] 12/06/2022 00:43:19 hernia repair completed Not Available [facility] 12/06/2022 00:43:19 Neck completed Not Available [facility] 10/2022 00:43:19 total knee replacement completed Not Available [facility] 12/06/2022 00:43:19 total replacement of hip completed Not Available [facility] 12/06/2022 00:43:19 Imaging Results Imaging Date Name Status LastModified by Organiz ation Details LastModified Time 03/14/2023 XR, hip + pelvis, unilateral completed [email or web address] [facility] [place] [address], [place], [address], 03/14/2023 12:10:50 Procedure Notes None recorded. Medical [...] Not Available Not Avai lable Fluad Quad 0201-5513(6 5yr up)(PF) 60 mcg (15 mcg x 4)/0.5mL IM syringe PHARMACIS T ADMINISTE RED IMMUNIZAT ION ADMINISTE RED AT TIME OF DISPENSIN G 11/11 completed Not Available Not Available Not Available Vitals Date Recorded Body mass index (BMI) Body mass index (BMI) Body mass index (BMI) Body height Body height Body height Body height Body weight Body weight Body weight Provider Name and Address Organization Details Last Updated DateTime 3 35.5 kg/m2 35.5 kg/m2 35.5 kg/m2 162.56 cm 162.56 cm 162.56 cm 162.56 cm 72159.6 2 g 47834.6 2 g 70800.6 2 g Not Available [facility] 00:43:31 Date Recorded Body height Body mass index (BMI) Body weight Provider Name and Address Organization Details Last Updated DateTime 03/14/2023 165.1 cm 36.1 kg/m2 74046.54 g DAIJA Rascon [place] [facility] 03/14/2023 10:46:08 Social History Question Answer Notes LastModified by Organizat ion Details LastModified Time Tobacco Smoking Status Never Smoker Not Available [facility] 12/06/2022 00:41:56 What Is Your Level Of Alcohol Consumption? None [id number] Information not available 12/06/2022 Sex: Unknown Functional Status None recorded. Mental Status None recorded. Family History Relationship Description Onset Age of this Age Resolved Age Notes LastModified by Organization Details LastModified Time Mother Heart disease [id number] Not available 12/06/2022 00:43:20 Mother Family history of malignant neoplasm [email or web address].137 [id number] Not available 12/06/2022 00:43:20 Mother Hypertensive disorder [id number].604 [id number] Not available 12/06/2022 00:43:20 Mother Diabetes mellitus [id number] Not available 12/06/2022 00:43:20 Brother Hypertensive disorder [id number] [id number] Not available 12/06/2022 00:43:20 Sister Hypertensive disorder [email or web address].000 [id number] Not available 12/06/2022 00:43:20 Sister Diabetes mellitus [id number] Not available 12/06/2022 00:43:20 Father Diabetes mellitus MIGRATION.857 [id number] Not available 12/06/2022 00:43:20 Medical History Condition Response BLINDNESS N KIDNEY STONES N MRSA N CARPAL TUNNEL SYNDROME N LUNG DISEASE/DISORDER N HISTORY OF DRUG ABUSE N COPD N RADIATION / CHEMOTHERAPY N SPORTS INJURY N ANKLE PAIN N BLOOD DISEASES N SCHIZOPHRENIA N SHINGLES N BOWEL PROBLEMS N SHOULDER PAIN N DEPRESSION (INCLUDING POST ) N STROKE/TIA N ULCERS N KNEE PAIN [...] N NEUROPATHY N AIDS/HIV N FRACTURES N ELBOW PAIN N HYPERTENSION Y TOURETTE'S N ANXIETY DISORDER N Metal allergy N BLOOD TRANSFUSION N ANEMIA/BLOOD DISORDER Y BIPOLAR DISORDER N BRONCHITIS N OSTEOARTHRITIS N TUBERCULOSIS N FOOT PROBLEM N HEART VALVE DISORDERS N ALLERGIES/HAYFEVER N SOFT TISSUE INJURY N INFECTIOUS DISEASE N HEART ARRHYTHMIA Y INSOMNIA N RHEUMATOID ARTHRITIS N HIGH CHOLESTEROL / HYPERLIPIDEMIA N EDEMA N CHRONIC PAIN SYNDROME N CAROTID BLOCKAGE N BACK / NECK PROBLEMS N HAVE YOU BEEN HOSPITALIZED OR SEEN IN [facility] IN THE PAST YEAR ? N BURSITIS N HERNIATED DISC N DIALYSIS N FIBROMYALGIA N OSTEOPOROSIS N ARTHRITIS Y NO SIGNIFICANT PAST MEDICAL HISTORY N PERIPHERAL NEUROPATHY N DIABETES, TYPE Y HEARTBURN / REFLUX N HEPATITIS / LIVER DISEASE N GOUT N SLEEP DISORDER N ALZHEIMER'S DISEASE N HERPES N SEIZURES/EPILEPSY N HEADACHES/MIGRAINES N VASCULAR DISEASE Y HIP PAIN N Blood Disorder N DIZZINESS N HEAD TRAUMA OR INJURY N HEART DISEASE/HEART PROBLEMS Y MULTIPLE SCLEROSIS N CARDIAC ARRHYTHMIA N CANCER: SPECIFY Y ANESTHESIA COMPLICATIONS N ATRIAL FIBRILLATION N AUTOIMMUNE DISEASE N Past Encounters Encounter ID Performer Location Encounter Start Date Encounter Closed Date Diagnosis/Indication Diagnosis SNOMED-CT Code Diagnosis ICD10 Code Diagnosis Note [id number] [facility] [place] [address] [place] [address] 12/09/2020 00:00:00 12/13/2020 13:42:46 [id number] [facility] [place] [address] [place] [address] 03/17/2021 00:00:00 03/21/2021 14:09:44 [id number] [facility] [place] [address] [place] [address] 06/20/2021 00:00:00 06/20/2021 16:51:46 [id number] [facility] [place] [address] [place] [address] 09/26/2021 00:00:00 09/29/2021 08:35:23 [id number] [facility] [place] [address] [place] [address] 11/11/2021 00:00:00 11/13/2021 20:13:36 [id number] [facility] [place] [address] [place] [address] 11/28/2021 00:00:00 11/28/2021 18:30:59 [id number] [facility] [place] [address] [place] [address] 12/12/2021 00:00:00 12/12/2021 17:53:04 [id number] [facility] [place] [address] [place] [address] 12/26/2021 00:00:00 12/27/2021 11:22:20 [id number] [facility] [place] [address] [place] [address] 04/06/2022 00:00:00 04/06/2022 16:55:21 [id number] [facility] [place] [address] [place] [address] 05/03/2022 00:00:00 05/03/2022 08:54:58 [id number] [facility] [place] [address] [place] [address] 07/06/2022 00:00:00 07/06/2022 19:16:28 [id number] FLORINA Bernal [facility] [place] [address] [place] [address] 03/14/2023 10:09:04 03/14/2023 12:25:24 Pain in right hip joint 0409324751 01741 M25.551 Health Concerns Section Related Observation LastModified by Organization Detai ls LastModified Time None Recorded Concern Status LastModified by Organization Details LastModified Time None Recorded Advance Directives Directive None Recorded Payers Encounter Date Sequence Insurance Name Policy Number Policy Avila Covered Member ID Avila Member ID Guarantor Name 03/14/2023 1 [place] Mitch Romo [id number] Mitch Romo 03/14/2023 2 [employer] (MEDICARE SUPPLEMENT) Mitch Romo [id number] Mitch Romo
--- OUTSIDE RECORDS SUMMARY | 2024-11-12 10:47 | XMS_ITS | CONTINUITY OF CARE DOCUMENT ---
Author Name quincy mathew Address Unknown Organization [place] [facility] Address [address] [address] Phone [phone] Care Team Providers Care Senior Environmental Consultant Name Role Phone Humaira FORRESTER, Jin Unavailable [phone] Humaira FORRESTER, Ijn Unavailable CHARBEL FORRESTER, LORE Unavailable INSURANCE PROVIDERS Payer name Policy type / Coverage type Fabiana red republican ID [id number] [place] Medicare [id number]
--- OUTSIDE RECORDS SUMMARY | 2024-11-12 10:47 | XMS_ITS | Clinical Summary ---
Author Organization [facility] Address [address] [id number] Care Team Providers Care Certified Coder Name Role Phone Fawad Hirsch MD Primary Care Provider [phone] Fawad Hirsch MD Unavailable [phone] Anders Cho MD Unavailable Kris Quintero MD Unavailable [phone] Zulma Faye MD Unavailable [phone] Allergies No known active allergies Medications levothyroxine (SYNTHROID) 125 mcg tabletIndication s:hypothyroidism Take 1 tablet (125 mcg total) by mouth every morning Active cholecalciferol (VITAMIN D-3) 2,000 unit tabletIndication s:Vitamin D Deficiency,morni ng Take 1 tablet (2,000 Units total) by mouth every morning Active desvenlafaxine ER (PRISTIQ, KHEDEZLA) 100 mg 24 hr tabletIndication s:Generalized Anxiety Disorder Take 1 tablet (100 mg total) by mouth every morning 018 Active pravastatin (PRAVACHOL) 20 mg tabletIndication s:hyperlipidemia Take 1 tablet (20 mg total) by mouth nightly 018 Active ezetimibe (ZETIA) 10 mg tabletIndication s:hyperlipidemia Take 1 tablet (10 mg total) by mouth every morning 019 Active losartan (COZAAR) 25 mg tabletIndication s:hypertension Take 1 tablet (25 mg total) by mouth every morning Active Januvia 100 mg tabletIndication s:type 2 diabetes mellitus Take 1 tablet (100 mg total) by mouth every morning Active omeprazole (PriLOSEC) 40 mg capsuleIndicatio ns:Treatment of Non-Bleeding Gastric Disorder,GERD Take 20 mg by mouth 2 (two) times a day 021 Active traZODone (DESYREL) 50 mg tabletIndication s:insomnia associated with depression Take 1 tablet (50 mg total) by mouth nightly Active mirtazapine (REMERON) 15 mg tabletIndication s:major depressive disorder Take 1 tablet (15 mg total) by mouth nightly 021 Active LORazepam (ATIVAN) 0.5 mg tabletIndication s:anxiety Take 1 tablet (0.5 mg total) by mouth every 6 (six) hours as needed for anxiety Active polyethylene glycol (MIRALAX) 17 gram packet Take 1 packet (17 g total) by mouth as needed for constipation 022 Active amoxicillin 500 mg capsule Take by mouth as needed 023 Active QUEtiapine XR (SEROquel XR) 50 mg tablet extended release 24 hrIndications:Ge neralized Anxiety Disorder Take 1 tablet (50 mg total) by mouth nightly Active tavaborole 5 % solution with applicatorIndica tions:toenail onychomycosis Apply 1 Application topically nightly 024 Active nystatin-triamci nolone creamIndications :cutaneous candidiasis Apply 1 Application topically as needed 024 Active multivitamin tabletIndication s:Vitamin Deficiency Prevention Take 1 tablet by mouth every morning Active metoprolol XL (TOPROL-XL) 25 mg extended release tabletIndication s:PAC (premature atrial contraction),Par oxysmal atrial flutter (CMS/HCC) (HCC),Hypertensi on associated with diabetes (HCC) Take 1 tablet by mouth once daily 90 tablet 024 Active oxyCODONE (ROXICODONE) 5 mg immediate release tabletIndication s:Pain Take 1 tablet (5 mg total) by mouth every 4 (four) hours as needed for pain 5 tablet Active aspirin 81 mg enteric coated tabletIndication s:Deep Vein Thrombosis Prevention,Myoca rdial Reinfarction Prevention Take 1 tablet (81 mg total) by mouth nightly 30 tablet Active acetaminophen 500 mg capsuleIndicatio ns:Pain Take 2 capsules (1,000 mg total) by mouth every 8 (eight) hours as needed (pain) Active senna-docusate (PERICOLACE) 8.6-50 mgIndications:co nstipation Take 2 tablets by mouth 2 (two) times a day as needed for constipation Active amoxicillin 500 mg tablet/capsuleIn dications:Prophy lactic antibiotic TAKE 4 PILL 1 HOUR BEFORE DENTAL APPOINTMENT. 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 Local tissue arrangement primary defect 8 x 2 cm, secondary defect 12 x 6 cm. Leg edema, right 01/15/2024 Arthritis of right hip 01/03/2024 Pain of right hip joint 03/14/2023 Osteomyelitis 05/03/2022 A-fib (CMS/[facility]) 03/30/2022 Assessment & Plan (10/18/2022 10:34 AM HARDWARE ASSEMBLER): Status post successful Watchman implant. Completed 5 months of clopidogrel, will discontinue today. Will continue ASA 81 mg daily indefinitely. Will have him follow-up in 6 months, 1 year from his implantation around March 2023. Assessment & Plan (07/06/2022 9:14 AM CDT): Controlled. Continue medical therapy. 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 Continue medical therapy with aspirin, statin, Zetia, beta-lucy, ARB. Assessment & Plan (02/01/2022 10:21 AM CDT): Stable, moderate coronary disease only, without angina. Continue same therapy. Continue diet and exercise. 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 Assessment & Plan (06/20/2021 8:38 AM CDT): Patient has done well since his TAVR. He is on chronic anticoagulation for his new valve. Degeneration of lumbosacral intervertebral disc 06/18/2020 History of lumbar fusion 06/18/2020 Lumbar radiculopathy 06/18/2020 Osteoarthritis of hip 06/18/2020 Inflammation of sacroiliac joint 06/18/2020 Sacroiliac joint dysfunction of right side 06/18 Aortic stenosis 05/17/2020 Assessment & Plan (12/10/2020 1:30 PM HARDWARE ASSEMBLER): Patient underwent TAVR are in July. He is continued on anticoagulation at this time. 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 Assessment & Plan (10/04/2020 10:00 AM HARDWARE ASSEMBLER): Patient had severe aortic stenosis and underwent TAVR. He is doing well since that time. Paroxysmal atrial flutter ([facility]) 05/17/2020 Assessment & Plan (02/01/2022 10:20 AM CDT): The patient has paroxysmal atrial fibrillation/flutter on rate control and anticoagulation with Xarelto. He has had recurrent anemia and probable GI bleeding requiring recent 3 unit packed red blood cell transfusion. I had a lengthy discussion with him and his significant other regarding Watchman device implantation as an alternative to chronic anticoagulation, and they are interested in pursuing this option. Arrangements will be made for Watchman device implantation in the near future, and further recommendations will be forthcoming then. I made no change in his excellent medical regimen today. Dry skin 02/27/2020 Chronic osteomyelitis of jaw 07/07/2019 Assessment & Plan (08/25/2019 3:40 PM HARDWARE ASSEMBLER): 79 yo male with SCC with unknown primary s/p xrt, resection, and mandibular free flap c/b radionecrosis and osteomyelitis of the jaw. He is doing great on augmentin. Because of his medical complexity and conservative management, we will push for a 3 month treatment duration (stop date 10/03). Because he is doing so well, I don't think we need to see him prior to stopping antibiotics. We talked about monitoring for signs and symptoms of recurrent infection. Plan: Continue on augmentin for 3 months (stop 10/03) Assessment & Plan (08/01/2019 4:26 PM CDT): 79 yo male with SCC with unknown primary s/p xrt, resection, and mandibular free flap c/b radionecrosis and osteomyelitis of the jaw. He seems to be doing better after transitioning to augmentin. Because of his medical complexity and conservative management, we will push for a 3 month treatment duration (stop date 10/03). We will see him again in follow up on 08/[address] and ENT appointment. Plan: Continue on augmentin for 3 months (stop 10/03) Assessment & Plan (07/07/2019 11:46 PM CDT): 79 yo male with SCC with unknown primary s/p xrt, resection, and mandibular free flap c/b radionecrosis and osteomyelitis of the jaw. He seems to be responding nicely to empiric clindamycin based on history and physical examination. His persistent drainage is somewhat concerning, but his also appears to be improving. I currently do not suspect that he needs a long course of IV antibiotics. I will touch base with his primary surgeon in regards to antibiotic management. We can probably continue orals until resolution of the drainage. If we want broader coverage, augmentin should be sufficient. Plan: Touch base with surgery regards to antibiotic selection and treatment duration. We will continue him on clinda until we have a clear plan. 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 With that no further workup and or follow-up is required. Assessment & Plan (06/20/2021 8:39 AM CDT): Patient has peripheral vascular disease with calcification of his vessels but still adequate blood flow down to his feet. He is not having any claudication symptoms or rest pain symptoms and is able to do the things that he would like to do as far as his blood flow is concerned. His biggest concern is that he has balance issues but that is not attributed to his blood flow. I will have him follow up in 1 year with a repeat arterial Doppler. He can call sooner if there are any questions or concerns. Assessment & Plan (12/10/2020 1:29 PM HARDWARE ASSEMBLER): Patient has peripheral arterial disease but is able to do the things that he would like to do. He is continued on anticoagulation after his TAVR. Plan will be to have him follow up in 6 months with repeat ABIs unless he needs to come in and see me sooner. I told him that if he gets any wounds on his feet all to please call. Assessment & Plan (10/04/2020 10:00 AM HARDWARE ASSEMBLER): Patient has peripheral arterial disease however at this time he is not having any disabling claudication and denies any rest pain or wounds on his feet. I discussed with him that these would be the things that would be an indication that he would benefit from an angiogram. At this time the risk of an angiogram outweighs the benefits of doing this for him. I will have him follow up in 3 months with repeat arterial Doppler so as to follow his arterial disease. If he gets to the point where there is concern of critical limb ischemia or any disabling claudication then will plan for a angiogram. Also he is on chronic anticoagulation for his TAVR and would have to be bridged with Lovenox or heparin for any kind of procedure done. Pre-operative clearance 12/03/2018 Bruit of left carotid artery 12/03/2018 Nonrheumatic aortic valve stenosis 12/03/2018 Assessment & Plan (10/18/2022 10:35 AM HARDWARE ASSEMBLER): Status post TAVR. Essential hypertension 12/03/2018 Assessment & Plan (07/06/2022 9:15 AM CDT): Hypertension chronic and controlled. Continue medical therapy Assessment & Plan (12/10/2020 1:30 PM HARDWARE ASSEMBLER): Followed by his PCP and controlled on his current medications. Hyperlipidemia associated with type 2 diabetes mayuri adkins 12/03/2018 Assessment & Plan (02/01/2022 10:25 AM CDT): Lipids are well controlled. Continue statin therapy. Assessment & Plan (12/10/2020 1:30 PM HARDWARE ASSEMBLER): Followed by his PCP and controlled on a statin. Hypertension associated with diabetes 12/03/2018 Assessment & Plan (02/01/2022 10:22 AM CDT): Blood pressure is excellent. Continue same therapy. Diabetes mellitus type II, non insulin dependent ([facility]) 12/03/2018 Assessment & Plan (12/10/2020 1:30 PM HARDWARE ASSEMBLER): Followed by his PCP and controlled on his current medications. 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 PROCEDURE PERFORMED (Fl[place]owhitney 12/05/2018) Right scapula tip and latissimus dorsi myofascial free flap for reconstruction of right mandibular defect, 5.5 cm angle. Microvascular anastomosis to right external carotid and right external jugular vein using a 3.5 corporation officer. Assessment & Plan (10/04/2020 9:58 AM HARDWARE ASSEMBLER): Patient had osteonecrosis of his draw and underwent a flap in 2018. He is doing well since that time. 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 Continue current medical therapy. Elbow fracture, left 07/28/2011 Hypothyroid 07/28/2011 DM type 2 (diabetes mellitus, type 2) 07/28/2011 Assessment & Plan (06/20/2021 8:38 AM CDT): Followed by his PCP and controlled on his current medications. Assessment & Plan (10/04/2020 10:00 AM HARDWARE ASSEMBLER): Followed by his PCP and controlled on medications. HTN (hypertension) 07/28/2011 Assessment & Plan (06/20/2021 8:38 AM CDT): Followed by his PCP and controlled on his current medications. Assessment & Plan (10/04/2020 10:00 AM HARDWARE ASSEMBLER): Followed by his PCP and controlled on medications. Metastatic neoplasm 11/02/2010 Adenocarcinoma of prostate 11/19/2007 Resolved Problems Problem Noted Date Diagnosed Date Resolved Date Chronic anticoagulation 06/24/2020 08/ Assessment & Plan (06/20/2021 8:38 AM CDT): Patient is on Xarelto and doing well at this time. Assessment & Plan (10/04/2020 10:01 AM HARDWARE ASSEMBLER): Patient is on Xarelto for his new valve. He is currently doing well on this medication. Immunizations Name Administration Dates Next Due Influenza, Unspecified 07/22/2014 Pneumococcal Conjugate PCV 13 12/07/2016 Pneumococcal Conjugate, Unspecified 07/22/2014 Pneumococcal Polysaccharide PPV23 02/25/2018 Tdap 10/14/2014 Surgical History Surgery Date Site/Laterality Comments [place] PROSTATE NEEDLE BIOPSY AN Y APPROACH 10/08/2007 - 10/07/2008 [place] LAP,PROSTATECTOMY,RADICAL,W/N ERVE SPARE,INCL ROBOTIC 10/08/2007 - 10/07/2008 INGUINAL HERNIA REPAIR 1970's REPLACEMENT TOTAL KNEE BILATERAL Bilateral 1997, 2000 NECK DISSECTION 10/08/2009 - 10/07/2010 ABDOMINAL HERNIA REPAIR 10/08/2011 - 10/07/2012 KNEE ARTHROSCOPY W/ LATERAL RELEASE 1989's CATARACT EXTRACTION 10/08/2017 - 10/07/2018 ELBOW FRACTURE SURGERY 10/08/2015 - 10/07/2016 Left Elbow -within past 10 yrs. SPINE SURGERY 10/08/2014 - 10/07/2015 approx. 2015 CARDIAC CATHETERIZATION COLONOSCOPY 10/08/2016 - 10/07/2017 CARDIAC VALVE REPLACEMENT 07/08/2020 aortic valve. TAVR PROSTATE SURGERY 10/08/2007 - 10/07/2008 TOTAL HIP ARTHROPLASTY 10/08/2008 - 10/07/2009 Left TOTAL HIP ARTHROPLASTY 01/03/2024 Right OTHER SURGICAL HISTORY 03/30/2022 watchman MANDIBULECTOMY 12/05/2018 partial CARPAL TUNNEL RELEASE Bilateral 1989' SKIN CANCER EXCISION multiple HARDWARE REMOVAL elbow, picc line abx 2009' FRACTURE SURGERY Elbow -within past 10 yrs. JOINT REPLACEMENT 1997,2000 and Medical History Medical History Date Comments Hypothyroid Diabetes (HCC) Hypertension Gout Depression Arthritis Many years Cataract 2018 HL (hearing loss) Prostate cancer (HCC) Skin cancer Malignant lymph node to the right neck status post radical excision, radiation, and subsequent bone grafting to the right mandible for osteonecrosis Hyperlipidemia Arrhythmia GERD (gastroesophageal reflu x disease) approx. 6 mos. ago History of transfusion 01/2022 Clotting disorder (CMS/HCC) (HCC) Anxiety approx. 15yrs. Heart disease heart murmur-aortic stenosis/approx. 2008 Neuromuscular disorder (HCC) Neuropathy Meningitis Anesthesia 01/03/24 Anesth esia recommendations (hip replacement)- use video based devices for ETT placement in future Family History Medical History Relation Name Comments Arthritis Brother Eduardo Diabetes Brother Eduardo Hyperlipidemia Brother Eduardo Hypertension Brother Eduardo Osteoarthritis Brother Eduardo Heart disease Daughter Cyn Arthritis Mother Dot Cancer Mother Dot Family history of malignant neoplasm - (Added by TW Conv) Diabetes Mother Dot Heart attack Mother Dot Heart disease Mother Dot Family history of cardiac disorder - (Added by TW Conv) Hyperlipidemia Mother Dot Hypertension Mother Dot Osteoarthritis Mother Dot Arthritis Sister Eb Diabetes Sister Eb Hyperlipidemia Sister Eb Hypertension Sister Eb Osteoarthritis Sister Eb Heart attack Son Jose Heart disease Son Jose Hyperlipidemia Son Jose Hypertension Son Jose Anesthesia problems Neg Hx Relation Name Status Comments Brother Eduardo Daughter Cyn Mother Dot Sister Eb Son Jose Social History Tobacco Use Types Packs/Day Years Used Date Smoking Tobacco: Never Smokeless Tobacco: Never Tobacco Cessation:Counseling Given: Not Answered Alcohol Use Standard Drinks/Week Comments No 0 (1 standard drink = 0.6 oz pur e alcohol) AUDIT-C Answer Date Recorded Q1: How often do you have a drink containing alcohol? Never 07/16/2024 Q2: How many drinks containi ng alcohol do you have on a typical day when you are drinking? Patient does not drink Q3: How often do you have si x or more drinks on one occasion? Never 07/16/2024 Personal Safety Answer Date Recorded Have you ever been in or are you currently in a harmful physical or emotional relationship or is someone making you feel afraid or unsafe? Denies 07/16/2024 Sex and Gender Information Value Date Recorded Sex Assigned at Not on file Legal Sex Male 3:52 AM HARDWARE ASSEMBLER Gender Identity Male 09/15/2020 1:37 PM HARDWARE ASSEMBLER Sexual Orientation Straight 02/03/2019 5: 15 PM CDT Obstetrics History Last Filed Vital Signs Vital Sign Reading Time Taken Comments Blood Pressure 150/52 07/16/2024 10:40 AM CDT Pulse 65 07/16/2024 10:40 AM CDT Temperature 36 ??C (96.8 ??F) 07/16/2024 9:55 AM CDT Respiratory Rate 11 07/16/2024 10:4 0 AM CDT Oxygen Saturation 93% 07/16/2024 10: 40 AM CDT Inhaled Oxygen Concentration - - Weight 104.1 kg (229 lb 9.6 oz) 024 10:51 AM CDT Height 167.6 cm (5' 6 ) 07/07/2024 10:5 2 AM CDT Body Mass Index 37.06 07/07/2024 10:52 AM CDT Plan of Treatment Health Maintenance Due Date Last Done Comments Albumin Creatinine Ratio, Urine 1940 Depression Screening 1940 Dilated Eye Exam 1940 Foot Exam 1940 Hepatitis B Screening 01/08/1958 Zoster Vaccine (1 of 2) 01/08/1959 Well Visit 65+ 01/08/2005 Influenza Vaccine (#1) 2024 07/22/2014 Hemoglobin A1C 06/14/2024 12/13/2023, 11/08, 11/20/2018 DTaP/Tdap/Td Vaccine (2 - Td or Tdap) 10/14/2024 10/14/2014 eGFR 01/03/2025 01/04/2024, 04/07, 03/13/2022, Additional history exists Lipid Panel 05/19/2025 05/19/2024, 03/2023, 12/23/2020, Additional history exists Fall Risk Assessment 07/16/2025 07/16/2024, 08/06/20 20 Pneumococcal vaccine 65+ Completed 018, 12/07/2016, 07/22/2014 Medical Devices Implanted Type Area Senior Commissions Analyst Device Identifier Shelf Expiration Date Model / Serial / Lot [employer] [place] Watchman Flx Procedure Device Wmflxperproc - [id number] - [id number] Implanted:Qty: 1 on 03/30/2022 by Mauri Olivia MD at [facility] Left Atrial Appendage Occluder N/A: Atrial Appendage [employer] [place] 08/31/2024 [id number] C / [id number] / [id number] [employer] [id number] Paul 3 29mm Transcatheter Valve Aortic Bovine Sterile - [id number] - [id number] Implanted:Qty: 1 on 07/08/2020 by Mauri Olivia MD at [facility] Prosthetic Valve N/A: Heart [employer] 02/15/2022 [id number] / [id number] / [id number] Description:TAVR Armijo Vascular Device Clsr Perclose Prostyle Sut-Mediatd Closure-Repair Sys [id number] - S0 - [id number] Implanted:Qty: 1 on 03/30/2022 by Mauri Olivia MD at [facility] Vascular Closure Device N/A: Femoral [employer] 01/06/2024 [id number] / 0 [id number] Armijo Vascular Device Clsr Perclose Prostyle Sut-Mediatd Closure-Repair Sys 61445-38 - S0 - [id number] Implanted:Qty: 1 on 03/30/2022 by Mauri Olivia MD at [facility] Vascular Closure Device N/A: Femoral [employer] 01/06/2024 [id number] / 0 / [id number] Synthes [id number] Matrixmandible 2mm 7x23 Hole Reconstruction Mandible Right Angle - [id number] Implanted:Qty: 1 on 12/05/2018 by Aden Azar DMD at [facility] Right: Mandible Synthes I 503.733 / / Synthes [id number] Matrixmandible 2.4mm 12mm Self Tap Lock Mandible Screw Bone - [id number] Implanted:Qty: 3 on 12/05/2018 by Aden Azar DMD at [facility] Right: Mandible Synthes I 2. / / Synthes . Matrixmandible 2.4mm 14mm Self Tap Lock Mandible Screw Bone - [id number] Implanted:Qty: 1 on 12/05/2018 by Aden Azar DMD at [facility] Right: Mandible Synthes I 4. / / Synthes 6. Matrixmandible 2.4mm 16mm Self Tap Lock Mandible Screw Bone - [id number] Implanted:Qty: 2 on 12/05/2018 by Aden Azar DMD at [facility] Right: Mandible Synthes I 6. / / Synthes 44. Matrixmandible 2.4mm 12mm Self Tap Mandible Screw Bone Titanium - [id number] Implanted:Qty: 1 on 12/05/2018 by Donis Estrada MD at [facility] Right: Mandible Synthes I . / / [employer] A/Sian [id number] [place] Microvascular 3.5mm Ring Pin Protective Cover Jaw Assembly Latex Free - [id number] Implanted:Qty: 1 on 12/05/2018 by Anders Cho MD at [facility] Right: Neck [employer] A/Sian 01/03/2023 [id number] / / [id number] Fision [id number] Probe Doppler 17.4cm Standard Cuff Implantable 20mhz Latex Free Sterile Microvascular Anastomoses Joellen - [id number] Implanted:Qty: 1 on 12/05/2018 by Anders Cho MD at [facility] Right: Neck [employer] [id number] 08/07/2021 [id number] / / [id number] Synthes . Matrixmandible 2.4mm 10mm Self Tap Lock Mandible Screw Bone - [id number] Implanted:Qty: 2 on 12/05/2018 by Anders Cho MD at [facility] Right: Mandible Synthes I . 01 / / [employer] Liner Acet Hip Size 28 Poly Bi Mentum Altrx 53mm [id number] - [id number] Implanted:Qty: 1 on 01/03/2024 at [facility] Right: Hip [employer] 07/07/2027 [id number] / / [id number] [employer] Actis Collar Hip 7 High Offset Stem Femoral [id number] - [id number] Implanted:Qty: 1 on 01/03/2024 at [facility] Right: Hip [employer] 10/07/2033 [id number] / / [id number] [employer] Bi Mentum 53mm Press Fit Femoral Proximal Cup Acetabular [id number] - [id number] Implanted:Qty: 1 on 01/03/2024 at [facility] Right: Hip [employer] 06/07/2025 [id number] / / [id number] [employer] Articul/Minesh 28mm Cementless Hip +1.5mm 12/14 Taper Head Femoral Latex Free [id number] - [id number] Implanted:Qty: 1 on 01/03/2024 at [facility] Right: Hip [employer] 10/07/2028 [id number] / / [id number] Procedures Procedure Name Priority Date/Time Associated Diagnosis Comments POCT LIPID PANEL Routine 05/19/2024 10:2 4 AM CDT CAD in ak chin artery EGFR Routine 01/04/2024 6:22 AM CDT HEMOGLOBIN A1C Routine 12/13/2023 9:54 AM HARDWARE ASSEMBLER Preoperative testing Type 2 diabetes mellitus without complication, without long-term current use of insulin ([facility]) ([facility]) from Last 3 Months or Most Recently Relevant to Health Maintenance Results * POCT lipid panel (05/19/2024 10:24 AM CDT) Cholesterol, POC 116 L - H mg/dL HDL, POC 47 L - H mg/dL Triglycerides, POC 132 L - H mg/dL LDL Cholesterol POC 43 L - H mg/dL Chol/HDL Ratio, POC 0.9 L - H Non-HDL Cholesterol, POC 69 L - H mg/dL Cholesterol Total, POC 116 L - H mg/dL Capillary blood 05/19/2024 1 0:24 AM CDT us Marta Nunez NP POINT OF CARE TEST ORDERABLES Final Result * eGFR (01/04/2024 6:22 AM CDT) eGFR 85 mL/min/1. 73 m2 Comment: Interpretive Data Reference Interval Normal ?>/= 90 mL/min/1.73m2 Mildly decreased* ? 60 - 89 mL/min/1.73m2 Mildly to moderately decreased ?45 - 59 mL/min/1.73m2 Moderately to severely decreased ??30 - 44 mL/min/1.73m2 Severely decreased ?15 - 29 mL/min/1.73m2 Kidney Failure ?< 15 ??mL/min/1.73m2 *Relative to young adult level Estimated glomerular filtration rate is determined by the 2020 CKD-EPI equation recommended by the National Kidney Foundation (A Unifying Approach to GFR Estimation: Recommendations of the NKF-ASK Task Force on Reassessing the Inclusion of Race in Diagnosing Kidney Disease, JASN 2020). The CKD-EPI equation should not be used for patients with unstable renal function and has not been validated in children and those over 70. Current interpretive data was last reviewed 2021. Blood 01/04/2024 6:22 AM CDT 01/04/2024 6:22 AM CDT us Dell Rolle MD LAB BLOOD ORDERABLES Alicia ryland Result [facility] [id number] [facility]. [place] [address] * (ABNORMAL) Hemoglobin A1c (12/13/2023 9:54 AM HARDWARE ASSEMBLER) Hgb A1C 6.5(H) 4.0 - 5.6 % Estimated Average Glucose 140 mg/dL CHRIS TERRY Comment: The ADA recommends reporting an estimated Average Glucose (eAG) with all Hemoglobin A1c results using the equation derived from a study of 507 normal and diabetic adults. ??Minority populations were underrepresented and children were not included. ?? (Diabetes Care 31:5181-2780, 2008). ??The eAG is not equivalent to a fasting glucose. Blood 12/13/2023 9:54 AM HARDWARE ASSEMBLER 12/13/2023 10:49 AM HARDWARE ASSEMBLER Norman Scott NP LAB BLOOD ORDERABLES Fin al Result Performing Organization Address City/State/ZIP [place] Phone Number [facility] [address] [facility] Department [place] [address] from Last 3 Months or Most Recently Relevant to Health Maintenance Insurance MEDICARE [facility] MEDICARE [facility] MEDICARE [facility] MEDICARE [facility] [place] [address] Advance Directives For more information, please contact: [phone] Documents on File Type Date Recorded Patient Sprue Cutting Press Operator Expl anation Power of Communications Editor 07/16/2024 6:21 AM Tena nuation of first scanned poa Power of Communications Editor 12/13/2023 7:19 AM * Full Code (Latest Code Status on File) Date Activated Date Inactivated Comments 07/16/2024 10:02 AM 07/16/2024 3:20 PM * Full Code Date Activated Date Inactivated Comments 01/03/2024 2:05 PM 01/04/2024 4:11 PM * Full Code Date Activated Date Inactivated Comments 07/08/2020 6:12 AM 07/09/2020 7:27 PM * Full Code Date Activated Date Inactivated Comments 12/05/2018 9:43 PM 12/13/2018 7:45 PM Care Teams Certified Coder Relationship Specialty Start Date End Date Fawad Hirsch MD [address] [place] [address] PCP - General 12/08/20 Fawad Hirsch MD [address] [place] [address] 12/08/20 Anders Cho MD [address] [place] [address] Referring Physician Otolaryngology 12/03/18 Kris Quintero MD [address] [facility] [place] [address] Surgeon Vascular Surgery 06/22/22 Zulma Faye MD [address] [address] [facility] [place] [address] Surgeon Vascular Surgery 05/19/24
--- OUTSIDE RECORDS SUMMARY | 2024-11-12 10:47 | XMS_ITS ---
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 Local tissue arrangement primary defect 8 x 2 cm, secondary defect 12 x 6 cm. Leg edema, right 01/15/2024 Arthritis of right hip 01/03/2024 Pain of right hip joint 03/14/2023 Osteomyelitis 05/03/2022 A-fib (CMS/HCC) 03/30/2022 Assessment & Plan (10/18/2022 10:34 AM BAND SAW FILER): Status post successful Watchman implant. Completed 5 months of clopidogrel, will discontinue today. Will continue ASA 81 mg daily indefinitely. Will have him follow-up in 6 months, 1 year from his implantation around March 2023. Assessment & Plan (07/06/2022 9:14 AM CDT): Controlled. Continue medical therapy. 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 Continue medical therapy with aspirin, statin, Zetia, beta-lucy, ARB. Assessment & Plan (02/01/2022 10:21 AM CDT): Stable, moderate coronary disease only, without angina. Continue same therapy. Continue diet and exercise. Acute osteomyelitis of radius (CMS/HCC) 11/27/19 22 Arthralgia of left elbow 11/10/2021 [...] 05/17/2020 Assessment & Plan (12/10/2020 1:30 PM BAND SAW FILER): Patient underwent TAVR are in July. He is continued on anticoagulation at this time. He has started to have shortness of breath and has an appointment with his parquet floor layer's helper this month. Assessment & Plan (10/04/2020 10:00 AM BAND SAW FILER): Patient had severe aortic stenosis and underwent TAVR. He is doing well since that time. 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 Assessment & Plan (12/10/2020 1:29 PM BAND SAW FILER): Patient has peripheral arterial disease but is [...] call. Assessment & Plan (10/04/2020 10:00 AM BAND SAW FILER): Patient has peripheral arterial disease however at [...] 12/03/2018 Assessment & Plan (10/18/2022 10:35 AM BAND SAW FILER): Status post TAVR. Essential hypertension 12/03/2018 Assessment & Plan (07/06/2022 9:15 AM CDT): Hypertension chronic and controlled. Continue medical therapy Assessment & Plan (12/10/2020 1:30 PM BAND SAW FILER): Followed by his PCP and controlled on his current medications. Hyperlipidemia associated with type 2 diabetes mayuri lucille 12/03/2018 Assessment & Plan (02/01/2022 10:25 AM CDT): Lipids are well controlled. Continue statin therapy. Assessment & Plan (12/10/2020 1:30 PM BAND SAW FILER): Followed by his PCP and controlled on a statin. Hypertension associated with diabetes 12/03/2018 Assessment & Plan (02/01/2022 10:22 AM CDT): Blood pressure is excellent. Continue same therapy. Diabetes mellitus type II, non insulin dependent ([facility]/HCC) 12/03/2018 Assessment & Plan (12/10/2020 1:30 PM BAND SAW FILER): Followed by his PCP and controlled on his current medications. 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 PROCEDURE PERFORMED (Marquis 12/05/2018) Right scapula tip and latissimus dorsi myofascial free flap for reconstruction of right mandibular defect, 5.5 cm angle. Microvascular anastomosis to right external carotid and right external jugular vein using a 3.5 bi solutions architect. Assessment & Plan (10/04/2020 9:58 AM BAND SAW FILER): Patient had osteonecrosis of his draw and underwent a flap in 2019. He is doing well since that time. [...] 06/12/2012 Assessment & Plan (10/18/2022 10:35 AM BAND SAW FILER): Normotensive today. Continue current medical therapy. Elbow fracture, left 07/28/2011 Hypothyroid 07/28/2011 DM type 2 (diabetes mellitus, type 2) 07/28/2011 Assessment & Plan (06/20/2021 8:38 AM CDT): Followed by his PCP and controlled on his current medications. Assessment & Plan (10/04/2020 10:00 AM BAND SAW FILER): Followed by his PCP and controlled on medications. HTN (hypertension) 07/28/2011 Assessment & Plan (06/20/2021 8:38 AM CDT): Followed by his PCP and controlled on his current medications. Assessment & Plan (10/04/2020 10:00 AM BAND SAW FILER): Followed by his PCP and controlled on medications. Metastatic neoplasm 11/02/2010 Adenocarcinoma of prostate 11/19/2007 Current Oncology Plans No current plan information found. Past Plans No past plan information found. Radiation Treatments * No radiation treatments are documented for this patient in [facility]. Treatments may have been administered in another system. Lifetime Dose Tracking * Chemical Lifetime Dose Automatic Entry Manual Entr y Air kerma at the reference point (Ka,r) 2,101 mGy 0 mGy 2,101 mGy DLP 5,753 mGycm 5,753 mGycm 0 mGycm Resolved Problems Problem Noted Date Diagnosed Date Resolved Date Chronic anticoagulation 06/24/202005/10 Assessment & Plan (06/20/2021 8:38 AM CDT): Patient is on Xarelto and doing well at this time. Assessment & Plan (10/04/2020 10:01 AM BAND SAW FILER): Patient is on Xarelto for his new valve. He is currently doing well on this medication.
--- OUTSIDE RECORDS SUMMARY | 2024-11-12 10:48 | XMS_ITS | Clinical Summary ---
Author Organization [facility] Address [address] [place] [address] Care Team Providers Care Hot Mill Shearer Name Role Phone Fawad Hirsch MD Primary Care Provider [phone] Source Comments [facility],non-owned Affiliates and Associated Physician Practices is amultiple site organization consisting of ambulatory clinics and hospital sitesin [place], [place], [place] and [place]. This disclosure is being madepursuant to the Care Everywhere program and may not contain all information available regarding this patient. Last updated 18.[facility] Allergies No known active allergies Medications * [...] Comments Blood Pressure 138/84 10/05/2015 3:53 PM SENIOR COUNSEL COMMERCIAL Pulse 78 10/05/2015 3:53 PM SENIOR COUNSEL COMMERCIAL Temperature - - Respiratory Rate 18 07/24/2012 11:5 0 AM CDT Oxygen Saturation 94% 07/24/2012 11: 50 AM CDT Inhaled Oxygen Concentration - - Weight 114.4 kg (252 lb 1.6 oz) 10/05/2015 3:53 PM SENIOR COUNSEL COMMERCIAL Height 170.2 cm (5' 7 ) 10/05/2015 3:53 PM SENIOR COUNSEL COMMERCIAL Body Mass Index 39.48 10/05/2015 3:53 PM SENIOR COUNSEL COMMERCIAL Plan of Treatment Health Maintenance Due Date Last Done Comments MEDICARE AWV ? 12 MONTHS 1940 DTAP/TDAP/TD VACCINES (1 - Tdap) 01/08/1959 PNEUMOCOCCAL VACCINE 50+ (1 of 1 - PCV) 01/08/1990 ZOSTER VACCINE (1 of 2) 01/08/1990 Respiratory Syncytial Virus (RSV) Vaccine Pt: or over 60 yrs (1 - 1-dose 75+ series) 01/08/2015 COVID-19 VACCINE ( - 2023-2 5 season) 2024 INFLUENZA VACCINE (#1) 2024 DEPRESSION SCREENING 10/08/2024 HEPATITIS B VACCINE Aged Out No longe r eligible based on patient's age to complete this topic HIB VACCINE Aged Out No longer eligi ble based on patient's age to complete this topic HPV VACCINE Aged Out No longer eligi ble based on patient's age to complete this topic MENINGOCOCCAL (Group B) VACCINE Aged Out No longer eligible based on patient's age to complete this topic MENINGOCOCCAL VACCINE Aged Out No shilpi sol eligible based on patient's age to complete this topic Care Teams Hot Mill Shearer Relationship Specialty Start Date End Date Fawad Hirsch MD [address] [place] [id number] PCP - General 07/23/12
--- OUTSIDE RECORDS SUMMARY | 2024-11-12 10:48 | XMS_ITS | Referral Summary ---
Author Organization [facility] Address [address] [address] Care Team Providers Care Accounts Manager Name Role Phone Fawad Hirsch MD Primary Care Provider [phone] Fawad Hirsch MD Unavailable [phone] Anders Cho MD Unavailable [phone] Kris Quintero MD Unavailable [phone] Zulma Faye MD Unavailable [phone] Allergies No known active allergies Medications levothyroxine [...] right hip joint 03/14/2023 Osteomyelitis 05/03/2022 A-fib (CMS/[facility]) 03/30/2022 Assessment & Plan (10/18/2022 10:34 AM PRODUCTION SOLDERER): Status post successful Watchman implant. Completed 5 months of clopidogrel, will discontinue today. Will continue ASA 81 mg daily indefinitely. Will have him follow-up in 6 months, 1 year from his implantation around March 2023. Assessment & Plan (07/06/2022 9:14 AM CDT): Controlled. Continue medical therapy. Coronary artery disease of n ative artery of [place] heart with stable angina pectoris 01/31/2022 Assessment & Plan (10/18/2022 10:35 AM PRODUCTION SOLDERER): Denies any complaints of chest pain or discomfort. Continue medical therapy with aspirin, statin, Zetia, beta-lucy, ARB. Assessment & Plan (02/01/2022 10:21 AM CDT): Stable, moderate coronary disease only, without angina. Continue same therapy. Continue diet and exercise. Acute osteomyelitis of radius ([facility]/HCC) 11/27/19 22 Arthralgia of left elbow 11/10/2021 [...] 05/17/2020 Assessment & Plan (12/10/2020 1:30 PM PRODUCTION SOLDERER): Patient underwent TAVR are in July. He is continued on anticoagulation at this time. He has started to have shortness of breath and has an appointment with his service secretary this month. Assessment & Plan (10/04/2020 10:00 AM PRODUCTION SOLDERER): Patient had severe aortic stenosis and underwent TAVR. He is doing well since that time. 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 Assessment & Plan (12/10/2020 1:29 PM PRODUCTION SOLDERER): Patient has peripheral arterial disease but is [...] call. Assessment & Plan (10/04/2020 10:00 AM PRODUCTION SOLDERER): Patient has peripheral arterial disease however at [...] 12/03/2018 Assessment & Plan (10/18/2022 10:35 AM PRODUCTION SOLDERER): Status post TAVR. Essential hypertension 12/03/2018 Assessment & Plan (07/06/2022 9:15 AM CDT): Hypertension chronic and controlled. Continue medical therapy Assessment & Plan (12/10/2020 1:30 PM PRODUCTION SOLDERER): Followed by his PCP and controlled on his current medications. Hyperlipidemia associated with type 2 diabetes mayuri adkins 12/03/2018 Assessment & Plan (02/01/2022 10:25 AM CDT): Lipids are well controlled. Continue statin therapy. Assessment & Plan (12/10/2020 1:30 PM PRODUCTION SOLDERER): Followed by his PCP and controlled on a statin. Hypertension associated with diabetes 12/03/2018 Assessment & Plan (02/01/2022 10:22 AM CDT): Blood pressure is excellent. Continue same therapy. Diabetes mellitus type II, non insulin dependent ([facility]) 12/03/2018 Assessment & Plan (12/10/2020 1:30 PM PRODUCTION SOLDERER): Followed by his PCP and controlled on his current medications. 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 Assessment & Plan (10/04/2020 9:58 AM PRODUCTION SOLDERER): Patient had osteonecrosis of his draw and [...] 06/12/2012 Assessment & Plan (10/18/2022 10:35 AM PRODUCTION SOLDERER): Normotensive today. Continue current medical therapy. Elbow fracture, left 07/28/2011 Hypothyroid 07/28/2011 DM type 2 (diabetes mellitus, type 2) 07/28/2011 Assessment & Plan (06/20/2021 8:38 AM CDT): Followed by his PCP and controlled on his current medications. Assessment & Plan (10/04/2020 10:00 AM PRODUCTION SOLDERER): Followed by his PCP and controlled on medications. HTN (hypertension) 07/28/2011 Assessment & Plan (06/20/2021 8:38 AM CDT): Followed by his PCP and controlled on his current medications. Assessment & Plan (10/04/2020 10:00 AM PRODUCTION SOLDERER): Followed by his PCP and controlled on medications. Metastatic neoplasm 11/02/2010 Adenocarcinoma of prostate 11/19/2007 Resolved Problems Problem Noted Date Diagnosed Date Resolved Date Chronic anticoagulation 06/24/202005/10 Assessment & Plan (06/20/2021 8:38 AM CDT): Patient is on Xarelto and doing well at this time. Assessment & Plan (10/04/2020 10:01 AM PRODUCTION SOLDERER): Patient is on Xarelto for his new valve. He is currently doing well on this medication. Immunizations Name Administration Dates Next Due Influenza, Unspecified 07/22/2014 Pneumococcal Conjugate PCV 13 12/07/2016 Pneumococcal Conjugate, Unspecified 07/22/2014 Pneumococcal Polysaccharide PPV23 02/25/2018 Tdap 10/14/2014 Social History Tobacco Use Types Packs/Day Years [...] on file Legal Sex Male 3:52 AM PRODUCTION SOLDERER Gender Identity Male 09/15/2020 1:37 PM PRODUCTION SOLDERER Sexual Orientation Straight 02/03/2019 5: 15 PM CDT Last Filed Vital Signs Vital Sign Reading Time Taken Comments Blood Pressure 150/52 07/16/2024 10:40 AM CDT Pulse 65 07/16/2024 10:40 AM CDT Temperature 36 ??C (96.8 ??F) 07/16/2024 9:55 AM CDT Respiratory Rate 11 07/16/2024 10:4 0 AM CDT Oxygen Saturation 93% 07/16/2024 10: 40 AM CDT Inhaled Oxygen Concentration - - Weight 104.1 kg (229 lb 9.6 oz) 10:51 AM CDT Height 167.6 cm (5' 6 ) 07/07/2024 10:5 2 AM CDT Body Mass Index 37.06 07/07/2024 10:52 AM CDT Plan of Treatment Not on file Medical Devices Implanted Type Area Residential Remodeling Subcontractor Device Identifier Shelf Expiration Date Model / Serial / Lot Fal[employer] [place] Watchman Flx Procedure Device Wmflxperproc - [id number] - [id number] Implanted:Qty: 1 on 03/30/2022 by Mauri Olivia MD at [facility] Left Atrial Appendage Occluder N/A: Atrial Appendage [employer] [place] 08/31/2024 [id number] C / [id number] / [id number] [employer] [id number] Paul 3 29mm Transcatheter Valve Aortic Bovine Sterile - [id number] - [id number] Implanted:Qty: 1 on 07/08/2020 by Mauri Olivia MD at [facility] Prosthetic Valve N/A: Heart [employer] 02/15/2022 [id number] / [id number] / [id number] Description:TAVR Armijo Vascular Device Clsr Perclose Prostyle Sut-Mediatd Closure-Repair Sys 62092-76 - S0 - [id number] Implanted:Qty: 1 on 03/30/2022 by Mauri Olivia MD at [facility] Vascular Closure Device N/A: Femoral [employer] 01/06/2024 [id number] / 0 / [id number] Armijo Vascular Device Clsr Perclose Prostyle Sut-Mediatd Closure-Repair Sys 48626-98 - S0 - [id number] Implanted:Qty: 1 on 03/30/2022 by Marui Olivia MD at [facility] Vascular Closure Device N/A: Femoral [employer] 01/06/2024 [id number] Synthes 04.503.733 Matrixmandible 2mm 7x23 Hole Reconstruction Mandible Right Angle - [id number] Implanted:Qty: 1 on 12/05/2018 by Aden Azar DMD at [facility] Right: Mandible Synthes I 04.503.733 / / Synthes 04.503.642.01 Matrixmandible 2.4mm 12mm Self Tap Lock Mandible Screw Bone - [id number] Implanted:Qty: 3 on 12/05/2018 by Aden Azar DMD at [facility] Right: Mandible Synthes I 04.503.642. 01 / / Synthes 04.503.644.01 Matrixmandible 2.4mm 14mm Self Tap Lock Mandible Screw Bone - [id number] Implanted:Qty: 1 on 12/05/2018 by Aden Azar DMD at [facility] Right: Mandible Synthes I 04.503.644. 01 / / Synthes 04.503.646.01 Matrixmandible 2.4mm 16mm Self Tap Lock Mandible Screw Bone - [id number] Implanted:Qty: 2 on 12/05/2018 by Aden Azar DMD at [facility] Right: Mandible Synthes I 04.503.646. 01 / / Synthes 04.503.442.01 Matrixmandible 2.4mm 12mm Self Tap Mandible Screw Bone Titanium - [id number] Implanted:Qty: 1 on 12/05/2018 by Donis Estrada MD at [facility] Right: Mandible Synthes I 04.503.442. 01 / / Oinkian [id number] [place] Microvascular 3.5mm Ring Pin Protective Cover Jaw Assembly Latex Free - [id number] Implanted:Qty: 1 on 12/05/2018 by Anders Cho MD at [facility] Right: Neck Bromium Allian 01/03/2023 [id number] / / [id number] [employer] [id number] Probe Doppler 17.4cm Standard Cuff Implantable 20mhz Latex Free Sterile Microvascular Anastomoses Joellen - [id number] Implanted:Qty: 1 on 12/05/2018 by Anders Cho MD at [facility] Right: Neck [employer] [id number] 08/07/2021 [id number] / / [id number] Synthes .503.640.01 Matrixmandible 2.4mm 10mm Self Tap Lock Mandible Screw Bone - [id number] Implanted:Qty: 2 on 12/05/2018 by Anders Cho MD at [facility] Right: Mandible Synthes I 503.640. 01 / / Depuy Orthopa[employer] Liner Acet Hip Size 28 Poly Bi Mentum Altrx 53mm [id number] - [id number] Implanted:Qty: 1 on 01/03/2024 at [facility] Right: Hip [employer] Inc 07/07/2027 [id number] / / [id number] [employer] Actis Collar Hip 7 High Offset Stem Femoral [id number] - [id number] Implanted:Qty: 1 on 01/03/2024 at [facility] Right: Hip [employer] 10/07/2033 [id number] / / [id number] [employer] Bi Mentum 53mm Press Fit Femoral Proximal Cup Acetabular [id number] - [id number] Implanted:Qty: 1 on 01/03/2024 at [facility] Right: Hip [employer] 06/07/2025 [id number] / / [id number] [employer] Articul/Minesh 28mm Cementless Hip +1.5mm 09/20 Taper Head Femoral Latex Free [id number] - [id number] Implanted:Qty: 1 on 01/03/2024 at [facility] Right: Hip [employer] 10/07/2028 [id number] / / [id number] Procedures Procedure Name Priority Date/Time Associated Diagnosis Comments POCT LIPID PANEL Routine 05/19/2024 10:2 4 AM CDT CAD in [place] artery EGFR Routine 01/04/2024 6:22 AM CDT HEMOGLOBIN A1C Routine 12/13/2023 9:54 AM PRODUCTION SOLDERER Preoperative testing Type 2 diabetes mellitus without complication, without long-term current use of insulin ([facility]) ([facility]) from Last 3 Months or Most Recently [...] Capillary blood 05/19/2024 1 0:24 AM CDT Marta Nunez NP POINT OF CARE TEST [...] of Race in Diagnosing Kidney Disease, JASN 202). The CKD-EPI equation should not be used for patients with unstable renal function and has not been validated in children and those over 70. Current interpretive data was last reviewed 2021. Blood 01/04/2024 6:22 AM CDT 01/04/2024 6:22 AM CDT Dell Rolle MD LAB BLOOD ORDERABLES Alicia marcelino Result Performing Organization Address [facility] de Phone Number [facility] [address] [place] [address] * (ABNORMAL) Hemoglobin A1c (12/13/2023 9:54 AM PRODUCTION SOLDERER) Hgb A1C 6.5(H) 4.0 - 5.6 % Estimated Average Glucose 140 mg/dL [facility] Comment: The ADA recommends reporting an estimated Average Glucose (eAG) with all Hemoglobin A1c results using the equation derived from a study of 507 normal and diabetic adults. ??Minority populations were underrepresented and children were not included. ?? (Diabetes Care 31:0782-6402, 2008). ??The eAG is not equivalent to a fasting glucose. Blood 12/13/2023 9:54 AM PRODUCTION SOLDERER 12/13/2023 10:49 AM PRODUCTION SOLDERER Norman Scott NP LAB BLOOD ORDERABLES Vincenzo al Result Performing Organization Address [facility] de Phone Number [facility] [address] [facility] [place] [address] from Last 3 Months or Most Recently Relevant to Health Maintenance Insurance MEDICARE [employer] [place] MEDICARE [place] [employer]ICARE [employer] [place] [employer]ICARE [employer] [place] Advance Directives For more information, please contact: [phone] Documents on File Type Date Recorded Patient Facing Machine Operator Expl anation Power of Clinical Data Programmer 07/16/2024 6:21 AM Tena nuation of first scanned poa Power of Clinical Data Programmer 12/13/2023 7:19 AM * Full Code (Latest [...] 9:43 PM 12/13/2018 7:45 PM Care Teams Accounts Manager Relationship Specialty Start Date End Date Fawad Hirsch MD [address] [place] [address] PCP - General 12/08/20 Fawad Hirsch MD [address] [place] [address] 12/08/20 Anders Cho MD [address] [place] [address] Referring Physician Otolaryngology 12/03/18 Kris Quintero MD [address] [place] [address] Surgeon Vascular Surgery 06/22/22 Zulma Faye MD [address] [place] [address] Surgeon Vascular Surgery 05/19/24
--- OUTSIDE RECORDS SUMMARY | 2024-11-12 10:48 | XMS_ITS | Patient Health Summary ---
Author Organization [facility] Address [address] [place] [address] Care Team Providers Care Healthcare Science Specialist Name Role Phone Fawad Hirsch MD Primary Care Provider [phone] Note from [facility],non-owned Affiliates and Associated Physician Practices is amultiple site organization consisting of ambulatory clinics and hospital sitesin [place], [place], [place] and [place]. This disclosure is being madepursuant to the Care Everywhere program and may not contain all information available regarding this patient. Last updated 18.[facility] Allergies No known active allergies Medications * [...] Comments Blood Pressure 138/84 10/05/2015 3:53 PM PUBLIC SPACE ATTENDANT Pulse 78 10/05/2015 3:53 PM PUBLIC SPACE ATTENDANT Temperature - - Respiratory Rate 18 07/24/2012 11:5 0 AM CDT Oxygen Saturation 94% 07/24/2012 11: 50 AM CDT Inhaled Oxygen Concentration - - Weight 114.4 kg (252 lb 1.6 oz) 10/05/2015 3:53 PM PUBLIC SPACE ATTENDANT Height 170.2 cm (5' 7 ) 10/05/2015 3:53 PM PUBLIC SPACE ATTENDANT Body Mass Index 39.48 10/05/2015 3:53 PM PUBLIC SPACE ATTENDANT Procedures * XR HIP LEFT 2VW OR [...] LEFT 2VW OR MORE (08/20/2020 12:50 PM PUBLIC SPACE ATTENDANT) Anatomical Region Laterality Modality Pelvis, Lower Extremity Computed Radiography Narrative 08/20/2020 12:58 PM PUBLIC SPACE ATTENDANT Edwige Ricks, RT(R) ? 08/20/2020 ??2:46 PM [...] Denise Ribeiro MD MR ORDERABLES Care Teams Healthcare Science Specialist Relationship Specialty Start Date End Date Fawad Hirsch MD [address] [place] [address] [facility] - General 07/23/12
--- OUTSIDE RECORDS SUMMARY | 2024-11-12 10:48 | XMS_ITS | Referral Summary ---
Author Organization [facility] Address [address] [place] [address] Care Team Providers Care Broadcast Producer Name Role Phone Fawad Hirsch MD Primary Care Provider [phone] Source Comments [facility] [employer]non-owned Affiliates and Associated Physician Practices is amultiple site organization consisting of ambulatory clinics and hospital sitesin [place], [place], [place] and [place]. This disclosure is being madepursuant to the Care Everywhere program and may not contain all information available regarding this patient. Last updated 18.[facility] [employer] Allergies No known active allergies Medications * [...] Blood Pressure 138/84 10/05/2015 3:53 PM SENIOR ACCOUNTANT CPA Pulse 78 10/05/2015 3:53 PM SENIOR ACCOUNTANT CPA Temperature - - Respiratory Rate 18 07/24/2012 11:5 0 AM CDT Oxygen Saturation 94% 07/24/2012 11: 50 AM CDT Inhaled Oxygen Concentration - - Weight 114.4 kg (252 lb 1.6 oz) 10/05/2015 3:53 PM SENIOR ACCOUNTANT CPA Height 170.2 cm (5' 7 ) 10/05/2015 3:53 PM SENIOR ACCOUNTANT CPA Body Mass Index 39.48 10/05/2015 3:53 PM SENIOR ACCOUNTANT CPA Plan of Treatment Not on file Care Teams Broadcast Producer Relationship Specialty Start Date End Date Fawad Hirsch MD [address] [place] [address] PCP - General 07/23/12
[2024-11-12 10:55] LABS: Influenza A QL RT-PCR Positive (Negative); Influenza B QL RT-PCR Negative (Negative); RSV RNA, RT-PCR Negative (Negative); SARS-CoV-2 RNA PCR Negative (Negative)
== END 2024-11-12 09:56 | disposition home or self-care (01) ==
PROVIDERS: PCP Internal Medicine; Visit Provider Internal Medicine
DX: R05.9 Cough, unspecified (principal); R50.9 Fever, unspecified; R07.81 Pleurodynia
CPT/HCPCS: 36415; 71046; 71110; 85025; 87637

== ENCOUNTER 2024-11-18 06:52 | Inpatient (IN) | payer MEDICARE, OTHER, SELFPAY ==
[2024-11-18] VITALS (34 sets, daily range): BP systolic 71–134; BP diastolic 45–74; PULSE 60–154; RESP 18–42; TEMP 36.4–36.6; O2SAT 88–100; BMI 36.8
--- NOTE | ~2024-11-18 | CT_ITS ---
Clinical Indication: Dyspnea, hypoxia CT Scan of the Chest with Contrast: Technique: Contiguous sections were acquired throughout the chest after intravenous administration of 100 cc of Omnipaque 350. Dose reduction technique was used on this scan by utilizing automated expos ure control and iterative reconstruction technique. The dose-length product (DLP) was 714.64 mGy-cm. Findings: There is no evidence of any significant mediastinal, hilar or axillary lymphadenopathy. There is no f illing defect in the pulmonary arterial tree to suggest pulmonary embolus. There is no evidence of ao rtic dissection or aneurysm. Left atrial appendage closure device present. Aortic valve replacement p resent. There is no evidence of pleural or pericardial effusion. There is mild patchy groundglass opacity and nodularity in the lungs, right worse than left. Images through the upper abdomen reveal no abnormalities. Diffuse degenerative spondylosis of the spi ne present. Impression: No evidence of pulmonary embolus, aortic dissection, or aortic aneurysm. Mild patchy groundglass opacity and nodularity in the lungs, right worse than left. Findings suggest multifocal bilateral infection/pneumonia. Mild pulmonary edema is a potential alternative considerati on with mild atelectatic changes. Correlate clinically. Reviewed, dictated and finalized at [facility]. S TENNIS COACH Impression: No evidence of pulmonary embolus, aortic dissection, or aortic aneurysm. Mild patchy groundglass opacity and nodularity in the lungs, right worse than l eft. Findings suggest multifocal bilateral infection/pneumonia. Mild pulmonary edema is a potential alternative consideration with mild atelectatic changes. Renee mendoza clinically.
--- NOTE | ~2024-11-18 | XR_ITS ---
MODIFIED ESOPHAGRAM HISTORY: Aspiration TECHNIQUE: Modified barium esophagram was performed on 11/19/2024. I administered fluoroscopy and perf ormed the exam with speech pathologist. Patient was seated for lateral fluoroscopic imaging for sofía stion of thin liquids, pudding, solids and quantified amounts, followed by thin liquids in uncontroll ed amounts. This was recorded on tape. A single fluoroscopic spot image was also recorded. The DAP fo r this procedure was 4.205 Gycm2. The amount of fluoroscopy time used during this procedure was 3.4 m inutes. FINDINGS: There are multiple surgical clips projecting over the soft tissues of the neck. Oral stage: Reduced lingual movement. There is intermittent premature spillage with loss of bolus con trol. Pharyngeal stage: Reduced laryngeal elevation and adduction. Reduced tongue base retraction. There is vallecular residue. There is cricopharyngeal dysfunction. Laryngeal penetration with intermittent tr zaki aspiration. Cervical/esophageal stage: There is esophageal backflow with intermittent reflux into the laryngeal v estibule. IMPRESSION: Oropharyngeal dysphagia and esophageal backflow at laryngeal penetration and intermittent trace aspiration. Please correlate with speech pathologist findings and specific feeding recommenda tions. Reviewed, dictated and finalized at location A. OLATE MOLDER IMPRESSION: Oropharyngeal dysphagia and esophageal backflow at laryngeal penetr ation and intermittent trace aspiration. Please correlate with speech patholog ist findings and specific feeding recommendations.
--- NOTE | ~2024-11-18 | XR_ITS ---
Portable chest x-ray Comparison: 11/18/2024 Clinical History: Aspiration pneumonia Findings: There is bibasilar hazy and interstitial pulmonary disease. Cardiomediastinal silhouette is stable. Bones and soft tissues are unremarkable. Impression: Bibasilar hazy and interstitial pulmonary disease. Correlate for pulmonary edema, infection, or chron ic interstitial change. Reviewed, dictated and finalized at location . S DESIGNER Impression: Bibasilar hazy and interstitial pulmonary disease. Correlate for pulmonary adele a, infection, or chronic interstitial change.
--- NOTE | ~2024-11-18 | XR_ITS ---
EXAMINATION: XR chest 1V portable DATE: 11/21/2024 06:18 INDICATION: Pneumonia. TECHNIQUE: A single frontal view of the chest was obtained. COMPARISON: Chest single view 11/20/2024, chest CT 11/18/2024 FINDINGS: There are mild airspace opacities in all right lung zones and in left mid and lower lung zo bradley. No pleural effusion or pneumothorax. The heart size is normal. There are changes of aortic valve replacement. There is a closure device at left atrial appendage. IMPRESSION: 1. Stable diffuse lung disease, consistent with pneumonia. Reviewed, dictated and finalized at location A. REEZE OPERATOR
--- NOTE | ~2024-11-18 | XR_ITS ---
EXAMINATION: XR chest 1V portable DATE: 11/18/2024 08:24 INDICATION: Shortness of breath TECHNIQUE: frontal view of the chest was obtained. COMPARISON: Chest radiograph dated 11/12/2024 FINDINGS: Interstitial and airspace opacities in the right mid to lower and left lower lung zones. No pleural e ffusion or pneumothorax. Borderline heart size accounting for AP technique. Aortic valve repair. Surg ical clips at the right axilla. Right rotator cuff arthropathy. IMPRESSION: 1. Opacities in the right mid to lower and left lower lung zones which could represent pulmonary adele a or pneumonia. 2. Borderline heart size with aortic valve repair. Reviewed, dictated and finalized at location A. PAINTER IMPRESSION: 1. Opacities in the right mid to lower and left lower lung zones which could re present pulmonary edema or pneumonia. 2. Borderline heart size with aortic valve repair.
--- OUTSIDE RECORDS SUMMARY | 2024-11-18 06:55 | XMS_ITS | Data Portability ---
Author Organization [place] [facility], Main Office Address [address] [place] [address] Care Team Providers Care Medical Detailist Name Role Phone LORE BARGER Primary Care Provider [phone] LORE BARGER Referring Provider [phone] Assessment Encounter Date Assessment Date Assessment LastModified [...] hip flexed his knee straightens out to 0 . 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 His [...] talk with him about talking to his cold header to make sure that he is even a surgical candidate before pursuing other options. I did give him the names of Dr. Rolle as well as Dr. Fountain at [facility]. They are also aware of a [facility] that they are comfortable with and they can certainly get his opinion well. I did recommend uses walker on a full-time basis to prevent falls or injuries. He does use occasional ibuprofen but I think that he needs to minimize this given his cardiac status and anti-inflammator ies can exacerbate congestive heart failure. They are going to call his cold header and start there. Can see the patient back as needed at this point. 30 minutes was spent in treatment patient more than half this [id number] conversation alfred Not available 03/14/2023 12:17:53 Plan of Treatment Reminders Order Date Submit Date Provider Last Modified By Organization Details Last Modified Time Details Appointments None recorded. Lab None recorded. Referral None recorded. Procedures None recorded. Surgeries None recorded. Imaging XR, hip + pelvis, unilateral 2022 023 [email or web address], [address], [place], [address], 3 16:12:26 Medication Orders None recorded. Patient TargetsNo targets recorded. Patient InstructionsNo instructions recorded. Reason for Referral None Reported. Results Created Date Observation Date Name Description Value Unit Range Abnormal Flag Note LastModifiedBy Organization Detail LastModifiedTime 03/14/20 23 XR, hip + pelvi s, unila teral No observ ation record ed. [email or web address] [facility] [address], [place], [address], 03/14/2023 12:10:50 Result Notes None recorded. Problems Name Problem SNOMED Code Status Onset Date Resolution Date Notes Provider Name and Address Organization Details Recorded Time Pain of left elbow joint 5535984846477 9104 Active 2021 Not Available [facility] 3 00:45:50 Dry skin 60701158 Active 2019 Not Available [facility] 3 00:45:50 Acute osteomyeli tis of radius 902123409 Active 2021 Not Available [facility] 3 00:45:50 Hypertensi ve disorder 12472048 Active Not Available [facility] 3 00:45:50 Peripheral vascular disease 416979459 Active 2019 Not Available [facility] 3 00:45:50 Osteomyeli tis 71929819 Active 2021 Not Available [facility] 3 00:45:50 Long-term current use of anticoagul ant 043993862 Active 2019 Not Available [facility] 3 00:45:51 Diabetes mellitus 05738711 Active Not Available [facility] 3 00:45:51 Pain in right hip joint 8153142224583 02 Active 2022 DAIJA Rascon[place] [facility] [employer] [facility] 3 10:16:01 Problem Notes None recorded. Procedures Surgical History Date Name Laterality Status Provider Name and Address Organization Details Recorded Time Carpal tunnel surgery completed DAIJA Rascon [place] [facility] 03/14/2023 10:16:26 Shoulder completed Edna Mckeon DAIJA [place] [facility] 03/14/2023 10:17:23 Prostate completed Not Available [facility] 00:43:19 Back Surgery completed Not Available [facility] 12/06/2022 00:43:19 hernia repair completed Not Available [facility] 12/06/2022 00:43:19 Neck completed Not Available [facility] 10/2022 00:43:19 total knee replacement completed Not Available [facility] 12/06/2022 00:43:19 total replacement of hip completed Not Available [facility] 12/06/2022 00:43:19 Imaging Results Imaging Date Name Status LastModified by Organiz ation Details LastModified Time 03/14/2023 XR, hip + pelvis, unilateral completed [email or web address] [facility] [address], [place], [address], 03/14/2023 12:10:50 Procedure Notes None recorded. Medical [...] Not Available No t Available amoxicillin 875 mg-shabbir messina clavulanate 125 mg tablet 06/03 completed Not [...] Not Available Not Avai lable Fluad Quad (6 5yr up)(PF) 60 mcg (15 mcg x [...] cm 162.56 cm 162.56 cm 162.56 cm 85262.6 2 g 73756.6 2 g 48622.6 2 g Not Available [facility] 00:43:31 Date Recorded Body height Body mass index (BMI) Body weight Provider Name and Address Organization Details Last Updated DateTime 03/14/2023 165.1 cm 36.1 kg/m2 12065.54 g DAIJA Rascon [place] [facility] [employer] 03/14/2023 10:46:08 Social History Question Answer Notes LastModified by Organizat ion Details LastModified Time Tobacco Smoking Status Never Smoker Not Available [facility] 12/06/2022 00:41:56 What Is Your Level Of Alcohol Consumption? None [id number] Information not available 12/06/2022 Sex: Unknown Functional Status None recorded. Mental Status None recorded. Family History Relationship Description Onset Age of this Age Resolved Age Notes LastModified by Organization Details LastModified Time Mother Heart disease [id number] Not available 12/06/2022 00:43:20 Mother Family history of malignant neoplasm [id number] [id number] Not available 12/06/2022 00:43:20 Mother Hypertensive disorder [id number] Not available 12/06/2022 00:43:20 Mother Diabetes mellitus [id number] [id number] Not available 12/06/2022 00:43:20 Brother Hypertensive disorder [id number] [id number] Not available 12/06/2022 00:43:20 Sister Hypertensive disorder [id number] [id number] Not available 12/06/2022 00:43:20 Sister Diabetes mellitus [id number] [id number] Not available 12/06/2022 00:43:20 Father Diabetes mellitus [id number].499 [id number] Not available 12/06/2022 00:43:20 Medical History Condition Response BLINDNESS N KIDNEY STONES N CARPAL TUNNEL SYNDROME N MRSA N LUNG DISEASE/DISORDER N HISTORY OF DRUG ABUSE N RADIATION / CHEMOTHERAPY N COPD N ANKLE PAIN N SPORTS INJURY N BLOOD DISEASES N SCHIZOPHRENIA N SHINGLES N BOWEL PROBLEMS N DEPRESSION (INCLUDING POST ) N SHOULDER PAIN N STROKE/TIA N ULCERS [...] HAVE YOU BEEN HOSPITALIZED OR SEEN IN [facility] ER IN THE PAST YEAR ? N BURSITIS [...] SNOMED-CT Code Diagnosis ICD10 Code Diagnosis Note [id number] [facility] [address] [place] [address] 12/09/2020 00:00:00 12/13/2020 13:42:46 [id number] [facility] [address] [place] [address] 03/17/2021 00:00:00 03/21/2021 14:09:44 [id number] [facility] [address] [place] [address] 06/20/2021 00:00:00 06/20/2021 16:51:46 [id number] [facility] [address] [place] [address] 09/26/2021 00:00:00 09/29/2021 08:35:23 [id number] [facility] [address] [place] [address] 11/11/2021 00:00:00 11/13/2021 20:13:36 [id number] [facility] [address] [place] [address] 11/28/2021 00:00:00 11/28/2021 18:30:59 [id number] [facility] [address] [place] [address] 12/12/2021 00:00:00 12/12/2021 17:53:04 [id number] [facility] [address] [place] [address] 12/26/2021 00:00:00 12/27/2021 11:22:20 [id number] [facility] [address] [place] [address] 04/06/2022 00:00:00 04/06/2022 16:55:21 [id number] [facility] [address] [place] [address] 05/03/2022 00:00:00 05/03/2022 08:54:58 [id number] [facility] [address] [place] [address] 07/06/2022 00:00:00 07/06/2022 19:16:28 [id number] FLORINA Bernal [facility] [address] [place] [address] 03/14/2023 10:09:04 03/14/2023 12:25:24 Pain in right hip joint [id number] 06732 M25.551 Health Concerns Section Related Observation LastModified by Organization Detai ls LastModified Time None Recorded Concern Status LastModified by Organization Details LastModified Time None Recorded Advance Directives Directive None Recorded Payers Encounter Date Sequence Insurance Name Policy Number Policy Avila Covered Member ID Avila Member ID Guarantor Name 03/14/2023 1 [place] Mitch Romo [id number] Mitch Romo 03/14/2023 2 [employer] (MEDICARE SUPPLEMENT) Mitch Romo [id number] Mitch Romo
--- OUTSIDE RECORDS SUMMARY | 2024-11-18 06:55 | XMS_ITS ---
Author Organization [facility] [employer] Address [address] [place] [address] Care Team Providers Care Auditor Medical Claims Name Role Phone Fawad Hirsch MD Primary Care Provider Unavailab iMrlande Aguirre Unavailable [phone] Adele Reese Unavailable [phone] Allergies No Known Allergies REASON FOR VISIT follow up visit, medication evaluation, phq less than 5, MIPS with Diagnosis of HTN Medications Medication SIG (Take, Route, Frequency, Duration) Notes Start Date End Date Status ASPIRIN 81 MG TABLET *Reorder fr om [facility] for eRx and Interaction Alerts* 02/25/2024 Active Pravastatin Sodium 20 MG Oral 02/25/2024 Active LORazepam 0.5 MG 1 tablet Orally Once a day for 30 days As needed for severe anxiety, do not take on a daily basis 09/18/2024 Active traZODone HCl 50 MG 1-2 tablets Oral Once a day for 90 days bedtime dose 02/25/2024 Active QUEtiapine Fumarate 50 MG 1 tablet every morning Oral Once a day for 90 days 02/25/2024 Active Mirtazapine 15 MG 1 tablet at bedtime Oral Once a day for 90 days Active Losartan Potassium 25 MG Oral 02/25/2024 Active Metoprolol Succinate ER 25 MG Oral 02/25/2024 Active Meloxicam 7.5 MG Oral 02/25/2024 Ac tive QUEtiapine Fumarate ER 50 MG 2 tablet at bedtime Oral Once a day for 7 days Not-Taking Desvenlafaxine Succinate ER 100 MG 1 tablet Orally Once a day for 90 days Active Synthroid 125 MCG Oral 02/25/2024 A ctive Januvia 100 MG Oral 02/25/2024 Acti ve Ezetimibe 10 MG Oral 02/25/2024 Act roya Omeprazole 40 MG Oral 02/25/2024 Ac tive Amoxicillin 500 MG Oral 02/25/2024 Active Social History Sex Assigned At : Social History Observation Description Sex Assigned At Male Vital Signs Blood pressure systolic 174 mm Hg 09/18/20 24 Blood pressure diastolic 55 mm Hg 024 Heart Rate 62 /min 09/18/2024 Height 67.01 in 09/18/2024 Weight 230.0 lbs 09/18/2024 BMI 36.01 kg/m2 09/18/2024 Height-cm 170.21 cm 09/18/2024 Weight-kg 104.33 kg 09/18/2024 Encounters Encounter Location Date Provider Diagnosis [facility] [address] [address] 09/18/2024 Adele Reese Major depressive disorder, recurrent severe without psychotic features F33.2 ; Generalized anxiety disorder F41.1 ; Obsessive-compulsive disorder, unspecified F42.9 and 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 Assessments Encounter Date Diagnosis (ICD Code) Assessment Notes Treatment Notes Treatment Clinical Notes Section Notes 09/18/2024 Major depressive disorder, recurrent severe without psychotic features (ICD-10 - F33.2) 09/18/2024 Generalized anxiety disorder (ICD-10 - F41.1) 09/18/2024 Obsessive-compul sive disorder, unspecified (ICD-10 - F42.9) 09/18/2024 Insomnia related to another mental disorder (ICD-10 - F51.05) Plan Of Treatment Medication Medication Name Sig Start Date Stop Date Notes LORazepam 0.5 MG 1 tablet Orally Once a day for 30 days 09/18/2024 traZODone HCl 50 MG 1-2 tablets Oral Onc e a day for 90 days 02/25/2024 QUEtiapine Fumarate 50 MG 1 tablet every morning Oral Once a day for 90 days 02/25/2024 Mirtazapine 15 MG 1 tablet at bedtime Oral Once a day for 90 days Desvenlafaxine Succinate ER 100 MG 1 tablet Orally Once a day for 90 days Next Appt Details Follow Up: 6 Months, Reason: mdd, ruthie, mdd, ocd Provider Name:Mirlande Quarles , 03/19/2025 02:00:00 PM, [address], [address], [place], [address], Progress Notes * ELÍAS BILLY GDOB:1940 (84 yo M)Acc No.[id number]:09/18/2024 Patient: ELÍAS ERIC Provider: Melina REESE MD :1940 A ge:84 Y S ex:Male Date:09/18/2024 Address:[address] [place], [place] [address] Pcp:Fawad Hirsch MD Subjective: * Chief Complaints: * 1 . Follow up visit, medication evaluation. 2. Phq less than 5. 3. MIPS with Diagnosis of HTN. * HPI: D epression screening: PHQ-9 L ittle interest or pleasure in doing things N ot at all, F eeling down, depressed, or hopeless N ot at all, T rouble falling or staying asleep, or sleeping too much N ot at all, F eeling tired or having little energy S everal days, P oor appetite or overeating N ot at all, F eeling bad about yourself or that you are a failure, or have let yourself or your family down N ot at all, T rouble concentrating on things, such as reading the newspaper or watching television N ot at all, M oving or speaking so slowly that other people could have noticed; or the opposite, being so fidgety or restless that you have been moving around a lot more than usual N ot at all, T houghts that you would be better off or of hurting yourself in some way N ot at all, T otal Score 1 , Interpretation M inimal Depression. I ntervention D epression Screening Findings N egative, S uicide Risk Assessment Performed 1 11/19/2023 . * Medical History: P roblems: Aortic valve stenosis, Atrial fibrillation, Generalized anxiety disorder, Malignant tumor of neck, Obsessive-compulsive disorder, Primary insomnia, Recurrent major depression, ,. * Medications: T aking ASPIRIN 81 MG TABLET , Notes to Pharmacist: *Reorder from [facility] for eRx and Interaction Alerts*, Taking Pravastatin Sodium 20 MG Tablet Oral , Taking Ezetimibe 10 MG Tablet Oral , Taking Januvia 100 MG Tablet Oral , Taking Amoxicillin 500 MG Capsule Oral , Taking Omeprazole 40 MG Capsule Delayed Release Oral , Taking Synthroid 125 MCG Tablet Oral , Taking Losartan Potassium 25 MG Tablet Oral , Taking Meloxicam 7.5 MG Tablet Oral , Taking Metoprolol Succinate ER 25 MG Tablet Extended Release 24 Hour Oral , Taking traZODone HCl 50 MG Tablet 1-2 tablets Oral Once a day bedtime dose, Taking Mirtazapine 15 MG Tablet 1 tablet at bedtime Oral Once a day , Taking Desvenlafaxine Succinate ER 100 MG Tablet Extended Release 24 Hour 1 tablet Orally Once a day , Taking QUEtiapine Fumarate 50 MG Tablet 1 tablet every morning Oral Once a day , Not-Taking QUEtiapine Fumarate ER 50 MG Tablet Extended Release 24 Hour 2 tablet at bedtime Oral Once a day , Discontinued LAGEVRIO 200 MG CAPSULE (EUA) , Notes to Pharmacist: *Reorder from [facility] for eRx and Interaction Alerts*, Discontinued Fish Oil , Notes to Pharmacist: *Pick strength-form from [facility] for eRX*, Discontinued HYDROcodone-Acetaminophen 5-325 MG Tablet Oral , Discontinued Furosemide 20 MG Tablet Oral , Discontinued oxyCODONE HCl 5 MG Tablet Oral , Discontinued Clopidogrel Bisulfate 75 MG Tablet Oral , Discontinued DULoxetine HCl 30 MG Capsule Delayed Release Particles Oral , Discontinued Ciprodex 0.3-0.1 % Suspension Otic , Discontinued Clotrimazole 1% Cream External , Discontinued traMADol HCl 50 MG Tablet Oral , Discontinued Xarelto 20 MG Tablet Oral , Discontinued Nystatin-Triamcinolone 625343-1.1 UNIT/GM Cream External , Discontinued Bumetanide 1 MG Tablet Oral , Discontinued TAVABOROLE 5 % TOPICAL SOLUTION WITH APPLICATOR , Notes to Pharmacist: *Reorder from [facility] for eRx and Interaction Alerts*, Discontinued Mupirocin 2% Ointment External , Discontinued Ferrous Sulfate 325 (65 Fe) MG Tablet Oral , Discontinued SF 5000 Plus 1.1 % Cream Dental , Discontinued Gabapentin 300 MG Capsule Oral , Discontinued FLUAD QUAD 9536-2967(65YR UP)(PF) 60 MCG (15 MCG X 4)/0.5ML IM SYRINGE , Notes to Pharmacist: *Reorder from [facility] for eRx and Interaction Alerts*, Medication List reviewed and reconciled with the patient * Allergies: N .K.D.A. Objective: * Vitals: B P:174/55mm Hg, HR:62/min, Wt:230.0lbs, Wt-k.33 kg, Ht: 67.01 in, Ht-cm: 170.21 cm, BMI:36.01Index, Body Surface Area: 2.22. * Examination: P sychiatry: Appearance: w ell-groomed, well-nourished, .... Affect / mood: a ppropriate, full range. Attention: g ood. Attitude: c ooperative. Suicidal ideation: n one. Memory status: n o impairment noted. Degree of awareness of surroundings: w ithin normal limits.? Delusions: n o. Hallucinations: n o. Insight: g ood. Intellectual functioning: n o impairment noted. Judgement: g ood. Orientation: a wake, alert and oriented x 3. Perceptual disorders: n o perceptual disorder noted. Psychomotor activity: w ithin normal range. Speech / language: a ppropriate pitch/modulation, clear and coherent, normal rate, volume, and articulation (RVR), proper grammar used. Thought content: a ppropriate. Thought process: i ntact. Assessment: * Assessment: 1. M ajor depressive disorder, recurrent severe without psychotic features - F33.2 (Primary)? 2. G eneralized anxiety disorder - F41.1 3 . O bsessive-compulsive disorder, unspecified - F42.9 4 . I nsomnia related to another mental disorder - F51.05 Plan: * Treatment: 2. G eneralized anxiety disorder Refill QUEtiapine Fumarate Tablet, 50 MG, 1 tablet every morning, Oral, Once a day, 90 days, 90, Refills 0; C ontinue LORazepam Tablet, 0.5 MG, 1 tablet, Orally, Once a day As needed for severe anxiety, do not take on a daily basis, 30 days, 30 Tablet, Refills 0. 3. I nsomnia related to another mental disorder Refill traZODone HCl Tablet, 50 MG, 1-2 tablets, Oral, Once a day bedtime dose, 90 days, 180, Refills 1. * Procedure Codes: 9 6127 BEHAV ASSMT W/SCORE & DOCD/STAND INSTRUMENT, G8734 ELDER MALTX SCR DOC NEG NO F/U RQR * Preventive Medicine: Counseling: B P Management: R EFERRAL TO ALTERNATIVE / PRIMARY CARE PROVIDER:?hypertension currently being treated by seismic interpreter. * Follow Up: 6 Months (Reason: mdd, ruthie, mdd, ocd) * Billing Information: * Visit Code: * Procedure Codes: 00973 BEHAV ASSMT W/SCORE & DOCD/STAND INSTRUMENT. G8734 ELDER MALTX SCR DOC NEG NO F/U RQR. * Electronic signature of Liseth Reese MD on 11/18/2024 at 06:54 AM PROTOCOL OFFICER Sign off status: Pending * Provider: Melina REESE MD Date: 1 11/19/2023 Generated for Daina blankenship/Sophia/Leasmitting on: 0 11/18/2024 06:54 AM PROTOCOL OFFICER History and Physical Notes * HPI (History of Present Illness) Category Sub-Category Detail Notes Category Not es Depression screening PHQ-9 Little inte rest or pleasure in doing things: Not at all Feeling down, depressed, or hopeless: No t at all Trouble falling or staying asleep, or sl eeping too much: Not at all Feeling tired or having little energy: S everal days Poor appetite or overeating: Not at all Feeling bad about yourself o r that you are a failure, or have let yourself or your family down: Not at all Trouble concentrating on thi ngs, such as reading the newspaper or watching television: Not at all Moving or speaking so slowly that other people could have noticed; or the opposite, being so fidgety or restless that you have been moving around a lot more than usual: Not at all Thoughts that you would be b rajat off or of hurting yourself in some way: Not at all Total Score: 1 Interpretation: Minimal Depression Intervention Depression Screening Findings: N egative Suicide Risk Assessment Performed: 09/18 Examination Category Sub-Category Detail Notes Category Not es Psychiatry Appearance: well-groomed, well-nourished , ... Attitude: cooperative Psychomotor activity: within normal rang e Attention: good Degree of awareness of surroundings: wit hin normal limits Orientation: awake, alert and ema ented x 3 Affect / mood: appropriate, full ra nge Speech / language: appropriate pitch/mo dulation, clear and coherent, normal rate, volume, and articulation (RVR), proper grammar used Insight: good Judgement: good Thought process: intact Thought content: appropriate Perceptual disorders: no perceptual diso rder noted Suicidal ideation: none Intellectual functioning: no impairment noted Memory status: no impairment noted Delusions: no Hallucinations: no
--- OUTSIDE RECORDS SUMMARY | 2024-11-18 06:55 | XMS_ITS | Clinical Summary ---
Author Organization [facility] Address [address] [place] [address] Care Team Providers Care Insurance Business Analyst Name Role Phone Fawad Hirsch MD Primary Care Provider Source Comments [facility],non-owned Affiliates and Associated Physician Practices is amultiple site organization consisting of ambulatory clinics and hospital sitesin [place], [place], [place] and [place]. This disclosure is being madepursuant to the Care Everywhere program and may not contain all information available regarding this patient. Last updated 18.[facility] Allergies No known active allergies Medications * [...] Comments Blood Pressure 138/84 10/05/2015 3:53 PM BENZENE WASHER Pulse 78 10/05/2015 3:53 PM BENZENE WASHER Temperature - - Respiratory Rate 18 07/24/2012 11:5 0 AM CDT Oxygen Saturation 94% 07/24/2012 11: 50 AM CDT Inhaled Oxygen Concentration - - Weight 114.4 kg (252 lb 1.6 oz) 10/05/2015 3:53 PM BENZENE WASHER Height 170.2 cm (5' 7 ) 10/05/2015 3:53 PM BENZENE WASHER Body Mass Index 39.48 10/05/2015 3:53 PM BENZENE WASHER Plan of Treatment Health Maintenance Due Date Last Done Comments MEDICARE AWV 12 MONTHS 1940 DTAP/TDAP/TD VACCINES (1 - [...] age to complete this topic Care Teams Insurance Business Analyst Relationship Specialty Start Date End Date Fawad Hirsch MD [address] [place] [address] PCP - General 07/23/12
--- OUTSIDE RECORDS SUMMARY | 2024-11-18 06:55 | XMS_ITS | Clinical Summary ---
Author Organization [facility] Address [address] [place] [address] Care Team Providers Care Epic Cupid Analyst Name Role Phone Unavailable Primary Care [...] - 1-dose 75+ series) 01/08/2015 COVID-19 Vaccine ( - 2023-2 5 season) 2024 Influenza Adult (#1) 2024 [...]
--- OUTSIDE RECORDS SUMMARY | 2024-11-18 06:55 | XMS_ITS ---
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 Local tissue arrangement primary defect 8 x 2 cm, secondary defect 12 x 6 cm. Leg edema, right 01/15/2024 Arthritis of right hip 01/03/2024 Pain of right hip joint 03/14/2023 Osteomyelitis 05/03/2022 A-fib (CMS/HCC) 03/30/2022 Assessment & Plan (10/18/2022 10:34 AM REDUCTION FURNACE OPERATOR HELPER): Status post successful Watchman implant. Completed 5 months of clopidogrel, will discontinue today. Will continue ASA 81 mg daily indefinitely. Will have him follow-up in 6 months, 1 year from his implantation around March 2023. Assessment & Plan (07/06/2022 9:14 AM CDT): Controlled. Continue medical therapy. Coronary artery disease of n ative artery of [place] heart with stable angina pectoris 01/31/2022 Assessment & Plan (10/18/2022 10:35 AM REDUCTION FURNACE OPERATOR HELPER): Denies any complaints of chest pain or [...] 05/17/2020 Assessment & Plan (12/10/2020 1:30 PM REDUCTION FURNACE OPERATOR HELPER): Patient underwent TAVR are in July. He is continued on anticoagulation at this time. He has started to have shortness of breath and has an appointment with his flake miller wheat and oats this month. 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 Assessment & Plan (12/10/2020 1:29 PM REDUCTION FURNACE OPERATOR HELPER): Patient has peripheral arterial disease but is [...] call. Assessment & Plan (10/04/2020 10:00 AM REDUCTION FURNACE OPERATOR HELPER): Patient has peripheral arterial disease however at [...] 12/03/2018 Assessment & Plan (10/18/2022 10:35 AM REDUCTION FURNACE OPERATOR HELPER): Status post TAVR. Essential hypertension 12/03/2018 Assessment & Plan (07/06/2022 9:15 AM CDT): Hypertension chronic and controlled. Continue medical therapy Assessment & Plan (12/10/2020 1:30 PM REDUCTION FURNACE OPERATOR HELPER): Followed by his PCP and controlled on his current medications. Hyperlipidemia associated with type 2 diabetes mayuri lucille 12/03/2018 Assessment & Plan (02/01/2022 10:25 AM CDT): Lipids are well controlled. Continue statin therapy. Assessment & Plan (12/10/2020 1:30 PM REDUCTION FURNACE OPERATOR HELPER): Followed by his PCP and controlled on a statin. Hypertension associated with diabetes 12/03/2018 Assessment & Plan (02/01/2022 10:22 AM CDT): Blood pressure is excellent. Continue same therapy. Diabetes mellitus type II, non insulin dependent ([facility]/HCC) 12/03/2018 Assessment & Plan (12/10/2020 1:30 PM REDUCTION FURNACE OPERATOR HELPER): Followed by his PCP and controlled on his current medications. 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 Assessment & Plan (10/04/2020 9:58 AM REDUCTION FURNACE OPERATOR HELPER): Patient had osteonecrosis of his draw and [...] 06/12/2012 Assessment & Plan (10/18/2022 10:35 AM REDUCTION FURNACE OPERATOR HELPER): Normotensive today. Continue current medical therapy. Elbow fracture, left 07/28/2011 Hypothyroid 07/28/2011 DM type 2 (diabetes mellitus, type 2) 07/28/2011 Assessment & Plan (06/20/2021 8:38 AM CDT): Followed by his PCP and controlled on his current medications. Assessment & Plan (10/04/2020 10:00 AM REDUCTION FURNACE OPERATOR HELPER): Followed by his PCP and controlled on medications. HTN (hypertension) 07/28/2011 Assessment & Plan (06/20/2021 8:38 AM CDT): Followed by his PCP and controlled on his current medications. Assessment & Plan (10/04/2020 10:00 AM REDUCTION FURNACE OPERATOR HELPER): Followed by his PCP and controlled on medications. Metastatic neoplasm 11/02/2010 Adenocarcinoma of prostate 11/19/2007 Current Oncology Plans No current plan information found. Past Plans No past plan information found. Radiation Treatments * No radiation treatments are documented for this patient in [facility]. Treatments may have been administered in [...] time. Assessment & Plan (10/04/2020 10:01 AM REDUCTION FURNACE OPERATOR HELPER): Patient is on Xarelto for his new valve. He is currently doing well on this medication.
--- OUTSIDE RECORDS SUMMARY | 2024-11-18 06:55 | XMS_ITS ---
Author Organization [facility] [facility] Address [address] [place] [address] [address] Care Team Providers Care Sail Finisher Machine Name Role Phone Fawad Hirsch MD Primary Care Provider Unavailab Mirlande Aguirre Unavailable [phone] Adele Reese Unavailable [phone] REASON FOR VISIT pt not seen this date, due to scheduling error, appt rescheduling Social History Tobacco Use: Social History Observation Description Date Details (start date - stop date) Never Smoker NA - NA Sex Assigned At : Social History Observation Description Sex Assigned At Male Tobacco Control (Standard) Question Answer Notes Tobacco use: Nonsmoker AUDIT-C (Standard) Question Answer Notes Did you have a drink containing alcohol in the p ast year? No Encounters Encounter Location Date Provider Diagnosis [facility] [address] [address] 08/25/2024 Thenophelia Lora Plan Of Treatment Next Appt Details Provider Name:Mirlande Quarles , 03/19/2025 02:00:00 PM, [address] [place] [address] [address], [address], [address], Progress Notes * ELÍAS BILLY GDOB:1940 (84 yo M)Acc No.[id number]:08/25/2024 Patient: ELÍAS ERIC Provider: Melina REESE MD :1940 A ge:84 Y S ex:Male Date:08/25/2024 Address:[address] [place], [place] [id number] Subjective: * Chief Complaints: * 1 . Pt not seen this date, due to scheduling error, appt rescheduling. * HPI: D epression Screening: JORGE-7 (2018 Edition) F eeling nervous, anxious, or on edge?Several days, N ot being able to stop or control worrying S everal days. C [place]-Suicide Severity Rating Scale: Suicide Risk (CSRS-screener) i n the past one month Have you wished you were or wished you could go to sleep and not wake up? N o, i n the past one month Have you actually had any thoughts of killing yourself? N o. D epression screening: PHQ-9 L ittle interest or pleasure in doing things S everal days, F eeling down, depressed, or hopeless S everal days. * Medical History: * Social History: T obacco Use: T obacco Control (Standard) T obacco use: N onsmoker. M igrated Social History: M igrated Social History: Alcohol Intake: None 10/23/2018,Tobacco Years: Never smoker 10/23/2018. D rug/Alcohol: A TARA-C (Standard) D id you have a drink containing alcohol in the past year? N o.? M iscellaneous: A dvance Care Planning A re you your own decision-maker Y es, D o you have Power of Sterile Processing Technologist for Health or Medical? Y es. Objective: * Vitals: Assessment: Plan: * Treatment: * Billing Information: * Visit Code: * Procedure Codes: * P CARRIER OPERATOR Sign off status: Completed true * Provider: Melina REESE MD Date: 1 10/25/2023 Generated for Printi ng/Faroxannag/eTransmitting on: 0 11/18/2024 06:55 AM CLAMP CARRIER OPERATOR History and Physical Notes * HPI (History of Present Illness) Category Sub-Category Detail Notes Category Not es Depression screening PHQ-9 Little inte rest or pleasure in doing things: Several days Feeling down, depressed, or hopeless: Se veral days Depression Screening JORGE-7 (2018 Edition) Feelin g nervous, anxious, or on edge: Several days Not being able to stop or control worryi ng: Several days [place]-Suicide Severity Rating Scale Suicide Risk (CSRS-screener) in the past one month Have you wished you were or wished you could go to sleep and not wake up?: No in the past one month Have y ou actually had any thoughts of killing yourself?: No
--- OUTSIDE RECORDS SUMMARY | 2024-11-18 06:55 | XMS_ITS | CONTINUITY OF CARE DOCUMENT ---
Author Name quincy mathew Address Unknown Organization [facility] Address [address] [address] Phone [phone] Care Team Providers Care Db2 Developer Name Role Phone Humaira FORRESTER, Jin Unavailable [phone] Humaira FORRESTER, Jin Unavailable CHARBEL FORRESTER, LORE Unavailable INSURANCE PROVIDERS Payer name Policy type / Coverage type Fabiana red democrat ID [id number] [place] [employer] Medicare [id number]
--- OUTSIDE RECORDS SUMMARY | 2024-11-18 06:55 | XMS_ITS | Referral Summary ---
Author Organization [facility] Address [address] [place] [address] Care Team Providers Care Offset Assistant Press Operator Name Role Phone Fawad Hirsch MD Primary Care Provider [phone] Source Comments [facility],non-owned Affiliates and Associated Physician Practices is amultiple site organization consisting of ambulatory clinics and hospital sitesin [place], [place], [place] and [place]. This disclosure is being madepursuant to the Care Everywhere program and may not contain all information available regarding this patient. Last updated 18.[facility] Allergies No known active allergies Medications * [...] Comments Blood Pressure 138/84 10/05/2015 3:53 PM ACID CRANE OPERATOR Pulse 78 10/05/2015 3:53 PM ACID CRANE OPERATOR Temperature - - Respiratory Rate 18 07/24/2012 11:5 0 AM CDT Oxygen Saturation 94% 07/24/2012 11: 50 AM CDT Inhaled Oxygen Concentration - - Weight 114.4 kg (252 lb 1.6 oz) 10/05/2015 3:53 PM ACID CRANE OPERATOR Height 170.2 cm (5' 7 ) 10/05/2015 3:53 PM ACID CRANE OPERATOR Body Mass Index 39.48 10/05/2015 3:53 PM ACID CRANE OPERATOR Plan of Treatment Not on file Care Teams Offset Assistant Press Operator Relationship Specialty Start Date End Date Fawad Hirsch MD [address] [place] [address] PCP - General 07/23/12
--- OUTSIDE RECORDS SUMMARY | 2024-11-18 06:55 | XMS_ITS ---
Author Organization [facility] [employer] [facility] Address [address] [place] [address] Care Team Providers Care Laser/Electro Optics Technician Name Role Phone Fawad Hirsch MD Primary Care Provider Unavailab Mirlande Aguirre Unavailable [phone] REASON FOR VISIT New Refill Request Medications Medication SIG (Take, Route, Frequency, Duration) Notes Start Date End Date Status Desvenlafaxine Succinate ER 100 MG 1 tablet Orally Once a day for 90 days Active Social History Sex Assigned At : Social History Observation Description Sex Assigned At Male Encounters Encounter Location Date Provider Diagnosis [facility] [address] [place] [address] 11/16/2024 Mirlande Quarles Major depressive disorder, recurrent severe without psychotic features F33.2 Assessments Encounter Date Diagnosis (ICD Code) Assessment Notes Treatment Notes Treatment Clinical Notes Section Notes 11/16/2024 Major depressive disorder, recurrent severe without psychotic features (ICD-10 - F33.2) Plan Of Treatment Medication Medication Name Sig Start Date Stop Date Notes Desvenlafaxine Succinate ER 100 MG 1 tablet Orally Once a day for 90 days Next Appt Details Provider Name:Mirlande Quarles , 03/19/2025 02:00:00 PM, [address], [address], [place], [address], Progress Notes * ELÍAS BILLY GDOB:1940 (84 yo M)Acc No.[id number]:11/16/2024 Patient: Quentin GOMESELÍAS :1940 A ge:84 Y S ex:Male Address:[address] , [place], [address] * Refills Refill Desvenlafaxine Succinate ER Tablet Extended Release 24 Hour, 100 MG, Orally, 90 Tablet, 1 tablet, Once a day, 90 days, Refills=1 * * Date:
--- OUTSIDE RECORDS SUMMARY | 2024-11-18 06:55 | XMS_ITS | Encounter Summary ---
Author Organization [facility] Address [address] [place] [address] Care Team Providers Care Public Address System Operator Name Role Phone Fawad Hirsch MD Primary Care Provider [phone] Fawad Hirsch MD Primary Care Provider [phone] Fawad Hirsch MD Unavailable [phone] Anders Cho MD Unavailable [phone] Kris Quintero MD Unavailable [phone] Zulma Faye MD Unavailable [phone] Encounter Details Date Type Department Care Team (Late st Contact Info) Description 06/16/2020 Telephone [facility] - Imaging [address] [place] [address] Transcribed Order, Provider Social History Tobacco Use Types Packs/Day Years Used Date Smoking Tobacco: Never Smokeless Tobacco: Never Alcohol Use Standard Drinks/Week Comments No 0 (1 standard drink = 0.6 oz pur e alcohol) Sex and Gender Information Value Date Recorded Sex Assigned at Not on file Legal Sex Male 3:52 AM PATCH SANDER Gender Identity Male 09/15/2020 1:37 PM PATCH SANDER Sexual Orientation Straight 02/03/2019 5: 15 PM CDT documented as of this encounter Plan of Treatment Not on file documented as of this encounter Visit Diagnoses Not on filedocumented in this encounter Care Teams Public Address System Operator Relationship Specialty Start Date End Date Fawad Hirsch MD [address] [place] [address] PCP - General 05/17/17 12/07/20 Fawad Hirsch MD [address] [place] [address] PCP - General 12/08/20 Fawad Hirsch MD [address] [facility] [address] [place] [address] 12/08/20 Anders Cho MD [address] [place] [address] Referring Physician Otolaryngology 12/03/18 Kris Quintero MD [address] [facility] [address] [place] [address] Surgeon Vascular Surgery 06/22/22 Zulma Faye MD [address] [facility] [address] [place] [address] Surgeon Vascular Surgery 05/19/24 documented as of this encounter
--- OUTSIDE RECORDS SUMMARY | 2024-11-18 06:55 | XMS_ITS | Patient Health Summary ---
Author Organization [facility] Address [address] [place] [address] Care Team Providers Care Fondant Puff Maker Name Role Phone Fawad Hirsch MD Primary Care Provider [phone] Note from [facility],non-owned Affiliates and Associated Physician Practices is amultiple site organization consisting of ambulatory clinics and hospital sitesin [place], [place]. This disclosure is being madepursuant to the Care Everywhere program and may not contain all information available regarding this patient. Last updated 18.[facility] Allergies No known active allergies Medications [...] Comments Blood Pressure 138/84 10/05/2015 3:53 PM FLIGHT CONTROLS ENGINEER Pulse 78 10/05/2015 3:53 PM FLIGHT CONTROLS ENGINEER Temperature - - Respiratory Rate 18 07/24/2012 11:5 0 AM CDT Oxygen Saturation 94% 07/24/2012 11: 50 AM CDT Inhaled Oxygen Concentration - - Weight 114.4 kg (252 lb 1.6 oz) 10/05/2015 3:53 PM FLIGHT CONTROLS ENGINEER Height 170.2 cm (5' 7 ) 10/05/2015 3:53 PM FLIGHT CONTROLS ENGINEER Body Mass Index 39.48 10/05/2015 3:53 PM FLIGHT CONTROLS ENGINEER Procedures * XR HIP LEFT 2VW OR [...] LEFT 2VW OR MORE (08/20/2020 12:50 PM FLIGHT CONTROLS ENGINEER) Anatomical Region Laterality Modality Pelvis, Lower Extremity Computed Radiography Narrative 08/20/2020 12:58 PM FLIGHT CONTROLS ENGINEER Edwige Ricks RT(R) 08/20/2020 2:46 PM See progress notes for results Estella [...] Denise Ribeiro MD MR ORDERABLES Care Teams Fondant Puff Maker Relationship Specialty Start Date End Date Fawad Hirsch MD [address] [place] [address] [facility] - General 07/23/12
--- OUTSIDE RECORDS SUMMARY | 2024-11-18 06:55 | XMS_ITS | Clinical Summary ---
Author Organization [facility] Address [address] [address] Care Team Providers [employer] Name Role Phone Fawad Hirsch MD Primary Care Provider [phone] Fawad Hirsch MD Unavailable [phone] Anders Cho MD Unavailable [phone] Kris Quintero MD Unavailable [phone] Zulma Faye MD Unavailable [phone] Allergies No known active allergies Medications levothyroxine [...] right hip joint 03/14/2023 Osteomyelitis 05/03/2022 A-fib (CMS/[facility]) 03/30/2022 Assessment & Plan (10/18/2022 10:34 AM RADIO MECHANIC APPRENTICE): Status post successful Watchman implant. Completed 5 months of clopidogrel, will discontinue today. Will continue ASA 81 mg daily indefinitely. Will have him follow-up in 6 months, 1 year from his implantation around March 2023. Assessment & Plan (07/06/2022 9:14 AM CDT): Controlled. Continue medical therapy. Coronary artery disease of n ative artery of [place] heart with stable angina pectoris 01/31/2022 Assessment & Plan (10/18/2022 10:35 AM RADIO MECHANIC APPRENTICE): Denies any complaints of chest pain or discomfort. Continue medical therapy with aspirin, statin, Zetia, beta-lucy, ARB. Assessment & Plan (02/01/2022 10:21 AM CDT): Stable, moderate coronary disease only, without angina. Continue same therapy. Continue diet and exercise. Acute osteomyelitis of radius ([facility]/HCC) 11/27/19 22 Arthralgia of left elbow 11/10/2021 [...] 05/17/2020 Assessment & Plan (12/10/2020 1:30 PM RADIO MECHANIC APPRENTICE): Patient underwent TAVR are in July. He is continued on anticoagulation at this time. He has started to have shortness of breath and has an appointment with his program development manager this month. Assessment & Plan (10/04/2020 10:00 AM RADIO MECHANIC APPRENTICE): Patient had severe aortic stenosis and underwent TAVR. He is doing well since that time. 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 Assessment & Plan (12/10/2020 1:29 PM RADIO MECHANIC APPRENTICE): Patient has peripheral arterial disease but is [...] call. Assessment & Plan (10/04/2020 10:00 AM RADIO MECHANIC APPRENTICE): Patient has peripheral arterial disease however at [...] 12/03/2018 Assessment & Plan (10/18/2022 10:35 AM RADIO MECHANIC APPRENTICE): Status post TAVR. Essential hypertension 12/03/2018 Assessment & Plan (07/06/2022 9:15 AM CDT): Hypertension chronic and controlled. Continue medical therapy Assessment & Plan (12/10/2020 1:30 PM RADIO MECHANIC APPRENTICE): Followed by his PCP and controlled on his current medications. Hyperlipidemia associated with type 2 diabetes mayuri adkins 12/03/2018 Assessment & Plan (02/01/2022 10:25 AM CDT): Lipids are well controlled. Continue statin therapy. Assessment & Plan (12/10/2020 1:30 PM RADIO MECHANIC APPRENTICE): Followed by his PCP and controlled on a statin. Hypertension associated with diabetes 12/03/2018 Assessment & Plan (02/01/2022 10:22 AM CDT): Blood pressure is excellent. Continue same therapy. Diabetes mellitus type II, non insulin dependent ([facility]) 12/03/2018 Assessment & Plan (12/10/2020 1:30 PM RADIO MECHANIC APPRENTICE): Followed by his PCP and controlled on his current medications. 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 Continue current medical therapy. Elbow fracture, left 07/28/2011 Hypothyroid 07/28/2011 DM type 2 (diabetes mellitus, type 2) 07/28/2011 Assessment & Plan (06/20/2021 8:38 AM CDT): Followed by his PCP and controlled on his current medications. Assessment & Plan (10/04/2020 10:00 AM RADIO MECHANIC APPRENTICE): Followed by his PCP and controlled on medications. HTN (hypertension) 07/28/2011 Assessment & Plan (06/20/2021 8:38 AM CDT): Followed by his PCP and controlled on his current medications. Assessment & Plan (10/04/2020 10:00 AM RADIO MECHANIC APPRENTICE): Followed by his PCP and controlled on medications. Metastatic neoplasm 11/02/2010 Adenocarcinoma of prostate 11/19/2007 Resolved Problems Problem Noted Date Diagnosed Date Resolved Date Chronic anticoagulation 06/24/2020 08/ Assessment & Plan (06/20/2021 8:38 AM CDT): Patient is on Xarelto and doing well at this time. Assessment & Plan (10/04/2020 10:01 AM RADIO MECHANIC APPRENTICE): Patient is on Xarelto for his new valve. He is currently doing well on this medication. Immunizations Name Administration Dates Next Due Influenza, Unspecified 07/22/2014 Pneumococcal Conjugate PCV 13 12/07/2016 Pneumococcal Conjugate, Unspecified 07/22/2014 Pneumococcal Polysaccharide PPV23 02/25/2018 Tdap 10/14/2014 Surgical History Surgery Date Site/Laterality Comments AK PROSTATE NEEDLE BIOPSY AN Y APPROACH 10/08/2007 - 10/07/2008 AK LAP,PROSTATECTOMY,RADICAL,W/N ERVE SPARE,INCL ROBOTIC 10/08/2007 - 10/07/2008 [...] on file Legal Sex Male 3:52 AM RADIO MECHANIC APPRENTICE Gender Identity Male 09/15/2020 1:37 PM RADIO MECHANIC APPRENTICE Sexual Orientation Straight 02/03/2019 5: 15 PM CDT Obstetrics History Last Filed Vital Signs Vital Sign Reading Time Taken Comments Blood Pressure 150/52 07/16/2024 10:40 AM CDT Pulse 65 07/16/2024 10:40 AM CDT Temperature 36 C (96.8 F) 07/16/2024 9:55 AM CDT Respiratory Rate 11 [...] 12/07/2016, 07/22/2014 Medical Devices Implanted Type Area Telephone Lineman Device Identifier Shelf Expiration Date Model / Serial / Lot [employer] [place] Watchman Flx Procedure Device Wmflxperproc - [id number] - [id number] Implanted:Qty: 1 on 03/30/2022 by Mauri Olivia MD at [facility] Left Atrial Appendage Occluder N/A: Atrial Appendage [employer] [place] 08/31/2024 WMFLXPERPRO C / [id number] / [id number] [employer] [id number] Paul 3 29mm Transcatheter Valve Aortic Bovine Sterile - [id number] - [id number] Implanted:Qty: 1 on 07/08/2020 by Mauri Olivia MD at [facility] Prosthetic Valve N/A: Heart [employer] 02/15/2022 [id number] / [id number] / [id number] Description:TAVR Armijo Vascular Device Clsr Perclose Prostyle Sut-Mediatd Closure-Repair Sys 44638-83 - S0 - [id number] Implanted:Qty: 1 on 03/30/2022 by Mauri Olivia MD at [facility] Vascular Closure Device N/A: Femoral [employer] 01/06/2024 [id number] / 0 / Armijo Vascular Device Clsr Perclose Prostyle Sut-Mediatd Closure-Repair Sys 11206-53 - S0 - [id number] Implanted:Qty: 1 on 03/30/2022 by Mauri Olivia MD at [facility] Vascular Closure Device N/A: Femoral [employer] 01/06/2024 [id number] / 0 / [id number] Synthes .733 Matrixmandible 2mm 7x23 Hole Reconstruction Mandible Right Angle - [id number] Implanted:Qty: 1 on 12/05/2018 by Aden Azar DMD at [facility] Right: Mandible Synthes I [id number] / / Synthes 04.642.01 Matrixmandible 2.4mm 12mm Self Tap Lock Mandible Screw Bone - [id number] Implanted:Qty: 3 on 12/05/2018 by Aden Azar DMD at [facility] Right: Mandible Synthes I 04.503.642. / / Synthes 644. Matrixmandible 2.4mm 14mm Self Tap Lock Mandible Screw Bone - [id number] Implanted:Qty: 1 on 12/05/2018 by Aden Azar DMD at [facility] Right: Mandible Synthes I 4. / / Synthes 6. Matrixmandible 2.4mm 16mm Self Tap Lock Mandible Screw Bone - [id number] Implanted:Qty: 2 on 12/05/2018 by Aden Azar DMD at [facility] Right: Mandible Synthes I 646. / / Synthes 44. Matrixmandible 2.4mm 12mm Self Tap Mandible Screw Bone Titanium - [id number] Implanted:Qty: 1 on 12/05/2018 by Donis Estrada MD at [facility] Right: Mandible Synthes I . / / doxIQian [id number] Garden Microvascular 3.5mm Ring Pin Protective Cover Jaw Assembly Latex Free - [id number] Implanted:Qty: 1 on 12/05/2018 by Anders Cho MD at [facility] Right: Neck doxIQian 01/03/2023 [id number] / / [id number] [employer] [id number] Probe Doppler 17.4cm Standard Cuff Implantable 20mhz Latex Free Sterile Microvascular Anastomoses [place] - [id number] Implanted:Qty: 1 on 12/05/2018 by Anders Cho MD at [facility] Right: Neck [employer] [id number] 08/07/2021 [id number] / / [id number] Synthes . Matrixmandible 2.4mm 10mm Self Tap Lock Mandible Screw Bone - [id number] Implanted:Qty: 2 on 12/05/2018 by Anders Cho MD at [facility] Right: Mandible Synthes I . 01 / / Depuy Orthopa[employer] Liner Acet Hip Size 28 Poly Bi Mentum Altrx 53mm [id number] - [id number] Implanted:Qty: 1 on 01/03/2024 at [facility] Right: Hip [employer] Orth[employer]ed[employer] Inc 07/07/2027 [id number] / / [id number] Dep[employer] Actis Collar Hip 7 High Offset Stem Femoral [id number] - [id number] Implanted:Qty: 1 on 01/03/2024 at [facility] Right: Hip [employer] 10/07/2033 [id number] / / [id number] [employer] Bi Mentum 53mm Press Fit Femoral Proximal Cup Acetabular [id number] - [id number] Implanted:Qty: 1 on 01/03/2024 at [facility] Right: Hip [employer] 06/07/2025 [id number] / / [id number] [employer] Articul/Minesh 28mm Cementless Hip +1.5mm 12/14 Taper Head Femoral Latex Free [id number] - [id number] Implanted:Qty: 1 on 01/03/2024 at [facility] Right: Hip [employer] 10/07/2028 [id number] / / [id number] Procedures Procedure Name Priority Date/Time Associated Diagnosis Comments POCT LIPID PANEL Routine 05/19/2024 10:2 4 AM CDT CAD in [place] artery EGFR Routine 01/04/2024 6:22 AM CDT HEMOGLOBIN A1C Routine 12/13/2023 9:54 AM RADIO MECHANIC APPRENTICE Preoperative testing Type 2 diabetes mellitus without complication, without long-term current use of insulin ([facility]) ([facility]) from Last 3 Months or Most Recently [...] m2 Comment: Interpretive Data Reference Interval Normal >/= 90 mL/min/1.73m2 Mildly decreased* 60 - 89 mL/min/1.73m2 Mildly to moderately decreased 45 - 59 mL/min/1.73m2 Moderately to severely decreased 30 - 44 mL/min/1.73m2 Severely decreased 15 - 29 mL/min/1.73m2 Kidney Failure < 15 mL/min/1.73m2 *Relative to young adult level Estimated glomerular [...] Dell Rolle MD LAB BLOOD ORDERABLES Alicia l Result [facility] [address] [facility]. [place] [address] * (ABNORMAL) Hemoglobin A1c (12/13/2023 9:54 AM RADIO MECHANIC APPRENTICE) Hgb A1C 6.5(H) 4.0 - 5.6 % Estimated Average Glucose 140 mg/dL CHRIS TERRY Comment: The ADA recommends reporting an estimated Average Glucose (eAG) with all Hemoglobin A1c results using the equation derived from a study of 507 normal and diabetic adults. Minority populations were underrepresented and children were not included. (Diabetes Care 31:0002-5692, 2008). The eAG is not equivalent to a fasting glucose. Blood 12/13/2023 9:54 AM RADIO MECHANIC APPRENTICE 12/13/2023 10:49 AM RADIO MECHANIC APPRENTICE us Norman Scott NP LAB BLOOD ORDERABLES Fin al Result Performing Organization Address City/State/[facility] Co in Phone Number [facility] [address] [facility]. Department [place] [place] [address] from Last 3 Months or Most Recently Relevant to Health Maintenance Insurance MEDICARE [facility] MEDICARE [facility] MEDIC[facility] Advance Directives For more information, please contact: [phone] Documents on File Type Date Recorded Patient Vp Client Services Expl anation Power of Presentation Manager 07/16/2024 6:21 AM Tena nuation of first scanned poa Power of Presentation Manager 12/13/2023 7:19 AM * Full Code (Latest [...] 9:43 PM 12/13/2018 7:45 PM Care Teams [employer] Relationship Specialty Start Date End Date Fawad Hirsch MD [address] [place] [address] PCP - General 12/08/20 Fawad Hirsch MD [address] [place] [address] 12/08/20 Anders Cho MD [address] [facility] [address] [place] [address] Referring Physician Otolaryngology 12/03/18 Kris Quintero MD [address] [place] [employer] [facility] [place] [address] Surgeon Vascular Surgery 06/22/22 Zulma Faye MD [address] [place] [employer] [facility] [place] [address] Surgeon Vascular Surgery 05/19/24
--- OUTSIDE RECORDS SUMMARY | 2024-11-18 06:55 | XMS_ITS | Referral Summary ---
Author Organization [facility] Address [address] [address] Care Team Providers Care Clicking Machine Operator Name Role Phone Fawad Hirsch MD Primary Care Provider [phone] Fawad Hirsch MD Unavailable [phone] Anders Cho MD Unavailable [phone] Kris Quintero MD Unavailable [phone] Zulma Faye MD Unavailable [phone] Allergies No known active allergies Medications levothyroxine [...] right hip joint 03/14/2023 Osteomyelitis 05/03/2022 A-fib (CMS/[facility]) 03/30/2022 Assessment & Plan (10/18/2022 10:34 AM TRAIN PLANNER): Status post successful Watchman implant. Completed 5 months of clopidogrel, will discontinue today. Will continue ASA 81 mg daily indefinitely. Will have him follow-up in 6 months, 1 year from his implantation around March 2023. Assessment & Plan (07/06/2022 9:14 AM CDT): Controlled. Continue medical therapy. Coronary artery disease of n ative artery of [place] heart with stable angina pectoris 01/31/2022 Assessment & Plan (10/18/2022 10:35 AM TRAIN PLANNER): Denies any complaints of chest pain or discomfort. Continue medical therapy with aspirin, statin, Zetia, beta-lucy, ARB. Assessment & Plan (02/01/2022 10:21 AM CDT): Stable, moderate coronary disease only, without angina. Continue same therapy. Continue diet and exercise. Acute osteomyelitis of radius ([facility]/HCC) 11/27/19 22 Arthralgia of left elbow 11/10/2021 [...] 05/17/2020 Assessment & Plan (12/10/2020 1:30 PM TRAIN PLANNER): Patient underwent TAVR are in July. He is continued on anticoagulation at this time. He has started to have shortness of breath and has an appointment with his web operations administrator this month. Assessment & Plan (10/04/2020 10:00 AM TRAIN PLANNER): Patient had severe aortic stenosis and underwent TAVR. He is doing well since that time. 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 Assessment & Plan (12/10/2020 1:29 PM TRAIN PLANNER): Patient has peripheral arterial disease but is [...] call. Assessment & Plan (10/04/2020 10:00 AM TRAIN PLANNER): Patient has peripheral arterial disease however at [...] 12/03/2018 Assessment & Plan (10/18/2022 10:35 AM TRAIN PLANNER): Status post TAVR. Essential hypertension 12/03/2018 Assessment & Plan (07/06/2022 9:15 AM CDT): Hypertension chronic and controlled. Continue medical therapy Assessment & Plan (12/10/2020 1:30 PM TRAIN PLANNER): Followed by his PCP and controlled on his current medications. Hyperlipidemia associated with type 2 diabetes mayuri adkins 12/03/2018 Assessment & Plan (02/01/2022 10:25 AM CDT): Lipids are well controlled. Continue statin therapy. Assessment & Plan (12/10/2020 1:30 PM TRAIN PLANNER): Followed by his PCP and controlled on a statin. Hypertension associated with diabetes 12/03/2018 Assessment & Plan (02/01/2022 10:22 AM CDT): Blood pressure is excellent. Continue same therapy. Diabetes mellitus type II, non insulin dependent ([facility]) 12/03/2018 Assessment & Plan (12/10/2020 1:30 PM TRAIN PLANNER): Followed by his PCP and controlled on his current medications. 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 Continue current medical therapy. Elbow fracture, left 07/28/2011 Hypothyroid 07/28/2011 DM type 2 (diabetes mellitus, type 2) 07/28/2011 Assessment & Plan (06/20/2021 8:38 AM CDT): Followed by his PCP and controlled on his current medications. Assessment & Plan (10/04/2020 10:00 AM TRAIN PLANNER): Followed by his PCP and controlled on medications. HTN (hypertension) 07/28/2011 Assessment & Plan (06/20/2021 8:38 AM CDT): Followed by his PCP and controlled on his current medications. Assessment & Plan (10/04/2020 10:00 AM TRAIN PLANNER): Followed by his PCP and controlled on medications. Metastatic neoplasm 11/02/2010 Adenocarcinoma of prostate 11/19/2007 Resolved Problems Problem Noted Date Diagnosed Date Resolved Date Chronic anticoagulation 06/24/202005/10 Assessment & Plan (06/20/2021 8:38 AM CDT): Patient is on Xarelto and doing well at this time. Assessment & Plan (10/04/2020 10:01 AM TRAIN PLANNER): Patient is on Xarelto for his new [...] on file Legal Sex Male 3:52 AM TRAIN PLANNER Gender Identity Male 09/15/2020 1:37 PM TRAIN PLANNER Sexual Orientation Straight 02/03/2019 5: 15 PM [...] on file Medical Devices Implanted Type Area Ground Helper Street Railway Device Identifier Shelf Expiration Date Model / Serial / Lot [employer] [place] Watchman Flx Procedure Device Wmflxperproc - [id number] - [id number] Implanted:Qty: 1 on 03/30/2022 by Mauri Olivia MD at [facility] Left Atrial Appendage Occluder N/A: Atrial Appendage [employer] [place] 08/31/2024 WMFLXPERPRO C / [id number] / [id number] [employer] [id number] Paul 3 29mm Transcatheter Valve Aortic Bovine Sterile - [id number] - [id number] Implanted:Qty: 1 on 07/08/2020 by Mauri Olivia MD at [facility] Prosthetic Valve N/A: Heart [employer] 02/15/2022 [id number] / [id number] / [id number] Description:TAVR Armijo Vascular Device Clsr Perclose Prostyle Sut-Mediatd Closure-Repair Sys 46721-80 - S0 - [id number] Implanted:Qty: 1 on 03/30/2022 by Mauri Olivia MD at [facility] Vascular Closure Device N/A: Femoral [employer] 01/06/2024 [id number] / 0 / [id number] Armijo Vascular Device Clsr Perclose Prostyle Sut-Mediatd Closure-Repair Sys 47023-25 - S0 - [id number] Implanted:Qty: 1 on 03/30/2022 by Mauri Olivia MD at [facility] Vascular Closure Device N/A: Femoral [employer] 01/06/2024 24611-05 / 0 [id number] Synthes 04.503.733 Matrixmandible 2mm 7x23 Hole Reconstruction Mandible Right Angle - [id number] Implanted:Qty: 1 on 12/05/2018 by Aden Azar DMD at [facility] Right: Mandible Synthes I 04.503.733 / / Synthes 04.503.642.01 Matrixmandible 2.4mm 12mm Self Tap Lock Mandible Screw Bone - [id number] Implanted:Qty: 3 on 12/05/2018 by Aden Azar DMD at [facility] Right: Mandible Synthes I 04.503.642. 01 / / Synthes 04.503.644.01 Matrixmandible 2.4mm 14mm Self Tap Lock Mandible Screw Bone - [id number] Implanted:Qty: 1 on 12/05/2018 by Aden Azar DMD at [facility] Right: Mandible Synthes I 04.503.644. 01 / / Synthes 04.503.646.01 Matrixmandible 2.4mm 16mm Self Tap Lock Mandible Screw Bone - [id number] Implanted:Qty: 2 on 12/05/2018 by Aden Azar DMD at [facility] Right: Mandible Synthes I 04.503.646. 01 / / Synthes 04.503.442.01 Matrixmandible 2.4mm 12mm Self Tap Mandible Screw Bone Titanium - [id number] Implanted:Qty: 1 on 12/05/2018 by Donis Estrada MD at [facility] Right: Mandible Synthes I 04.503.442. 01 / / [employer] [id number] [place] Microvascular 3.5mm Ring Pin Protective Cover Jaw Assembly Latex Free - [id number] Implanted:Qty: 1 on 12/05/2018 by Anders Cho MD at [facility] Right: Neck [employer] Allian 01/03/2023 [id number] / / [id number] [employer] [id number] Probe Doppler 17.4cm Standard Cuff Implantable 20mhz Latex Free Sterile Microvascular Anastomoses Joellen - [id number] Implanted:Qty: 1 on 12/05/2018 by Anders Cho MD at [facility] Right: Neck [employer] [id number] 08/07/2021 [id number] / / [id number] Synthes 503.640.01 Matrixmandible 2.4mm 10mm Self Tap Lock Mandible Screw Bone - [id number] Implanted:Qty: 2 on 12/05/2018 by Anders Cho MD at [facility] Right: Mandible Synthes I 503.640. 01 / / [employer] Liner Acet Hip Size 28 Poly Bi Mentum Altrx 53mm [id number] - [id number] Implanted:Qty: 1 on 01/03/2024 at [facility] Right: Hip [employer] 07/07/2027 [id number] / / [id number] [employer] Actis Collar Hip 7 High Offset Stem Femoral [id number] - [id number] Implanted:Qty: 1 on 01/03/2024 at [facility] Right: Hip [employer] 10/07/2033 [id number] / / [id number] [employer] Bi Mentum 53mm Press Fit Femoral Proximal Cup Acetabular [id number] - [id number] Implanted:Qty: 1 on 01/03/2024 at [facility] Right: Hip [employer] 06/07/2025 [id number] / / [id number] [employer] Articul/Minesh 28mm Cementless Hip +1.5mm /14 Taper Head Femoral Latex Free [id number] - [id number] Implanted:Qty: 1 on 01/03/2024 at [facility] Right: Hip [employer] 10/07/2028 [id number] / / [id number] Procedures Procedure Name Priority Date/Time Associated Diagnosis Comments POCT LIPID PANEL Routine 05/19/2024 10:2 4 AM CDT CAD in [place] artery EGFR Routine 01/04/2024 6:22 AM CDT HEMOGLOBIN A1C Routine 12/13/2023 9:54 AM TRAIN PLANNER Preoperative testing Type 2 diabetes mellitus without complication, without long-term current use of insulin ([facility]) ([facility]) from Last 3 Months or Most Recently [...] MD LAB BLOOD ORDERABLES Alicia l Result Performing Organization Address [facility] de Phone Number [facility] [address] [email or web address] [place] [address] * (ABNORMAL) Hemoglobin A1c (12/13/2023 9:54 AM TRAIN PLANNER) Hgb A1C 6.5(H) 4.0 - 5.6 % Estimated Average Glucose 140 mg/dL CHRIS TERRY Comment: The ADA recommends reporting an estimated Average Glucose (eAG) with all Hemoglobin A1c results using the equation derived from a study of 507 normal and diabetic adults. Minority populations were underrepresented and children were not included. (Diabetes Care 31:7015-9781, 2008). The eAG is not equivalent to a fasting glucose. Blood 12/13/2023 9:54 AM TRAIN PLANNER 12/13/2023 10:49 AM TRAIN PLANNER Norman Scott NP LAB BLOOD ORDERABLES Fin al Result Performing Organization Address [facility] de Phone Number CHRIS BJWCH [address] [email or web address] [place] [address] from Last 3 Months or Most Recently Relevant to Health Maintenance Insurance MEDICARE [facility] [place] MEDICARE [facility] MEDICARE [place] MEDIC[place] Advance Directives For more information, please contact: [phone] Documents on File Type Date Recorded Patient Template Maker Expl anation Power of Ep Specialist 07/16/2024 6:21 AM Tena nuation of first scanned poa Power of Ep Specialist 12/13/2023 7:19 AM * Full Code (Latest [...] 9:43 PM 12/13/2018 7:45 PM Care Teams Clicking Machine Operator Relationship Specialty Start Date End Date Fawad Hirsch MD [address] [place] [address] PCP - General 12/08/20 Fawad Hirsch MD [address] [place] [address] 12/08/20 Anders Cho MD [address] [facility] [address] [place] [address] Referring Physician Otolaryngology 12/03/18 Kris Quintero MD [address] [facility] [place] [address] Surgeon Vascular Surgery 06/22/22 Zulma Faye MD [address] [facility] [place] [address] Surgeon Vascular Surgery 05/19/24
--- NOTE | 2024-11-18 07:05 | ECG_ITS ---
Test Date: 2024-11-18 08:09:08 Measurements Intervals [place] Rate: 87 P: 72 OR: 192 QRS: 15 QRSD: 94 T: 32 QT: 354 QTc: 427 Interpretive Statements SINUS RHYTHM LEFT VENTRICULAR HYPERTROPHY WITH ST-T CHANGE CONSIDER ANTERIOR INFARCT, AGE INDETERMINATE BORDERLINE ST ABNORMALITY- LATERAL LEADS BASELINE ARTIFACT- I, II, AVR, AVL, AVF, V1-V2 ABNORMAL ECG Compared to ECG 11/18/2024 07:15:34 HEART RATE HAS DECREASED Electronically Signed On 11-18-2024 08:24:45 DIGITAL SALES PLANNER by Girish Tompkins D.O.
--- NOTE | 2024-11-18 07:05 | ECG_ITS ---
Test Date: 2024-11-18 07:15:34 Measurements Intervals [place] Rate: 107 P: 0 NM: 0 QRS: 35 QRSD: 96 T: 60 QT: 341 QTc: 455 Interpretive Statements SINUS OR ECTOPIC ATRIAL RHYTHM WITH FREQUENT ATRIAL PREMATURE COMPLEXES LEFT VENTRICULAR HYPERTROPHY WITH ST-T CHANGE NONSPECIFIC ST & T-WAVE ABNORMALITY- INF/LAT LEADS ABNORMAL ECG No previous ECG available for comparison Electronically Signed On 11-18-2024 08:05:08 ASSOCIATE RESEARCH SCIENTIST by Girish Tompkins D.O.
[2024-11-18] MEDS: METOPROLOL TARTRATE INJ 5 MG/5 ML VIAL IV PUSH (07:45)
[2024-11-18] MEDS: ASPIRIN 81 MG CHEWABLE TABLET 324 MG PO (07:46)
[2024-11-18] MEDS: LACTATED RINGERS 1,000 ML 999 ML IV CONT (07:49)
--- NOTE | 2024-11-18 07:57 | ECG_ITS ---
Test Date: 2024-11-18 10:43:06 Measurements Intervals [place] Rate: 70 P: 0 ME: 0 QRS: 14 QRSD: 89 T: 28 QT: 388 QTc: 419 Interpretive Statements ECTOPIC ATRIAL RHYTHM ABNORMAL ECG Compared to ECG 11/18/2024 08:09:08 Sinus rhythm no longer present Electronically Signed On 11-18-2024 10:55:43 SENIOR LEAD JAVA DEVELOPER by Girish Tompkins D.O.
[2024-11-18] MEDS: DOXYCYCLINE 100 MG/NS 100 ML 100 MG/100 ML BAG IVPB (08:01)
[2024-11-18] MEDS: METOPROLOL TARTRATE 50 MG TAB PO (08:02)
[2024-11-18 08:03] LABS: Alanine Aminotransferase 51 U/L (6-50); Alkaline Phosphatase 82 U/L (38-126); Anion Gap 15 mmol/L (4-12); Aspartate Amino Transferase 52 U/L (17-59); Bilirubin,Total 1.2 mg/dL (0.2-1.3); Blood Urea Nitrogen 26 mg/dL (9-20); Calcium 9.2 mg/dL (8.4-10.2); Carbon Dioxide 20 mmol/L (22-30); Chloride 103 mmol/L (98-107); Estimated CRCL calculation 50 ml/min; Estimated Glomerular Filt Rate > 60; Glucose 176 mg/dL (65-110); Lipase 44 U/L (23-300); Sodium 138 mmol/L (137-145)
[2024-11-18 08:04] LABS: Hematocrit 44.2 % (42.0-52.0); Hemoglobin 14.2 g/dL (14.0-18.0); Mean Corpuscular HGB Conc 32.1 g/dl (32-36); Mean Corpuscular Volume 90.4 fl (80-100); Mean Platelet Volume 10.4 fl (7.4-10.4); Platelet Count Result 256 k/mm3 (150-375); Red Blood Count 4.89 M/mm3 (4.6-6.20); Red Cell Distribution Width 14.6 % (11.5-14.5); White Blood Count 17.9 K/mm3 (4.5-10.0)
[2024-11-18 08:05] LABS: Alveolar/Arterial O2 Gradient 132.1 mmHg; Base Excess ABG -3.6 mEq/l (+/-2.0); Fractional Inspired Oxygen 32 %; HCO3 ABG 19.5 mEq/l (22.0-26.0); Oxygen Content ABG 17.4 %vol (16.0-22.0); Oxygen Saturation ABG 92.3 % (95.0-100.0); Oxyhemoglobin 89.7 % THb (90.0-100.0); PCO2 ABG 30.1 mmHg (35.0-45.0); PO2 ABG 60.8 mmHg (80.0-100.0); Total Hemoglobin 13.8 g/dL (12.0-18.0); pH ABG 7.429 (7.350-7.450)
[2024-11-18 08:06] LABS: Device NASAL CANNULA; Modified Allen's Test Pass; Site Drawn LEFT RADIAL
[2024-11-18] MEDS: cefTRIAXone 2 GM/NS 100 ML 2 GM/100 ML BAG IVPB (08:08)
[2024-11-18 08:14] LABS: NT Pro B Type Natriuretic Pept 917 pg/mL (19.9-100); Troponin I 0.021 ng/mL (0.000-0.034)
[2024-11-18 08:26] LABS: Influenza A QL RT-PCR Positive (Negative); Influenza B QL RT-PCR Negative (Negative); RSV RNA, RT-PCR Negative (Negative); SARS-CoV-2 RNA PCR Negative (Negative)
[2024-11-18 09:04] LABS: Platelet Estimate Adequate (Adequate)
[2024-11-18 09:06] LABS: Schistocytes None Seen
--- OUTSIDE RECORDS SUMMARY | 2024-11-18 09:06 | XMS_ITS | Clinical Summary ---
Author Organization [facility] Address [address] [place] [address] Care Team Providers Care Package Sealer Machine Name Role Phone Fawad Hirsch MD Primary Care Provider [phone] Source Comments [facility],non-owned Affiliates and Associated Physician Practices is amultiple site organization consisting of ambulatory clinics and hospital sitesin [place], [place], [place] and [place]. This disclosure is being madepursuant to the Care Everywhere program and may not contain all information available regarding this patient. Last updated 18.[facility] Allergies No known active allergies Medications * [...] Comments Blood Pressure 138/84 10/05/2015 3:53 PM GIS WEB DEVELOPER Pulse 78 10/05/2015 3:53 PM GIS WEB DEVELOPER Temperature - - Respiratory Rate 18 07/24/2012 11:5 0 AM CDT Oxygen Saturation 94% 07/24/2012 11: 50 AM CDT Inhaled Oxygen Concentration - - Weight 114.4 kg (252 lb 1.6 oz) 10/05/2015 3:53 PM GIS WEB DEVELOPER Height 170.2 cm (5' 7 ) 10/05/2015 3:53 PM GIS WEB DEVELOPER Body Mass Index 39.48 10/05/2015 3:53 PM GIS WEB DEVELOPER Plan of Treatment Health Maintenance Due Date [...] age to complete this topic Care Teams Package Sealer Machine Relationship Specialty Start Date End Date Fawad Hirsch MD [address] [place] [id number] PCP - General 07/23/12
--- OUTSIDE RECORDS SUMMARY | 2024-11-18 09:06 | XMS_ITS | Referral Summary ---
Author Organization [facility] Address [address] [place] [address] Care Team Providers Care Rn Examiner Name Role Phone Fawad Hirsch MD Primary Care Provider [phone] Source Comments [facility],non-owned Affiliates and Associated Physician Practices is amultiple site organization consisting of ambulatory clinics and hospital sitesin [place], [place] and [place]. This disclosure is being madepursuant to the Care Everywhere program and may not contain all information available regarding this patient. Last updated 18.[facility] Allergies No known active allergies Medications * [...] Comments Blood Pressure 138/84 10/05/2015 3:53 PM NIGHT CUSTODIAN Pulse 78 10/05/2015 3:53 PM NIGHT CUSTODIAN Temperature - - Respiratory Rate 18 07/24/2012 11:5 0 AM CDT Oxygen Saturation 94% 07/24/2012 11: 50 AM CDT Inhaled Oxygen Concentration - - Weight 114.4 kg (252 lb 1.6 oz) 10/05/2015 3:53 PM NIGHT CUSTODIAN Height 170.2 cm (5' 7 ) 10/05/2015 3:53 PM NIGHT CUSTODIAN Body Mass Index 39.48 10/05/2015 3:53 PM NIGHT CUSTODIAN Plan of Treatment Not on file Care Teams Rn Examiner Relationship Specialty Start Date End Date Fawad Hirsch MD [address] [place] [address] PCP - General 07/23/12
--- OUTSIDE RECORDS SUMMARY | 2024-11-18 09:06 | XMS_ITS | Clinical Summary ---
Author Organization [facility] Address [address] [address] Care Team Providers Care Hat Former Name Role Phone Fawad Hirsch MD Primary Care Provider [phone] Fawad Hirsch MD Unavailable [phone] Anders Cho MD Unavailable [phone] Kris Quintero MD Unavailable [phone] Zulma Faye MD Unavailable [phone] Allergies No known active allergies Medications levothyroxine [...] right hip joint 03/14/2023 Osteomyelitis 05/03/2022 A-fib (CMS/[facility]) 03/30/2022 Assessment & Plan (10/18/2022 10:34 AM IMPORT/EXPORT ADMINISTRATOR): Status post successful Watchman implant. Completed 5 months of clopidogrel, will discontinue today. Will continue ASA 81 mg daily indefinitely. Will have him follow-up in 6 months, 1 year from his implantation around March 2023. Assessment & Plan (07/06/2022 9:14 AM CDT): Controlled. Continue medical therapy. Coronary artery disease of n ative artery of [place] heart with stable angina pectoris 01/31/2022 Assessment & Plan (10/18/2022 10:35 AM IMPORT/EXPORT ADMINISTRATOR): Denies any complaints of chest pain or discomfort. Continue medical therapy with aspirin, statin, Zetia, beta-lucy, ARB. Assessment & Plan (02/01/2022 10:21 AM CDT): Stable, moderate coronary disease only, without angina. Continue same therapy. Continue diet and exercise. Acute osteomyelitis of radius ([facility]/HCC) 11/27/19 22 Arthralgia of left elbow [...] 05/17/2020 Assessment & Plan (12/10/2020 1:30 PM IMPORT/EXPORT ADMINISTRATOR): Patient underwent TAVR are in July. He is continued on anticoagulation at this time. He has started to have shortness of breath and has an appointment with his portfolio assistant this month. Assessment & Plan (10/04/2020 10:00 AM IMPORT/EXPORT ADMINISTRATOR): Patient had severe aortic stenosis and underwent TAVR. He is doing well since that time. Paroxysmal atrial flutter (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 Assessment & Plan (12/10/2020 1:29 PM IMPORT/EXPORT ADMINISTRATOR): Patient has peripheral arterial disease but is [...] call. Assessment & Plan (10/04/2020 10:00 AM IMPORT/EXPORT ADMINISTRATOR): Patient has peripheral arterial disease however at [...] 12/03/2018 Assessment & Plan (10/18/2022 10:35 AM IMPORT/EXPORT ADMINISTRATOR): Status post TAVR. Essential hypertension 12/03/2018 Assessment & Plan (07/06/2022 9:15 AM CDT): Hypertension chronic and controlled. Continue medical therapy Assessment & Plan (12/10/2020 1:30 PM IMPORT/EXPORT ADMINISTRATOR): Followed by his PCP and controlled on his current medications. Hyperlipidemia associated with type 2 diabetes mayuri adkins 12/03/2018 Assessment & Plan (02/01/2022 10:25 AM CDT): Lipids are well controlled. Continue statin therapy. Assessment & Plan (12/10/2020 1:30 PM IMPORT/EXPORT ADMINISTRATOR): Followed by his PCP and controlled on a statin. Hypertension associated with diabetes 12/03/2018 Assessment & Plan (02/01/2022 10:22 AM CDT): Blood pressure is excellent. Continue same therapy. Diabetes mellitus type II, non insulin dependent ([facility]) 12/03/2018 Assessment & Plan (12/10/2020 1:30 PM IMPORT/EXPORT ADMINISTRATOR): Followed by his PCP and controlled on his current medications. 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 Continue current medical therapy. Elbow fracture, left 07/28/2011 Hypothyroid 07/28/2011 DM type 2 (diabetes mellitus, type 2) 07/28/2011 Assessment & Plan (06/20/2021 8:38 AM CDT): Followed by his PCP and controlled on his current medications. Assessment & Plan (10/04/2020 10:00 AM IMPORT/EXPORT ADMINISTRATOR): Followed by his PCP and controlled on medications. HTN (hypertension) 07/28/2011 Assessment & Plan (06/20/2021 8:38 AM CDT): Followed by his PCP and controlled on his current medications. Assessment & Plan (10/04/2020 10:00 AM IMPORT/EXPORT ADMINISTRATOR): Followed by his PCP and controlled on medications. Metastatic neoplasm 11/02/2010 Adenocarcinoma of prostate 11/19/2007 Resolved Problems Problem Noted Date Diagnosed Date Resolved Date Chronic anticoagulation 06/24/2020 08/ Assessment & Plan (06/20/2021 8:38 AM CDT): Patient is on Xarelto and doing well at this time. Assessment & Plan (10/04/2020 10:01 AM IMPORT/EXPORT ADMINISTRATOR): Patient is on Xarelto for his new valve. He is currently doing well on this medication. Immunizations Name Administration Dates Next Due Influenza, Unspecified 07/22/2014 Pneumococcal Conjugate PCV 13 12/07/2016 Pneumococcal Conjugate, Unspecified 07/22/2014 Pneumococcal Polysaccharide PPV23 02/25/2018 Tdap 10/14/2014 Surgical History Surgery Date Site/Laterality Comments IN PROSTATE NEEDLE BIOPSY AN Y APPROACH 10/08/2007 - 10/07/2008 IN LAP,PROSTATECTOMY,RADICAL,W/N ERVE SPARE,INCL ROBOTIC 10/08/2007 - 10/07/2008 [...] on file Legal Sex Male 3:52 AM IMPORT/EXPORT ADMINISTRATOR Gender Identity Male 09/15/2020 1:37 PM IMPORT/EXPORT ADMINISTRATOR Sexual Orientation Straight 02/03/2019 5: 15 PM [...] 12/07/2016, 07/22/2014 Medical Devices Implanted Type Area Medical Billing Supervisor Device Identifier Shelf Expiration Date Model / Serial / Lot [employer] [place] Watchman Flx Procedure Device [id number] - [id number] - [id number] Implanted:Qty: 1 on 03/30/2022 by Mauri Olivia MD at [facility] Left Atrial Appendage Occluder N/A: Atrial Appendage [employer] [place] 08/31/2024 [id number] C / [id number] / [id number] [employer] [id number] Paul 3 29mm Transcatheter Valve Aortic Bovine Sterile - [id number] - [id number] Implanted:Qty: 1 on 07/08/2020 by Mauri Olivia MD at [facility] Prosthetic Valve N/A: Heart [employer] 02/15/2022 [id number] / [id number] / [id number] Description:TAVR Armijo Vascular Device Clsr Perclose Prostyle Sut-Mediatd Closure-Repair Sys 67323-25 - S0 - [id number] Implanted:Qty: 1 on 03/30/2022 by Mauri Olivia MD at [facility] Vascular Closure Device N/A: Femoral [employer] 01/06/2024 [id number] / 0 / Armijo Vascular Device Clsr Perclose Prostyle Sut-Mediatd Closure-Repair Sys 76764-24 - S0 - [id number] Implanted:Qty: 1 on 03/30/2022 by Mauri Olivia MD at [facility] Vascular Closure Device N/A: Femoral [employer] 01/06/2024 [id number] / 0 / [id number] Synthes .733 Matrixmandible 2mm 7x23 Hole Reconstruction Mandible Right Angle - [id number] Implanted:Qty: 1 on 12/05/2018 by Aden Azar DMD at [facility] Right: Mandible Synthes I [id number] / / Synthes 04.642.01 Matrixmandible 2.4mm 12mm Self Tap Lock Mandible Screw Bone - [id number] Implanted:Qty: 3 on 12/05/2018 by Aden Azar DMD at [facility] Right: Mandible Synthes I 04.503.642. / / Synthes 644. Matrixmandible 2.4mm 14mm Self Tap Lock Mandible Screw Bone - [id number] Implanted:Qty: 1 on 12/05/2018 by Aden Azar DMD at [facility] Right: Mandible Synthes I 4. / / Synthes 6. Matrixmandible 2.4mm 16mm Self Tap Lock Mandible Screw Bone - [id number] Implanted:Qty: 2 on 12/05/2018 by Aden Azar DMD at [facility] Right: Mandible Synthes I 646. / / Synthes 44. Matrixmandible 2.4mm 12mm Self Tap Mandible Screw Bone Titanium - [id number] Implanted:Qty: 1 on 12/05/2018 by Donis Estrada MD at [facility] Right: Mandible Synthes I . / / coUrbanizeian [id number] Bland Microvascular 3.5mm Ring Pin Protective Cover Jaw Assembly Latex Free - [id number] Implanted:Qty: 1 on 12/05/2018 by Anders Cho MD at [facility] Right: Neck coUrbanizeian 01/03/2023 [id number] / / [id number] [employer] [id number] Probe Doppler 17.4cm Standard Cuff Implantable 20mhz Latex Free Sterile Microvascular Anastomoses [place] - [id number] Implanted:Qty: 1 on 12/05/2018 by Anders Cho MD at [facility] Right: Neck [employer] [id number] 08/07/2021 [id number] / / [id number] Synthes . Matrixmandible 2.4mm 10mm Self Tap Lock Mandible Screw Bone - [id number] Implanted:Qty: 2 on 12/05/2018 by Anders Cho MD at [facility] Right: Mandible Synthes I . 01 / / Depuy Orthopaed[employer] Liner Acet Hip Size 28 Poly Bi Mentum Altrx 53mm [id number] - [id number] Implanted:Qty: 1 on 01/03/2024 at [facility] Right: Hip [employer]uy [employer] Inc 07/07/2027 [id number] / / [id number] [employer] Actis Collar Hip 7 High Offset Stem Femoral [id number] - [id number] Implanted:Qty: 1 on 01/03/2024 at [facility] Right: Hip [employer] 10/07/2033 [id number] / / [id number] Dep[employer] Bi Mentum 53mm Press Fit Femoral Proximal Cup Acetabular [id number] - [id number] Implanted:Qty: 1 on 01/03/2024 at [facility] Right: Hip [employer] 06/07/2025 [id number] / / [id number] [employer] Articul/Minesh 28mm Cementless Hip +1.5mm 12/14 Taper Head Femoral Latex Free [id number] - [id number] Implanted:Qty: 1 on 01/03/2024 at [facility] Right: Hip [employer] 10/07/2028 [id number] / / [id number] Procedures Procedure Name Priority Date/Time Associated Diagnosis Comments POCT LIPID PANEL Routine 05/19/2024 10:2 4 AM CDT CAD in [place] artery EGFR Routine 01/04/2024 6:22 AM CDT HEMOGLOBIN A1C Routine 12/13/2023 9:54 AM IMPORT/EXPORT ADMINISTRATOR Preoperative testing Type 2 diabetes mellitus without complication, without long-term current use of insulin ([facility]) ([facility]) from Last 3 Months or [...] LAB BLOOD ORDERABLES Alicia l Result [facility] [address] [facility]. Department [place] [address] * (ABNORMAL) Hemoglobin A1c (12/13/2023 9:54 AM IMPORT/EXPORT ADMINISTRATOR) Hgb A1C 6.5(H) 4.0 - 5.6 % Estimated Average Glucose 140 mg/dL CHRIS TERRY Comment: The ADA recommends reporting an estimated Average Glucose (eAG) with all Hemoglobin A1c results using the equation derived from a study of 507 normal and diabetic adults. Minority populations were underrepresented and children were not included. (Diabetes Care 31:3788-6849, 2008). The eAG is not equivalent to a fasting glucose. Blood 12/13/2023 9:54 AM IMPORT/EXPORT ADMINISTRATOR 12/13/2023 10:49 AM IMPORT/EXPORT ADMINISTRATOR us Norman Scott NP LAB BLOOD ORDERABLES Fin al Result Performing Organization Address City/State/[facility] Co ar Phone Number [facility] [address] [facility]. Department [place] [employer] [place] [address] from Last 3 Months or Most Recently Relevant to Health Maintenance Insurance MEDICARE [facility] MEDICARE [employer] [place] [employer] [place] [facility]IC[facility] Advance Directives For more information, please contact: [phone] Documents on File Type Date Recorded Patient Tool Repair Technician Expl anation Power of Biomedical Equipment Support Specialist 07/16/2024 6:21 AM Tena nuation of first scanned poa Power of Biomedical Equipment Support Specialist 12/13/2023 7:19 AM * Full Code [...] 9:43 PM 12/13/2018 7:45 PM Care Teams Hat Former Relationship Specialty Start Date End Date Fawad Hirsch MD [address] [place] [address] PCP - General 12/08/20 Fawad Hirsch MD [address] [place] [address] 12/08/20 Anders Cho MD [address] [facility] [address] [place] [address] Referring Physician Otolaryngology 12/03/18 Kris Quintero MD [address] [facility] [address] [facility] [place] [address] Surgeon Vascular Surgery 06/22/22 Zulma Faye MD [address] [facility] [facility] [address] [facility] [place] [address] Surgeon Vascular Surgery 05/19/24
--- OUTSIDE RECORDS SUMMARY | 2024-11-18 09:06 | XMS_ITS | CONTINUITY OF CARE DOCUMENT ---
Author Name quincy mathew Address Unknown Organization [place] [facility] Address [address] [address] Phone [phone] Care Team Providers Care Bright Cutter Name Role Phone Humaira FORRESTER, Jin Unavailable [phone] Humaira FORRESTER, Jin Unavailable CHARBEL FORRESTER, LORE Unavailable INSURANCE PROVIDERS Payer name Policy type / Coverage type Fabiana red democrat ID [id number] [id number] [place] MED[place] Medicare [id number]
--- OUTSIDE RECORDS SUMMARY | 2024-11-18 09:06 | XMS_ITS | Patient Health Record ---
Author Organization [facility] As [place] Address [address] [place] [address] Care Team Providers Care Laborer Aquatic Life Name Role Phone Joycelyn FORRESTER, Fawad Primary Care Provider Unavailab Mirlande Aguirre Unavailable [phone] LoraLiseth jinophelia Unavailable [phone] Migration, Provider Unavailable Unavailable Allergies No Known Allergies Reason For Referral No Information Medications Medication SIG (Take, Route, Frequency, Duration) Notes Start Date End Date Status Desvenlafaxine Succinate ER 100 MG 1 tablet Orally Once a day for 90 days Active Pravastatin Sodium 20 MG Oral 02/25/2024 Active Januvia 100 MG Oral 02/25/2024 Acti ve Ezetimibe 10 MG Oral 02/25/2024 Act roya Mirtazapine 15 MG 1 tablet at bedtime Oral Once a day for 90 days Active Omeprazole 40 MG Oral 02/25/2024 Ac tive Amoxicillin 500 MG Oral 02/25/2024 Active Losartan Potassium 25 MG Oral 02/25/2024 Active traZODone HCl 50 MG 1-2 tablets Oral Once a day for 90 days bedtime dose 02/25/2024 Active Synthroid 125 MCG Oral 02/25/2024 A ctive LORazepam 0.5 MG 1 tablet Orally Once a day for 30 days As needed for severe anxiety, do not take on a daily basis 09/18/2024 Active Metoprolol Succinate ER 25 MG Oral 02/25/2024 Active QUEtiapine Fumarate 50 MG 1 tablet every morning Oral Once a day for 90 days 02/25/2024 Active Meloxicam 7.5 MG Oral 02/25/2024 Ac tive ASPIRIN 81 MG TABLET *Reorder [facility] for eRx and Interaction Alerts* 02/25/2024 Active QUEtiapine Fumarate ER 50 MG 2 tablet at bedtime Oral Once a day for 7 days Not-Taking Immunizations Vaccine Route Administration Date Status Comme nts Influenza, unspecified formulation Unknown 07/22/2014 A dministered Moderna Covid-19 Vaccine 1st dose Unknown 11/16/2020 Ad ministered Moderna Covid-19 Vaccine 1st dose Unknown 12/14/2020 Ad ministered Moderna Covid-19 Vaccine 1st dose Unknown 08/18/2021 Ad ministered Moderna Covid-19 Vaccine 1st dose Unknown 01/06/2022 Ad ministered Novel [id number], preservative free Unknown 05/28/2020 Administered Pneumococcal conjugate PCV 13 Unknown 07/22/2014 Admini stered Pneumococcal conjugate PCV 13 Unknown 12/07/2016 Admini stered Pneumococcal conjugate PCV 13 Unknown 10/08/2018 Admini stered Pneumococcal polysaccharide [id number] Unknown 02/25/2018 Ad ministered Td (adult) Unknown 04/07/2014 Administered Tdap Unknown 10/14/2014 Administered Social History Tobacco Use: Social History Observation Description Date Details (start date - stop date) Never Smoker NA - NA Sex Assigned At : Social History Observation Description Sex Assigned At Male Tobacco Control (Standard) Question Answer Notes Tobacco use: Nonsmoker AUDIT-C (Standard) Question Answer Notes Did you have a drink containing alcohol in the p ast year? 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) Active confirmed Vital Signs Heart Rate 62 /min 09/18/2024 Height-cm 170.21 cm 09/18/2024 Blood pressure diastolic 55 mm Hg 09/18/2024 Weight-kg 104.33 kg 09/18/2024 Height 67.01 in 09/18/2024 Blood pressure systolic 174 mm Hg 09/18/2024 Weight 230.0 lbs 09/18/2024 BMI 36.01 kg/m2 09/18/2024 Encounters Encounter Location Date Provider Diagnosis [facility] [address] [place] [address] 09/18/2024 Thena Lora Major depressive disorder, recurrent severe without psychotic features F33.2 ; Generalized anxiety disorder F41.1 ; Obsessive-compulsive disorder, unspecified F42.9 and 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 [facility] [address] [place] [address] 01/17/2024 Provider Migration Major depressive disorder, recurrent severe without psychotic features F33.2 [facility] [address] [place] [address] 01/29/2024 Provider Migration Major depressive disorder, recurrent severe without psychotic features F33.2 [facility] [address] [place] [address] 02/25/2024 Thena Lora Primary insomnia F51.01 ; Obsessive-compulsive disorder, unspecified F42.9 ; Major depressive disorder, recurrent, unspecified F33.9 and Generalized anxiety disorder F41.1 [facility] [address] [facility] [address] [place] [address] 08/25/2024 Thena Lora [facility], [facility] [address] [place] [address] 01/16/2024 Provider Migration [facility], [facility] [address] [place] [address] 01/17/2024 Provider Migration [facility], [facility] [address] [place] [address] 01/28/2024 Provider Migration [facility], [facility] [address] [place] [address] 02/23/2024 Provider Migration [facility], [facility] [address] [facility] [address] [place] [address] 02/24/2024 Provider Migration [facility], [facility] [address] [place] [address] 05/09/2024 Thena Lora Major depressive disorder, recurrent severe without psychotic features F33.2 ; Obsessive-compulsive disorder, unspecified F42.9 and Generalized anxiety disorder F41.1 [facility] [address] [place] [address] 11/16/2024 Mirlande Quarles Major depressive disorder, recurrent severe without psychotic features F33.2 [facility] [address] [place] [address] 04/23/2024 Thena Lora Major depressive disorder, recurrent severe without psychotic features F33.2 [facility] [address] [place] [address] 05/02/2024 Thena Lora Major depressive disorder, recurrent severe without psychotic features F33.2 [facility] [address] [facility] [address] [place] [address] 05/05/2024 Thena Lora Major depressive disorder, recurrent severe without psychotic features F33.2 [facility] [address] [facility] [address] [place] [address] 05/13/2024 Thena Lora [facility] [address] [facility] [address] [place] [address] 06/16/2024 Thena Lora Major depressive disorder, recurrent severe without psychotic features F33.2 ; Obsessive-compulsive disorder, unspecified F42.9 ; Generalized anxiety disorder F41.1 and 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 [facility] [address] [facility] [address] [place] [address] 06/25/2024 Thena Lora Major depressive disorder, recurrent severe without psychotic features F33.2 [facility] [address] [facility] [address] [place] [address] 08/11/2024 Thena Lora [facility] [address] [place] [address] 08/12/2024 Thena Lora [facility], [facility] [address] [facility] [address] [place] [address] 08/19/2024 Thena Lora Major depressive disorder, recurrent severe without psychotic features F33.2 Assessments Encounter Date Diagnosis (ICD Code) Assessment Notes Treatment Notes Treatment Clinical Notes Section Notes 04/23/2024 Major depressive disorder, recurrent severe without psychotic features (ICD-10 - F33.2) 05/02/2024 Major depressive disorder, recurrent severe without psychotic features (ICD-10 - F33.2) 05/05/2024 Major depressive disorder, recurrent severe without psychotic features (ICD-10 - F33.2) 05/09/2024 Major depressive disorder, recurrent severe without psychotic features (ICD-10 - F33.2) 06/16/2024 Major depressive disorder, recurrent severe without psychotic features (ICD-10 - F33.2) 06/16/2024 Obsessive-compul sive disorder, unspecified (ICD-10 - F42.9) 06/25/2024 Major depressive disorder, recurrent severe without psychotic features (ICD-10 - F33.2) 08/19/2024 Major depressive disorder, recurrent severe without psychotic features (ICD-10 - F33.2) 09/18/2024 Major depressive disorder, recurrent severe without psychotic features (ICD-10 - F33.2) 09/18/2024 Generalized anxiety disorder (ICD-10 - F41.1) 05/09/2024 Obsessive-compul sive disorder, unspecified (ICD-10 - F42.9) 11/16/2024 Major depressive disorder, recurrent severe without psychotic features (ICD-10 - F33.2) 01/17/2024 Major depressive disorder, recurrent severe without psychotic features (ICD-10 - F33.2) 01/29/2024 Major depressive disorder, recurrent severe without psychotic features (ICD-10 - F33.2) 02/25/2024 Major depressive disorder, recurrent, unspecified (ICD-10 - F33.9) 02/25/2024 Generalized anxiety disorder (ICD-10 - F41.1) 02/25/2024 Primary insomnia (ICD-10 - F51.01) 02/25/2024 Obsessive-compul sive disorder, unspecified (ICD-10 - F42.9) 09/18/2024 Obsessive-compul sive disorder, unspecified (ICD-10 - F42.9) 06/16/2024 Generalized anxiety disorder (ICD-10 - F41.1) 05/09/2024 Generalized anxiety disorder (ICD-10 - F41.1) 06/16/2024 Insomnia related to another mental disorder (ICD-10 - F51.05) 09/18/2024 Insomnia related to another mental disorder (ICD-10 - F51.05) Plan Of Treatment Next Appt Details Provider Name:Mirlande Quarles , 03/19/2025 02:00:00 PM, [address] [facility] [facility] [facility] [address], [facility] [address], [place], [address], Insurance Providers Payer Name Payer Address Payer Phone Subscriber Number Group Number Insured Name Patient Relationship to Insured Coverage Start Date Coverage End Date Medicare-I l Medicare [address] [place] [address] [id number] ELÍAS BILLY Self - patient is the insured [place] [address] [place] [phone] [id number] ELÍAS BILLY Self - patient is the insured Medical (General) History Medical History History ICD Code Problems: Aortic valve stenosis Atrial fibrillation Generalized anxiety disorder Malignant tumor of neck Obsessive-compulsive disorder Primary insomnia Recurrent major depression , Surgical History Surgery Date(Month/Year) Any surgical history Other Cataract surgery (80396) Tonsilectomy/adenoids 10/08/2009 Myringotomy tube placement 10/08/2017 Heart surgery 08/08/2019
--- OUTSIDE RECORDS SUMMARY | 2024-11-18 09:06 | XMS_ITS | Referral Summary ---
Author Organization [facility] Address [address] [address] Care Team Providers Care Substitute Nurse Name Role Phone Fawad Hirsch MD Primary Care Provider [phone] Fawad Hirsch MD Unavailable [phone] Anders Cho MD Unavailable Kris Quintero MD Unavailable [phone] Zulma Faye MD Unavailable [phone] Allergies No known active allergies Medications levothyroxine [...] hip joint 03/14/2023 Osteomyelitis 05/03/2022 A-fib (CMS/[facility]) 03/30/2022 Assessment & Plan (10/18/2022 10:34 AM HYBRID TESTER): Status post successful Watchman implant. Completed 5 months of clopidogrel, will discontinue today. Will continue ASA 81 mg daily indefinitely. Will have him follow-up in 6 months, 1 year from his implantation around March 2023. Assessment & Plan (07/06/2022 9:14 AM CDT): Controlled. Continue medical therapy. Coronary artery disease of n ative artery of [place] heart with stable angina pectoris 01/31/2022 Assessment & Plan (10/18/2022 10:35 AM HYBRID TESTER): Denies any complaints of chest pain or discomfort. Continue medical therapy with aspirin, statin, Zetia, beta-lucy, ARB. Assessment & Plan (02/01/2022 10:21 AM CDT): Stable, moderate coronary disease only, without angina. Continue same therapy. Continue diet and exercise. Acute osteomyelitis of radius ([facility]/HCC) 11/27/19 22 Arthralgia of left elbow 11/10/2021 [...] 05/17/2020 Assessment & Plan (12/10/2020 1:30 PM HYBRID TESTER): Patient underwent TAVR are in July. He is continued on anticoagulation at this time. He has started to have shortness of breath and has an appointment with his mortgage loan computation clerk this month. Assessment & Plan (10/04/2020 10:00 AM HYBRID TESTER): Patient had severe aortic stenosis and underwent TAVR. He is doing well since that time. Paroxysmal atrial flutter ([facility]) 05/17/2020 Assessment & Plan (02/01/2022 [...] 07/07/2019 Assessment & Plan (08/25/2019 3:40 PM HYBRID TESTER): 79 yo male with SCC with unknown [...] concerns. Assessment & Plan (12/10/2020 1:29 PM HYBRID TESTER): Patient has peripheral arterial disease but is [...] call. Assessment & Plan (10/04/2020 10:00 AM HYBRID TESTER): Patient has peripheral arterial disease however at [...] 12/03/2018 Assessment & Plan (10/18/2022 10:35 AM HYBRID TESTER): Status post TAVR. Essential hypertension 12/03/2018 Assessment & Plan (07/06/2022 9:15 AM CDT): Hypertension chronic and controlled. Continue medical therapy Assessment & Plan (12/10/2020 1:30 PM HYBRID TESTER): Followed by his PCP and controlled on his current medications. Hyperlipidemia associated with type 2 diabetes mayuri adkins 12/03/2018 Assessment & Plan (02/01/2022 10:25 AM CDT): Lipids are well controlled. Continue statin therapy. Assessment & Plan (12/10/2020 1:30 PM HYBRID TESTER): Followed by his PCP and controlled on a statin. Hypertension associated with diabetes 12/03/2018 Assessment & Plan (02/01/2022 10:22 AM CDT): Blood pressure is excellent. Continue same therapy. Diabetes mellitus type II, non insulin dependent ([facility]) 12/03/2018 Assessment & Plan (12/10/2020 1:30 PM HYBRID TESTER): Followed by his PCP and controlled on his current medications. 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 Continue current medical therapy. Elbow fracture, left 07/28/2011 Hypothyroid 07/28/2011 DM type 2 (diabetes mellitus, type 2) 07/28/2011 Assessment & Plan (06/20/2021 8:38 AM CDT): Followed by his PCP and controlled on his current medications. Assessment & Plan (10/04/2020 10:00 AM HYBRID TESTER): Followed by his PCP and controlled on medications. HTN (hypertension) 07/28/2011 Assessment & Plan (06/20/2021 8:38 AM CDT): Followed by his PCP and controlled on his current medications. Assessment & Plan (10/04/2020 10:00 AM HYBRID TESTER): Followed by his PCP and controlled on medications. Metastatic neoplasm 11/02/2010 Adenocarcinoma of prostate 11/19/2007 Resolved Problems Problem Noted Date Diagnosed Date Resolved Date Chronic anticoagulation 06/24/202005/10 Assessment & Plan (06/20/2021 8:38 AM CDT): Patient is on Xarelto and doing well at this time. Assessment & Plan (10/04/2020 10:01 AM HYBRID TESTER): Patient is on Xarelto for his new [...] on file Legal Sex Male 3:52 AM HYBRID TESTER Gender Identity Male 09/15/2020 1:37 PM HYBRID TESTER Sexual Orientation Straight 02/03/2019 5: 15 PM [...] on file Medical Devices Implanted Type Area Automobile Mechanic Assistant Device Identifier Shelf Expiration Date Model / Serial / Lot [employer] [place] Watchman Flx Procedure Device Wmflxperproc - [id number] - [id number] Implanted:Qty: 1 on 03/30/2022 by Mauri Olivia MD at [facility] Left Atrial Appendage Occluder N/A: Atrial Appendage [employer] [place] 08/31/2024 [id number] C / [id number] / [id number] [employer] [id number] Paul 3 29mm Transcatheter Valve Aortic Bovine Sterile - [id number] - [id number] Implanted:Qty: 1 on 07/08/2020 by Mauri Olivia MD at [facility] Prosthetic Valve N/A: Heart [employer] 02/15/2022 [id number] / [id number] / [id number] Description:TAVR Armijo Vascular Device Clsr Perclose Prostyle Sut-Mediatd Closure-Repair Sys 44165-84 - S0 - [id number] Implanted:Qty: 1 on 03/30/2022 by Mauri Olivia MD at [facility] Vascular Closure Device N/A: Femoral [employer] 01/06/2024 [id number] / 0 / [id number] Armijo Vascular Device Clsr Perclose Prostyle Sut-Mediatd Closure-Repair Sys 25564-55 - S0 - [id number] Implanted:Qty: 1 on 03/30/2022 by Mauri Olivia MD at [facility] Vascular Closure Device N/A: Femoral [employer] 01/06/2024 [id number] / 0 [id number] Synthes 04.503.733 Matrixmandible 2mm 7x23 Hole Reconstruction Mandible Right Angle - [id number] Implanted:Qty: 1 on 12/05/2018 by Aden Azar DMD at [facility] Right: Mandible Synthes I 04.503.733 / / Synthes 04.503.642.01 Matrixmandible 2.4mm 12mm Self Tap Lock Mandible Screw Bone - [id number] Implanted:Qty: 3 on 12/05/2018 by Aden Azar DMD at [facility] Right: Mandible Synthes I 04.503.642. 01 / / Synthes 04.503.644.01 Matrixmandible 2.4mm 14mm Self Tap Lock Mandible Screw Bone - [id number] Implanted:Qty: 1 on 12/05/2018 by Aden Azar DMD at [facility] Right: Mandible Synthes I 04.503.644. 01 / / Synthes 04.503.646.01 Matrixmandible 2.4mm 16mm Self Tap Lock Mandible Screw Bone - [id number] Implanted:Qty: 2 on 12/05/2018 by Aden Azar DMD at [facility] Right: Mandible Synthes I 04.503.646. 01 / / Synthes 04.503.442.01 Matrixmandible 2.4mm 12mm Self Tap Mandible Screw Bone Titanium - [id number] Implanted:Qty: 1 on 12/05/2018 by Donis Estrada MD at [facility] Right: Mandible Synthes I 04.503.442. 01 / / [employer]ian [id number] [place] Microvascular 3.5mm Ring Pin Protective Cover Jaw Assembly Latex Free - [id number] Implanted:Qty: 1 on 12/05/2018 by Anders Cho MD at [facility] Right: Neck [employer] Allian 01/03/2023 [id number] / / [id number] [employer] [id number] Probe Doppler 17.4cm Standard Cuff Implantable 20mhz Latex Free Sterile Microvascular Anastomoses Joellen - [id number] Implanted:Qty: 1 on 12/05/2018 by Anders Cho MD at [facility] Right: Neck [employer] [id number] 08/07/2021 [id number] / / [id number] Synthes 503.640.01 Matrixmandible 2.4mm 10mm Self Tap Lock Mandible Screw Bone - [id number] Implanted:Qty: 2 on 12/05/2018 by Anders Cho MD at [facility] Right: Mandible Synthes I 503.640. 01 / / [employer] Liner Acet Hip Size 28 Poly Bi Mentum Altrx 53mm [id number] - [id number] Implanted:Qty: 1 on 01/03/2024 at [facility] Right: Hip [employer] 07/07/2027 [id number] / / [id number] [employer] Actis Collar Hip 7 High Offset Stem Femoral [id number] - [id number] Implanted:Qty: 1 on 01/03/2024 at [facility] Right: Hip [employer] 10/07/2033 [id number] / / [id number] [employer] Bi Mentum 53mm Press Fit Femoral Proximal Cup Acetabular [id number] - [id number] Implanted:Qty: 1 on 01/03/2024 at [facility] Right: Hip [employer] 06/07/2025 [id number] / / [id number] [employer] Articul/Minesh 28mm Cementless Hip +1.5mm /14 Taper Head Femoral Latex Free [id number] - [id number] Implanted:Qty: 1 on 01/03/2024 at [facility] Right: Hip [employer] 10/07/2028 [id number] / / [id number] Procedures Procedure Name Priority Date/Time Associated Diagnosis Comments POCT LIPID PANEL Routine 05/19/2024 10:2 4 AM CDT CAD in [place] artery EGFR Routine 01/04/2024 6:22 AM CDT HEMOGLOBIN A1C Routine 12/13/2023 9:54 AM HYBRID TESTER Preoperative testing Type 2 diabetes mellitus without complication, without long-term current use of insulin ([facility]) ([facility]) from Last 3 Months or [...] ORDERABLES Alicia l Result Performing Organization Address [facility] de Phone Number [facility] [address]JWCH [id number] [facility] [place] [address] * (ABNORMAL) Hemoglobin A1c (12/13/2023 9:54 AM HYBRID TESTER) Hgb A1C 6.5(H) 4.0 - 5.6 % Estimated Average Glucose 140 mg/dL CHRIS TERRY Comment: The ADA recommends reporting an estimated Average Glucose (eAG) with all Hemoglobin A1c results using the equation derived from a study of 507 normal and diabetic adults. Minority populations were underrepresented and children were not included. (Diabetes Care 31:3727-6361, 2008). The eAG is not equivalent to a fasting glucose. Blood 12/13/2023 9:54 AM HYBRID TESTER 12/13/2023 10:49 AM HYBRID TESTER Norman Scott NP LAB BLOOD ORDERABLES Fin al Result Performing Organization Address [facility] de Phone Number CHRIS BJWCH [address] [facility] [place] [address] from Last 3 Months or Most Recently Relevant to Health Maintenance Insurance MEDICARE [facility] MEDICARE [facility] MEDICARE [employer] [place] MEDICARE [facility] Address: [address] [place] [id number] [employer] [place] Advance Directives For more information, please contact: [phone] Documents on File Type Date Recorded Patient Advertising Vice President Expl anation Power of Pin Maker 07/16/2024 6:21 AM Tena nuation of first scanned poa Power of Pin Maker 12/13/2023 7:19 AM * Full Code (Latest [...] 9:43 PM 12/13/2018 7:45 PM Care Teams Substitute Nurse Relationship Specialty Start Date End Date Fawad Hirsch MD [address] [place] [address] PCP - General 12/08/20 Fawad Hirsch MD [address] [place] [address] 12/08/20 Anders Cho MD [address] [facility] [address] [place] [address] Referring Physician Otolaryngology 12/03/18 Kris Quintero MD [address] [facility] [address] [facility] [place] [address] Surgeon Vascular Surgery 06/22/22 Zulma Faye MD [address] [facility] [address] [facility] [place] [address] Surgeon Vascular Surgery 05/19/24
--- OUTSIDE RECORDS SUMMARY | 2024-11-18 09:06 | XMS_ITS | Patient Health Summary ---
Author Organization [facility] Address [address] [place] [address] Care Team Providers Care Correctional Probation Officer Name Role Phone Fawad Hirsch MD Primary Care Provider [phone] Note from [facility],non-owned Affiliates and Associated Physician Practices is amultiple site organization consisting of ambulatory clinics and hospital sitesin [place], [place], [place] and [place]. This disclosure is being madepursuant to the Care Everywhere program and may not contain all information available regarding this patient. Last updated 18.[facility] Allergies No known active allergies Medications * [...] Comments Blood Pressure 138/84 10/05/2015 3:53 PM PROVIDER ENROLLMENT SPECIALIST Pulse 78 10/05/2015 3:53 PM PROVIDER ENROLLMENT SPECIALIST Temperature - - Respiratory Rate 18 07/24/2012 11:5 0 AM CDT Oxygen Saturation 94% 07/24/2012 11: 50 AM CDT Inhaled Oxygen Concentration - - Weight 114.4 kg (252 lb 1.6 oz) 10/05/2015 3:53 PM PROVIDER ENROLLMENT SPECIALIST Height 170.2 cm (5' 7 ) 10/05/2015 3:53 PM PROVIDER ENROLLMENT SPECIALIST Body Mass Index 39.48 10/05/2015 3:53 PM PROVIDER ENROLLMENT SPECIALIST Procedures * XR HIP LEFT 2VW OR [...] LEFT 2VW OR MORE (08/20/2020 12:50 PM PROVIDER ENROLLMENT SPECIALIST) Anatomical Region Laterality Modality Pelvis, Lower Extremity Computed Radiography Narrative 08/20/2020 12:58 PM PROVIDER ENROLLMENT SPECIALIST Edwige Ricks RT(R) 08/20/2020 2:46 PM See [...] Denise Ribeiro MD MR ORDERABLES Care Teams Correctional Probation Officer Relationship Specialty Start Date End Date Fawad Hirsch MD [address] [place] [address] [facility] - General 07/23/12
--- OUTSIDE RECORDS SUMMARY | 2024-11-18 09:06 | XMS_ITS | Encounter Summary ---
Author Organization [facility] Address [address] [place] [address] Care Team Providers Care Events Director Name Role Phone Fawad Hirsch MD Primary Care Provider [phone] Fawad Hirsch MD Primary Care Provider [phone] Fawad Hirsch MD Unavailable [phone] Anders Cho MD Unavailable [phone] Kris Quintero MD Unavailable [phone] Zulma Faye MD Unavailable [phone] Encounter Details Date Type Department Care Team (Late st Contact Info) Description 06/16/2020 Telephone [facility] - Imaging [address] [place] [address] Transcribed Order, Provider Social History Tobacco Use Types Packs/Day Years Used Date Smoking Tobacco: Never Smokeless Tobacco: Never Alcohol Use Standard Drinks/Week Comments No 0 (1 standard drink = 0.6 oz pur e alcohol) Sex and Gender Information Value Date Recorded Sex Assigned at Not on file Legal Sex Male 3:52 AM BLOOD BANK LABORATORY TECHNICIAN Gender Identity Male 09/15/2020 1:37 PM BLOOD BANK LABORATORY TECHNICIAN Sexual Orientation Straight 02/03/2019 5: 15 PM CDT documented as of this encounter Plan of Treatment Not on file documented as of this encounter Visit Diagnoses Not on filedocumented in this encounter Care Teams Events Director Relationship Specialty Start Date End Date Fawad Hirsch MD [address] [place] [address] PCP - General 05/17/17 12/07/20 Fawad Hirsch MD [address] [place] [address] PCP - General 12/08/20 Fawad Hirsch MD [address] [facility] [address] [place] [address] 12/08/20 Anders Cho MD [address] [place] [address] Referring Physician Otolaryngology 12/03/18 Kris Quintero MD [address] [facility] [address] [address] [place] [address] Surgeon Vascular Surgery 06/22/22 Zulma Faye MD [address] [facility] [address] [place] [address] Surgeon Vascular Surgery 05/19/24 documented as of this encounter
--- OUTSIDE RECORDS SUMMARY | 2024-11-18 09:06 | XMS_ITS ---
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 Local tissue arrangement primary defect 8 x 2 cm, secondary defect 12 x 6 cm. Leg edema, right 01/15/2024 Arthritis of right hip 01/03/2024 Pain of right hip joint 03/14/2023 Osteomyelitis 05/03/2022 A-fib (CMS/HCC) 03/30/2022 Assessment & Plan (10/18/2022 10:34 AM OPERATIONS AND MAINTENANCE TECHNICIAN): Status post successful Watchman implant. Completed 5 months of clopidogrel, will discontinue today. Will continue ASA 81 mg daily indefinitely. Will have him follow-up in 6 months, 1 year from his implantation around March 2023. Assessment & Plan (07/06/2022 9:14 AM CDT): Controlled. Continue medical therapy. Coronary artery disease of n ative artery of [place] heart with stable angina pectoris 01/31/2022 Assessment & Plan (10/18/2022 10:35 AM OPERATIONS AND MAINTENANCE TECHNICIAN): Denies any complaints of chest pain or [...] 05/17/2020 Assessment & Plan (12/10/2020 1:30 PM OPERATIONS AND MAINTENANCE TECHNICIAN): Patient underwent TAVR are in July. He is continued on anticoagulation at this time. He has started to have shortness of breath and has an appointment with his rubber engraver this month. 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 Assessment & Plan (12/10/2020 1:29 PM OPERATIONS AND MAINTENANCE TECHNICIAN): Patient has peripheral arterial disease but is [...] call. Assessment & Plan (10/04/2020 10:00 AM OPERATIONS AND MAINTENANCE TECHNICIAN): Patient has peripheral arterial disease however at [...] 12/03/2018 Assessment & Plan (10/18/2022 10:35 AM OPERATIONS AND MAINTENANCE TECHNICIAN): Status post TAVR. Essential hypertension 12/03/2018 Assessment & Plan (07/06/2022 9:15 AM CDT): Hypertension chronic and controlled. Continue medical therapy Assessment & Plan (12/10/2020 1:30 PM OPERATIONS AND MAINTENANCE TECHNICIAN): Followed by his PCP and controlled on his current medications. Hyperlipidemia associated with type 2 diabetes mayuri lucille 12/03/2018 Assessment & Plan (02/01/2022 10:25 AM CDT): Lipids are well controlled. Continue statin therapy. Assessment & Plan (12/10/2020 1:30 PM OPERATIONS AND MAINTENANCE TECHNICIAN): Followed by his PCP and controlled on a statin. Hypertension associated with diabetes 12/03/2018 Assessment & Plan (02/01/2022 10:22 AM CDT): Blood pressure is excellent. Continue same therapy. Diabetes mellitus type II, non insulin dependent ([facility]/HCC) 12/03/2018 Assessment & Plan (12/10/2020 1:30 PM OPERATIONS AND MAINTENANCE TECHNICIAN): Followed by his PCP and controlled on his current medications. 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 Assessment & Plan (10/04/2020 9:58 AM OPERATIONS AND MAINTENANCE TECHNICIAN): Patient had osteonecrosis of his draw and [...] 06/12/2012 Assessment & Plan (10/18/2022 10:35 AM OPERATIONS AND MAINTENANCE TECHNICIAN): Normotensive today. Continue current medical therapy. Elbow fracture, left 07/28/2011 Hypothyroid 07/28/2011 DM type 2 (diabetes mellitus, type 2) 07/28/2011 Assessment & Plan (06/20/2021 8:38 AM CDT): Followed by his PCP and controlled on his current medications. Assessment & Plan (10/04/2020 10:00 AM OPERATIONS AND MAINTENANCE TECHNICIAN): Followed by his PCP and controlled on medications. HTN (hypertension) 07/28/2011 Assessment & Plan (06/20/2021 8:38 AM CDT): Followed by his PCP and controlled on his current medications. Assessment & Plan (10/04/2020 10:00 AM OPERATIONS AND MAINTENANCE TECHNICIAN): Followed by his PCP and controlled on medications. Metastatic neoplasm 11/02/2010 Adenocarcinoma of prostate 11/19/2007 Current Oncology Plans No current plan information found. Past Plans No past plan information found. Radiation Treatments * No radiation treatments are documented for this patient in [facility]. Treatments may have been administered in another [...] time. Assessment & Plan (10/04/2020 10:01 AM OPERATIONS AND MAINTENANCE TECHNICIAN): Patient is on Xarelto for his new valve. He is currently doing well on this medication.
--- OUTSIDE RECORDS SUMMARY | 2024-11-18 09:06 | XMS_ITS | Clinical Summary ---
Author Organization [facility] Address [address] [place] [id number] Care Team Providers Care Quality Engineer Medical Device Name Role Phone Unavailable Primary Care Provider [...]
[2024-11-18 09:24] LABS: INR 1.1; Prothrombin Time 14.2 Seconds (11.1-14.7)
--- NOTE | 2024-11-18 09:24 | ED.ARRPALP ---
HPI - Arrhythmia/Palpitations General Chief Complaint: Arrhythmia/Palpitations Stated Complaint: palpations Time Seen by Provider: 11/18/24 07:02 History of Present Illness HPI narrative: Patient here with shortness of breath and not feeling well last few days; coughing. h/o afib, hasn't taken this AM meds. Related Data Home Medications ?Medication ?Instructions ?Recorded ?Confirmed ?Last Taken ?Type cholecalciferol (vitamin D3) 50 2,000 unit PO DAILY 08/20/19 09/12/24 02/08/22 08:00 History mcg (2,000 unit) tablet desvenlafaxine succinate 100 mg 25 mg PO DAILY 08/20/19 09/12/24 02/08/22 08:00 History tablet,extended release 24 hr (Pristiq) trazodone 50 mg tablet 50 mg PO QHS PRN Anxiety 02/04/21 09/12/24 01/08/22 19:00 History aspirin 81 mg tablet,delayed 81 mg PO DAILY 04/22/21 09/12/24 02/08/22 08:00 History release (Adult Low Dose Aspirin) lorazepam 0.5 mg tablet 0.5 mg PO DAILY PRN Anxiety 09/09/21 09/12/24 01/08/22 16:00 History quetiapine 50 mg tablet (Seroquel) 50 mg PO QHS 01/09/22 09/12/24 02/07/22 22:00 History mirtazapine 15 mg tablet 15 mg PO HS 01/20/22 09/12/24 02/07/22 22:00 History Fish oil 1,300 mg BYMOUTH 02/28/23 09/12/24 Unknown History ibuprofen 800 mg tablet 800 mg PO Q6H PRN 02/28/23 09/12/24 Unknown History multivitamin 1 tablet PO DAILY 02/28/23 09/12/24 Unknown History Allergies Allergy/AdvReac Type Severity Reaction Status Date / Time No Known Allergies Allergy Verified 11/18/24 07:48 Review of Systems Review of Systems: All systems reviewed & are unremarkable except as noted in HPI and below PMFSH Past Medical History Medical History (Updated 11/18/24 @ 10:46 by Carina Kay MD) Dysphagia Rash DJD (degenerative joint disease) Chronic right hip pain Body mass index (BMI) 40.0-44.9, adult Mass of right hip region BMI 39.0-39.9,adult BMI 37.0-37.9, adult Rhus dermatitis Strain of left trapezius muscle Wrist pain, left Oral infection Acute UTI BMI 38.0-38.9,adult Chronic anticoagulation Paroxysmal atrial fibrillation Peripheral vascular disease Hypothyroidism Aortic valve stenosis Status post TAVR. BMI 34.0-34.9,adult Skin cancer Peripheral neuropathy BMI 36.0-36.9,adult Iron deficiency anemia Need for shingles vaccine Hearing loss of both ears BMI 35.0-35.9,adult Prostate cancer Status post prostatectomy. 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 Benign essential hypertension Hyperlipidemia Surgical History Surgical History (Reviewed 09/02/24 @ 14:40 by Chantal Schumacher [facility]) History of transcatheter aortic valve replacement (TAVR) (07/2020) History of radical neck dissection Status post surgical removal of malignant neoplasm of skin History of elbow surgery Left elbow surgery. History of total left hip arthroplasty History of bilateral knee replacement History of spinal fusion History of ventral hernia repair History of prostatectomy History of inguinal hernia repair History of bilateral cataract extraction History of colonoscopy with polypectomy History of bilateral carpal tunnel release Status post myringotomy with insertion of tube Family History Family History Mother Diabetes mellitus Hypertension Family history of cardiovascular disease Family history of diabetes mellitus in first degree relative Family history of heart disease in male family member before age 55 Sibling Hypertension Brother and sister Diabetes mellitus Brother and sister Social History Social History (Reviewed 09/02/24 @ 14:40 by Chantal Schumacher [facility]) Social History: The patient lives in [place]. He is retired from [employer]. Lifelong nonsmoker. No alcohol or illicit substance abuse. Surrogate decision maker: Jose Romo (son) or Vani Wild (significant other). Code status: Full code. Smoking status: Never smoker Second hand tobacco smoke exposure: No Alcohol intake: never Substance use: never Living arrangements: with family Spiritual care concerns: No Exam Narrative: EXAMINATION OF ORGAN SYSTEMS/BODY AREAS: Constitutional: Vital signs per nursing GENERAL: Appears dyspneic/ill HEAD: Normal with no signs of head trauma. EYES: EOMI, conjunctiva normal ENT: Hearing grossly intact LUNGS: Dyspneic HEART: Irregular and tachycardic ABD: [Soft], [nontender to palpation] EXT: Normal range of motion SKIN: [No rashes or lesions.] NEURO: [Alert and oriented x 3. No gross focal sensory or strength deficits.] PSYCH: Normal affect Course Vital Signs Vital signs: Vital Signs Temperature 97.6 F 11/18/24 06:58 Pulse Rate 148 H 11/18/24 06:58 Respiratory Rate 24 H 11/18/24 06:58 Blood Pressure 101/59 L 11/18/24 06:58 Pulse Oximetry 88 L 11/18/24 06:58 Oxygen Delivery Room Air 11/18/24 06:58 Temperature 97.6 F 11/18/24 06:58 Pulse Rate 84 11/18/24 08:16 Respiratory Rate 24 H 11/18/24 08:16 Blood Pressure 116/59 L 11/18/24 08:16 Pulse Oximetry 92 11/18/24 08:16 Oxygen Delivery Room Air 11/18/24 06:58 MDM - Arrhythmia/Palpitations MDM Narrative Medical decision making narrative: Patient presenting with URI symptoms, generalized weakness, he is found to be in AFib with RVR with rates in the 140s to 150s, small dose of metoprolol given for his home medication and his blood pressure unfortunately did drop, to the point where I did feel necessary to cardiovert him. Discussed with patient and at bedside, they have discussed that he is willing to have cardioversion and be intubated or have chest compressions if things were to get worse. Pads placed by myself and at this time patient spontaneously back to sinus rhythm on the monitors. He would intermittently go into atrial fibrillation but is no longer in RVR. He has been requiring some oxygen, I do feel he needs be admitted, discussed with hospitalist for admission. Lab Data 11/18/24 07:37 11/18/24 07:37 Labs: Lab Results 11/18/24 11/18/24 11/18/24 Range/Units 07:37 07:37 07:37 WBC 17.9 H (4.5-10.0) K/mm3 RBC 4.89 (4.6-6.20) M/mm3 Hgb 14.2 (14.0-18.0) g/dL Hct 44.2 (42.0-52.0) % MCV 90.4 (80-100) fl MCH 29.0 (26-34) pg MCHC 32.1 (32-36) g/dl RDW 14.6 H (11.5-14.5) % Plt Count 256 D (150-375) k/mm3 MPV 10.4 (7.4-10.4) fl Immature Gran % (Auto) Not Reportable Neut % (Auto) Not Reportable Lymph % (Auto) Not Reportable [place] % (Auto) Not Reportable Eos % (Auto) Not Reportable Baso % (Auto) Not Reportable Lymph # (Auto) Not Reportable [place] # (Auto) Not Reportable Eos # (Auto) Not Reportable Baso # (Auto) Not Reportable Abs Immat Gran (auto) Not Reportable Absolute Neuts (auto) Not Reportable Absolute Nucleated RBC Not Reportable Nucleated RBC % Not Reportable Platelet Estimate Adequate (Adequate) Schistocytes None seen PT 14.2 (11.1-14.7) Seconds INR 1.1 APTT 28.4 (22.3-36.8) Seconds D-Dimer Cancelled 2.96 H Sodium Cancelled 138 Potassium Cancelled Chloride Carbon Dioxide Anion Gap BUN Creatinine Estim Creat Clear Calc Estimated GFR Glucose Lactic Acid (0.7-2.0) mmol/L Calcium Total Bilirubin AST ALT Alkaline Phosphatase Troponin I NT-Pro-B Natriuret Pep Total Protein Albumin Lipase (23-300) U/L Influenza A (RT-PCR) (Negative) Influenza B (RT-PCR) (Negative) RSV (RT-PCR) (Negative) SARS-CoV-2 RNA (RT-PCR) (Negative) 11/18/24 11/18/24 11/18/24 Range/Units 07:37 07:37 07:37 WBC (4.5-10.0) K/mm3 RBC (4.6-6.20) M/mm3 Hgb (14.0-18.0) g/dL Hct (42.0-52.0) % MCV (80-100) fl MCH (26-34) pg MCHC (32-36) g/dl RDW (11.5-14.5) % Plt Count (150-375) k/mm3 MPV (7.4-10.4) fl Immature Gran % (Auto) Neut % (Auto) Lymph % (Auto) [place] % (Auto) Eos % (Auto) Baso % (Auto) Lymph # (Auto) [place] # (Auto) Eos # (Auto) Baso # (Auto) Abs Immat Gran (auto) Absolute Neuts (auto) Absolute Nucleated RBC Nucleated RBC % Platelet Estimate (Adequate) Schistocytes PT (11.1-14.7) Seconds INR APTT (22.3-36.8) Seconds D-Dimer Sodium Potassium 4.0 Chloride Cancelled 103 Carbon Dioxide Cancelled 20 L Anion Gap Cancelled BUN Creatinine Estim Creat Clear Calc Estimated GFR Glucose Lactic Acid (0.7-2.0) mmol/L Calcium Total Bilirubin AST ALT Alkaline Phosphatase Troponin I NT-Pro-B Natriuret Pep Total Protein Albumin Lipase (23-300) U/L Influenza A (RT-PCR) (Negative) Influenza B (RT-PCR) (Negative) RSV (RT-PCR) (Negative) SARS-CoV-2 RNA (RT-PCR) (Negative) 11/18/24 11/18/24 11/18/24 Range/Units 07:37 07:37 07:37 WBC (4.5-10.0) K/mm3 RBC (4.6-6.20) M/mm3 Hgb (14.0-18.0) g/dL Hct (42.0-52.0) % MCV (80-100) fl MCH (26-34) pg MCHC (32-36) g/dl RDW (11.5-14.5) % Plt Count (150-375) k/mm3 MPV (7.4-10.4) fl Immature Gran % (Auto) Neut % (Auto) Lymph % (Auto) [place] % (Auto) Eos % (Auto) Baso % (Auto) Lymph # (Auto) [place] # (Auto) Eos # (Auto) Baso # (Auto) Abs Immat Gran (auto) Absolute Neuts (auto) Absolute Nucleated RBC Nucleated RBC % Platelet Estimate (Adequate) Schistocytes PT (11.1-14.7) Seconds INR APTT (22.3-36.8) Seconds D-Dimer Sodium Potassium Chloride Carbon Dioxide Anion Gap 15 H BUN Cancelled 26 H Creatinine Cancelled 1.08 Estim Creat Clear Calc Cancelled Estimated GFR Glucose Lactic Acid (0.7-2.0) mmol/L Calcium Total Bilirubin AST ALT Alkaline Phosphatase Troponin I NT-Pro-B Natriuret Pep Total Protein Albumin Lipase (23-300) U/L Influenza A (RT-PCR) (Negative) Influenza B (RT-PCR) (Negative) RSV (RT-PCR) (Negative) SARS-CoV-2 RNA (RT-PCR) (Negative) 11/18/24 11/18/24 11/18/24 Range/Units 07:37 07:37 07:37 WBC (4.5-10.0) K/mm3 RBC (4.6-6.20) M/mm3 Hgb (14.0-18.0) g/dL Hct (42.0-52.0) % MCV (80-100) fl MCH (26-34) pg MCHC (32-36) g/dl RDW (11.5-14.5) % Plt Count (150-375) k/mm3 MPV (7.4-10.4) fl Immature Gran % (Auto) Neut % (Auto) Lymph % (Auto) [place] % (Auto) Eos % (Auto) Baso % (Auto) Lymph # (Auto) [place] # (Auto) Eos # (Auto) Baso # (Auto) Abs Immat Gran (auto) Absolute Neuts (auto) Absolute Nucleated RBC Nucleated RBC % Platelet Estimate (Adequate) Schistocytes PT (11.1-14.7) Seconds INR APTT (22.3-36.8) Seconds D-Dimer Sodium Potassium Chloride Carbon Dioxide Anion Gap BUN Creatinine Estim Creat Clear Calc 50 Estimated GFR Cancelled > 60 Glucose Cancelled 176 H Lactic Acid 3.0 H (0.7-2.0) mmol/L Calcium Cancelled Total Bilirubin AST ALT Alkaline Phosphatase Troponin I NT-Pro-B Natriuret Pep Total Protein Albumin Lipase (23-300) U/L Influenza A (RT-PCR) (Negative) Influenza B (RT-PCR) (Negative) RSV (RT-PCR) (Negative) SARS-CoV-2 RNA (RT-PCR) (Negative) 11/18/24 11/18/24 11/18/24 Range/Units 07:37 07:37 07:37 WBC (4.5-10.0) K/mm3 RBC (4.6-6.20) M/mm3 Hgb (14.0-18.0) g/dL Hct (42.0-52.0) % MCV (80-100) fl MCH (26-34) pg MCHC (32-36) g/dl RDW (11.5-14.5) % Plt Count (150-375) k/mm3 MPV (7.4-10.4) fl Immature Gran % (Auto) Neut % (Auto) Lymph % (Auto) [place] % (Auto) Eos % (Auto) Baso % (Auto) Lymph # (Auto) [place] # (Auto) Eos # (Auto) Baso # (Auto) Abs Immat Gran (auto) Absolute Neuts (auto) Absolute Nucleated RBC Nucleated RBC % Platelet Estimate (Adequate) Schistocytes PT (11.1-14.7) Seconds INR APTT (22.3-36.8) Seconds D-Dimer Sodium Potassium Chloride Carbon Dioxide Anion Gap BUN Creatinine Estim Creat Clear Calc Estimated GFR Glucose Lactic Acid (0.7-2.0) mmol/L Calcium 9.2 Total Bilirubin Cancelled 1.2 AST Cancelled 52 ALT Cancelled Alkaline Phosphatase Troponin I NT-Pro-B Natriuret Pep Total Protein Albumin Lipase (23-300) U/L Influenza A (RT-PCR) (Negative) Influenza B (RT-PCR) (Negative) RSV (RT-PCR) (Negative) SARS-CoV-2 RNA (RT-PCR) (Negative) 11/18/24 11/18/24 11/18/24 Range/Units 07:37 07:37 07:37 WBC (4.5-10.0) K/mm3 RBC (4.6-6.20) M/mm3 Hgb (14.0-18.0) g/dL Hct (42.0-52.0) % MCV (80-100) fl MCH (26-34) pg MCHC (32-36) g/dl RDW (11.5-14.5) % Plt Count (150-375) k/mm3 MPV (7.4-10.4) fl Immature Gran % (Auto) Neut % (Auto) Lymph % (Auto) [place] % (Auto) Eos % (Auto) Baso % (Auto) Lymph # (Auto) [place] # (Auto) Eos # (Auto) Baso # (Auto) Abs Immat Gran (auto) Absolute Neuts (auto) Absolute Nucleated RBC Nucleated RBC % Platelet Estimate (Adequate) Schistocytes PT (11.1-14.7) Seconds INR APTT (22.3-36.8) Seconds D-Dimer Sodium Potassium Chloride Carbon Dioxide Anion Gap BUN Creatinine Estim Creat Clear Calc Estimated GFR Glucose Lactic Acid (0.7-2.0) mmol/L Calcium Total Bilirubin AST ALT 51 H Alkaline Phosphatase Cancelled 82 Troponin I Cancelled 0.021 NT-Pro-B Natriuret Pep Cancelled Total Protein Albumin Lipase (23-300) U/L Influenza A (RT-PCR) (Negative) Influenza B (RT-PCR) (Negative) RSV (RT-PCR) (Negative) SARS-CoV-2 RNA (RT-PCR) (Negative) 11/18/24 11/18/24 11/18/24 Range/Units 07:37 07:37 07:37 WBC (4.5-10.0) K/mm3 RBC (4.6-6.20) M/mm3 Hgb (14.0-18.0) g/dL Hct (42.0-52.0) % MCV (80-100) fl MCH (26-34) pg MCHC (32-36) g/dl RDW (11.5-14.5) % Plt Count (150-375) k/mm3 MPV (7.4-10.4) fl Immature Gran % (Auto) Neut % (Auto) Lymph % (Auto) [place] % (Auto) Eos % (Auto) Baso % (Auto) Lymph # (Auto) [place] # (Auto) Eos # (Auto) Baso # (Auto) Abs Immat Gran (auto) Absolute Neuts (auto) Absolute Nucleated RBC Nucleated RBC % Platelet Estimate (Adequate) Schistocytes PT (11.1-14.7) Seconds INR APTT (22.3-36.8) Seconds D-Dimer Sodium Potassium Chloride Carbon Dioxide Anion Gap BUN Creatinine Estim Creat Clear Calc Estimated GFR Glucose Lactic Acid (0.7-2.0) mmol/L Calcium Total Bilirubin AST ALT Alkaline Phosphatase Troponin I NT-Pro-B Natriuret Pep 917 H Total Protein Cancelled 8.0 Albumin Cancelled 4.0 Lipase 44 (23-300) U/L Influenza A (RT-PCR) (Negative) Influenza B (RT-PCR) (Negative) RSV (RT-PCR) (Negative) SARS-CoV-2 RNA (RT-PCR) (Negative) 11/18/24 11/18/24 Range/Units 07:41 10:40 WBC (4.5-10.0) K/mm3 RBC (4.6-6.20) M/mm3 Hgb (14.0-18.0) g/dL Hct (42.0-52.0) % MCV (80-100) fl MCH (26-34) pg MCHC (32-36) g/dl RDW (11.5-14.5) % Plt Count (150-375) k/mm3 MPV (7.4-10.4) fl Immature Gran % (Auto) Neut % (Auto) Lymph % (Auto) [place] % (Auto) Eos % (Auto) Baso % (Auto) Lymph # (Auto) [place] # (Auto) Eos # (Auto) Baso # (Auto) Abs Immat Gran (auto) Absolute Neuts (auto) Absolute Nucleated RBC Nucleated RBC % Platelet Estimate (Adequate) Schistocytes PT (11.1-14.7) Seconds INR APTT (22.3-36.8) Seconds D-Dimer Sodium Potassium Chloride Carbon Dioxide Anion Gap BUN Creatinine Estim Creat Clear Calc Estimated GFR Glucose Lactic Acid 1.3 (0.7-2.0) mmol/L Calcium Total Bilirubin AST ALT Alkaline Phosphatase Troponin I 0.034 D NT-Pro-B Natriuret Pep Total Protein Albumin Lipase (23-300) U/L Influenza A (RT-PCR) Positive A (Negative) Influenza B (RT-PCR) Negative (Negative) RSV (RT-PCR) Negative (Negative) SARS-CoV-2 RNA (RT-PCR) Negative (Negative) ABG Data ABG results: 11/18/24 07:33 Puncture Site Left radial ABG pH 7.429 ABG pCO2 30.1 L ABG pO2 60.8 L ABG PO2/FiO2 Ratio 1.90 ABG HCO3 19.5 L ABG O2 Saturation 92.3 L ABG O2 Content 17.4 ABG Base Excess -3.6 A-a Gradient 132.1 Oxyhemoglobin 89.7 L Total Hemoglobin 13.8 O2 Delivery Device Nasal cannula O2 Liters/Min 3.0 FiO2 32 Critical Care Time Critical Care Time Critical Care Time: Yes Total Critical Care Time: 61 Discharge Plan Discharge Clinical Impression: Atrial fibrillation with rapid ventricular response, Flu, Acute hypoxemic respiratory failure Patient Disposition: Still a Patient Condition: Serious
[2024-11-18 09:25] LABS: Partial Thromboplastin Time 28.4 Seconds (22.3-36.8)
[2024-11-18 09:46] LABS: D Dimer 2.96 ug/mL (<0.48)
[2024-11-18 10:47] LABS: Reflex Lactic Acid Yes or No Add Lactic
[2024-11-18 10:57] LABS: Lactic Acid Reflex 1.3 mmol/L (0.7-2.0)
[2024-11-18 11:10] LABS: Troponin I 0.034 ng/mL (0.000-0.034)
[2024-11-18 12:08] LABS: Add Urine Microscopic? YES; Appearance Urine Clear (Clear); Bacteria Urine None Seen /hpf; Bilirubin Urine Negative (Negative); Blood Urine Non-Hemolyzed Trace (Negative); Color Urine Yellow (Yellow); Glucose Urine UA Negative (Negative); Ketones Urine Negative (Negative); Leukocyte Esterase Ur Negative LEU/UL (Negative); Need Manual Microscopic Reviewed; Nitrate Urine Negative (Negative); Non Pathogenic Casts 0-2; Protein Urine 2+ mg/dL (Negative); Specific Grav Ur > 1.045 (1.001-1.035); Squamous Epithelial Cell Urine Few /hpf (Few)
--- NOTE | 2024-11-18 14:11 | P.HP_ITS ---
H&P: HPI History of Present Illness Date/Time: 11/18/24 14:11 Chief Complaint: Shortness of breath Narrative: 84-year-old male past medical history of hypothyroidism, skin cancer, iron deficiency anemia, orthostatic hypotension, hypertension and hyperlipidemia presents the hospital for shortness of breath. Patient states that he was diagnosed with influenza and completed his 5 day course of Tamiflu yesterday. He states that his breathing has only gotten worse and does not feel like the Tamiflu helped. He also does not want breathing treatments because he said that they did not help. Patient tachypneic on 4 L nasal cannula. ED labs show leukocytosis at 17.9, D-dimer 2.96, ABG pH 7.429, pCO2 of 30.1, PO2 of 60.8, HC03 of 19.5, anion gap 15, glucose 176, lactic acid of 3.0 repeat 1.3, BNP of 917. UA showing negative for acute infection. Influenza A positive, influenza B, RSV, COVID negative. CTA chest shows no acute pulmonary embolism, ground-glass opacities with right greater than left, likely pneumonia. EKG shows Ectopic atrial rhythm rate of 70, not previously seen EKGs. Patient given in the ED aspirin, Rocephin, doxycycline, 1 L fluid bolus, 5 IV metoprolol, and 50 of p.o. metoprolol. Review of Systems Review of Systems: 12 systems were reviewed and are negativ e except for as per HPI. [facility] Past Medical History Medical History Dysphagia Rash DJD (degenerative joint disease) Chronic right hip pain Body mass index (BMI) 40.0-44.9, adult Mass of right hip region BMI 39.0-39.9,adult BMI 37.0-37.9, adult Rhus dermatitis Strain of left trapezius muscle Wrist pain, left Oral infection Acute UTI BMI 38.0-38.9,adult Chronic anticoagulation Paroxysmal atrial fibrillation Peripheral vascular disease Hypothyroidism Aortic valve stenosis Status post TAVR. BMI 34.0-34.9,adult Skin cancer Peripheral neuropathy BMI 36.0-36.9,adult Iron deficiency anemia Need for shingles vaccine Hearing loss of both ears BMI 35.0-35.9,adult Prostate cancer Status post prostatectomy. 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 Benign essential hypertension Hyperlipidemia Surgical History Surgical History History of transcatheter aortic valve replacement (TAVR) (07/2020) History of radical neck dissection Status post surgical removal of malignant neoplasm of skin History of elbow surgery Left elbow surgery. History of total left hip arthroplasty History of bilateral knee replacement History of spinal fusion History of ventral hernia repair History of prostatectomy History of inguinal hernia repair History of bilateral cataract extraction History of colonoscopy with polypectomy History of bilateral carpal tunnel release Status post myringotomy with insertion of tube Family History Family History Mother Diabetes mellitus Hypertension Family history of cardiovascular disease Family history of diabetes mellitus in first degree relative Family history of heart disease in male family member before age 55 Sibling Hypertension Brother and sister Diabetes mellitus Brother and sister Social History Social History Social History: The patient lives in [place]. He is retired from [employer]. Lifelong nonsmoker. No alcohol or illicit substance abuse. Surrogate decision maker: Jose Romo (son) or Vani Wild (significant other). Code status: Full code. Smoking status: Never smoker Second hand tobacco smoke exposure: No Alcohol intake: never Substance use: never Do You Feel Safe in your Home?: Yes Lack of Transportation: No Lack of Food: Never True Current Housing: I Have Housing Concerned About Future Housing: No Difficulty Paying Gas/Electric Bills: No Difficulty Paying for Meds: No Currently Unemployed: No Education: High School Diploma/GED Difficulty w/ Childcare or Family Care: No Living arrangements: with family Spiritual care concerns: No Meds Home Medications and Allergies Home Medications ?Medication ?Instructions ?Recorded ?Confirmed ?Type cholecalciferol (vitamin D3) 50 2,000 unit PO DAILY 08/20/19 11/18/24 History mcg (2,000 unit) tablet desvenlafaxine succinate 100 mg 100 mg PO DAILY 08/20/19 11/18/24 History tablet,extended release 24 hr (Pristiq) trazodone 50 mg tablet 50 mg PO QHS PRN Anxiety 02/04/21 11/18/24 History aspirin 81 mg tablet,delayed 81 mg PO DAILY 04/22/21 11/18/24 History release (Adult Low Dose Aspirin) lorazepam 0.5 mg tablet 0.5 mg PO DAILY PRN Anxiety 09/09/21 11/18/24 History quetiapine 50 mg tablet (Seroquel) 50 mg PO QHS 01/09/22 11/18/24 History mirtazapine 15 mg tablet 15 mg PO HS 01/20/22 11/18/24 History Fish oil 1,300 mg BYMOUTH BID 02/28/23 11/18/24 History ibuprofen 800 mg tablet 800 mg PO Q6H PRN pain 02/28/23 11/18/24 History multivitamin 1 tablet PO DAILY 02/28/23 11/18/24 History polyethylene glycol 3350 17 gram 17 g PO QAM PRN constipation #30 ea 02/28/23 11/18/24 Rx oral powder packet (Miralax) omeprazole 40 mg capsule,delayed See Rx Instructions .Route 11/08/23 11/18/24 Rx release .COMPLEX #180 caps ezetimibe 10 mg tablet See Rx Instructions .Route 07/20/24 11/18/24 Rx .COMPLEX #90 tabs losartan 25 mg tablet See Rx Instructions .Route 07/20/24 11/18/24 Rx .COMPLEX #90 tabs metoprolol succinate 25 mg 25 mg PO DAILY #90 tabs 09/02/24 11/18/24 Rx tablet,extended release 24 hr levothyroxine 125 mcg tablet See Rx Instructions .Route 10/27/24 11/18/24 Rx .COMPLEX #90 tabs pravastatin 20 mg tablet See Rx Instructions .Route 10/27/24 11/18/24 Rx .COMPLEX #90 tabs sitagliptin phosphate 100 mg See Rx Instructions .Route 10/27/24 11/18/24 Rx tablet (Januvia) .COMPLEX #90 tabs benzonatate 200 mg capsule 200 mg PO TID PRN cough #40 caps 11/12/24 11/18/24 Rx amoxicillin 500 mg capsule 500 mg PO ONCE PRN dental 11/18/24 11/18/24 History oseltamivir 75 mg capsule 75 mg PO Q12H 11/18/24 11/18/24 History Allergies Allergy/AdvReac Type Severity Reaction Status Date / Time No Known Allergies Allergy Verified 11/18/24 07:48 Vital Signs Vital Signs - 24 hr 11/18/24 06:58 11/18/24 07:08 11/18/24 07:15 Temperature 97.6 F Pulse Rate 148 H 110 H 135 H Respiratory Rate 24 H 42 H Blood Pressure 101/59 L Pulse Oximetry 88 L Oxygen Delivery Room Air Oxygen Flow Rate 11/18/24 07:17 11/18/24 07:30 11/18/24 07:40 Temperature Pulse Rate 154 H 145 H 135 H Respiratory Rate 36 H 37 H 28 H Blood Pressure 80/57 L Pulse Oximetry 90 93 93 Oxygen Delivery Oxygen Flow Rate 11/18/24 07:44 11/18/24 07:45 11/18/24 07:45 Temperature Pulse Rate 133 H 133 H 132 H Respiratory Rate 23 H 25 H Blood Pressure 75/53 L Pulse Oximetry 93 92 Oxygen Delivery Oxygen Flow Rate 11/18/24 07:46 11/18/24 07:49 11/18/24 07:58 Temperature Pulse Rate 133 H 133 H 92 Respiratory Rate 31 H 26 H Blood Pressure 79/52 L 71/47 L Pulse Oximetry 93 92 Oxygen Delivery Oxygen Flow Rate 11/18/24 08:00 11/18/24 08:01 11/18/24 08:02 Temperature Pulse Rate 84 85 86 Respiratory Rate 23 H 22 H Blood Pressure 113/58 L Pulse Oximetry 93 94 Oxygen Delivery Oxygen Flow Rate 11/18/24 08:15 11/18/24 08:16 11/18/24 11:00 Temperature Pulse Rate 87 84 64 Respiratory Rate 29 H 24 H 32 H Blood Pressure 116/59 L 124/67 Pulse Oximetry 92 92 92 Oxygen Delivery Oxygen Flow Rate 11/18/24 11:17 11/18/24 11:30 11/18/24 11:39 Temperature Pulse Rate 60 75 Respiratory Rate 22 H 23 H Blood Pressure 117/61 109/45 L Pulse Oximetry 93 94 94 Oxygen Delivery Nasal Cannula Oxygen Flow Rate 3 11/18/24 11:46 11/18/24 12:01 11/18/24 12:16 Temperature Pulse Rate 61 68 64 Respiratory Rate 21 H 33 H 28 H Blood Pressure 116/73 110/73 120/45 L Pulse Oximetry 93 94 96 Oxygen Delivery Oxygen Flow Rate 11/18/24 12:31 11/18/24 12:46 11/18/24 13:31 Temperature Pulse Rate 62 70 62 Respiratory Rate 31 H 24 H 25 H Blood Pressure 126/60 134/74 117/56 L Pulse Oximetry 93 92 93 Oxygen Delivery Oxygen Flow Rate 11/18/24 13:46 Temperature Pulse Rate 63 Respiratory Rate 29 H Blood Pressure 107/54 L Pulse Oximetry 92 Oxygen Delivery Oxygen Flow Rate Exam Narrative: General: Mild distress HEENT: normocephalic, atraumatic. Mucous membranes moist. EOMI, PERRLA, bilateral sclera anicteric, no conjunctival injection. Neck supple without JVD, lymphadenopathy, or bruit. Respiratory: clear to ascultation bilaterally. No rales/rhonic/wheezes. Cardiovascular: Regular rate and rhythm, normal S1-S2 upon ascultation. No murmurs, rubs, or clicks. PMI is nondisplaced, capillary refill less than 3 second. Abdomen: Soft, round, no pulsatile masses, nondistended and nontender. No rebound, no guarding. No CVA tenderness, no hepatosplenomegaly. Bowel sounds present to all four quadrants. No high pitch or tinkling sounds, resonant to percussion. Extremities: No cyanosis, clubbing, or edema present. Pulses are palpable 2/2. Active ROM to all four extremities. Neuro: Alert and orientated x 4. PERRLA. Cranial nerves 2-12 intact without focal deficit. Skin: Warm, dry, and intact, without rash, erythema, or lesion. Psych: pleasant, cooperative, normal speech, normal affect, no hallucinations, no dysarthia H&P: Results Labs Labs: Short CBC 11/18/24 Range/Units 07:37 WBC 17.9 H (4.5-10.0) K/mm3 Hgb 14.2 (14.0-18.0) g/dL Hct 44.2 (42.0-52.0) % Plt Count 256 D (150-375) k/mm3 BMP 11/18/24 11/18/24 11/18/24 07:37 07:37 07:37 Sodium Cancelled 138 Potassium Cancelled 4.0 Chloride Cancelled Carbon Dioxide BUN Creatinine Glucose Calcium 11/18/24 11/18/24 11/18/24 07:37 07:37 07:37 Sodium Potassium Chloride 103 Carbon Dioxide Cancelled 20 L BUN Cancelled 26 H Creatinine Cancelled Glucose Calcium 11/18/24 11/18/24 11/18/24 07:37 07:37 07:37 Sodium Potassium Chloride Carbon Dioxide BUN Creatinine 1.08 Glucose Cancelled 176 H Calcium Cancelled 9.2 Cardiac Enzymes 11/18/24 11/18/24 11/18/24 Range/Units 07:37 07:37 10:40 Troponin I Cancelled 0.021 0.034 D Liver Function 11/18/24 11/18/24 11/18/24 Range/Units 07:37 07:37 07:37 Total Bilirubin Cancelled 1.2 AST Cancelled 52 ALT Cancelled Alkaline Phosphatase Albumin 11/18/24 11/18/24 11/18/24 Range/Units 07:37 07:37 07:37 Total Bilirubin AST ALT 51 H Alkaline Phosphatase Cancelled 82 Albumin Cancelled 4.0 Urine 11/18/24 Range/Units 11:39 Urine Color Yellow (Yellow) Urine Appearance Clear (Clear) Urine pH 5.0 (5.0-9.0) Ur Specific [place] > 1.045 H (1.001-1.035) Urine Protein 2+ H (Negative) mg/dL Urine Glucose (UA) Negative (Negative) mg/dL Assessment and Plan Assessment and plan (1) Flu: Code(s): J11.1 - Influenza due to unidentified influenza virus with other respiratory manifestations Status: Acute Assessment and Plan: Patient declined 10 day course of Tamiflu Patient declines scheduled breathing treatments will order p.r.n. Patient declined guaifenesin tabs will order Robitussin (2) Pneumonia: Code(s): J18.9 - Pneumonia, unspecified organism Status: Acute Assessment and Plan: Started on Rocephin doxycycline IV in the ED Continue Rocephin P.o. doxy (3) Acute hypoxemic respiratory failure: Code(s): J96.01 - Acute respiratory failure with hypoxia Status: Acute Assessment and Plan: Secondary to above (4) Atrial fibrillation with rapid ventricular response: Code(s): I48.91 - Unspecified atrial fibrillation Status: Acute Assessment and Plan: Given 5 IV metoprolol and 50 p.o. metoprolol in the ED Now with atopic sinus rhythm Telemetry monitoring Home dose 25 mg reordered, adjust as needed (5) Hypothyroidism (acquired): Code(s): E03.9 - Hypothyroidism, unspecified Status: Acute Assessment and Plan: Resume levothyroxine (6) Iron deficiency anemia: Qualifiers: Iron deficiency anemia type: chronic blood loss Qualified Code(s): D50.0 - Iron deficiency anemia secondary to blood loss (chronic) Code(s): D50.9 - Iron deficiency anemia, unspecified Status: Acute Assessment and Plan: Likely hemoconcentrated from dehydration Hemoglobin 14.2 IVF Repeat CBC in the morning (7) Diabetes: Code(s): E11.9 - Type 2 diabetes mellitus without complications Status: Acute Assessment and Plan: Hold home anti hyperglycemic medications while in hospital Accu-Cheks a.cDina HS SSI with meals, bedtime insulin may need to be added (8) Dysphagia: Qualifiers: Dysphagia type: unspecified Qualified Code(s): R13.10 - Dysphagia, unspecified Code(s): R13.10 - Dysphagia, unspecified Status: Acute Assessment and Plan: Secondary to throat and jaw cancer Level 6 diet diabetic (9) Chronic back pain: Qualifiers: Back pain laterality: unspecified Back pain location: back pain in unspecified location Qualified Code(s): M54.9 - Dorsalgia, unspecified; G89.29 - Other chronic pain Code(s): M54.9 - Dorsalgia, unspecified; G89.29 - Other chronic pain Status: Acute Assessment and Plan: Tylenol and Percocet ordered (10) Anxiety: Code(s): F41.9 - Anxiety disorder, unspecified Status: Acute Assessment and Plan: Continue home Seroquel, trazodone, Ativan as needed Plan A.m. labs ordered Quality VTE Prophylaxis VTE prophylaxis: mechanical ordered and pharmacologic ordered Hospitalist MIPS Advance Care Plan I have confirmed that the patient's Advanced Care Plan is present, code status is documented, or surrogate decision maker is listed in patient medical record.: Yes Medication Reconciliation I have utilized all available resources to obtain, update and review the patients current medications (includes all prescriptions, OTC, herbals, cannabis, and nutritional supplements).: Yes
--- NOTE | 2024-11-18 14:44 | ECG_ITS ---
Test Date: 2024-11-18 14:57:43 Measurements Intervals [place] Rate: 64 P: 40 AL: 225 QRS: 21 QRSD: 97 T: 62 QT: 407 QTc: 420 Interpretive Statements SINUS RHYTHM WITH FIRST DEGREE AV BLOCK LEFT VENTRICULAR HYPERTROPHY WITH ST-T CHANGE CONSIDER INFERIOR INFARCT, AGE INDETERMINATE BASELINE ARTIFACT- I, II, III, AVR, AVL ABNORMAL ECG Compared to ECG 11/18/2024 10:43:06 ECTOPIC ATRIAL RHYTHM NO LONGER PRESENT First degree AV block now present Electronically Signed On 11-18-2024 15:08:41 TOOL SHAPER SETUP OPERATOR by Girish Tompkins D.O.
--- NOTE | 2024-11-18 15:06 | ADMGEN ---
This patient, Mitch Romo, was admitted to Intensive Care Unit-4. Patient/family oriented to hospital policies and general routines including ID bracelet, bed and alarms, visiting hours, pain management, procedures, bathroom and other care routines, personal items, smoking policy, room service/diet, and visiting hours. Information on how to activate the Rapid Response Team has been discussed. Patient/Family are encouraged to report perceived risks to care and to ask questions if they do not understand what they are told or what they should do.
[2024-11-18 15:12] LABS: Troponin I 0.046 ng/mL (0.000-0.034)
[2024-11-18 16:48] LABS: Glucose Point of Care 127 mg/dl (65-105)
[2024-11-18 20:07] LABS: Glucose Point of Care 163 mg/dl (65-105)
[2024-11-19] VITALS (17 sets, daily range): BP systolic 124–169; BP diastolic 61–96; PULSE 62–84; RESP 18–29; TEMP 36.4–36.8; O2SAT 92–96
--- NOTE | 2024-11-19 | ECHO_ITS ---
Patient Info Name: Mitch Romo Age: 84 years : 1940 Gender: Male Ht: 66 in Wt: 227 lbs BSA: 2.23 m2 HR: 84 bpm BP: 157 / 65 mmHg Heart Rhythm: Atrial Fibrillation Technical Quality: Good Exam Date: 11/19/2024 11:58 AM Exam Location: Echo Lab Exam Room: ICU 4 Patient Status: Inpatient Admit Date: 11/18/2024 Staff Ordering Physician: Mary Day MD [employer] Coach: Jessica Cloud RDCS Attending Provider: Phoebe Stone MD Referring Physician: Shay NAYLOR; Exam Type: CA echo doppler color flow Study Info Indications - Afib with RVR Complete two-dimensional, color flow and Doppler transthoracic echocardiogram is performed. Summary 1. Complete two-dimensional, color flow and Doppler transthoracic echocardiogram is performed. 2. There is normal biventricular size and systolic function. 3. 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 Left Ventricle The left ventricle is normal in size and systolic function. The left ventricular ejection fraction is visually estimated to be 55-60%. Right Ventricle The right ventricle is normal in size and systolic function. Left Atria The left atrium is normal size. Right Atria The right atrium is normal size. Atrial Septum The atrial septum is not well visualized. Aortic Valve There is a well-seated prosthesis in the aortic valve position. There is no hemodynamically significant stenosis or regurgitation through the bioprosthetic valve. Pulmonic Valve The pulmonic valve is not well visualized. There is no color Doppler evidence of pulmonic valve regurgitation. Mitral Valve The mitral valve appears grossly normal. There is posterior mitral annular calcification. There is no significant mitral regurgitation in this study. Tricuspid Valve The tricuspid valve is grossly normal. There is trace tricuspid regurgitation. Pericardium/Pleural Pericardium is normal in appearance with no evidence for significant pericardial effusion. Inferior Vena Cava Normal inferior vena cava with >50% collapse upon inspiration consistent with normal right atrial pressure, 3 mmHg. Aorta The aortic root is not well visualized. Left Ventricular Outflow Tract Name Value Normal LVOT 2D LVOT Diameter 2.2 cm LVOT Doppler LVOT Peak Gradient 3 mmHg LVOT Mean Gradient 2 mmHg LVOT VTI 23 cm LVOT VTI/AV VTI Ratio 0.4 LVOT Stroke Volume 87 ml LVOT CO 4.6 l/min LVOT CI 2.1 l/min/m2 Pulmonic Valve Name Value Normal PV Doppler PV Peak Gradient 3 mmHg Mitral Valve Name Value Normal MV Doppler MV Peak Gradient 5 mmHg MV Mean Gradient 2 mmHg MV Decel [place] 544 cm/s2 MV PHT 49 ms MV Area (PHT) 4.5 cm2 4.0-5.0 MV Area (Cont Eq VTI) 2.5 cm2 MV Regurgitation Doppler MR Peak Gradient 99 mmHg MV Diastolic Function MV E Peak Velocity 92 cm/s MV A Peak Velocity 73 cm/s MV E/A 1.3 MV Decel Time 169 ms MV Annular TDI MV E/e' (Septal) 16.6 <=8.0 MV E/e' (Lateral) 12.2 <=8.0 MV E/e' (Average) 14.4 Tricuspid Valve Name Value Normal TV Regurgitation Doppler TR Peak Velocity 352 cm/s TR Peak Gradient 50 mmHg Estimated PAP/RSVP RA Pressure 3 mmHg <=5 PA Systolic Pressure 53 mmHg <36 RV Systolic Pressure 53 mmHg <36 Aortic Valve Name Value Normal AV Doppler AV Peak Velocity 262 cm/s AV Peak Gradient 22 mmHg AV Mean Gradient 11 mmHg AV VTI 55 cm AV Area (Cont Eq VTI) 1.6 cm2 >=3.0 AV Area (Cont Eq Tank) 1.3 cm2 AV Regurgitation 2D LVOT Area 3.8 cm2 Ventricles Name Value Normal LV Dimensions 2D/MM IVS Diastolic Thickness (2D) 0.9 cm 0.6-1.0 LVID Diastole (2D) 5.0 cm 4.2-5.8 LVIW Diastolic Thickness (2D) 0.9 cm 0.6-1.0 LVID Systole (2D) 3.9 cm 2.5-4.0 LVOT Diameter 2.2 cm LV Mass (2D Cubed) 156.14 g 88.00-224.00 LV Mass Index (2D Cubed) 70 g/m2 49-115 Relative Wall Thickness (2D) 0.36 LV Fractional Shortening/Ejection Fraction 2D/MM LV Fractional Shortening (2D) 21 % 25-43 LV EF (2D Teicholz) 42 % 52-72 LV Diastolic Volume (4C MOD) 161 ml LV EF (4C MOD) 65 % LV Diastolic Length (4C) 8.8 cm LV Systolic Length (4C) 7.4 cm LV Stroke Volume (4C MOD) 105 ml Atria Name Value Normal LA Dimensions LA Volume (4C A-L) 75 ml RA Dimensions RA Area (4C) 19.3 cm2 <=18.0 Report Signatures
[2024-11-19 05:15] LABS: Basophils Percent Auto 0.2 % (0.2-1.2); Eosinophils Absolute Auto 0.1 K/mm3 (0-0.3); Eosinophils Percent Auto 0.8 % (0-4.4); Hematocrit 38.4 % (42.0-52.0); Hemoglobin 12.6 g/dL (14.0-18.0); Immature Granulocyte Absolute 0.08 K/mm3 (0.00-0.031); Immature Granulocyte Percent A 0.7 % (0-0.5); Lymphocytes Absolute Auto 0.86 K/mm3 (0.9-3.2); Lymphocytes Percent Auto 7.1 % (18.3-44.2); Mean Corpuscular HGB Conc 32.8 g/dl (32-36); Mean Corpuscular Hemoglobin 29.6 pg (26-34); Mean Corpuscular Volume 90.4 fl (80-100); Mean Platelet Volume 10.2 fl (7.4-10.4); Monocytes Absolute Auto 0.4 K/mm3 (0.1-0.6); Monocytes Percent Auto 3.5 % (2.6-8.5); Neutrophils Absolute Auto 10.6 K/mm3 (1.3-6.7); Neutrophils Percent Auto 87.7 % (45.5-73.1); Platelet Count Result 228 k/mm3 (150-375); Red Blood Count 4.25 M/mm3 (4.6-6.20); Red Cell Distribution Width 14.8 % (11.5-14.5); White Blood Count 12.1 K/mm3 (4.5-10.0)
[2024-11-19 05:23] LABS: Anion Gap 8 mmol/L (4-12); Blood Urea Nitrogen 24 mg/dL (9-20); Calcium 8.6 mg/dL (8.4-10.2); Carbon Dioxide 29 mmol/L (22-30); Chloride 102 mmol/L (98-107); Estimated CRCL calculation 64 ml/min; Estimated Glomerular Filt Rate > 60; Glucose 126 mg/dL (65-110); Potassium 3.9 mmol/L (3.4-5.0); Sodium 139 mmol/L (137-145)
[2024-11-19] MEDS: LEVOTHYROXINE SODIUM 125 MCG TABLET BY MOUTH (06:27)
[2024-11-19 07:52] LABS: Glucose Point of Care 126 mg/dl (65-105)
[2024-11-19] MEDS: DESVENLAFAXINE SUCCINATE 50 MG TAB.ER.24H 100 MG PO (09:00)
[2024-11-19] MEDS: PRAVASTATIN SODIUM 20 MG TABLET PO (09:11)
[2024-11-19] MEDS: ENOXAPARIN 40 MG/0.4 ML SYRINGE SUB-Q (09:11)
[2024-11-19] MEDS: EZETIMIBE 10 MG TABLET PO (09:12)
[2024-11-19] MEDS: DOXYCYCLINE HYCLATE 100 MG TABLET PO (09:12)
[2024-11-19] MEDS: DOCUSATE SODIUM 100 MG CAPSULE PO (09:12)
[2024-11-19] MEDS: OSELTAMIVIR PHOSPHATE 30 MG CAPSULE PO (09:12)
[2024-11-19] MEDS: METOPROLOL SUCCINATE EXT REL 25 MG TABCR PO (09:12)
[2024-11-19] MEDS: ASPIRIN 81 MG ENTERIC TABLET PO (09:12)
[2024-11-19] MEDS: LOSARTAN POTASSIUM 25 MG TABLET PO (09:12)
[2024-11-19] MEDS: cefTRIAXone 2 GM/NS 100 ML 2 GM/100 ML BAG IVPB (09:13)
--- NOTE | 2024-11-19 11:47 | PCSTNOTE ---
Please refer to the Bedside Swallow Evaluation in the EMR. Please note, silent aspiration cannot be ruled out at bedside. Pt was seen for a swallow evaluation at the bedside; pt is in ICU but was sitting up in a chair for the test and was A & O. He was able to describe his h/o head/neck cancer, subsequent jaw surgery and radiation. He reported his throat CA and radiation were at least 25 years ago. He denied having difficulty swallowing before admission but stated that changing his diet to soft has helped him swallow upon admission. He was tested with ice chips, 5ml water, pudding, applesauce, and a bite-size piece of cracker, in controlled amounts via a spoon. He was also tested with water/thin liquid in uncontrolled amounts via a cup sip and a straw. The oral stages were within functional limits; during the pharyngeal stage, the trigger of the swallow appeared prompt but laryngeal elevation was questionably adequate. Intermittent and delayed cough occurred after the swallows of the uncontrolled thin liquid and cracker. ST determined that given the intermittent overt s/s of aspiration and the h/o throat CA with radiation, an MBS should be completed. Upon ST leaving room pt was excessively coughing. An MBS will accurately determine a safe diet and appropriate plan of care. Impression: dysphagia suspected; degree to be determined via MBS Recommendation: NPO until MBS.
[2024-11-19 11:59] LABS: Glucose Point of Care 146 mg/dl (65-105)
--- NOTE | 2024-11-19 12:19 | P.PNIM_ITS ---
Progress Note: A&P Assessment and Plan (1) Flu: Code(s): J11.1 - Influenza due to unidentified influenza virus with other respiratory manifestations Status: Acute Assessment and Plan: Continue Tamiflu P.r.n. bronchodilators (2) Pneumonia: Code(s): J18.9 - Pneumonia, unspecified organism Status: Acute Assessment and Plan: Continue ceftriaxone, and doxycycline (3) Acute hypoxemic respiratory failure: Code(s): J96.01 - Acute respiratory failure with hypoxia Status: Acute Assessment and Plan: Likely secondary to pneumonia -possible aspiration as patient failued his bedside swallow test, speech therapy recommended modified barium swallow (4) Atrial fibrillation with rapid ventricular response: Code(s): I48.91 - Unspecified atrial fibrillation Status: Acute Assessment and Plan: Patient was in AFib RVR on admission. Given 5 IV metoprolol and 50 p.o. metoprolol in the ED Currently in sinus rhythm, rate controlled Telemetry monitoring Continue home metoprolol (5) Hypothyroidism (acquired): Code(s): E03.9 - Hypothyroidism, unspecified Status: Acute Assessment and Plan: Continue levothyroxine (6) Iron deficiency anemia: Qualifiers: Iron deficiency anemia type: chronic blood loss Qualified Code(s): D50.0 - Iron deficiency anemia secondary to blood loss (chronic) Code(s): D50.9 - Iron deficiency anemia, unspecified Status: Acute Assessment and Plan: Likely hemoconcentrated from dehydration Hemoglobin 14.2 IVF Hemoglobin 12.6, no acute bleeding noted, platelet counts are within normal limit. INR was normal at 1.1 (7) Diabetes: Code(s): E11.9 - Type 2 diabetes mellitus without complications Status: Acute Assessment and Plan: Hold home anti hyperglycemic medications while in hospital Accu-Cheks a.c. HS Continue Accu-Cheks and sliding scale insulin (8) Dysphagia: Qualifiers: Dysphagia type: unspecified Qualified Code(s): R13.10 - Dysphagia, unspecified Code(s): R13.10 - Dysphagia, unspecified Status: Acute Assessment and Plan: Secondary to throat and jaw cancer Currently NPO -speech recommended modified barium swallow test (9) Chronic back pain: Qualifiers: Back pain location: back pain in unspecified location Back pain laterality: unspecified Qualified Code(s): M54.9 - Dorsalgia, unspecified; G89.29 - Other chronic pain Code(s): M54.9 - Dorsalgia, unspecified; G89.29 - Other chronic pain Status: Acute Assessment and Plan: Tylenol and Percocet ordered (10) Anxiety: Code(s): F41.9 - Anxiety disorder, unspecified Status: Acute Assessment and Plan: Continue home Seroquel, trazodone, Ativan as needed Plan Patient be transferred to [facility] Date/time seen: 11/19/24 12:19 Interval history: 84-year-old male past medical history of hypothyroidism, skin cancer, iron deficiency anemia, orthostatic hypotension, hypertension and hyperlipidemia presents the hospital for shortness of breath. Patient states that he was diagnosed with influenza and completed his 5 day course of Tamiflu yesterday. He states that his breathing has only gotten worse and does not feel like the Tamiflu helped. Started on antibiotics displacing the intermediate Unit Patient being seen for hospitalist group: Patient seen and examined, is awake, alert, oriented, states he feels much better. WBC count is trending down, AFib RVR has resolved, currently in sinus rhythm, rate controlled. Remains on 4 L nasal cannula with good O2 sats. Urine output has been adequate. Denies any chest pain, shortness of breath, abdominal pain, nausea, vomiting. Request to get up and go to the washroom Review of Systems Review of Systems: All systems reviewed & are unremarkable except as noted in HPI and below Exam Narrative: General: Pleasant gentleman in no acute days HEENT: Pupils are equal and reactive, sclera is clear, moist oral mucosa, neck is supple, Respiratory: Coarse breath sounds at bases otherwise clear, no wheezing. Cardiovascular: Regular rate and rhythm, normal S1-S2 Abdomen: Soft, protuberant/obese, nontender normoactive bowel sounds Extremities: No edema or cyanosis of the extremities , palpable pedal pulses. Active ROM to all four extremities. Neuro: Alert and orientated x 4. PERRLA. Nonfocal Skin: Warm, dry, no lesions noted Psych: pleasant, cooperative, normal speech, normal affect, Objective Data Vital Signs Vital Signs: Vital Signs - 24 hr 11/18/24 12:31 11/18/24 12:46 11/18/24 13:31 Temperature Pulse Rate 62 70 62 Respiratory Rate 31 H 24 H 25 H Blood Pressure 126/60 134/74 117/56 L Pulse Oximetry 93 92 93 Oxygen Delivery Oxygen Flow Rate 11/18/24 13:46 11/18/24 14:42 11/18/24 14:47 Temperature Pulse Rate 63 69 Respiratory Rate 29 H Blood Pressure 107/54 L 120/68 Pulse Oximetry 92 93 Oxygen Delivery Nasal Cannula Oxygen Flow Rate 4 11/18/24 16:00 11/18/24 16:00 11/18/24 17:57 Temperature 97.7 F Pulse Rate 63 69 68 Respiratory Rate 23 H Blood Pressure 132/55 L Pulse Oximetry 92 Oxygen Delivery Oxygen Flow Rate 11/18/24 20:00 11/18/24 20:00 11/18/24 20:45 Temperature 98 F Pulse Rate 70 70 68 Respiratory Rate 22 H 18 Blood Pressure 130/63 Pulse Oximetry 92 100 Oxygen Delivery Nasal Cannula Oxygen Flow Rate 4 11/18/24 22:00 11/19/24 00:00 11/19/24 00:00 Temperature 97.9 F Pulse Rate 71 71 62 Respiratory Rate 18 23 H Blood Pressure 141/61 H Pulse Oximetry 93 95 Oxygen Delivery Nasal Cannula Oxygen Flow Rate 4 11/19/24 00:00 11/19/24 02:00 11/19/24 03:50 Temperature Pulse Rate 71 69 68 Respiratory Rate 24 H Blood Pressure Pulse Oximetry 96 Oxygen Delivery Nasal Cannula Oxygen Flow Rate 4 11/19/24 04:00 11/19/24 04:00 11/19/24 06:00 Temperature 98.1 F Pulse Rate 62 62 84 Respiratory Rate 18 Blood Pressure 157/65 H Pulse Oximetry 94 Oxygen Delivery Oxygen Flow Rate 11/19/24 08:00 11/19/24 09:08 11/19/24 09:12 Temperature 97.6 F Pulse Rate 63 83 Respiratory Rate 22 H Blood Pressure 169/79 H Pulse Oximetry 94 93 Oxygen Delivery Nasal Cannula Oxygen Flow Rate 4 Intake/Output Intake/Output: Intake & Output 11/16/24 11/17/24 11/18/24 11/19/24 23:59 23:59 23:59 23:59 Intake Total 1450 400 Output Total 250 600 Balance 1200 -200 Meds/Results Medications: Active Medications Generic Name Dose Route Start Last Admin Trade Name Freq PRN Reason Stop Dose Admin Acetaminophen 650 mg 11/18/24 14:28 Acetaminophen 325 Mg Tablet PO Q4H PRN Mild Pain (1-3) or Fever Hydrocodone Bitart/Acetaminophen 1 tab 11/18/24 14:28 Hydrocodone/Acetaminophen (*Crx) 5-325 Mg Tablet PO Q4H PRN Moderate Pain (4-6) Aspirin 81 mg 11/19/24 09:00 11/19/24 09:12 Aspirin 81 Mg Enteric Tablet PO 81 mg DAILY YFN Administration Benzonatate 200 mg 11/19/24 00:51 Benzonatate 100 Mg Capsule PO TID PRN cough Desvenlafaxine Succinate 100 mg 11/19/24 09:00 Desvenlafaxine Succinate 50 Mg Tab.Er.24h PO QAM YFN Dextrose 12.5 gm 11/18/24 14:28 Dextrose 50% 25 Gm/50 Ml Syringe IV PUSH PRN PRN Hypoglycemia Protocol Docusate Sodium 100 mg 11/18/24 17:00 11/19/24 09:12 Docusate Sodium 100 Mg Capsule PO 100 mg BID YFN Administration Doxycycline Hyclate 100 mg 11/18/24 21:00 11/19/24 09:12 Doxycycline Hyclate 100 Mg Tablet PO 100 mg Q12HR YFN Administration Ezetimibe 10 mg 11/19/24 09:00 11/19/24 09:12 Ezetimibe 10 Mg Tablet PO 10 mg DAILY YFN Administration Enoxaparin Sodium 40 mg 11/19/24 09:00 11/19/24 09:11 Enoxaparin 40 Mg/0.4 Ml Syringe SUB-Q 40 mg DAILY YFN Administration Glucagon 1 mg 11/18/24 14:28 Glucagon For Inj 1 Mg Vial IM PRN PRN Hypoglycemia Protocol Glucose 15 gm 11/18/24 14:28 Glucose Oral Gel 15 Gm Of Glucse In 37.5 Gm Tube PO PRN PRN Hypoglycemia Protocol Dextrose 1,000 mls @ 100 mls/hr 11/18/24 14:28 Dextrose 5% 1,000 Ml IVPB PRN PRN Hypoglycemia Protocol Ceftriaxone Sodium 2 gm in 100 mls @ 200 mls/hr 11/19/24 09:00 11/19/24 09:13 Rocephin 2 Gm/Ns 100 Ml IVPB 200 mls/hr Q24H YFN Administration Insulin Aspart 2 - 5 units 11/18/24 17:00 11/19/24 09:10 Insulin Aspart (*Bkc) 100 Units/Ml SUB-Q Not Given [facility]IDWM [facility] Protocol Ipratropium [place] 0.5 mg 11/19/24 10:20 Ipratropium Br 0.02% Inh Soln 0.5 Mg/2.5 Ml Vial INHALATION Q6HRT YFN Levalbuterol HCl 0.63 mg 11/19/24 10:20 Levalbuterol Neb 1.25 Mg/3 Ml INHALATION Q6HRT YFN Levothyroxine Sodium 125 mcg 11/19/24 06:30 11/19/24 06:27 Levothyroxine Sodium 125 Mcg Tablet BY MOUTH 125 mcg DAILY@0630 YFN Administration Lorazepam 0.5 mg 11/19/24 00:40 Lorazepam (*Crx) 0.5 Mg Tablet PO DAILY PRN Anxiety Losartan Potassium 25 mg 11/19/24 09:00 11/19/24 09:12 Losartan Potassium 25 Mg Tablet PO 25 mg DAILY YFN Administration Metoprolol Succinate 25 mg 11/19/24 09:00 11/19/24 09:12 Metoprolol Succinate Ext Rel 25 Mg Tabcr PO 25 mg DAILY YFN Administration Mirtazapine 15 mg 11/19/24 21:00 Mirtazapine 15 Mg Tablet PO HS YFN Oseltamivir Phosphate 30 mg 11/19/24 09:00 11/19/24 09:12 Oseltamivir Phosphate 30 Mg Capsule PO 11/23/24 09:01 30 mg Q12HR YFN Administration Perflutren Lipid Microsphere 0 ml 11/19/24 07:45 Perflutren Lipid Microspheres 1.5 Ml Vial Diluted To 10 Ml Total Volume IV PUSH 11/22/24 07:45 ONCE PRN adequate visualization Protocol Polyethylene Glycol 17 gm 11/19/24 00:40 Polyethylene Glycol 3350 17 Gm Powd.Pack PO QAM PRN constipation Pravastatin Sodium 20 mg 11/19/24 09:00 11/19/24 09:11 Pravastatin Sodium 20 Mg Tablet PO 20 mg DAILY YFN Administration Quetiapine Fumarate 50 mg 11/19/24 21:00 Quetiapine Fumarate 25 Mg Tablet PO QHS YFN Trazodone HCl 50 mg 11/19/24 00:40 Trazodone Hcl 50 Mg Tablet PO QHS PRN Anxiety/SLEEP Radiology Results: ITS Impressions Chest X-Ray 11/18/24 08:24 IMPRESSION: 1. Opacities in the right mid to lower and left lower lung zones which could represent pulmonary edema or pneumonia. 2. Borderline heart size with aortic valve repair. Chest CTA 11/18/24 10:26 Impression: No evidence of pulmonary embolus, aortic dissection, or aortic aneurysm. Mild patchy groundglass opacity and nodularity in the lungs, right worse than left. Findings suggest multifocal bilateral infection/pneumonia. Mild pulmonary edema is a potential alternative consideration with mild atelectatic changes. Correlate clinically. Labs Labs: Laboratory Results - last 24 hr 11/18/24 11/18/24 11/18/24 14:43 16:39 19:54 WBC RBC Hgb Hct MCV MCH MCHC RDW Plt Count MPV Immature Gran % (Auto) Neut % (Auto) Lymph % (Auto) [place] % (Auto) Eos % (Auto) Baso % (Auto) Lymph # (Auto) [place] # (Auto) Eos # (Auto) Baso # (Auto) Abs Immat Gran (auto) Absolute Neuts (auto) Absolute Nucleated RBC Nucleated RBC % Sodium Potassium Chloride Carbon Dioxide Anion Gap BUN Creatinine Estim Creat Clear Calc Estimated GFR Glucose POC Capillary Glucose 127 H 163 H Calcium Troponin I 0.046 H* D 11/19/24 11/19/24 11/19/24 04:41 07:33 11:41 WBC 12.1 H RBC 4.25 L Hgb 12.6 L Hct 38.4 L MCV 90.4 MCH 29.6 MCHC 32.8 RDW 14.8 H Plt Count 228 MPV 10.2 Immature Gran % (Auto) 0.7 H Neut % (Auto) 87.7 H Lymph % (Auto) 7.1 L [place] % (Auto) 3.5 Eos % (Auto) 0.8 Baso % (Auto) 0.2 Lymph # (Auto) 0.86 L [place] # (Auto) 0.4 Eos # (Auto) 0.1 Baso # (Auto) 0.0 Abs Immat Gran (auto) 0.08 H Absolute Neuts (auto) 10.6 H Absolute Nucleated RBC 0.000 Nucleated RBC % 0.0 Sodium 139 Potassium 3.9 Chloride 102 Carbon Dioxide 29 Anion Gap 8 BUN 24 H Creatinine 0.85 Estim Creat Clear Calc 64 Estimated GFR > 60 Glucose 126 H POC Capillary Glucose 126 H 146 H Calcium 8.6 Troponin I Quality VTE Prophylaxis VTE prophylaxis: mechanical ordered and pharmacologic ordered
[2024-11-19] MEDS: IPRATROPIUM BR 0.02% INH SOLN 0.5 MG/2.5 ML VIAL INHALATION ×2 (13:47→20:57)
[2024-11-19] MEDS: LEVALBUTEROL NEB 1.25 MG/3 ML 0.63 MG INHALATION ×2 (13:47→20:56)
--- NOTE | 2024-11-19 16:11 | PCSTNOTE ---
Please refer to the Modified Barium Swallow Evaluation in the EMR. Pt was seen for a Modified Barium Swallow (MBS) after the bedside swallow evaluation revealed overt s/s of aspiration. The pt was seated for a lateral view and presented with multiple trials of 5ml thin liquid, pudding consistency barium, a cracker coated with barium pudding, and small sips of thin liquid via a cup sip and straw sip; no consecutive swallows were tested. With the 5 ml trial of thin liquid barium, the pt exhibited one instance of premature spill which resulted in laryngeal penetration before the swallow; when the swallow triggered, the penetrated contents was cleared from the laryngeal vestibule. Due to reduced tongue base retraction, (mild) vallecular residue was exhibited. Reduced laryngeal elevation resulted in (mild) pyriform sinus residue. With the chin tuck, premature spill no longer occurred but vallecular and pyriform sinus residue continued. With a dry swallow the pt was able to clear a portion of the residual; mild residual remained ??Pt also exhibited reflux from the level of the UES.? Contents backflowed into the pyriform sinuses and into the laryngeal vestibule. Once a dry swallow was triggered, the contents appeared to clear from the laryngeal vestibule, but aspiration risk is present. With the pudding trial, laryngeal penetration occurred after the swallow due to backflow from the level of the UES; due to reduced tongue base retraction, (mod) vallecular residue was exhibited. Reduced laryngeal elevation resulted in (mod) pyriform sinus residue. Chin tuck posture did not improve clearance of residual or provide airway protection and appeared to increase aspiration risk. Residual is cleared to a trace level with repeated dry swallows. With the cracker trial, pt exhibited spill of contents into the pharynx which entered the laryngeal vestibule before the swallow. Upon triggering the swallow, laryngeal penetration occurred indicative of reduced laryngeal elevation; due to reduced tongue base retraction, (mod) vallecular residue was exhibited. Reduced laryngeal elevation resulted in (mild) pyriform sinus residue. With a trial without the chin tuck, no laryngeal penetration was exhibited, and vallecular residual and pyriform sinus residuals were mild. Thin liquid trials via cup and straw sips revealed reduced tongue base retraction as evidenced by mild vallecular residue and reduced laryngeal elevation as evidence by (mild) pyriform sinus residue. Intermittent laryngeal penetration occurred during and after the swallow but dry swallows appeared to clear a portion of the penetrated contents; trace aspiration could not be ruled out and very likely to have occurred after testing. Impression: severe dysphagia Recommendations: options were discussed with Dr Day; ?GI consulted; Pt to be NPO for now with ST to tx.
--- NOTE | 2024-11-19 16:28 | P.CONGI_ITS ---
Assessment and Plan Assessment and plan (1) Dysphagia: Qualifiers: Dysphagia type: unspecified Qualified Code(s): R13.10 - Dysphagia, unspecified Code(s): R13.10 - Dysphagia, unspecified Status: Acute Assessment and Plan: probably from previous XRT after malignancy then developed osteonecrosis that required further surgery we will investigate with egd to assess if any esophageal obstructive component that we can treat with dilation but I think that his problem is mostly oropharyngeal for which can not do much other than continuing speech therapy and to be on special diet to prevent aspiration family member says that he has been keeping food down with good adequate calorie intake and careful to avoid choking. I told them that last resort always could be peg placement down the road but not interested at this point (2) Aspiration into airway: Code(s): T17.908A - Unspecified foreign body in respiratory tract, part unspecified causing other injury, initial encounter Status: Acute Assessment and Plan: mbs reviewed (3) Osteonecrosis: Code(s): M87.9 - Osteonecrosis, unspecified Status: Acute (4) Flu: Code(s): J11.1 - Influenza due to unidentified influenza virus with other respiratory manifestations Status: Acute Assessment and Plan: s/p treatment (5) Acute hypoxemic respiratory failure: Code(s): J96.01 - Acute respiratory failure with hypoxia Status: Acute Assessment and Plan: improved (6) Pneumonia: Code(s): J18.9 - Pneumonia, unspecified organism Status: Acute (7) Paroxysmal atrial fibrillation: Code(s): I48.0 - Paroxysmal atrial fibrillation Status: Acute GI Consult Note Consult date/time: 11/19/24 16:28 Reason for consult: dysphagia, aspiration HPI: Mitch Romo is a 84 year old male with history of hypothyroidism, neck cancer few years ago s/p surgery and XRT, iron deficiency anemia but resolved after stopping using blood thinners (he underwent watchman procedure, as part of evaluation for anemia had egd and colonoscopy) admitted for cough and influenza. He was diagnosed with influenza and completed his 5 day course of Tamiflu day before admission but his breathing has gotten worse and starting coughing up more. He was mildly tachypneic on 4 L nasal cannula, ED labs show leukocytosis at 17.9, D-dimer 2.96, ABG pH 7.429, pCO2 of 30.1, PO2 of 60.8, HC03 of 19.5, anion gap 15, glucose 176, lactic acid of 3.0 repeat 1.3, BNP of 917. UA showing negative for acute infection. Influenza A positive, influenza B, RSV, COVID negative. CTA chest shows no acute pulmonary embolism, ground-glass opacities with right greater than left, likely pneumonia. July had surgery in jaw because osteonecrosis, family member is here and noted some difficulty with eating regular meals, he has to take his take to swallow and eat only small moist pieces at time. Finally had MBS that showed oropharyngeal dysphagia and esophageal backflow at laryngeal penetration and intermittent trace aspiration. He is breathing better now. Last EGD 2021 because anemia, no major findings. Review of Systems 2 Constitutional: Constitutional: Reports chills Eyes: Eyes: Denies blurry vision ENT: Reports Normal hearing present Cardiovascular: Cardiovascular: Denies leg edema Respiratory: Respiratory: Reports chest congestion and Reports cough Gastrointestinal: Gastrointestinal: Denies abdominal pain Genitourinary: Genitourinary: Denies dysuria Musculoskeletal: Comments: h/o neck surgery Integumentary/Breasts: Skin/Breast: Denies rash Neurologic: Denies confusion Psychiatric: Psychiatric: Denies behavioral changes [facility] Past Medical History Medical History (Updated 11/19/24 @ 16:34 by Jean Marie Peters MD) Aspiration into airway Dysphagia Rash DJD (degenerative joint disease) Chronic right hip pain Body mass index (BMI) 40.0-44.9, adult Mass of right hip region BMI 39.0-39.9,adult BMI 37.0-37.9, adult Rhus dermatitis Strain of left trapezius muscle Wrist pain, left Oral infection Acute UTI BMI 38.0-38.9,adult Chronic anticoagulation Paroxysmal atrial fibrillation Peripheral vascular disease Hypothyroidism Aortic valve stenosis Status post TAVR. BMI 34.0-34.9,adult Skin cancer Peripheral neuropathy BMI 36.0-36.9,adult Iron deficiency anemia Need for shingles vaccine Hearing loss of both ears BMI 35.0-35.9,adult Prostate cancer Status post prostatectomy. 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 Benign essential hypertension Hyperlipidemia Surgical History Surgical History History of transcatheter aortic valve replacement (TAVR) (07/2020) History of radical neck dissection Status post surgical removal of malignant neoplasm of skin History of elbow surgery Left elbow surgery. History of total left hip arthroplasty History of bilateral knee replacement History of spinal fusion History of ventral hernia repair History of prostatectomy History of inguinal hernia repair History of bilateral cataract extraction History of colonoscopy with polypectomy History of bilateral carpal tunnel release Status post myringotomy with insertion of tube Family History Family History Mother Diabetes mellitus Hypertension Family history of cardiovascular disease Family history of diabetes mellitus in first degree relative Family history of heart disease in male family member before age 55 Sibling Hypertension Brother and sister Diabetes mellitus Brother and sister Social History Social History Social History: The patient lives in [place]. He is retired from [employer]. Lifelong nonsmoker. No alcohol or illicit substance abuse. Surrogate decision maker: Jose Romo (son) or Vani Wild (significant other). Code status: Full code. Smoking status: Never smoker Second hand tobacco smoke exposure: No Alcohol intake: never Substance use: never Do You Feel Safe in your Home?: Yes Lack of Transportation: No Lack of Food: Never True Current Housing: I Have Housing Concerned About Future Housing: No Difficulty Paying Gas/Electric Bills: No Difficulty Paying for Meds: No Currently Unemployed: No Education: High School Diploma/GED Difficulty w/ Childcare or Family Care: No Living arrangements: with family Spiritual care concerns: No Meds Home Medications and Allergies Home Medications ?Medication ?Instructions ?Recorded ?Confirmed ?Type cholecalciferol (vitamin D3) 50 2,000 unit PO DAILY 08/20/19 11/18/24 History mcg (2,000 unit) tablet desvenlafaxine succinate 100 mg 100 mg PO DAILY 08/20/19 11/18/24 History tablet,extended release 24 hr (Pristiq) trazodone 50 mg tablet 50 mg PO QHS PRN Anxiety 02/04/21 11/18/24 History aspirin 81 mg tablet,delayed 81 mg PO DAILY 04/22/21 11/18/24 History release (Adult Low Dose Aspirin) lorazepam 0.5 mg tablet 0.5 mg PO DAILY PRN Anxiety 09/09/21 11/18/24 History quetiapine 50 mg tablet (Seroquel) 50 mg PO QHS 01/09/22 11/18/24 History mirtazapine 15 mg tablet 15 mg PO HS 01/20/22 11/18/24 History Fish oil 1,300 mg BYMOUTH BID 02/28/23 11/18/24 History ibuprofen 800 mg tablet 800 mg PO Q6H PRN pain 02/28/23 11/18/24 History multivitamin 1 tablet PO DAILY 02/28/23 11/18/24 History polyethylene glycol 3350 17 gram 17 g PO QAM PRN constipation #30 ea 02/28/23 11/18/24 Rx oral powder packet (Miralax) omeprazole 40 mg capsule,delayed See Rx Instructions .Route 11/08/23 11/18/24 Rx release .COMPLEX #180 caps ezetimibe 10 mg tablet See Rx Instructions .Route 07/20/24 11/18/24 Rx .COMPLEX #90 tabs losartan 25 mg tablet See Rx Instructions .Route 07/20/24 11/18/24 Rx .COMPLEX #90 tabs metoprolol succinate 25 mg 25 mg PO DAILY #90 tabs 09/02/24 11/18/24 Rx tablet,extended release 24 hr levothyroxine 125 mcg tablet See Rx Instructions .Route 10/27/24 11/18/24 Rx .COMPLEX #90 tabs pravastatin 20 mg tablet See Rx Instructions .Route 10/27/24 11/18/24 Rx .COMPLEX #90 tabs sitagliptin phosphate 100 mg See Rx Instructions .Route 10/27/24 11/18/24 Rx tablet (Januvia) .COMPLEX #90 tabs benzonatate 200 mg capsule 200 mg PO TID PRN cough #40 caps 11/12/24 11/18/24 Rx amoxicillin 500 mg capsule 500 mg PO ONCE PRN dental 11/18/24 11/18/24 History oseltamivir 75 mg capsule 75 mg PO Q12H 11/18/24 11/18/24 History Allergies Allergy/AdvReac Type Severity Reaction Status Date / Time No Known Allergies Allergy Verified 11/18/24 07:48 Vital Signs Vital Signs - 24 hr 11/18/24 17:57 11/18/24 20:00 11/18/24 20:00 Temperature 98 F Pulse Rate 68 70 70 Respiratory Rate 22 H Blood Pressure 130/63 Pulse Oximetry 92 Oxygen Delivery Oxygen Flow Rate 11/18/24 20:45 11/18/24 22:00 11/19/24 00:00 Temperature Pulse Rate 68 71 71 Respiratory Rate 18 18 Blood Pressure Pulse Oximetry 100 93 Oxygen Delivery Nasal Cannula Nasal Cannula Oxygen Flow Rate 4 4 11/19/24 00:00 11/19/24 00:00 11/19/24 02:00 Temperature 97.9 F Pulse Rate 62 71 69 Respiratory Rate 23 H Blood Pressure 141/61 H Pulse Oximetry 95 Oxygen Delivery Oxygen Flow Rate 11/19/24 03:50 11/19/24 04:00 11/19/24 04:00 Temperature 98.1 F Pulse Rate 68 62 62 Respiratory Rate 24 H 18 Blood Pressure 157/65 H Pulse Oximetry 96 94 Oxygen Delivery Nasal Cannula Oxygen Flow Rate 4 11/19/24 06:00 11/19/24 08:00 11/19/24 08:00 Temperature 97.6 F Pulse Rate 84 63 66 Respiratory Rate 22 H Blood Pressure 169/79 H Pulse Oximetry 94 Oxygen Delivery Oxygen Flow Rate 11/19/24 09:08 11/19/24 09:12 11/19/24 10:00 Temperature Pulse Rate 83 73 Respiratory Rate Blood Pressure Pulse Oximetry 93 Oxygen Delivery Nasal Cannula Oxygen Flow Rate 4 11/19/24 12:00 11/19/24 13:51 11/19/24 13:52 Temperature Pulse Rate 69 70 Respiratory Rate 20 Blood Pressure Pulse Oximetry 94 Oxygen Delivery Nasal Cannula Oxygen Flow Rate 5 11/19/24 14:06 11/19/24 14:20 11/19/24 14:50 Temperature Pulse Rate 74 Respiratory Rate 20 Blood Pressure Pulse Oximetry Oxygen Delivery Nasal Cannula Nasal Cannula Oxygen Flow Rate 4 4 11/19/24 16:00 Temperature 98.3 F Pulse Rate 80 Respiratory Rate 29 H Blood Pressure 124/96 H Pulse Oximetry 92 Oxygen Delivery Oxygen Flow Rate Exam 2 Const: General: comfortable HENMT: Other: s/p surgery rt sided jaw Eyes: General: appearance normal, both eyes and all related structures Neck: Neck: no JVD Resp: Auscultation: rhonchi and no wheezes Cardio: Rate: regular rate Rhythm: regular rhythm GI: Inspection: non-distended GI Palp: Yes Soft to palpation and No Tenderness to palpation present (GI) Auscultation: normal bowel sounds Skin: General skin exam: normal color Neuro: Motor exam (neuro): 5/5 motor strength present throughout Extrem: General: normal to inspection Psych: Mental Status: mental status grossly normal Results Labs 11/19/24 04:41 11/19/24 04:41 Labs: Short CBC 11/19/24 Range/Units 04:41 WBC 12.1 H (4.5-10.0) K/mm3 Hgb 12.6 L (14.0-18.0) g/dL Hct 38.4 L (42.0-52.0) % Plt Count 228 (150-375) k/mm3 BMP 11/19/24 04:41 Sodium 139 Potassium 3.9 Chloride 102 Carbon Dioxide 29 BUN 24 H Creatinine 0.85 Glucose 126 H Calcium 8.6
[2024-11-19 16:54] LABS: Glucose Point of Care 114 mg/dl (65-105)
--- NOTE | 2024-11-19 20:30 | PC.NURSE ---
Updated Mary Gudino STAFF MIDWIFE regarding unable to swallow and not being able to take PM meds.
[2024-11-19] MEDS: DOXYCYCLINE 100 MG/NS 100 ML 100 MG/100 ML BAG IVPB (23:17)
[2024-11-19] MEDS: LORazepam INJ (*CRX) 2 MG/ML VIAL 0.5 MG IV PUSH (23:17)
[2024-11-20] VITALS (20 sets, daily range): BP systolic 151–189; BP diastolic 72–95; PULSE 60–85; RESP 16–23; TEMP 36.3–36.7; O2SAT 94–99
[2024-11-20 00:10] LABS: Glucose Point of Care 101 mg/dl (65-105)
[2024-11-20] MEDS: IPRATROPIUM BR 0.02% INH SOLN 0.5 MG/2.5 ML VIAL INHALATION ×3 (02:20→19:39)
[2024-11-20] MEDS: LEVALBUTEROL NEB 1.25 MG/3 ML 0.63 MG INHALATION ×3 (02:20→19:39)
[2024-11-20 03:47] LABS: Basophils Absolute Auto 0.1 K/mm3 (0.0-0.1); Basophils Percent Auto 0.6 % (0.2-1.2); Eosinophils Absolute Auto 0.2 K/mm3 (0-0.3); Eosinophils Percent Auto 1.4 % (0-4.4); Hematocrit 40.3 % (42.0-52.0); Hemoglobin 12.6 g/dL (14.0-18.0); Immature Granulocyte Absolute 0.05 K/mm3 (0.00-0.031); Immature Granulocyte Percent A 0.5 % (0-0.5); Mean Corpuscular HGB Conc 31.3 g/dl (32-36); Mean Corpuscular Volume 92.9 fl (80-100); Mean Platelet Volume 10.1 fl (7.4-10.4); Monocytes Absolute Auto 0.6 K/mm3 (0.1-0.6); Monocytes Percent Auto 5.6 % (2.6-8.5); Neutrophils Absolute Auto 8.3 K/mm3 (1.3-6.7); Neutrophils Percent Auto 77.9 % (45.5-73.1); Platelet Count Result 278 k/mm3 (150-375); Red Blood Count 4.34 M/mm3 (4.6-6.20); Red Cell Distribution Width 14.7 % (11.5-14.5); White Blood Count 10.7 K/mm3 (4.5-10.0)
[2024-11-20 03:57] LABS: Alanine Aminotransferase 56 U/L (6-50); Albumin Level 3.3 g/dL (3.5-5.1); Alkaline Phosphatase 78 U/L (38-126); Anion Gap 9 mmol/L (4-12); Aspartate Amino Transferase 64 U/L (17-59); Bilirubin,Total 0.6 mg/dL (0.2-1.3); Blood Urea Nitrogen 24 mg/dL (9-20); Calcium 8.7 mg/dL (8.4-10.2); Carbon Dioxide 29 mmol/L (22-30); Chloride 103 mmol/L (98-107); Estimated CRCL calculation 71 ml/min; Estimated Glomerular Filt Rate > 60; Glucose 114 mg/dL (65-110); Magnesium 1.7 mg/dL (1.6-2.3); Phosphorus 3.5 mg/dL (2.5-4.5); Potassium 4.1 mmol/L (3.4-5.0); Sodium 141 mmol/L (137-145)
[2024-11-20] MEDS: LEVOTHYROXINE SODIUM INJ 100 MCG/5 ML VIAL 62.5 MCG IV PUSH (09:40)
[2024-11-20] MEDS: ENOXAPARIN 40 MG/0.4 ML SYRINGE SUB-Q (09:43)
[2024-11-20] MEDS: METOPROLOL TARTRATE INJ 5 MG/5 ML VIAL IV PUSH ×2 (09:44→17:12)
[2024-11-20] MEDS: cefTRIAXone 2 GM/NS 100 ML 2 GM/100 ML BAG IVPB (09:45)
[2024-11-20] MEDS: DOXYCYCLINE 100 MG/NS 100 ML 100 MG/100 ML BAG IVPB ×2 (09:45→21:29)
[2024-11-20] MEDS: MAGNESIUM SULF 2 GM/WATER 50ML 2 GM/50 ML BAG IVPB (09:51)
--- NOTE | 2024-11-20 11:57 | P.PNIM_ITS ---
Progress Note: A&P Assessment and Plan (1) Dysphagia: Qualifiers: Dysphagia type: unspecified Qualified Code(s): R13.10 - Dysphagia, unspecified Code(s): R13.10 - Dysphagia, unspecified Status: Acute Assessment and Plan: Secondary to throat and jaw cancer status post radiation Currently NPO -patient failed his bedside swallow test and barium swallow showed aspiration -appreciate GI evaluation and recommendation, -EGD planned for today (2) Flu: Code(s): J11.1 - Influenza due to unidentified influenza virus with other respiratory manifestations Status: Acute Assessment and Plan: Continue Tamiflu P.r.n. bronchodilators (3) Pneumonia: Code(s): J18.9 - Pneumonia, unspecified organism Status: Acute Assessment and Plan: Continue ceftriaxone, and doxycycline (4) Acute hypoxemic respiratory failure: Code(s): J96.01 - Acute respiratory failure with hypoxia Status: Acute Assessment and Plan: Likely secondary to pneumonia, aspiration versus influenza -patient failed bedside swallow -barium swallow test showed aspirate -EGD planned for today to evaluate his dysphagia (5) Atrial fibrillation with rapid ventricular response: Code(s): I48.91 - Unspecified atrial fibrillation Status: Acute Assessment and Plan: Patient was in AFib RVR on admission. Given 5 IV metoprolol and 50 p.o. metoprolol in the ED Currently in sinus rhythm, rate controlled Telemetry monitoring Continue home metoprolol (6) Hypothyroidism (acquired): Code(s): E03.9 - Hypothyroidism, unspecified Status: Acute Assessment and Plan: Continue levothyroxine (7) Iron deficiency anemia: Qualifiers: Iron deficiency anemia type: chronic blood loss Qualified Code(s): D50.0 - Iron deficiency anemia secondary to blood loss (chronic) Code(s): D50.9 - Iron deficiency anemia, unspecified Status: Acute Assessment and Plan: Likely hemoconcentrated from dehydration Hemoglobin 14.2 IVF Hemoglobin 12.6, no acute bleeding noted, platelet counts are within normal limit. INR was normal at 1.1 (8) Diabetes: Code(s): E11.9 - Type 2 diabetes mellitus without complications Status: Acute Assessment and Plan: Hold home anti hyperglycemic medications while in hospital Accu-Cheks a.c. HS Continue Accu-Cheks and sliding scale insulin (9) Chronic back pain: Qualifiers: Back pain location: back pain in unspecified location Back pain laterality: unspecified Qualified Code(s): M54.9 - Dorsalgia, unspecified; G89.29 - Other chronic pain Code(s): M54.9 - Dorsalgia, unspecified; G89.29 - Other chronic pain Status: Acute Assessment and Plan: Tylenol and Percocet ordered (10) Anxiety: Code(s): F41.9 - Anxiety disorder, unspecified Status: Acute Assessment and Plan: Continue home Seroquel, trazodone, Ativan as needed Plan Med tele patient Subjective Date/time seen: 11/20/24 11:57 Interval history: 84-year-old male past medical history of hypothyroidism, skin cancer, iron deficiency anemia, orthostatic hypotension, hypertension and hyperlipidemia presents the hospital for shortness of breath. Patient states that he was diagnosed with influenza and completed his 5 day course of Tamiflu yesterday. He states that his breathing has only gotten worse and does not feel like the Tamiflu helped. Started on antibiotics displacing the intermediate Unit Patient being seen for hospitalist group: Patient seen and examined, is awake, alert, oriented, states he feels much better. Remains on 3-4 L nasal cannula. WBC count continues to trend down currently in sinus rhythm, rate controlled. Failed his bedside swallow as well as modified barium swallow which showed likely aspiration. GI evaluated him for dysphagia, EGD today. Urine output has been adequate. Denies any chest pain, shortness of breath, abdominal pain, nausea, vomiting. Review of Systems Review of Systems: All systems reviewed & are unremarkable except as noted in HPI and below Exam Narrative: General: Pleasant gentleman in no acute distress HEENT: Pupils are equal and reactive, sclera is clear, moist oral mucosa, neck is supple, Respiratory: Coarse breath sounds at bases otherwise clear, no wheezing. Cardiovascular: Regular rate and rhythm, normal S1-S2 Abdomen: Soft, protuberant/obese, nontender normoactive bowel sounds Extremities: No edema or cyanosis of the extremities , palpable pedal pulses. Active ROM to all four extremities. Neuro: Alert and orientatedx3. PERRLA. Nonfocal, follows simple commands in all extremities Skin: Warm, dry, no lesions noted Psych: pleasant, cooperative, normal speech, normal affect, Objective Data Vital Signs Vital Signs: Vital Signs - 24 hr 11/19/24 12:00 11/19/24 13:51 11/19/24 13:52 Temperature Pulse Rate 69 70 Respiratory Rate 20 Blood Pressure Pulse Oximetry 94 Oxygen Delivery Nasal Cannula Oxygen Flow Rate 5 11/19/24 14:06 11/19/24 14:20 11/19/24 14:50 Temperature Pulse Rate 74 Respiratory Rate 20 Blood Pressure Pulse Oximetry Oxygen Delivery Nasal Cannula Nasal Cannula Oxygen Flow Rate 4 4 11/19/24 16:00 11/19/24 16:00 11/19/24 20:00 Temperature 98.3 F Pulse Rate 80 70 70 Respiratory Rate 29 H 18 Blood Pressure 124/96 H Pulse Oximetry 92 95 Oxygen Delivery Nasal Cannula Oxygen Flow Rate 4 11/19/24 20:00 11/19/24 20:56 11/19/24 20:57 Temperature Pulse Rate 71 70 Respiratory Rate 20 Blood Pressure Pulse Oximetry 93 Oxygen Delivery Nasal Cannula Oxygen Flow Rate 3 11/20/24 00:00 11/20/24 00:00 11/20/24 02:20 Temperature 97.6 F Pulse Rate 70 80 60 Respiratory Rate 22 H 22 H Blood Pressure 151/79 H Pulse Oximetry 96 Oxygen Delivery Oxygen Flow Rate 11/20/24 02:32 11/20/24 04:00 11/20/24 09:28 Temperature Pulse Rate 67 73 70 Respiratory Rate 21 H 22 H Blood Pressure Pulse Oximetry Oxygen Delivery Oxygen Flow Rate 11/20/24 09:31 11/20/24 09:44 11/20/24 09:55 Temperature Pulse Rate 78 69 Respiratory Rate 16 Blood Pressure Pulse Oximetry 94 Oxygen Delivery Nasal Cannula Oxygen Flow Rate 4 Intake/Output Intake/Output: Intake & Output 11/17/24 11/18/24 11/19/24 11/20/24 23:59 23:59 23:59 23:59 Intake Total 1450 650 100 Output Total 250 600 Balance 1200 50 100 Meds/Results Medications: Active Medications Generic Name Dose Route Start Last Admin Trade Name Freq PRN Reason Stop Dose Admin Acetaminophen 650 mg 11/18/24 14:28 Acetaminophen 325 Mg Tablet PO Q4H PRN Mild Pain (1-3) or Fever Hydrocodone Bitart/Acetaminophen 1 tab 11/18/24 14:28 Hydrocodone/Acetaminophen (*Crx) 5-325 Mg Tablet PO Q4H PRN Moderate Pain (4-6) Aspirin 81 mg 11/19/24 09:00 11/19/24 09:12 Aspirin 81 Mg Enteric Tablet PO 81 mg DAILY YFN Administration Benzonatate 200 mg 11/19/24 00:51 Benzonatate 100 Mg Capsule PO TID PRN cough Desvenlafaxine Succinate 100 mg 11/19/24 09:00 11/19/24 09:00 Desvenlafaxine Succinate 50 Mg Tab.Er.24h PO 100 mg QAM YFN Administration Dextrose 12.5 gm 11/18/24 14:28 Dextrose 50% 25 Gm/50 Ml Syringe IV PUSH PRN PRN Hypoglycemia Protocol Docusate Sodium 100 mg 11/18/24 17:00 11/19/24 18:46 Docusate Sodium 100 Mg Capsule PO Not Given BID YFN Ezetimibe 10 mg 11/19/24 09:00 11/19/24 09:12 Ezetimibe 10 Mg Tablet PO 10 mg DAILY YFN Administration Enoxaparin Sodium 40 mg 11/19/24 09:00 11/20/24 09:43 Enoxaparin 40 Mg/0.4 Ml Syringe SUB-Q 40 mg DAILY YFN Administration Glucagon 1 mg 11/18/24 14:28 Glucagon For Inj 1 Mg Vial IM PRN PRN Hypoglycemia Protocol Glucose 15 gm 11/18/24 14:28 Glucose Oral Gel 15 Gm Of Glucse In 37.5 Gm Tube PO PRN PRN Hypoglycemia Protocol Hydralazine HCl 10 mg 11/19/24 12:27 Hydralazine Hcl 20 Mg/Ml Vial IV PUSH Q4H PRN Blood Pressure - High Dextrose 1,000 mls @ 100 mls/hr 11/18/24 14:28 Dextrose 5% 1,000 Ml IVPB PRN PRN Hypoglycemia Protocol Ceftriaxone Sodium 2 gm in 100 mls @ 200 mls/hr 11/19/24 09:00 11/20/24 09:45 Rocephin 2 Gm/Ns 100 Ml IVPB 200 mls/hr Q24H YFN Administration Doxycycline Hyclate 100 mg in 100 mls @ 100 mls/hr 11/19/24 22:15 11/20/24 09:45 Vibramycin 100 Mg/Ns 100 Ml IVPB 11/22/24 23:59 100 mls/hr Q12HR YFN Administration Insulin Aspart 2 - 5 units 11/20/24 00:00 11/20/24 11:54 Insulin Aspart (*Bkc) 100 Units/Ml SUB-Q Not Given Q6HR [facility] Protocol Ipratropium [place] 0.5 mg 11/19/24 10:20 11/20/24 09:27 Ipratropium Br 0.02% Inh Soln 0.5 Mg/2.5 Ml Vial INHALATION 0.5 mg Q6HRT YFN Administration Levalbuterol HCl 0.63 mg 11/19/24 10:20 11/20/24 09:27 Levalbuterol Neb 1.25 Mg/3 Ml INHALATION 0.63 mg Q6HRT YFN Administration Levothyroxine Sodium 125 mcg 11/19/24 06:30 11/19/24 06:27 Levothyroxine Sodium 125 Mcg Tablet BY MOUTH 125 mcg DAILY@0630 YFN Administration Levothyroxine Sodium 62.5 mcg 11/20/24 07:35 11/20/24 09:40 Levothyroxine Sodium Inj 100 Mcg/5 Ml Vial IV PUSH 62.5 mcg DAILY@0630 YFN Administration Lorazepam 0.5 mg 11/19/24 00:40 Lorazepam (*Crx) 0.5 Mg Tablet PO DAILY PRN Anxiety Lorazepam 0.25 mg 11/20/24 07:33 Lorazepam Inj (*Crx) 2 Mg/Ml Vial IV PUSH Q6H PRN Anxiety Losartan Potassium 25 mg 11/19/24 09:00 11/19/24 09:12 Losartan Potassium 25 Mg Tablet PO 25 mg DAILY YFN Administration Metoprolol Succinate 25 mg 11/19/24 09:00 11/19/24 09:12 Metoprolol Succinate Ext Rel 25 Mg Tabcr PO 25 mg DAILY YFN Administration Metoprolol Tartrate 5 mg 11/19/24 22:25 11/20/24 09:44 Metoprolol Tartrate Inj 5 Mg/5 Ml Vial IV PUSH 5 mg BID YFN Administration Mirtazapine 15 mg 11/19/24 21:00 11/19/24 21:42 Mirtazapine 15 Mg Tablet PO Not Given HS YFN Oseltamivir Phosphate 30 mg 11/19/24 09:00 11/19/24 21:42 Oseltamivir Phosphate 30 Mg Capsule PO Not Given Q12HR YFN Perflutren Lipid Microsphere 0 ml 11/19/24 07:45 Perflutren Lipid Microspheres 1.5 Ml Vial Diluted To 10 Ml Total Volume IV PUSH 11/22/24 07:45 ONCE PRN adequate visualization Protocol Polyethylene Glycol 17 gm 11/19/24 00:40 Polyethylene Glycol 3350 17 Gm Powd.Pack PO QAM PRN constipation Pravastatin Sodium 20 mg 11/19/24 09:00 11/19/24 09:11 Pravastatin Sodium 20 Mg Tablet PO 20 mg DAILY YFN Administration Quetiapine Fumarate 50 mg 11/19/24 21:00 11/19/24 21:42 Quetiapine Fumarate 25 Mg Tablet PO Not Given QHS YFN Trazodone HCl 50 mg 11/19/24 00:40 Trazodone Hcl 50 Mg Tablet PO QHS PRN Anxiety/SLEEP Radiology Results: ITS Impressions Chest CTA 11/18/24 10:26 Impression: No evidence of pulmonary embolus, aortic dissection, or aortic aneurysm. Mild patchy groundglass opacity and nodularity in the lungs, right worse than left. Findings suggest multifocal bilateral infection/pneumonia. Mild pulmonary edema is a potential alternative consideration with mild atelectatic changes. Correlate clinically. Modified Barium Swallow 11/19/24 14:10 IMPRESSION: Oropharyngeal dysphagia and esophageal backflow at laryngeal penetration and intermittent trace aspiration. Please correlate with speech pathologist findings and specific feeding recommendations. Chest X-Ray 11/20/24 08:04 Impression: Bibasilar hazy and interstitial pulmonary disease. Correlate for pulmonary edema, infection, or chronic interstitial change. Labs Labs: Laboratory Results - last 24 hr 11/19/24 11/19/24 11/20/24 11:41 16:44 00:05 WBC RBC Hgb Hct MCV MCH MCHC RDW Plt Count MPV Immature Gran % (Auto) Neut % (Auto) Lymph % (Auto) [place] % (Auto) Eos % (Auto) Baso % (Auto) Lymph # (Auto) [place] # (Auto) Eos # (Auto) Baso # (Auto) Abs Immat Gran (auto) Absolute Neuts (auto) Absolute Nucleated RBC Nucleated RBC % Sodium Potassium Chloride Carbon Dioxide Anion Gap BUN Creatinine Estim Creat Clear Calc Estimated GFR Glucose POC Capillary Glucose 146 H 114 H 101 Calcium Phosphorus Magnesium Total Bilirubin AST ALT Alkaline Phosphatase Total Protein Albumin 11/20/24 03:38 WBC 10.7 H RBC 4.34 L Hgb 12.6 L Hct 40.3 L MCV 92.9 MCH 29.0 MCHC 31.3 L RDW 14.7 H Plt Count 278 MPV 10.1 Immature Gran % (Auto) 0.5 Neut % (Auto) 77.9 H Lymph % (Auto) 14.0 L [place] % (Auto) 5.6 Eos % (Auto) 1.4 Baso % (Auto) 0.6 Lymph # (Auto) 1.50 [place] # (Auto) 0.6 Eos # (Auto) 0.2 Baso # (Auto) 0.1 Abs Immat Gran (auto) 0.05 H Absolute Neuts (auto) 8.3 H Absolute Nucleated RBC 0.000 Nucleated RBC % 0.0 Sodium 141 Potassium 4.1 Chloride 103 Carbon Dioxide 29 Anion Gap 9 BUN 24 H Creatinine 0.76 Estim Creat Clear Calc 71 Estimated GFR > 60 Glucose 114 H POC Capillary Glucose Calcium 8.7 Phosphorus 3.5 Magnesium 1.7 Total Bilirubin 0.6 AST 64 H ALT 56 H Alkaline Phosphatase 78 Total Protein 7.0 Albumin 3.3 L Quality VTE Prophylaxis VTE prophylaxis: mechanical ordered and pharmacologic ordered
[2024-11-20 11:58] LABS: Glucose Point of Care 115 mg/dl (65-105)
[2024-11-20 13:48] LABS: Glucose Point of Care 109 mg/dl (65-105)
--- NOTE | 2024-11-20 13:55 | PC.NURSE ---
Patient went to GI lab at 1340 via stretcher
--- NOTE | 2024-11-20 13:58 | WPDANESEPPF ---
Anes - Initial Pre Proc Eval Procedure: Operation Date: 11/20/24 15:00 Proposed Procedures p Esophagogastroduodenoscopy - Jean Marie Peters MD Date/Time: 11/20/24 13:58 Surgeon: Phoebe Stone MD Pre Op Diagnosis: Afib RVR/Flu/Hypoxia Patient Data Age: 84 Gender: M Height: 1.68 m Weight: 103.6 kg Last Vital Signs Temp 36.3 C L 11/20/24 13:52 Pulse 68 11/20/24 13:52 Resp 20 11/20/24 13:52 BP 167/79 H 11/20/24 13:52 Pulse Ox 97 11/20/24 13:52 O2 Del Method Nasal Cannula 11/20/24 13:52 O2 Flow Rate 4 11/20/24 13:52 Allergies Allergy/AdvReac Type Severity Reaction Status Date / Time No Known Allergies Allergy Verified 11/20/24 13:46 Home Medications ?Medication ?Instructions ?Recorded ?Confirmed ?Type cholecalciferol (vitamin D3) 50 2,000 unit PO DAILY 08/20/19 11/18/24 History mcg (2,000 unit) tablet desvenlafaxine succinate 100 mg 100 mg PO DAILY 08/20/19 11/18/24 History tablet,extended release 24 hr (Pristiq) trazodone 50 mg tablet 50 mg PO QHS PRN Anxiety 02/04/21 11/18/24 History aspirin 81 mg tablet,delayed 81 mg PO DAILY 04/22/21 11/18/24 History release (Adult Low Dose Aspirin) lorazepam 0.5 mg tablet 0.5 mg PO DAILY PRN Anxiety 09/09/21 11/18/24 History quetiapine 50 mg tablet (Seroquel) 50 mg PO QHS 01/09/22 11/18/24 History mirtazapine 15 mg tablet 15 mg PO HS 01/20/22 11/18/24 History Fish oil 1,300 mg BYMOUTH BID 02/28/23 11/18/24 History ibuprofen 800 mg tablet 800 mg PO Q6H PRN pain 02/28/23 11/18/24 History multivitamin 1 tablet PO DAILY 02/28/23 11/18/24 History polyethylene glycol 3350 17 gram 17 g PO QAM PRN constipation #30 ea 02/28/23 11/18/24 Rx oral powder packet (Miralax) omeprazole 40 mg capsule,delayed See Rx Instructions .Route 11/08/23 11/18/24 Rx release .COMPLEX #180 caps ezetimibe 10 mg tablet See Rx Instructions .Route 07/20/24 11/18/24 Rx .COMPLEX #90 tabs losartan 25 mg tablet See Rx Instructions .Route 07/20/24 11/18/24 Rx .COMPLEX #90 tabs metoprolol succinate 25 mg 25 mg PO DAILY #90 tabs 09/02/24 11/18/24 Rx tablet,extended release 24 hr levothyroxine 125 mcg tablet See Rx Instructions .Route 10/27/24 11/18/24 Rx .COMPLEX #90 tabs pravastatin 20 mg tablet See Rx Instructions .Route 10/27/24 11/18/24 Rx .COMPLEX #90 tabs sitagliptin phosphate 100 mg See Rx Instructions .Route 10/27/24 11/18/24 Rx tablet (Januvia) .COMPLEX #90 tabs benzonatate 200 mg capsule 200 mg PO TID PRN cough #40 caps 11/12/24 11/18/24 Rx amoxicillin 500 mg capsule 500 mg PO ONCE PRN dental 11/18/24 11/18/24 History oseltamivir 75 mg capsule 75 mg PO Q12H 11/18/24 11/18/24 History Laboratory Tests 11/19/24 11/20/24 11/20/24 16:44 00:05 03:38 WBC 10.7 H K/mm3 (4.5-10.0) RBC 4.34 L M/mm3 (4.6-6.20) Hgb 12.6 L g/dL (14.0-18.0) Hct 40.3 L % (42.0-52.0) MCV 92.9 fl (80-100) MCH 29.0 pg (26-34) MCHC 31.3 L g/dl (32-36) RDW 14.7 H % (11.5-14.5) Plt Count 278 k/mm3 (150-375) MPV 10.1 fl (7.4-10.4) Immature Gran % (Auto) 0.5 % (0-0.5) Neut % (Auto) 77.9 H % (45.5-73.1) Lymph % (Auto) 14.0 L % (18.3-44.2) [place] % (Auto) 5.6 % (2.6-8.5) Eos % (Auto) 1.4 % (0-4.4) Baso % (Auto) 0.6 % (0.2-1.2) Lymph # (Auto) 1.50 K/mm3 (0.9-3.2) [place] # (Auto) 0.6 K/mm3 (0.1-0.6) Eos # (Auto) 0.2 K/mm3 (0-0.3) Baso # (Auto) 0.1 K/mm3 (0.0-0.1) Abs Immat Gran (auto) 0.05 H K/mm3 (0.00-0.031) Absolute Neuts (auto) 8.3 H K/mm3 (1.3-6.7) Absolute Nucleated RBC 0.000 K/mm3 (0.0-0.012) Nucleated RBC % 0.0 % (0.0-0.2) Sodium 141 mmol/L (137-145) Potassium 4.1 mmol/L (3.4-5.0) Chloride 103 mmol/L (98-107) Carbon Dioxide 29 mmol/L (22-30) Anion Gap 9 mmol/L (4-12) BUN 24 H mg/dL (9-20) Creatinine 0.76 mg/dL (0.7-1.3) Estim Creat Clear Calc 71 ml/min Estimated GFR > 60 (59 - ) Glucose 114 H mg/dL (65-110) POC Capillary Glucose 114 H mg/dl 101 mg/dl (65-105) (65-105) Calcium 8.7 mg/dL (8.4-10.2) Phosphorus 3.5 mg/dL (2.5-4.5) Magnesium 1.7 mg/dL (1.6-2.3) Total Bilirubin 0.6 mg/dL (0.2-1.3) AST 64 H U/L (17-59) ALT 56 H U/L (6-50) Alkaline Phosphatase 78 U/L (38-126) Total Protein 7.0 g/dL (6.3-8.2) Albumin 3.3 L g/dL (3.5-5.1) 11/20/24 11/20/24 11:51 13:44 WBC RBC Hgb Hct MCV MCH MCHC RDW Plt Count MPV Immature Gran % (Auto) Neut % (Auto) Lymph % (Auto) [place] % (Auto) Eos % (Auto) Baso % (Auto) Lymph # (Auto) [place] # (Auto) Eos # (Auto) Baso # (Auto) Abs Immat Gran (auto) Absolute Neuts (auto) Absolute Nucleated RBC Nucleated RBC % Sodium Potassium Chloride Carbon Dioxide Anion Gap BUN Creatinine Estim Creat Clear Calc Estimated GFR Glucose POC Capillary Glucose 115 H mg/dl 109 H mg/dl (65-105) (65-105) Calcium Phosphorus Magnesium Total Bilirubin AST ALT Alkaline Phosphatase Total Protein Albumin Patient hx anesthesia problems: none Family hx anesthesia problems: none Results Review: All pre-operative results and documents have been reviewed as part of the pre-operative evaluation. [facility] Past Medical History Medical History Aspiration into airway Dysphagia Rash DJD (degenerative joint disease) Chronic right hip pain Body mass index (BMI) 40.0-44.9, adult Mass of right hip region BMI 39.0-39.9,adult BMI 37.0-37.9, adult Rhus dermatitis Strain of left trapezius muscle Wrist pain, left Oral infection Acute UTI BMI 38.0-38.9,adult Chronic anticoagulation Paroxysmal atrial fibrillation Peripheral vascular disease Hypothyroidism Aortic valve stenosis Status post TAVR. BMI 34.0-34.9,adult Skin cancer Peripheral neuropathy BMI 36.0-36.9,adult Iron deficiency anemia Need for shingles vaccine Hearing loss of both ears BMI 35.0-35.9,adult Prostate cancer Status post prostatectomy. 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 Benign essential hypertension Hyperlipidemia Surgical History Surgical History History of transcatheter aortic valve replacement (TAVR) (07/2020) History of radical neck dissection Status post surgical removal of malignant neoplasm of skin History of elbow surgery Left elbow surgery. History of total left hip arthroplasty History of bilateral knee replacement History of spinal fusion History of ventral hernia repair History of prostatectomy History of inguinal hernia repair History of bilateral cataract extraction History of colonoscopy with polypectomy History of bilateral carpal tunnel release Status post myringotomy with insertion of tube Family History Family History Mother Diabetes mellitus Hypertension Family history of cardiovascular disease Family history of diabetes mellitus in first degree relative Family history of heart disease in male family member before age 55 Sibling Hypertension Brother and sister Diabetes mellitus Brother and sister Social History Social History Social History: The patient lives in [place]. He is retired from [employer]. Lifelong nonsmoker. No alcohol or illicit substance abuse. Surrogate decision maker: Jose Romo (son) or Vani Wild (significant other). Code status: Full code. Smoking status: Never smoker Second hand tobacco smoke exposure: No Alcohol intake: never Substance use: never Do You Feel Safe in your Home?: Yes Lack of Transportation: No Lack of Food: Never True Current Housing: I Have Housing Concerned About Future Housing: No Difficulty Paying Gas/Electric Bills: No Difficulty Paying for Meds: No Currently Unemployed: No Education: High School Diploma/GED Difficulty w/ Childcare or Family Care: No Living arrangements: with family Spiritual care concerns: No Anes - Eval Final PreProcedure Day of Procedure 11/20/24 13:58 Patient weight: obese Heart: regular rate and rhythm Lungs: clear to auscultation Airway: Mallampati scale class II, special considerations poor opening and other (right neck dissection with jaw recon and hardware) Neurological: alert and oriented Last oral intake: >/= 8 hours ASA classification: IV Emergent: no Anesthetic plan: proceed Anesthesia type and monitoring: general GIVS and standard monitoring Results Review: All pre-operative results and documents have been reviewed as part of the pre-operative evaluation. Informed Consent: The patient's anesthetic plan and its attendant risks and benefits were discussed with the patient/family/POA. Questions were solicited and answers provided to the satisfaction of the patient/family/POA.
[2024-11-20] MEDS: LACTATED RINGERS 1,000 ML 150 ML IV CONT (14:07)
[2024-11-20 17:21] LABS: Glucose Point of Care 95 mg/dl (65-105)
--- NOTE | 2024-11-20 17:41 | PC.NURSE ---
Notified Vani that patient will be transferred to room 245.
--- NOTE | 2024-11-20 20:15 | PC.NURSE ---
This patient, Mitch Romo, was transferred to [facility] on 11/20/24 at 2009. Personal belongings sent with patient. Report given to TIFFANI Botello. Appropriate documentation sent with patient.
[2024-11-21] VITALS (22 sets, daily range): BP systolic 129–158; BP diastolic 70–84; PULSE 63–78; RESP 20; TEMP 36.2–36.6; O2SAT 94–97; BMI 36.5
[2024-11-21 01:50] LABS: Glucose Point of Care 96 mg/dl (65-105)
[2024-11-21] MEDS: IPRATROPIUM BR 0.02% INH SOLN 0.5 MG/2.5 ML VIAL INHALATION ×4 (02:29→20:02)
[2024-11-21] MEDS: LEVALBUTEROL NEB 1.25 MG/3 ML 0.63 MG INHALATION ×4 (02:30→20:02)
[2024-11-21] MEDS: LORazepam INJ (*CRX) 2 MG/ML VIAL 0.25 MG IV PUSH (03:12)
[2024-11-21 05:05] LABS: Basophils Percent Auto 0.5 % (0.2-1.2); Eosinophils Absolute Auto 0.1 K/mm3 (0-0.3); Eosinophils Percent Auto 1.6 % (0-4.4); Hematocrit 39.6 % (42.0-52.0); Hemoglobin 12.5 g/dL (14.0-18.0); Immature Granulocyte Absolute 0.08 K/mm3 (0.00-0.031); Immature Granulocyte Percent A 1.1 % (0-0.5); Lymphocytes Absolute Auto 0.89 K/mm3 (0.9-3.2); Lymphocytes Percent Auto 12.1 % (18.3-44.2); Mean Corpuscular HGB Conc 31.6 g/dl (32-36); Mean Corpuscular Hemoglobin 29.3 pg (26-34); Mean Platelet Volume 9.9 fl (7.4-10.4); Monocytes Absolute Auto 0.6 K/mm3 (0.1-0.6); Monocytes Percent Auto 7.7 % (2.6-8.5); Neutrophils Absolute Auto 5.7 K/mm3 (1.3-6.7); Platelet Count Result 314 k/mm3 (150-375); Red Blood Count 4.26 M/mm3 (4.6-6.20); Red Cell Distribution Width 14.5 % (11.5-14.5); White Blood Count 7.4 K/mm3 (4.5-10.0)
[2024-11-21 05:23] LABS: Alanine Aminotransferase 50 U/L (6-50); Albumin Level 3.5 g/dL (3.5-5.1); Alkaline Phosphatase 87 U/L (38-126); Anion Gap 10 mmol/L (4-12); Aspartate Amino Transferase 51 U/L (17-59); Bilirubin,Total 0.8 mg/dL (0.2-1.3); Blood Urea Nitrogen 22 mg/dL (9-20); Calcium 8.9 mg/dL (8.4-10.2); Carbon Dioxide 27 mmol/L (22-30); Chloride 103 mmol/L (98-107); Estimated CRCL calculation 75 ml/min; Estimated Glomerular Filt Rate > 60; Glucose 127 mg/dL (65-110); Potassium 3.7 mmol/L (3.4-5.0); Sodium 140 mmol/L (137-145)
[2024-11-21 05:47] LABS: Glucose Point of Care 129 mg/dl (65-105)
[2024-11-21] MEDS: LEVOTHYROXINE SODIUM INJ 100 MCG/5 ML VIAL 62.5 MCG IV PUSH (07:31)
[2024-11-21] MEDS: DESVENLAFAXINE SUCCINATE 50 MG TAB.ER.24H 100 MG PO (08:20)
[2024-11-21] MEDS: LOSARTAN POTASSIUM 25 MG TABLET PO (08:21)
[2024-11-21] MEDS: ASPIRIN 81 MG ENTERIC TABLET PO (08:21)
[2024-11-21] MEDS: cefTRIAXone 2 GM/NS 100 ML 2 GM/100 ML BAG IVPB (08:21)
[2024-11-21] MEDS: ENOXAPARIN 40 MG/0.4 ML SYRINGE SUB-Q (08:21)
[2024-11-21] MEDS: METOPROLOL TARTRATE INJ 5 MG/5 ML VIAL IV PUSH ×2 (08:38→16:23)
--- NOTE | 2024-11-21 09:24 | PM.IMPN ---
Progress Note: A&P Assessment and Plan (1) Dysphagia: Qualifiers: Dysphagia type: unspecified Qualified Code(s): R13.10 - Dysphagia, unspecified Code(s): R13.10 - Dysphagia, unspecified Status: Acute (2) Flu: Code(s): J11.1 - Influenza due to unidentified influenza virus with other respiratory manifestations Status: Acute (3) A-fib: Qualifiers: Atrial fibrillation type: unspecified Qualified Code(s): I48.91 - Unspecified atrial fibrillation Code(s): I48.91 - Unspecified atrial fibrillation Status: Acute (4) SVT (supraventricular tachycardia): Code(s): I47.1 - Supraventricular tachycardia Status: Acute Plan (1) Dysphagia: Qualifiers: Dysphagia type: unspecified Qualified Code(s): R13.10 - Dysphagia, unspecified Code(s): R13.10 - Dysphagia, unspecified Status: Acute Assessment and Plan: 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 bronchodilators (3) Pneumonia, possible aspiration pneumonia due to aspiration Code(s): J18.9 - Pneumonia, unspecified organism Status: Acute Assessment and Plan: Continue ceftriaxone, and doxycycline and add Flagyl IV (4) Acute hypoxemic respiratory failure: Code(s): J96.01 - Acute respiratory failure with hypoxia Status: Acute Assessment and Plan: Likely secondary to pneumonia, aspiration versus influenza -patient failed bedside swallow -barium swallow test showed aspirate -EGD performed (5) Atrial fibrillation with rapid ventricular response: Code(s): I48.91 - Unspecified atrial fibrillation Status: Acute Assessment and Plan: Patient was in AFib RVR on admission. Given 5 IV metoprolol and 50 p.o. metoprolol in the ED Currently in sinus rhythm, rate controlled Telemetry monitoring Continue home metoprolol (6) Hypothyroidism (acquired): Code(s): E03.9 - Hypothyroidism, unspecified Status: Acute Assessment and Plan: Continue levothyroxine (7) Iron deficiency anemia: Qualifiers: Iron deficiency anemia type: chronic blood loss Qualified Code(s): D50.0 - Iron deficiency anemia secondary to blood loss (chronic) Code(s): D50.9 - Iron deficiency anemia, unspecified Status: Acute Assessment and Plan: Likely hemoconcentrated from dehydration Hemoglobin 14.2 IVF Hemoglobin 12.6, no acute bleeding noted, platelet counts are within normal limit. INR was normal at 1.1 (8) Diabetes: Code(s): E11.9 - Type 2 diabetes mellitus without complications Status: Acute Assessment and Plan: Hold home anti hyperglycemic medications while in hospital Accu-Cheks a.c. HS Continue Accu-Cheks and sliding scale insulin (9) Chronic back pain: Qualifiers: Back pain location: back pain in unspecified location Back pain laterality: unspecified Qualified Code(s): M54.9 - Dorsalgia, unspecified; G89.29 - Other chronic pain Code(s): M54.9 - Dorsalgia, unspecified; G89.29 - Other chronic pain Status: Acute Assessment and Plan: Tylenol and Percocet ordered (10) Anxiety: Code(s): F41.9 - Anxiety disorder, unspecified Status: Acute Assessment and Plan: Continue home Seroquel, trazodone, Ativan as needed Subjective Date/time seen: 11/21/24 09:24 Interval history: I saw examined the patient today, patient still has choking when patient was eating and drinking. Patient failed speech evaluation. Patient has a cough that scant phlegm. Patient denies shortness breath. Exam Narrative: General: Pleasant gentleman in no acute distress HEENT: Pupils are equal and reactive, sclera is clear, moist oral mucosa, neck is supple, Respiratory: Coarse breath sounds at bases otherwise clear, no wheezing. Cardiovascular: Regular rate and rhythm, normal S1-S2 Abdomen: Soft, protuberant/obese, nontender normoactive bowel sounds Extremities: No edema or cyanosis of the extremities , palpable pedal pulses. Active ROM to all four extremities. Neuro: Alert and orientatedx3. PERRLA. Nonfocal, follows simple commands in all extremities Skin: Warm, dry, no lesions noted Psych: pleasant, cooperative, normal speech, normal affect, Objective Data Vital Signs Vital Signs: Vital Signs - 24 hr 11/20/24 09:28 11/20/24 09:31 11/20/24 09:44 Temperature Pulse Rate 70 78 Respiratory Rate 22 H Blood Pressure Pulse Oximetry 94 Oxygen Delivery Nasal Cannula Oxygen Flow Rate 4 Fraction of Inspired Oxygen 11/20/24 09:55 11/20/24 12:00 11/20/24 13:52 Temperature 97.3 F L Pulse Rate 69 67 68 Respiratory Rate 16 20 Blood Pressure 167/79 H Pulse Oximetry 97 Oxygen Delivery Nasal Cannula Oxygen Flow Rate 4 Fraction of Inspired Oxygen 11/20/24 15:13 11/20/24 15:23 11/20/24 15:33 Temperature Pulse Rate 80 66 65 Respiratory Rate 20 22 H 21 H Blood Pressure 189/94 H 155/86 H Pulse Oximetry 96 96 97 Oxygen Delivery Nasal Cannula Nasal Cannula Nasal Cannula Oxygen Flow Rate 3 3 3 Fraction of Inspired Oxygen 11/20/24 16:00 11/20/24 16:00 11/20/24 17:12 Temperature 97.7 F Pulse Rate 66 66 85 Respiratory Rate 18 Blood Pressure 164/86 H Pulse Oximetry 96 Oxygen Delivery Oxygen Flow Rate Fraction of Inspired Oxygen 11/20/24 19:39 11/20/24 19:39 11/20/24 19:45 Temperature Pulse Rate 74 66 Respiratory Rate 22 H 19 Blood Pressure Pulse Oximetry 94 99 Oxygen Delivery Nasal Cannula Nasal Cannula Oxygen Flow Rate 4 4 Fraction of Inspired Oxygen 36 11/20/24 19:56 11/20/24 20:54 11/21/24 00:00 Temperature 98.1 F Pulse Rate 75 65 72 Respiratory Rate 20 20 Blood Pressure 169/72 H Pulse Oximetry 96 Oxygen Delivery Oxygen Flow Rate Fraction of Inspired Oxygen 11/21/24 02:29 11/21/24 02:39 11/21/24 03:58 Temperature 97.9 F Pulse Rate 70 72 73 Respiratory Rate 20 20 20 Blood Pressure 155/70 H Pulse Oximetry 94 Oxygen Delivery Oxygen Flow Rate Fraction of Inspired Oxygen 11/21/24 04:00 11/21/24 07:28 11/21/24 07:28 Temperature Pulse Rate 71 74 Respiratory Rate 20 Blood Pressure Pulse Oximetry 96 Oxygen Delivery Nasal Cannula Oxygen Flow Rate 4 Fraction of Inspired Oxygen 11/21/24 08:15 11/21/24 08:38 Temperature Pulse Rate 74 74 Respiratory Rate Blood Pressure 154/75 H Pulse Oximetry 97 Oxygen Delivery Oxygen Flow Rate Fraction of Inspired Oxygen Intake/Output Intake/Output: Intake & Output 11/18/24 11/19/24 11/20/24 11/21/24 23:59 23:59 23:59 23:59 Intake Total 1450 650 450 416.7 Output Total 250 600 200 Balance 1200 50 250 416.7 Meds/Results Medications: Active Medications Generic Name Dose Route Start Last Admin Trade Name Freq PRN Reason Stop Dose Admin Acetaminophen 650 mg 11/18/24 14:28 Acetaminophen 325 Mg Tablet PO Q4H PRN Mild Pain (1-3) or Fever Hydrocodone Bitart/Acetaminophen 1 tab 11/18/24 14:28 Hydrocodone/Acetaminophen (*Crx) 5-325 Mg Tablet PO Q4H PRN Moderate Pain (4-6) Aspirin 81 mg 11/19/24 09:00 11/21/24 08:21 Aspirin 81 Mg Enteric Tablet PO 81 mg DAILY YFN Administration Benzonatate 200 mg 11/19/24 00:51 Benzonatate 100 Mg Capsule PO TID PRN cough Desvenlafaxine Succinate 100 mg 11/19/24 09:00 11/21/24 08:20 Desvenlafaxine Succinate 50 Mg Tab.Er.24h PO 100 mg QAM YFN Administration Dextrose 12.5 gm 11/18/24 14:28 Dextrose 50% 25 Gm/50 Ml Syringe IV PUSH PRN PRN Hypoglycemia Protocol Docusate Sodium 100 mg 11/18/24 17:00 11/19/24 18:46 Docusate Sodium 100 Mg Capsule PO Not Given BID YFN Ezetimibe 10 mg 11/19/24 09:00 11/19/24 09:12 Ezetimibe 10 Mg Tablet PO 10 mg DAILY YFN Administration Enoxaparin Sodium 40 mg 11/19/24 09:00 11/21/24 08:21 Enoxaparin 40 Mg/0.4 Ml Syringe SUB-Q 40 mg DAILY YFN Administration Glucagon 1 mg 11/18/24 14:28 Glucagon For Inj 1 Mg Vial IM PRN PRN Hypoglycemia Protocol Glucose 15 gm 11/18/24 14:28 Glucose Oral Gel 15 Gm Of Glucse In 37.5 Gm Tube PO PRN PRN Hypoglycemia Protocol Hydralazine HCl 10 mg 11/19/24 12:27 Hydralazine Hcl 20 Mg/Ml Vial IV PUSH Q4H PRN Blood Pressure - High Dextrose 1,000 mls @ 100 mls/hr 11/18/24 14:28 Dextrose 5% 1,000 Ml IVPB PRN PRN Hypoglycemia Protocol Ceftriaxone Sodium 2 gm in 100 mls @ 200 mls/hr 11/19/24 09:00 11/21/24 08:37 Rocephin 2 Gm/Ns 100 Ml IVPB 200 mls/hr Q24H YFN Infusion Doxycycline Hyclate 100 mg in 100 mls @ 100 mls/hr 11/19/24 22:15 11/20/24 21:29 Vibramycin 100 Mg/Ns 100 Ml IVPB 11/22/24 23:59 100 mls/hr Q12HR YFN Administration Insulin Aspart 2 - 5 units 11/20/24 00:00 11/21/24 05:50 Insulin Aspart (*Bkc) 100 Units/Ml SUB-Q Not Given Q6HR YFN Protocol Ipratropium Hematite 0.5 mg 11/19/24 10:20 11/21/24 07:28 Ipratropium Br 0.02% Inh Soln 0.5 Mg/2.5 Ml Vial INHALATION 0.5 mg Q6HRT YFN Administration Levalbuterol HCl 0.63 mg 11/19/24 10:20 11/21/24 07:28 Levalbuterol Neb 1.25 Mg/3 Ml INHALATION 0.63 mg Q6HRT YFN Administration Levothyroxine Sodium 125 mcg 11/19/24 06:30 11/19/24 06:27 Levothyroxine Sodium 125 Mcg Tablet BY MOUTH 125 mcg DAILY@0630 YFN Administration Levothyroxine Sodium 62.5 mcg 11/20/24 07:35 11/21/24 07:31 Levothyroxine Sodium Inj 100 Mcg/5 Ml Vial IV PUSH 62.5 mcg DAILY@0630 YFN Administration Lorazepam 0.5 mg 11/19/24 00:40 Lorazepam (*Crx) 0.5 Mg Tablet PO DAILY PRN Anxiety Lorazepam 0.25 mg 11/20/24 07:33 11/21/24 03:12 Lorazepam Inj (*Crx) 2 Mg/Ml Vial IV PUSH 0.25 mg Q6H PRN Administration Anxiety Losartan Potassium 25 mg 11/19/24 09:00 11/21/24 08:21 Losartan Potassium 25 Mg Tablet PO 25 mg DAILY YFN Administration Metoprolol Succinate 25 mg 11/19/24 09:00 11/19/24 09:12 Metoprolol Succinate Ext Rel 25 Mg Tabcr PO 25 mg DAILY YFN Administration Metoprolol Tartrate 5 mg 11/19/24 22:25 11/21/24 08:38 Metoprolol Tartrate Inj 5 Mg/5 Ml Vial IV PUSH 5 mg BID YFN Administration Mirtazapine 15 mg 11/19/24 21:00 11/19/24 21:42 Mirtazapine 15 Mg Tablet PO Not Given HS YFN Oseltamivir Phosphate 30 mg 11/19/24 09:00 11/19/24 21:42 Oseltamivir Phosphate 30 Mg Capsule PO Not Given Q12HR YFN Perflutren Lipid Microsphere 0 ml 11/19/24 07:45 Perflutren Lipid Microspheres 1.5 Ml Vial Diluted To 10 Ml Total Volume IV PUSH 11/22/24 07:45 ONCE PRN adequate visualization Protocol Polyethylene Glycol 17 gm 11/19/24 00:40 Polyethylene Glycol 3350 17 Gm Powd.Pack PO QAM PRN constipation Pravastatin Sodium 20 mg 11/19/24 09:00 11/19/24 09:11 Pravastatin Sodium 20 Mg Tablet PO 20 mg DAILY YFN Administration Quetiapine Fumarate 50 mg 11/19/24 21:00 11/19/24 21:42 Quetiapine Fumarate 25 Mg Tablet PO Not Given QHS YFN Trazodone HCl 50 mg 11/19/24 00:40 Trazodone Hcl 50 Mg Tablet PO QHS PRN Anxiety/SLEEP Radiology Results: ITS Impressions Chest CTA 11/18/24 10:26 Impression: No evidence of pulmonary embolus, aortic dissection, or aortic aneurysm. Mild patchy groundglass opacity and nodularity in the lungs, right worse than left. Findings suggest multifocal bilateral infection/pneumonia. Mild pulmonary edema is a potential alternative consideration with mild atelectatic changes. Correlate clinically. Modified Barium Swallow 11/19/24 14:10 IMPRESSION: Oropharyngeal dysphagia and esophageal backflow at laryngeal penetration and intermittent trace aspiration. Please correlate with speech pathologist findings and specific feeding recommendations. Chest X-Ray 11/21/24 06:23 IMPRESSION: 1. Stable diffuse lung disease, consistent with pneumonia. Labs Labs: Laboratory Results - last 24 hr 11/20/24 11/20/24 11/20/24 11:51 13:44 17:11 WBC RBC Hgb Hct MCV MCH MCHC RDW Plt Count MPV Immature Gran % (Auto) Neut % (Auto) Lymph % (Auto) [place] % (Auto) Eos % (Auto) Baso % (Auto) Lymph # (Auto) [place] # (Auto) Eos # (Auto) Baso # (Auto) Abs Immat Gran (auto) Absolute Neuts (auto) Absolute Nucleated RBC Nucleated RBC % Sodium Potassium Chloride Carbon Dioxide Anion Gap BUN Creatinine Estim Creat Clear Calc Estimated GFR Glucose POC Capillary Glucose 115 H 109 H 95 Calcium Phosphorus Magnesium Total Bilirubin AST ALT Alkaline Phosphatase Total Protein Albumin 11/21/24 11/21/24 11/21/24 01:05 04:02 04:26 WBC 7.4 RBC 4.26 L Hgb 12.5 L Hct 39.6 L MCV 93.0 MCH 29.3 MCHC 31.6 L RDW 14.5 Plt Count 314 MPV 9.9 Immature Gran % (Auto) 1.1 H Neut % (Auto) 77.0 H Lymph % (Auto) 12.1 L [place] % (Auto) 7.7 Eos % (Auto) 1.6 Baso % (Auto) 0.5 Lymph # (Auto) 0.89 L [place] # (Auto) 0.6 Eos # (Auto) 0.1 Baso # (Auto) 0.0 Abs Immat Gran (auto) 0.08 H Absolute Neuts (auto) 5.7 Absolute Nucleated RBC 0.000 Nucleated RBC % 0.0 Sodium 140 Potassium 3.7 Chloride 103 Carbon Dioxide 27 Anion Gap 10 BUN 22 H Creatinine 0.71 Estim Creat Clear Calc 75 Estimated GFR > 60 Glucose 127 H POC Capillary Glucose 96 129 H Calcium 8.9 Phosphorus 3.0 Magnesium 2.0 Total Bilirubin 0.8 AST 51 ALT 50 Alkaline Phosphatase 87 Total Protein 7.0 Albumin 3.5
[2024-11-21] MEDS: DOXYCYCLINE 100 MG/NS 100 ML 100 MG/100 ML BAG IVPB ×2 (09:37→20:08)
--- NOTE | 2024-11-21 12:00 | PCSTNOTE ---
Please refer to the Bedside Swallow Evaluation in the EMR. Please note, silent aspiration cannot be ruled out at bedside. A second bedside swallow eval was ordered on this date; A bedside swallow evaluation and MBS were completed on 11/19, the MBS revealed severe dysphagia as moderate pharyngeal residuals after all trials and backflow from the level of the UES posed an aspiration risk; without the ST coaching and max verbal cues and instruction during the MBS testing, high aspiration risk was present and would have likely occurred. An EGD completed yesterday was apparently normal with no PEG recommended. Level 5 minced and moist diet with moderately thick liquids was then ordered. On this date, ST entered the pts room just as pts breakfast tray arrived. The pt was educated re the results of the MBS, specifically the significant pharyngeal residuals and the risk of that residual being aspirated. Pt was then taught & instructed to perform the 'modified' supraglottic swallow technique i.e. effortful swallow, cough/clear throat, then swallow again with each and every swallow/each consistency etc in order to reduce risk of aspiration. During the MBS, when pt was cued to dry swallow, only a portion was cleared with mild pharyngeal residuals remaining (with the very limited and controlled amounts). On this date, the pt was educated re the rationale is to force contents through the pharynx ideally resulting in less residual, then the cough/throat clear to potentially clear any instance of laryngeal penetration, then another swallow to clear any remaining residuals. Pt required max cues to continue technique with each sip and bite; pt verbalized he understood the results and well as the swallow recommendations but then did not consistently comply with the swallow guidelines. Impression: pt presents with severe dysphagia as aspiration risk is high based on MBS results; NPO should be discussed with pt or the risks of continued oral intake; Spoke with Dr Stone re these finding as well as the MBS results. Providers will discuss risk of continuing oral intake with pt versus tube feeding. Regardless, ST will continue dysphagia therapy and teaching pt re his dysphagia and safe swallowing techniques that should be used with every swallow.
[2024-11-21 12:21] LABS: Glucose Point of Care 156 mg/dl (65-105)
--- NOTE | 2024-11-21 13:49 | WPDGIPROGNO ---
Progress Note: A&P Assessment and Plan (1) Dysphagia: Qualifiers: Dysphagia type: unspecified Qualified Code(s): R13.10 - Dysphagia, unspecified Code(s): R13.10 - Dysphagia, unspecified Status: Acute Assessment and Plan: this is oropharyngeal related probably from previous radiation/jaw surgery egd with normal esophagus will need speech therapy and also special diet to prevent aspiration will follow only as needed (2) History of head and neck cancer: Code(s): Z85.89 - Personal history of malignant neoplasm of other organs and systems Status: Acute (3) Osteonecrosis: Code(s): M87.9 - Osteonecrosis, unspecified Status: Acute Assessment and Plan: s/p jaw surgery (4) Pneumonia: Code(s): J18.9 - Pneumonia, unspecified organism Status: Acute Assessment and Plan: on treatment and improving Subjective Date/time seen: 11/21/24 13:49 Interval history: egd yesterday with normal esophagus, no need of dilation Review of Systems Review of Systems: All systems reviewed & are unremarkable except as noted in HPI and below Exam Const: General: comfortable HENMT: Other: s/p surgery rt sided jaw Eyes: General: appearance normal, both eyes and all related structures Neck: Neck: no JVD Resp: Auscultation: rhonchi and no wheezes Cardio: Rate: regular rate Rhythm: regular rhythm GI: Inspection: non-distended GI Palp: Yes Soft to palpation and No Tenderness to palpation present (GI) Auscultation: normal bowel sounds Skin: General skin exam: normal color Neuro: Motor exam (neuro): 5/5 motor strength present throughout Extrem: General: normal to inspection Psych: Mental Status: mental status grossly normal Objective Data Vital Signs Vital Signs: Vital Signs - 24 hr 11/20/24 13:52 11/20/24 15:13 11/20/24 15:23 Temperature 97.3 F L Pulse Rate 68 80 66 Respiratory Rate 20 20 22 H Blood Pressure 167/79 H 189/94 H Pulse Oximetry 97 96 96 Oxygen Delivery Nasal Cannula Nasal Cannula Nasal Cannula Oxygen Flow Rate 4 3 3 Fraction of Inspired Oxygen 11/20/24 15:33 11/20/24 16:00 11/20/24 16:00 Temperature 97.7 F Pulse Rate 65 66 66 Respiratory Rate 21 H 18 Blood Pressure 155/86 H 164/86 H Pulse Oximetry 97 96 Oxygen Delivery Nasal Cannula Oxygen Flow Rate 3 Fraction of Inspired Oxygen 11/20/24 17:12 11/20/24 19:39 11/20/24 19:39 Temperature Pulse Rate 85 74 Respiratory Rate 22 H Blood Pressure Pulse Oximetry 94 Oxygen Delivery Nasal Cannula Oxygen Flow Rate 4 Fraction of Inspired Oxygen 36 11/20/24 19:45 11/20/24 19:56 11/20/24 20:54 Temperature 98.1 F Pulse Rate 66 75 65 Respiratory Rate 19 20 20 Blood Pressure 169/72 H Pulse Oximetry 99 96 Oxygen Delivery Nasal Cannula Oxygen Flow Rate 4 Fraction of Inspired Oxygen 11/21/24 00:00 11/21/24 02:29 11/21/24 02:39 Temperature Pulse Rate 72 70 72 Respiratory Rate 20 20 Blood Pressure Pulse Oximetry Oxygen Delivery Oxygen Flow Rate Fraction of Inspired Oxygen 11/21/24 03:58 11/21/24 04:00 11/21/24 07:28 Temperature 97.9 F Pulse Rate 73 71 Respiratory Rate 20 Blood Pressure 155/70 H Pulse Oximetry 94 96 Oxygen Delivery Nasal Cannula Oxygen Flow Rate 4 Fraction of Inspired Oxygen 11/21/24 07:28 11/21/24 07:40 11/21/24 08:00 Temperature Pulse Rate 74 78 76 Respiratory Rate 20 20 Blood Pressure Pulse Oximetry Oxygen Delivery Oxygen Flow Rate Fraction of Inspired Oxygen 11/21/24 08:15 11/21/24 08:30 11/21/24 08:38 Temperature Pulse Rate 74 74 Respiratory Rate Blood Pressure 154/75 H Pulse Oximetry 97 97 Oxygen Delivery Nasal Cannula Oxygen Flow Rate 3 Fraction of Inspired Oxygen 11/21/24 12:00 Temperature Pulse Rate 63 Respiratory Rate Blood Pressure Pulse Oximetry Oxygen Delivery Oxygen Flow Rate Fraction of Inspired Oxygen Intake/Output Intake/Output: Intake & Output 11/18/24 11/19/24 11/20/24 11/21/24 23:59 23:59 23:59 23:59 Intake Total 1450 650 550 516.7 Output Total 250 600 200 Balance 1200 50 350 516.7 Meds/Results Medications: Active Medications Generic Name Dose Route Start Last Admin Trade Name Freq PRN Reason Stop Dose Admin Acetaminophen 650 mg 11/18/24 14:28 Acetaminophen 325 Mg Tablet PO Q4H PRN Mild Pain (1-3) or Fever Hydrocodone Bitart/Acetaminophen 1 tab 11/18/24 14:28 Hydrocodone/Acetaminophen (*Crx) 5-325 Mg Tablet PO Q4H PRN Moderate Pain (4-6) Aspirin 81 mg 11/19/24 09:00 11/21/24 08:21 Aspirin 81 Mg Enteric Tablet PO 81 mg DAILY YFN Administration Benzonatate 200 mg 11/19/24 00:51 Benzonatate 100 Mg Capsule PO TID PRN cough Desvenlafaxine Succinate 100 mg 11/19/24 09:00 11/21/24 08:20 Desvenlafaxine Succinate 50 Mg Tab.Er.24h PO 100 mg QAM YFN Administration Dextrose 12.5 gm 11/18/24 14:28 Dextrose 50% 25 Gm/50 Ml Syringe IV PUSH PRN PRN Hypoglycemia Protocol Docusate Sodium 100 mg 11/18/24 17:00 11/19/24 18:46 Docusate Sodium 100 Mg Capsule PO Not Given BID YFN Ezetimibe 10 mg 11/19/24 09:00 11/19/24 09:12 Ezetimibe 10 Mg Tablet PO 10 mg DAILY YFN Administration Enoxaparin Sodium 40 mg 11/19/24 09:00 11/21/24 08:21 Enoxaparin 40 Mg/0.4 Ml Syringe SUB-Q 40 mg DAILY YFN Administration Glucagon 1 mg 11/18/24 14:28 Glucagon For Inj 1 Mg Vial IM PRN PRN Hypoglycemia Protocol Glucose 15 gm 11/18/24 14:28 Glucose Oral Gel 15 Gm Of Glucse In 37.5 Gm Tube PO PRN PRN Hypoglycemia Protocol Hydralazine HCl 10 mg 11/19/24 12:27 Hydralazine Hcl 20 Mg/Ml Vial IV PUSH Q4H PRN Blood Pressure - High Dextrose 1,000 mls @ 100 mls/hr 11/18/24 14:28 Dextrose 5% 1,000 Ml IVPB PRN PRN Hypoglycemia Protocol Ceftriaxone Sodium 2 gm in 100 mls @ 200 mls/hr 11/19/24 09:00 11/21/24 08:37 Rocephin 2 Gm/Ns 100 Ml IVPB 200 mls/hr Q24H YFN Infusion Doxycycline Hyclate 100 mg in 100 mls @ 100 mls/hr 11/19/24 22:15 11/21/24 09:37 Vibramycin 100 Mg/Ns 100 Ml IVPB 11/22/24 23:59 100 mls/hr Q12HR YFN Administration Insulin Aspart 2 - 5 units 11/20/24 00:00 11/21/24 12:25 Insulin Aspart (*Bkc) 100 Units/Ml SUB-Q Not Given Q6HR [facility] Protocol Ipratropium [place] 0.5 mg 11/19/24 10:20 11/21/24 07:28 Ipratropium Br 0.02% Inh Soln 0.5 Mg/2.5 Ml Vial INHALATION 0.5 mg Q6HRT YFN Administration Levalbuterol HCl 0.63 mg 11/19/24 10:20 11/21/24 07:28 Levalbuterol Neb 1.25 Mg/3 Ml INHALATION 0.63 mg Q6HRT [facility] Administration Levothyroxine Sodium 125 mcg 11/19/24 06:30 11/19/24 06:27 Levothyroxine Sodium 125 Mcg Tablet BY MOUTH 125 mcg DAILY@0630 [facility] Administration Levothyroxine Sodium 62.5 mcg 11/20/24 07:35 11/21/24 07:31 Levothyroxine Sodium Inj 100 Mcg/5 Ml Vial IV PUSH 62.5 mcg DAILY@0630 [facility] Administration Lorazepam 0.5 mg 11/19/24 00:40 Lorazepam (*Crx) 0.5 Mg Tablet PO DAILY PRN Anxiety Lorazepam 0.25 mg 11/20/24 07:33 11/21/24 03:12 Lorazepam Inj (*Crx) 2 Mg/Ml Vial IV PUSH 0.25 mg Q6H PRN Administration Anxiety Losartan Potassium 25 mg 11/19/24 09:00 11/21/24 08:21 Losartan Potassium 25 Mg Tablet PO 25 mg DAILY YFN Administration Metoprolol Succinate 25 mg 11/19/24 09:00 11/19/24 09:12 Metoprolol Succinate Ext Rel 25 Mg Tabcr PO 25 mg DAILY [facility] Administration Metoprolol Tartrate 5 mg 11/19/24 22:25 11/21/24 08:38 Metoprolol Tartrate Inj 5 Mg/5 Ml Vial IV PUSH 5 mg BID YFN Administration Mirtazapine 15 mg 11/19/24 21:00 11/19/24 21:42 Mirtazapine 15 Mg Tablet PO Not Given [facility] Oseltamivir Phosphate 30 mg 11/19/24 09:00 11/19/24 21:42 Oseltamivir Phosphate 30 Mg Capsule PO Not Given Q12HR YFN Perflutren Lipid Microsphere 0 ml 11/19/24 07:45 Perflutren Lipid Microspheres 1.5 Ml Vial Diluted To 10 Ml Total Volume IV PUSH 11/22/24 07:45 ONCE PRN adequate visualization Protocol Polyethylene Glycol 17 gm 11/19/24 00:40 Polyethylene Glycol 3350 17 Gm Powd.Pack PO QAM PRN constipation Pravastatin Sodium 20 mg 11/19/24 09:00 11/19/24 09:11 Pravastatin Sodium 20 Mg Tablet PO 20 mg DAILY YFN Administration Quetiapine Fumarate 50 mg 11/19/24 21:00 11/19/24 21:42 Quetiapine Fumarate 25 Mg Tablet PO Not Given QHS YFN Trazodone HCl 50 mg 11/19/24 00:40 Trazodone Hcl 50 Mg Tablet PO QHS PRN Anxiety/SLEEP Radiology Results: ITS Impressions Chest CTA 11/18/24 10:26 Impression: No evidence of pulmonary embolus, aortic dissection, or aortic aneurysm. Mild patchy groundglass opacity and nodularity in the lungs, right worse than left. Findings suggest multifocal bilateral infection/pneumonia. Mild pulmonary edema is a potential alternative consideration with mild atelectatic changes. Correlate clinically. Modified Barium Swallow 11/19/24 14:10 IMPRESSION: Oropharyngeal dysphagia and esophageal backflow at laryngeal penetration and intermittent trace aspiration. Please correlate with speech pathologist findings and specific feeding recommendations. Chest X-Ray 11/21/24 06:23 IMPRESSION: 1. Stable diffuse lung disease, consistent with pneumonia. Labs Labs: Laboratory Results - last 24 hr 11/20/24 11/21/24 11/21/24 17:11 01:05 04:02 WBC RBC Hgb Hct MCV MCH MCHC RDW Plt Count MPV Immature Gran % (Auto) Neut % (Auto) Lymph % (Auto) [place] % (Auto) Eos % (Auto) Baso % (Auto) Lymph # (Auto) [place] # (Auto) Eos # (Auto) Baso # (Auto) Abs Immat Gran (auto) Absolute Neuts (auto) Absolute Nucleated RBC Nucleated RBC % Sodium Potassium Chloride Carbon Dioxide Anion Gap BUN Creatinine Estim Creat Clear Calc Estimated GFR Glucose POC Capillary Glucose 95 96 129 H Calcium Phosphorus Magnesium Total Bilirubin AST ALT Alkaline Phosphatase Total Protein Albumin 11/21/24 11/21/24 04:26 12:14 WBC 7.4 RBC 4.26 L Hgb 12.5 L Hct 39.6 L MCV 93.0 MCH 29.3 MCHC 31.6 L RDW 14.5 Plt Count 314 MPV 9.9 Immature Gran % (Auto) 1.1 H Neut % (Auto) 77.0 H Lymph % (Auto) 12.1 L [place] % (Auto) 7.7 Eos % (Auto) 1.6 Baso % (Auto) 0.5 Lymph # (Auto) 0.89 L [place] # (Auto) 0.6 Eos # (Auto) 0.1 Baso # (Auto) 0.0 Abs Immat Gran (auto) 0.08 H Absolute Neuts (auto) 5.7 Absolute Nucleated RBC 0.000 Nucleated RBC % 0.0 Sodium 140 Potassium 3.7 Chloride 103 Carbon Dioxide 27 Anion Gap 10 BUN 22 H Creatinine 0.71 Estim Creat Clear Calc 75 Estimated GFR > 60 Glucose 127 H POC Capillary Glucose 156 H Calcium 8.9 Phosphorus 3.0 Magnesium 2.0 Total Bilirubin 0.8 AST 51 ALT 50 Alkaline Phosphatase 87 Total Protein 7.0 Albumin 3.5
--- NOTE | 2024-11-21 14:03 | P.PNAN_ITS ---
Anes - Prog Note Post-Op Date/Time: 11/21/24 14:03 Cardiovascular status: normal Respiratory status: normal Airway patency: baseline Mental status: baseline Post-Op hydration status: normal Vital Signs: Last Vital Signs Temp 97.9 F 11/21/24 03:58 Pulse 63 11/21/24 12:00 Resp 20 11/21/24 07:40 BP 154/75 H 11/21/24 08:15 Pulse Ox 97 11/21/24 08:30 O2 Del Method Nasal Cannula 11/21/24 08:30 O2 Flow Rate 3 11/21/24 08:30 FiO2 36 11/20/24 19:39 Pain Score (VAS): 0/10 I/O: Intake & Output 11/20/24 11/21/24 11/21/24 23:59 07:59 15:59 Intake Total 100 390 126.7 Balance 100 390 126.7 Laboratory Tests 11/21/24 04:26 11/21/24 04:26 11/20/24 11/21/24 11/21/24 17:11 01:05 04:02 WBC RBC Hgb Hct MCV MCH MCHC RDW Plt Count MPV Immature Gran % (Auto) Neut % (Auto) Lymph % (Auto) [place] % (Auto) Eos % (Auto) Baso % (Auto) Lymph # (Auto) [place] # (Auto) Eos # (Auto) Baso # (Auto) Abs Immat Gran (auto) Absolute Neuts (auto) Absolute Nucleated RBC Nucleated RBC % Sodium Potassium Chloride Carbon Dioxide Anion Gap BUN Creatinine Estim Creat Clear Calc Estimated GFR Glucose POC Capillary Glucose 95 96 129 H Calcium Phosphorus Magnesium Total Bilirubin AST ALT Alkaline Phosphatase Total Protein Albumin 11/21/24 11/21/24 04:26 12:14 WBC 7.4 RBC 4.26 L Hgb 12.5 L Hct 39.6 L MCV 93.0 MCH 29.3 MCHC 31.6 L RDW 14.5 Plt Count 314 MPV 9.9 Immature Gran % (Auto) 1.1 H Neut % (Auto) 77.0 H Lymph % (Auto) 12.1 L [place] % (Auto) 7.7 Eos % (Auto) 1.6 Baso % (Auto) 0.5 Lymph # (Auto) 0.89 L [place] # (Auto) 0.6 Eos # (Auto) 0.1 Baso # (Auto) 0.0 Abs Immat Gran (auto) 0.08 H Absolute Neuts (auto) 5.7 Absolute Nucleated RBC 0.000 Nucleated RBC % 0.0 Sodium 140 Potassium 3.7 Chloride 103 Carbon Dioxide 27 Anion Gap 10 BUN 22 H Creatinine 0.71 Estim Creat Clear Calc 75 Estimated GFR > 60 Glucose 127 H POC Capillary Glucose 156 H Calcium 8.9 Phosphorus 3.0 Magnesium 2.0 Total Bilirubin 0.8 AST 51 ALT 50 Alkaline Phosphatase 87 Total Protein 7.0 Albumin 3.5 Post-procedural complaints: none Patient Feedback: Patient satisfied with anesthetic care.
--- NOTE | 2024-11-21 16:34 | PC.NURSE ---
On 11/21/24, the student, Quynh Saeed, provided care and completed [facility] documentation on this patient. I have reviewed the student's documentation and agree with the findings.
[2024-11-21] MEDS: metroNIDAZOLE 500 MG/ISO 100ML 500 MG/100 ML BAG 100 MG IVPB (17:35)
[2024-11-22] VITALS (19 sets, daily range): BP systolic 121–175; BP diastolic 53–84; PULSE 59–80; RESP 18–20; TEMP 36.3–36.4; O2SAT 94–98
[2024-11-22 00:13] LABS: Glucose Point of Care 124 mg/dl (65-105)
[2024-11-22] MEDS: HYDROcodone/acetaminophen (*CRX) 5-325 MG TABLET 1 TAB PO (01:31)
[2024-11-22] MEDS: metroNIDAZOLE 500 MG/ISO 100ML 500 MG/100 ML BAG 100 MG IVPB ×3 (01:31→18:24)
[2024-11-22] MEDS: LEVOTHYROXINE SODIUM INJ 100 MCG/5 ML VIAL 62.5 MCG IV PUSH (05:43)
[2024-11-22 05:45] LABS: Glucose Point of Care 111 mg/dl (65-105)
--- NOTE | 2024-11-22 08:25 | P.PNIM_ITS ---
Progress Note: A&P Assessment and Plan (1) Dysphagia: Qualifiers: Dysphagia type: unspecified Qualified Code(s): R13.10 - Dysphagia, unspecified Code(s): R13.10 - Dysphagia, unspecified Status: Acute (2) Flu: Code(s): J11.1 - Influenza due to unidentified influenza virus with other respiratory manifestations Status: Acute (3) A-fib: Qualifiers: Atrial fibrillation type: unspecified Qualified Code(s): I48.91 - Unspecified atrial fibrillation Code(s): I48.91 - Unspecified atrial fibrillation Status: Acute (4) SVT (supraventricular tachycardia): Code(s): I47.1 - Supraventricular tachycardia Status: Acute Plan (1) Dysphagia: Qualifiers: Dysphagia type: unspecified Qualified Code(s): R13.10 - Dysphagia, unspecified Code(s): R13.10 - Dysphagia, unspecified Status: Acute Assessment and Plan: 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 bronchodilators (3) Pneumonia, possible aspiration pneumonia due to aspiration Code(s): J18.9 - Pneumonia, unspecified organism Status: Acute Assessment and Plan: Continue ceftriaxone, and doxycycline and add Flagyl IV (4) Acute hypoxemic respiratory failure: Code(s): J96.01 - Acute respiratory failure with hypoxia Status: Acute Assessment and Plan: Likely secondary to pneumonia, aspiration versus influenza -patient failed bedside swallow -barium swallow test showed aspirate -EGD performed (5) Atrial fibrillation with rapid ventricular response: Code(s): I48.91 - Unspecified atrial fibrillation Status: Acute Assessment and Plan: Patient was in AFib RVR on admission. Given 5 IV metoprolol and 50 p.o. metoprolol in the ED Currently in sinus rhythm, rate controlled Telemetry monitoring Continue home metoprolol (6) Hypothyroidism (acquired): Code(s): E03.9 - Hypothyroidism, unspecified Status: Acute Assessment and Plan: Continue levothyroxine (7) Iron deficiency anemia: Qualifiers: Iron deficiency anemia type: chronic blood loss Qualified Code(s): D50.0 - Iron deficiency anemia secondary to blood loss (chronic) Code(s): D50.9 - Iron deficiency anemia, unspecified Status: Acute Assessment and Plan: Likely hemoconcentrated from dehydration Hemoglobin 14.2 IVF Hemoglobin 12.6, no acute bleeding noted, platelet counts are within normal limit. INR was normal at 1.1 (8) Diabetes: Code(s): E11.9 - Type 2 diabetes mellitus without complications Status: Acute Assessment and Plan: Hold home anti hyperglycemic medications while in hospital Accu-Cheks a.c. HS Continue Accu-Cheks and sliding scale insulin (9) Chronic back pain: Qualifiers: Back pain location: back pain in unspecified location Back pain laterality: unspecified Qualified Code(s): M54.9 - Dorsalgia, unspecified; G89.29 - Other chronic pain Code(s): M54.9 - Dorsalgia, unspecified; G89.29 - Other chronic pain Status: Acute Assessment and Plan: Tylenol and Percocet ordered (10) Anxiety: Code(s): F41.9 - Anxiety disorder, unspecified Status: Acute Assessment and Plan: Continue home Seroquel, trazodone, Ativan as needed Subjective Date/time seen: 11/22/24 08:25 Interval history: I saw examined the patient today, patient tolerated modified diet well today, Patient has a cough. Patient denies shortness breath. Exam Narrative: General: Pleasant gentleman in no acute distress HEENT: Pupils are equal and reactive, sclera is clear, moist oral mucosa, neck is supple, Respiratory: Coarse breath sounds at bases otherwise clear, no wheezing. Cardiovascular: Regular rate and rhythm, normal S1-S2 Abdomen: Soft, protuberant/obese, nontender normoactive bowel sounds Extremities: No edema or cyanosis of the extremities , palpable pedal pulses. Active ROM to all four extremities. Neuro: Alert and orientatedx3. PERRLA. Nonfocal, follows simple commands in all extremities Skin: Warm, dry, no lesions noted Psych: pleasant, cooperative, normal speech, normal affect, Objective Data Vital Signs Vital Signs: Vital Signs - 24 hr 11/21/24 08:30 11/21/24 08:38 11/21/24 12:00 Temperature Pulse Rate 74 63 Respiratory Rate Blood Pressure Pulse Oximetry 97 Oxygen Delivery Nasal Cannula Oxygen Flow Rate 3 Fraction of Inspired Oxygen 11/21/24 14:20 11/21/24 14:30 11/21/24 15:19 Temperature 97.9 F Pulse Rate 66 67 68 Respiratory Rate 20 20 20 Blood Pressure 158/84 H Pulse Oximetry 95 Oxygen Delivery Oxygen Flow Rate Fraction of Inspired Oxygen 11/21/24 15:52 11/21/24 16:00 11/21/24 16:23 Temperature Pulse Rate 75 69 Respiratory Rate Blood Pressure Pulse Oximetry 96 Oxygen Delivery Nasal Cannula Oxygen Flow Rate 2 Fraction of Inspired Oxygen 11/21/24 20:00 11/21/24 20:00 11/21/24 20:02 Temperature Pulse Rate 65 68 63 Respiratory Rate 20 20 Blood Pressure Pulse Oximetry 97 Oxygen Delivery Nasal Cannula Oxygen Flow Rate 2 Fraction of Inspired Oxygen 36 11/21/24 20:02 11/21/24 20:10 11/21/24 22:07 Temperature 97.1 F L Pulse Rate 65 73 Respiratory Rate 20 20 Blood Pressure 129/75 Pulse Oximetry 97 97 Oxygen Delivery Nasal Cannula Oxygen Flow Rate 2 Fraction of Inspired Oxygen 11/22/24 00:00 11/22/24 04:00 11/22/24 05:31 Temperature 97.3 F L Pulse Rate 69 66 66 Respiratory Rate 20 Blood Pressure 152/53 H Pulse Oximetry 97 Oxygen Delivery Oxygen Flow Rate Fraction of Inspired Oxygen Intake/Output Intake/Output: Intake & Output 11/19/24 11/20/24 11/21/24 11/22/24 23:59 23:59 23:59 23:59 Intake Total 261 338 2759.7 250 Output Total 600 200 Balance 50 350 1606.7 250 Meds/Results Medications: Active Medications Generic Name Dose Route Start Last Admin Trade Name Freq PRN Reason Stop Dose Admin Acetaminophen 650 mg 11/18/24 14:28 Acetaminophen 325 Mg Tablet PO Q4H PRN Mild Pain (1-3) or Fever Hydrocodone Bitart/Acetaminophen 1 tab 11/18/24 14:28 11/22/24 01:31 Hydrocodone/Acetaminophen (*Crx) 5-325 Mg Tablet PO 1 tab Q4H PRN Administration Moderate Pain (4-6) Aspirin 81 mg 11/19/24 09:00 11/21/24 08:21 Aspirin 81 Mg Enteric Tablet PO 81 mg DAILY YFN Administration Benzonatate 200 mg 11/19/24 00:51 Benzonatate 100 Mg Capsule PO TID PRN cough Desvenlafaxine Succinate 100 mg 11/19/24 09:00 11/21/24 08:20 Desvenlafaxine Succinate 50 Mg Tab.Er.24h PO 100 mg QAM YFN Administration Dextrose 12.5 gm 11/18/24 14:28 Dextrose 50% 25 Gm/50 Ml Syringe IV PUSH PRN PRN Hypoglycemia Protocol Docusate Sodium 100 mg 11/18/24 17:00 11/19/24 18:46 Docusate Sodium 100 Mg Capsule PO Not Given BID YFN Ezetimibe 10 mg 11/19/24 09:00 11/19/24 09:12 Ezetimibe 10 Mg Tablet PO 10 mg DAILY YFN Administration Enoxaparin Sodium 40 mg 11/19/24 09:00 11/21/24 08:21 Enoxaparin 40 Mg/0.4 Ml Syringe SUB-Q 40 mg DAILY YFN Administration Glucagon 1 mg 11/18/24 14:28 Glucagon For Inj 1 Mg Vial IM PRN PRN Hypoglycemia Protocol Glucose 15 gm 11/18/24 14:28 Glucose Oral Gel 15 Gm Of Glucse In 37.5 Gm Tube PO PRN PRN Hypoglycemia Protocol Hydralazine HCl 10 mg 11/19/24 12:27 Hydralazine Hcl 20 Mg/Ml Vial IV PUSH Q4H PRN Blood Pressure - High Dextrose 1,000 mls @ 100 mls/hr 11/18/24 14:28 Dextrose 5% 1,000 Ml IVPB PRN PRN Hypoglycemia Protocol Ceftriaxone Sodium 2 gm in 100 mls @ 200 mls/hr 11/19/24 09:00 11/21/24 09:00 Rocephin 2 Gm/Ns 100 Ml IVPB Infused Q24H YFN Infusion Doxycycline Hyclate 100 mg in 100 mls @ 100 mls/hr 11/19/24 22:15 11/21/24 20:08 Vibramycin 100 Mg/Ns 100 Ml IVPB 11/22/24 23:59 100 mls/hr Q12HR YFN Administration Metronidazole 500 mg in 100 mls @ 100 mls/hr 11/21/24 18:00 11/22/24 01:31 Flagyl 500 Mg/Iso Soln 100 Ml IVPB 100 mls/hr Q8H [facility] Administration Insulin Aspart 2 - 5 units 11/20/24 00:00 11/22/24 05:43 Insulin Aspart (*Bkc) 100 Units/Ml SUB-Q Not Given Q6HR [facility] Protocol Ipratropium [place] 0.5 mg 11/19/24 10:20 11/22/24 04:48 Ipratropium Br 0.02% Inh Soln 0.5 Mg/2.5 Ml Vial INHALATION Not Given Q6HRT YFN Levalbuterol HCl 0.63 mg 11/19/24 10:20 11/22/24 04:48 Levalbuterol Neb 1.25 Mg/3 Ml INHALATION Not Given Q6HRT [facility] Levothyroxine Sodium 125 mcg 11/19/24 06:30 11/19/24 06:27 Levothyroxine Sodium 125 Mcg Tablet BY MOUTH 125 mcg DAILY@0630 [facility] Administration Levothyroxine Sodium 62.5 mcg 11/20/24 07:35 11/22/24 05:43 Levothyroxine Sodium Inj 100 Mcg/5 Ml Vial IV PUSH 62.5 mcg DAILY@0630 [facility] Administration Lorazepam 0.5 mg 11/19/24 00:40 Lorazepam (*Crx) 0.5 Mg Tablet PO DAILY PRN Anxiety Lorazepam 0.25 mg 11/20/24 07:33 11/21/24 03:12 Lorazepam Inj (*Crx) 2 Mg/Ml Vial IV PUSH 0.25 mg Q6H PRN Administration Anxiety Losartan Potassium 25 mg 11/19/24 09:00 11/21/24 08:21 Losartan Potassium 25 Mg Tablet PO 25 mg DAILY YFN Administration Metoprolol Succinate 25 mg 11/19/24 09:00 11/19/24 09:12 Metoprolol Succinate Ext Rel 25 Mg Tabcr PO 25 mg DAILY [facility] Administration Metoprolol Tartrate 5 mg 11/19/24 22:25 11/21/24 16:23 Metoprolol Tartrate Inj 5 Mg/5 Ml Vial IV PUSH 5 mg BID YFN Administration Mirtazapine 15 mg 11/19/24 21:00 11/19/24 21:42 Mirtazapine 15 Mg Tablet PO Not Given HS [facility] Oseltamivir Phosphate 30 mg 11/19/24 09:00 11/19/24 21:42 Oseltamivir Phosphate 30 Mg Capsule PO Not Given Q12HR YFN Polyethylene Glycol 17 gm 11/19/24 00:40 Polyethylene Glycol 3350 17 Gm Powd.Pack PO QAM PRN constipation Pravastatin Sodium 20 mg 11/19/24 09:00 11/19/24 09:11 Pravastatin Sodium 20 Mg Tablet PO 20 mg DAILY YFN Administration Quetiapine Fumarate 50 mg 11/19/24 21:00 11/19/24 21:42 Quetiapine Fumarate 25 Mg Tablet PO Not Given QHS YFN Trazodone HCl 50 mg 11/19/24 00:40 Trazodone Hcl 50 Mg Tablet PO QHS PRN Anxiety/SLEEP Radiology Results: ITS Impressions Chest CTA 11/18/24 10:26 Impression: No evidence of pulmonary embolus, aortic dissection, or aortic aneurysm. Mild patchy groundglass opacity and nodularity in the lungs, right worse than left. Findings suggest multifocal bilateral infection/pneumonia. Mild pulmonary edema is a potential alternative consideration with mild atelectatic changes. Correlate clinically. Modified Barium Swallow 11/19/24 14:10 IMPRESSION: Oropharyngeal dysphagia and esophageal backflow at laryngeal penetration and intermittent trace aspiration. Please correlate with speech pathologist findings and specific feeding recommendations. Chest X-Ray 11/21/24 06:23 IMPRESSION: 1. Stable diffuse lung disease, consistent with pneumonia. Labs Labs: Laboratory Results - last 24 hr 11/21/24 11/21/24 11/22/24 12:14 23:48 05:43 POC Capillary Glucose 156 H 124 H 111 H
[2024-11-22] MEDS: DESVENLAFAXINE SUCCINATE 50 MG TAB.ER.24H 100 MG PO (08:32)
[2024-11-22] MEDS: ASPIRIN 81 MG ENTERIC TABLET PO (08:32)
[2024-11-22] MEDS: cefTRIAXone 2 GM/NS 100 ML 2 GM/100 ML BAG IVPB (08:33)
[2024-11-22] MEDS: ENOXAPARIN 40 MG/0.4 ML SYRINGE SUB-Q (08:33)
[2024-11-22] MEDS: LOSARTAN POTASSIUM 25 MG TABLET PO (08:33)
[2024-11-22] MEDS: METOPROLOL TARTRATE INJ 5 MG/5 ML VIAL IV PUSH ×2 (08:33→18:24)
[2024-11-22] MEDS: IPRATROPIUM BR 0.02% INH SOLN 0.5 MG/2.5 ML VIAL INHALATION ×2 (09:59→15:16)
[2024-11-22] MEDS: LEVALBUTEROL NEB 1.25 MG/3 ML 0.63 MG INHALATION ×2 (09:59→15:16)
[2024-11-22] MEDS: DOXYCYCLINE 100 MG/NS 100 ML 100 MG/100 ML BAG IVPB ×2 (10:41→20:40)
[2024-11-22 12:15] LABS: Glucose Point of Care 202 mg/dl (65-105)
[2024-11-22] MEDS: INSULIN ASPART (*BKC) 100 UNITS/ML SUB-Q (13:15)
[2024-11-22 17:00] LABS: Glucose Point of Care 113 mg/dl (65-105)
[2024-11-22 21:22] LABS: Glucose Point of Care 124 mg/dl (65-105)
[2024-11-22] MEDS: hydrALAZINE HCL 20 MG/ML VIAL 10 MG IV PUSH (21:46)
--- NOTE | 2024-11-22 22:23 | PCRCNOTE ---
Window of time for administration has passed. See next scheduled administration.
[2024-11-23] VITALS (17 sets, daily range): BP systolic 109–150; BP diastolic 52–65; PULSE 62–95; RESP 12–20; TEMP 36.3–36.7; O2SAT 91–95
[2024-11-23] MEDS: IPRATROPIUM BR 0.02% INH SOLN 0.5 MG/2.5 ML VIAL INHALATION ×4 (01:12→19:46)
[2024-11-23] MEDS: LEVALBUTEROL NEB 1.25 MG/3 ML 0.63 MG INHALATION ×4 (01:13→19:46)
[2024-11-23] MEDS: metroNIDAZOLE 500 MG/ISO 100ML 500 MG/100 ML BAG 100 MG IVPB ×3 (02:44→17:26)
[2024-11-23] MEDS: LEVOTHYROXINE SODIUM INJ 100 MCG/5 ML VIAL 62.5 MCG IV PUSH (05:34)
[2024-11-23] MEDS: METOPROLOL TARTRATE INJ 5 MG/5 ML VIAL IV PUSH (08:18)
[2024-11-23] MEDS: ENOXAPARIN 40 MG/0.4 ML SYRINGE SUB-Q (08:18)
[2024-11-23] MEDS: cefTRIAXone 2 GM/NS 100 ML 2 GM/100 ML BAG IVPB (08:19)
[2024-11-23] MEDS: LOSARTAN POTASSIUM 25 MG TABLET PO (08:20)
[2024-11-23] MEDS: DESVENLAFAXINE SUCCINATE 50 MG TAB.ER.24H 100 MG PO (08:20)
[2024-11-23] MEDS: ASPIRIN 81 MG ENTERIC TABLET PO (08:20)
[2024-11-23 08:23] LABS: Glucose Point of Care 139 mg/dl (65-105)
--- NOTE | 2024-11-23 08:31 | PM.IMPN ---
Progress Note: A&P Assessment and Plan (1) Dysphagia: Qualifiers: Dysphagia type: unspecified Qualified Code(s): R13.10 - Dysphagia, unspecified Code(s): R13.10 - Dysphagia, unspecified Status: Acute (2) Flu: Code(s): J11.1 - Influenza due to unidentified influenza virus with other respiratory manifestations Status: Acute (3) A-fib: Qualifiers: Atrial fibrillation type: unspecified Qualified Code(s): I48.91 - Unspecified atrial fibrillation Code(s): I48.91 - Unspecified atrial fibrillation Status: Acute (4) SVT (supraventricular tachycardia): Code(s): I47.1 - Supraventricular tachycardia Status: Acute Plan (1) Dysphagia: Qualifiers: Dysphagia type: unspecified Qualified Code(s): R13.10 - Dysphagia, unspecified Code(s): R13.10 - Dysphagia, unspecified Status: Acute Assessment and Plan: 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 Patient has risk of aspiration, but not want to pursue tube feeding. (2) Flu: Code(s): J11.1 - Influenza due to unidentified influenza virus with other respiratory manifestations Status: Acute Assessment and Plan: Continue Tamiflu P.r.n. bronchodilators (3) Pneumonia, possible aspiration pneumonia due to aspiration Code(s): J18.9 - Pneumonia, unspecified organism Status: Acute Assessment and Plan: Continue ceftriaxone, and doxycycline and add Flagyl IV (4) Acute hypoxemic respiratory failure: Code(s): J96.01 - Acute respiratory failure with hypoxia Status: Acute Assessment and Plan: Likely secondary to pneumonia, aspiration versus influenza -patient failed bedside swallow -barium swallow test showed aspirate -EGD performed. Unremarkable (5) Atrial fibrillation with rapid ventricular response: Code(s): I48.91 - Unspecified atrial fibrillation Status: Acute Assessment and Plan: Patient was in AFib RVR on admission. Given 5 IV metoprolol and 50 p.o. metoprolol in the ED Currently in sinus rhythm, rate controlled Telemetry monitoring Continue home metoprolol Hypothyroidism (acquired): Code(s): E03.9 - Hypothyroidism, unspecified Status: Acute Assessment and Plan: Continue levothyroxine (7) Iron deficiency anemia: Qualifiers: Iron deficiency anemia type: chronic blood loss Qualified Code(s): D50.0 - Iron deficiency anemia secondary to blood loss (chronic) Code(s): D50.9 - Iron deficiency anemia, unspecified Status: Acute Assessment and Plan: Likely hemoconcentrated from dehydration Hemoglobin 14.2 IVF Hemoglobin 12.6, no acute bleeding noted, platelet counts are within normal limit. INR was normal at 1.1 (8) Diabetes: Code(s): E11.9 - Type 2 diabetes mellitus without complications Status: Acute Assessment and Plan: Hold home anti hyperglycemic medications while in hospital Accu-Cheks a.c. HS Continue Accu-Cheks and sliding scale insulin (9) Chronic back pain: Qualifiers: Back pain location: back pain in unspecified location Back pain laterality: unspecified Qualified Code(s): M54.9 - Dorsalgia, unspecified; G89.29 - Other chronic pain Code(s): M54.9 - Dorsalgia, unspecified; G89.29 - Other chronic pain Status: Acute Assessment and Plan: Tylenol and Percocet ordered (10) Anxiety: Code(s): F41.9 - Anxiety disorder, unspecified Status: Acute Assessment and Plan: Continue home Seroquel, trazodone, Ativan as needed Subjective Date/time seen: 11/23/24 08:31 Interval history: I saw examined the patient today, patient tolerated modified diet well today, patient feels better today. Patient denies shortness breath. Exam Narrative: General: Pleasant gentleman in no acute distress HEENT: Pupils are equal and reactive, sclera is clear, moist oral mucosa, neck is supple, Respiratory: Coarse breath sounds at bases otherwise clear, no wheezing. Cardiovascular: Regular rate and rhythm, normal S1-S2 Abdomen: Soft, protuberant/obese, nontender normoactive bowel sounds Extremities: No edema or cyanosis of the extremities , palpable pedal pulses. Active ROM to all four extremities. Neuro: Alert and orientatedx3. PERRLA. Nonfocal, follows simple commands in all extremities Skin: Warm, dry, no lesions noted Psych: pleasant, cooperative, normal speech, normal affect, Objective Data Vital Signs Vital Signs: Vital Signs - 24 hr 11/22/24 08:33 11/22/24 09:59 11/22/24 09:59 Temperature Pulse Rate 80 61 Respiratory Rate 20 Blood Pressure Pulse Oximetry 96 Oxygen Delivery Nasal Cannula Oxygen Flow Rate 4 Fraction of Inspired Oxygen 11/22/24 10:19 11/22/24 12:00 11/22/24 13:37 Temperature 97.6 F Pulse Rate 61 67 60 Respiratory Rate 20 18 Blood Pressure 149/66 H Pulse Oximetry 97 Oxygen Delivery Oxygen Flow Rate Fraction of Inspired Oxygen 11/22/24 15:16 11/22/24 15:28 11/22/24 16:00 Temperature Pulse Rate 64 62 63 Respiratory Rate 20 20 Blood Pressure Pulse Oximetry Oxygen Delivery Oxygen Flow Rate Fraction of Inspired Oxygen 11/22/24 18:22 11/22/24 18:24 11/22/24 20:00 Temperature Pulse Rate 80 78 67 Respiratory Rate 20 Blood Pressure 154/61 H Pulse Oximetry 98 Oxygen Delivery Nasal Cannula Oxygen Flow Rate 2 Fraction of Inspired Oxygen 36 11/22/24 20:00 11/22/24 21:44 11/22/24 22:47 Temperature 97.3 F L Pulse Rate 61 61 67 Respiratory Rate 20 Blood Pressure 175/71 H 121/55 L Pulse Oximetry 98 Oxygen Delivery Oxygen Flow Rate Fraction of Inspired Oxygen 11/23/24 00:00 11/23/24 01:14 11/23/24 01:23 Temperature Pulse Rate 78 64 62 Respiratory Rate 20 20 Blood Pressure Pulse Oximetry Oxygen Delivery Oxygen Flow Rate Fraction of Inspired Oxygen 11/23/24 01:23 11/23/24 04:00 11/23/24 05:53 Temperature 97.9 F Pulse Rate 74 69 Respiratory Rate 18 Blood Pressure 150/57 H Pulse Oximetry 95 95 Oxygen Delivery Room Air Oxygen Flow Rate Fraction of Inspired Oxygen 11/23/24 08:18 Temperature Pulse Rate 79 Respiratory Rate Blood Pressure Pulse Oximetry Oxygen Delivery Oxygen Flow Rate Fraction of Inspired Oxygen Intake/Output Intake/Output: Intake & Output 11/20/24 11/21/24 11/22/24 11/23/24 23:59 23:59 23:59 23:59 Intake Total 550 1706.7 1950 250 Output Total 200 Balance 350 1706.7 1950 250 Meds/Results Medications: Active Medications Generic Name Dose Route Start Last Admin Trade Name Freq PRN Reason Stop Dose Admin Acetaminophen 650 mg 11/18/24 14:28 Acetaminophen 325 Mg Tablet PO Q4H PRN Mild Pain (1-3) or Fever Hydrocodone Bitart/Acetaminophen 1 tab 11/18/24 14:28 11/22/24 01:31 Hydrocodone/Acetaminophen (*Crx) 5-325 Mg Tablet PO 1 tab Q4H PRN Administration Moderate Pain (4-6) Aspirin 81 mg 11/19/24 09:00 11/23/24 08:20 Aspirin 81 Mg Enteric Tablet PO 81 mg DAILY YFN Administration Benzonatate 200 mg 11/19/24 00:51 Benzonatate 100 Mg Capsule PO TID PRN cough Desvenlafaxine Succinate 100 mg 11/19/24 09:00 11/23/24 08:20 Desvenlafaxine Succinate 50 Mg Tab.Er.24h PO 100 mg QAM YFN Administration Dextrose 12.5 gm 11/18/24 14:28 Dextrose 50% 25 Gm/50 Ml Syringe IV PUSH PRN PRN Hypoglycemia Protocol Docusate Sodium 100 mg 11/18/24 17:00 11/19/24 18:46 Docusate Sodium 100 Mg Capsule PO Not Given BID YFN Ezetimibe 10 mg 11/19/24 09:00 11/19/24 09:12 Ezetimibe 10 Mg Tablet PO 10 mg DAILY YFN Administration Enoxaparin Sodium 40 mg 11/19/24 09:00 11/23/24 08:18 Enoxaparin 40 Mg/0.4 Ml Syringe SUB-Q 40 mg DAILY YFN Administration Glucagon 1 mg 11/18/24 14:28 Glucagon For Inj 1 Mg Vial IM PRN PRN Hypoglycemia Protocol Glucose 15 gm 11/18/24 14:28 Glucose Oral Gel 15 Gm Of Glucse In 37.5 Gm Tube PO PRN PRN Hypoglycemia Protocol Hydralazine HCl 10 mg 11/19/24 12:27 11/22/24 21:46 Hydralazine Hcl 20 Mg/Ml Vial IV PUSH 10 mg Q4H PRN Administration Blood Pressure - High Dextrose 1,000 mls @ 100 mls/hr 11/18/24 14:28 Dextrose 5% 1,000 Ml IVPB PRN PRN Hypoglycemia Protocol Ceftriaxone Sodium 2 gm in 100 mls @ 200 mls/hr 11/19/24 09:00 11/23/24 08:19 Rocephin 2 Gm/Ns 100 Ml IVPB 200 mls/hr Q24H YFN Administration Metronidazole 500 mg in 100 mls @ 100 mls/hr 11/21/24 18:00 11/23/24 02:44 Flagyl 500 Mg/Iso Soln 100 Ml IVPB 100 mls/hr Q8H YFN Administration Insulin Aspart 2 - 5 units 11/20/24 00:00 11/23/24 08:20 Insulin Aspart (*Bkc) 100 Units/Ml SUB-Q Not Given Q6HR [facility] Protocol Ipratropium Closplint 0.5 mg 11/19/24 10:20 11/23/24 01:12 Ipratropium Br 0.02% Inh Soln 0.5 Mg/2.5 Ml Vial INHALATION 0.5 mg Q6HRT YFN Administration Levalbuterol HCl 0.63 mg 11/19/24 10:20 11/23/24 01:13 Levalbuterol Neb 1.25 Mg/3 Ml INHALATION 0.63 mg Q6HRT YFN Administration Levothyroxine Sodium 125 mcg 11/19/24 06:30 11/19/24 06:27 Levothyroxine Sodium 125 Mcg Tablet BY MOUTH 125 mcg DAILY@0630 YFN Administration Levothyroxine Sodium 62.5 mcg 11/20/24 07:35 11/23/24 05:34 Levothyroxine Sodium Inj 100 Mcg/5 Ml Vial IV PUSH 62.5 mcg DAILY@0630 YFN Administration Lorazepam 0.5 mg 11/19/24 00:40 Lorazepam (*Crx) 0.5 Mg Tablet PO DAILY PRN Anxiety Lorazepam 0.25 mg 11/20/24 07:33 11/21/24 03:12 Lorazepam Inj (*Crx) 2 Mg/Ml Vial IV PUSH 0.25 mg Q6H PRN Administration Anxiety Losartan Potassium 25 mg 11/19/24 09:00 11/23/24 08:20 Losartan Potassium 25 Mg Tablet PO 25 mg DAILY YFN Administration Metoprolol Succinate 25 mg 11/19/24 09:00 11/19/24 09:12 Metoprolol Succinate Ext Rel 25 Mg Tabcr PO 25 mg DAILY YFN Administration Metoprolol Tartrate 5 mg 11/19/24 22:25 11/23/24 08:18 Metoprolol Tartrate Inj 5 Mg/5 Ml Vial IV PUSH 5 mg BID YFN Administration Mirtazapine 15 mg 11/19/24 21:00 11/19/24 21:42 Mirtazapine 15 Mg Tablet PO Not Given HS YFN Oseltamivir Phosphate 30 mg 11/19/24 09:00 11/19/24 21:42 Oseltamivir Phosphate 30 Mg Capsule PO Not Given Q12HR YFN Polyethylene Glycol 17 gm 11/19/24 00:40 Polyethylene Glycol 3350 17 Gm Powd.Pack PO QAM PRN constipation Pravastatin Sodium 20 mg 11/19/24 09:00 11/19/24 09:11 Pravastatin Sodium 20 Mg Tablet PO 20 mg DAILY YFN Administration Quetiapine Fumarate 50 mg 11/19/24 21:00 11/19/24 21:42 Quetiapine Fumarate 25 Mg Tablet PO Not Given QHS YFN Trazodone HCl 50 mg 11/19/24 00:40 Trazodone Hcl 50 Mg Tablet PO QHS PRN Anxiety/SLEEP Radiology Results: ITS Impressions Chest CTA 11/18/24 10:26 Impression: No evidence of pulmonary embolus, aortic dissection, or aortic aneurysm. Mild patchy groundglass opacity and nodularity in the lungs, right worse than left. Findings suggest multifocal bilateral infection/pneumonia. Mild pulmonary edema is a potential alternative consideration with mild atelectatic changes. Correlate clinically. Modified Barium Swallow 11/19/24 14:10 IMPRESSION: Oropharyngeal dysphagia and esophageal backflow at laryngeal penetration and intermittent trace aspiration. Please correlate with speech pathologist findings and specific feeding recommendations. Chest X-Ray 11/21/24 06:23 IMPRESSION: 1. Stable diffuse lung disease, consistent with pneumonia. Labs Labs: Laboratory Results - last 24 hr 11/22/24 11/22/24 11/22/24 12:10 16:52 21:03 POC Capillary Glucose 202 H 113 H 124 H 11/23/24 08:19 POC Capillary Glucose 139 H
[2024-11-23 09:23] LABS: Hematocrit 41.3 % (42.0-52.0); Hemoglobin 12.9 g/dL (14.0-18.0); Mean Corpuscular HGB Conc 31.2 g/dl (32-36); Mean Corpuscular Hemoglobin 28.6 pg (26-34); Mean Corpuscular Volume 91.6 fl (80-100); Mean Platelet Volume 9.6 fl (7.4-10.4); Platelet Count Result 330 k/mm3 (150-375); Red Blood Count 4.51 M/mm3 (4.6-6.20); Red Cell Distribution Width 14.6 % (11.5-14.5); White Blood Count 7.4 K/mm3 (4.5-10.0)
[2024-11-23 09:31] LABS: Anion Gap 8 mmol/L (4-12); Blood Urea Nitrogen 22 mg/dL (9-20); Calcium 9.2 mg/dL (8.4-10.2); Carbon Dioxide 28 mmol/L (22-30); Chloride 105 mmol/L (98-107); Estimated CRCL calculation 80 ml/min; Estimated Glomerular Filt Rate > 60; Glucose 164 mg/dL (65-110); Potassium 3.7 mmol/L (3.4-5.0); Sodium 141 mmol/L (137-145)
[2024-11-23] MEDS: traZODone HCL 50 MG TABLET PO ×2 (11:37→20:19)
[2024-11-23 13:00] LABS: Glucose Point of Care 135 mg/dl (65-105)
[2024-11-23 17:49] LABS: Glucose Point of Care 117 mg/dl (65-105)
[2024-11-23] MEDS: HYDROcodone/acetaminophen (*CRX) 5-325 MG TABLET 1 TAB PO (20:18)
[2024-11-23 20:37] LABS: Glucose Point of Care 159 mg/dl (65-105)
[2024-11-24] VITALS (10 sets, daily range): BP systolic 153; BP diastolic 75; PULSE 73–92; RESP 18–20; TEMP 36.9; O2SAT 91–96
[2024-11-24] MEDS: IPRATROPIUM BR 0.02% INH SOLN 0.5 MG/2.5 ML VIAL INHALATION ×2 (01:43→08:06)
[2024-11-24] MEDS: LEVALBUTEROL NEB 1.25 MG/3 ML 0.63 MG INHALATION ×2 (01:43→08:06)
[2024-11-24] MEDS: metroNIDAZOLE 500 MG/ISO 100ML 500 MG/100 ML BAG 100 MG IVPB ×2 (02:26→09:52)
[2024-11-24] MEDS: LEVOTHYROXINE SODIUM INJ 100 MCG/5 ML VIAL 62.5 MCG IV PUSH (07:00)
--- NOTE | 2024-11-24 08:03 | PM.IMPN ---
Progress Note: A&P Assessment and Plan (1) Dysphagia: Qualifiers: Dysphagia type: unspecified Qualified Code(s): R13.10 - Dysphagia, unspecified Code(s): R13.10 - Dysphagia, unspecified Status: Acute (2) Flu: Code(s): J11.1 - Influenza due to unidentified influenza virus with other respiratory manifestations Status: Acute (3) A-fib: Qualifiers: Atrial fibrillation type: unspecified Qualified Code(s): I48.91 - Unspecified atrial fibrillation Code(s): I48.91 - Unspecified atrial fibrillation Status: Acute (4) SVT (supraventricular tachycardia): Code(s): I47.1 - Supraventricular tachycardia Status: Acute Plan (1) Dysphagia: Qualifiers: Dysphagia type: unspecified Qualified Code(s): R13.10 - Dysphagia, unspecified Code(s): R13.10 - Dysphagia, unspecified Status: Acute Assessment and Plan: 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 Unremarkable Patient has risk of aspiration, does not want to pursue tube feeding. Discussed with patient, patient will follow-up with per care doctor for review evaluation with barium swallowing test (2) Flu: Code(s): J11.1 - Influenza due to unidentified influenza virus with other respiratory manifestations Status: Acute Assessment and Plan: Finished Tamiflu P.r.n. bronchodilators (3) Pneumonia, possible aspiration pneumonia due to aspiration Code(s): J18.9 - Pneumonia, unspecified organism Status: Acute Assessment and Plan: Received ceftriaxone, and doxycycline and add Flagyl IV change to Augmentin p.o. (4) Acute hypoxemic respiratory failure: Code(s): J96.01 - Acute respiratory failure with hypoxia Status: Acute Assessment and Plan: Likely secondary to pneumonia, aspiration versus influenza (5) Atrial fibrillation with rapid ventricular response: Code(s): I48.91 - Unspecified atrial fibrillation Status: Acute Assessment and Plan: Patient was in AFib RVR on admission. Given 5 IV metoprolol and 50 p.o. metoprolol in the ED Currently in sinus rhythm, rate controlled Telemetry monitoring Continue home metoprolol Hypothyroidism (acquired): Code(s): E03.9 - Hypothyroidism, unspecified Status: Acute Assessment and Plan: Continue levothyroxine (7) Iron deficiency anemia: Qualifiers: Iron deficiency anemia type: chronic blood loss Qualified Code(s): D50.0 - Iron deficiency anemia secondary to blood loss (chronic) Code(s): D50.9 - Iron deficiency anemia, unspecified Status: Acute Assessment and Plan: Likely hemoconcentrated from dehydration Hemoglobin 14.2 IVF Hemoglobin 12.6, no acute bleeding noted, platelet counts are within normal limit. INR was normal at 1.1 (8) Diabetes: Code(s): E11.9 - Type 2 diabetes mellitus without complications Status: Acute Assessment and Plan: Hold home anti hyperglycemic medications while in hospital Accu-Cheks a.c. HS Continue Accu-Cheks and sliding scale insulin Resume home medication on discharge, patient follow-up with primary care doctor for adjustment of medication (9) Chronic back pain: Qualifiers: Back pain location: back pain in unspecified location Back pain laterality: unspecified Qualified Code(s): M54.9 - Dorsalgia, unspecified; G89.29 - Other chronic pain Code(s): M54.9 - Dorsalgia, unspecified; G89.29 - Other chronic pain Status: Acute Assessment and Plan: Tylenol and Percocet ordered Pain is well controlled (10) Anxiety: Code(s): F41.9 - Anxiety disorder, unspecified Status: Acute Assessment and Plan: Continue home Seroquel, trazodone, Ativan as needed Subjective Date/time seen: 11/24/24 08:03 Interval history: I saw examined the patient in presents of patient's today, patient tolerated modified diet well today still has cough, denies choking. patient feels better today. Patient denies shortness breath. Patient is afebrile, blood pressure stable, patient is on room air Exam Narrative: General: Pleasant gentleman in no acute distress HEENT: Pupils are equal and reactive, sclera is clear, moist oral mucosa, neck is supple, Respiratory: Breath sounds clear Cardiovascular: Regular rate and rhythm, normal S1-S2 Abdomen: Soft, protuberant/obese, nontender normoactive bowel sounds Extremities: No edema or cyanosis of the extremities , palpable pedal pulses. Active ROM to all four extremities. Neuro: Alert and orientatedx3. PERRLA. Nonfocal, follows simple commands in all extremities Skin: Warm, dry, no lesions noted Psych: pleasant, cooperative, normal speech, normal affect, Objective Data Vital Signs Vital Signs: Vital Signs - 24 hr 11/23/24 08:18 11/23/24 09:20 11/23/24 09:20 Temperature Pulse Rate 79 67 Respiratory Rate 20 Blood Pressure Pulse Oximetry 91 Oxygen Delivery Room Air Fraction of Inspired Oxygen 21 11/23/24 09:32 11/23/24 12:00 11/23/24 14:00 Temperature 97.4 F L Pulse Rate 64 73 67 Respiratory Rate 20 18 Blood Pressure 109/52 L Pulse Oximetry 94 Oxygen Delivery Fraction of Inspired Oxygen 11/23/24 14:36 11/23/24 14:36 11/23/24 14:45 Temperature Pulse Rate 68 62 Respiratory Rate 20 20 Blood Pressure Pulse Oximetry 93 Oxygen Delivery Room Air Fraction of Inspired Oxygen 21 11/23/24 19:46 11/23/24 19:46 11/23/24 20:00 Temperature Pulse Rate 79 85 Respiratory Rate 18 12 Blood Pressure Pulse Oximetry 94 93 Oxygen Delivery Room Air Room Air Fraction of Inspired Oxygen 21 11/23/24 20:00 11/23/24 20:03 11/23/24 20:22 Temperature 98.0 F Pulse Rate 73 72 85 Respiratory Rate 18 12 Blood Pressure 148/65 H Pulse Oximetry 93 Oxygen Delivery Fraction of Inspired Oxygen 11/24/24 00:00 11/24/24 01:44 11/24/24 02:00 Temperature Pulse Rate 85 81 90 Respiratory Rate 18 18 Blood Pressure Pulse Oximetry Oxygen Delivery Fraction of Inspired Oxygen 11/24/24 04:00 11/24/24 06:00 Temperature 98.4 F Pulse Rate 87 89 Respiratory Rate 20 Blood Pressure 153/75 H Pulse Oximetry 91 Oxygen Delivery Fraction of Inspired Oxygen Intake/Output Intake/Output: Intake & Output 11/21/24 11/22/24 11/23/24 11/24/24 23:59 23:59 23:59 23:59 Intake Total 1706.7 1950 1050 100 Balance 1706.7 1950 1050 100 Meds/Results Medications: Active Medications Generic Name Dose Route Start Last Admin Trade Name Freq PRN Reason Stop Dose Admin Acetaminophen 650 mg 11/18/24 14:28 Acetaminophen 325 Mg Tablet PO Q4H PRN Mild Pain (1-3) or Fever Hydrocodone Bitart/Acetaminophen 1 tab 11/18/24 14:28 11/23/24 20:18 Hydrocodone/Acetaminophen (*Crx) 5-325 Mg Tablet PO 1 tab Q4H PRN Administration Moderate Pain (4-6) Aspirin 81 mg 11/19/24 09:00 11/23/24 08:20 Aspirin 81 Mg Enteric Tablet PO 81 mg DAILY YFN Administration Benzonatate 200 mg 11/19/24 00:51 Benzonatate 100 Mg Capsule PO TID PRN cough Desvenlafaxine Succinate 100 mg 11/19/24 09:00 11/23/24 08:20 Desvenlafaxine Succinate 50 Mg Tab.Er.24h PO 100 mg QAM YFN Administration Dextrose 12.5 gm 11/18/24 14:28 Dextrose 50% 25 Gm/50 Ml Syringe IV PUSH PRN PRN Hypoglycemia Protocol Docusate Sodium 100 mg 11/18/24 17:00 11/19/24 18:46 Docusate Sodium 100 Mg Capsule PO Not Given BID YFN Ezetimibe 10 mg 11/19/24 09:00 11/19/24 09:12 Ezetimibe 10 Mg Tablet PO 10 mg DAILY YFN Administration Enoxaparin Sodium 40 mg 11/19/24 09:00 11/23/24 08:18 Enoxaparin 40 Mg/0.4 Ml Syringe SUB-Q 40 mg DAILY YFN Administration Glucagon 1 mg 11/18/24 14:28 Glucagon For Inj 1 Mg Vial IM PRN PRN Hypoglycemia Protocol Glucose 15 gm 11/18/24 14:28 Glucose Oral Gel 15 Gm Of Glucse In 37.5 Gm Tube PO PRN PRN Hypoglycemia Protocol Hydralazine HCl 10 mg 11/19/24 12:27 11/22/24 21:46 Hydralazine Hcl 20 Mg/Ml Vial IV PUSH 10 mg Q4H PRN Administration Blood Pressure - High Dextrose 1,000 mls @ 100 mls/hr 11/18/24 14:28 Dextrose 5% 1,000 Ml IVPB PRN PRN Hypoglycemia Protocol Ceftriaxone Sodium 2 gm in 100 mls @ 200 mls/hr 11/19/24 09:00 11/23/24 08:19 Rocephin 2 Gm/Ns 100 Ml IVPB 200 mls/hr Q24H YFN Administration Metronidazole 500 mg in 100 mls @ 100 mls/hr 11/21/24 18:00 11/24/24 02:26 Flagyl 500 Mg/Iso Soln 100 Ml IVPB 100 mls/hr Q8H YFN Administration Insulin Aspart 2 - 5 units 11/20/24 00:00 11/24/24 06:02 Insulin Aspart (*Bkc) 100 Units/Ml SUB-Q Not Given Q6HR [facility] Protocol Ipratropium [place] 0.5 mg 11/19/24 10:20 11/24/24 01:43 Ipratropium Br 0.02% Inh Soln 0.5 Mg/2.5 Ml Vial INHALATION 0.5 mg Q6HRT YFN Administration Levalbuterol HCl 0.63 mg 11/19/24 10:20 11/24/24 01:43 Levalbuterol Neb 1.25 Mg/3 Ml INHALATION 0.63 mg Q6HRT YFN Administration Levothyroxine Sodium 125 mcg 11/19/24 06:30 11/19/24 06:27 Levothyroxine Sodium 125 Mcg Tablet BY MOUTH 125 mcg DAILY@0630 YNF Administration Levothyroxine Sodium 62.5 mcg 11/20/24 07:35 11/24/24 07:00 Levothyroxine Sodium Inj 100 Mcg/5 Ml Vial IV PUSH 62.5 mcg DAILY@0630 YFN Administration Lorazepam 0.5 mg 11/19/24 00:40 Lorazepam (*Crx) 0.5 Mg Tablet PO DAILY PRN Anxiety Lorazepam 0.25 mg 11/20/24 07:33 11/21/24 03:12 Lorazepam Inj (*Crx) 2 Mg/Ml Vial IV PUSH 0.25 mg Q6H PRN Administration Anxiety Losartan Potassium 25 mg 11/19/24 09:00 11/23/24 08:20 Losartan Potassium 25 Mg Tablet PO 25 mg DAILY YFN Administration Metoprolol Succinate 25 mg 11/19/24 09:00 11/19/24 09:12 Metoprolol Succinate Ext Rel 25 Mg Tabcr PO 25 mg DAILY YFN Administration Mirtazapine 15 mg 11/19/24 21:00 11/19/24 21:42 Mirtazapine 15 Mg Tablet PO Not Given HS YFN Oseltamivir Phosphate 30 mg 11/19/24 09:00 11/19/24 21:42 Oseltamivir Phosphate 30 Mg Capsule PO Not Given Q12HR [facility] Polyethylene Glycol 17 gm 11/19/24 00:40 Polyethylene Glycol 3350 17 Gm Powd.Pack PO QAM PRN constipation Pravastatin Sodium 20 mg 11/19/24 09:00 11/19/24 09:11 Pravastatin Sodium 20 Mg Tablet PO 20 mg DAILY YFN Administration Quetiapine Fumarate 50 mg 11/19/24 21:00 11/19/24 21:42 Quetiapine Fumarate 25 Mg Tablet PO Not Given QHS [facility] Trazodone HCl 50 mg 11/23/24 11:17 11/23/24 20:19 Trazodone Hcl 50 Mg Tablet PO 50 mg DAILY PRN Administration Anxiety/SLEEP Radiology Results: ITS Impressions Chest CTA 11/18/24 10:26 Impression: No evidence of pulmonary embolus, aortic dissection, or aortic aneurysm. Mild patchy groundglass opacity and nodularity in the lungs, right worse than left. Findings suggest multifocal bilateral infection/pneumonia. Mild pulmonary edema is a potential alternative consideration with mild atelectatic changes. Correlate clinically. Modified Barium Swallow 11/19/24 14:10 IMPRESSION: Oropharyngeal dysphagia and esophageal backflow at laryngeal penetration and intermittent trace aspiration. Please correlate with speech pathologist findings and specific feeding recommendations. Chest X-Ray 11/21/24 06:23 IMPRESSION: 1. Stable diffuse lung disease, consistent with pneumonia. Labs Labs: Laboratory Results - last 24 hr 11/23/24 11/23/24 11/23/24 08:19 09:12 12:01 WBC 7.4 RBC 4.51 L Hgb 12.9 L Hct 41.3 L MCV 91.6 MCH 28.6 MCHC 31.2 L RDW 14.6 H Plt Count 330 MPV 9.6 Sodium 141 Potassium 3.7 Chloride 105 Carbon Dioxide 28 Anion Gap 8 BUN 22 H Creatinine 0.66 L Estim Creat Clear Calc 80 Estimated GFR > 60 Glucose 164 H POC Capillary Glucose 139 H 135 H Calcium 9.2 11/23/24 11/23/24 17:18 20:17 WBC RBC Hgb Hct MCV MCH MCHC RDW Plt Count MPV Sodium Potassium Chloride Carbon Dioxide Anion Gap BUN Creatinine Estim Creat Clear Calc Estimated GFR Glucose POC Capillary Glucose 117 H 159 H Calcium
--- NOTE | 2024-11-24 08:13 | PM.DS ---
DS: Admitting Diagnosis Discharge Date 11/24/24 Admitting Diagnosis (1) Dysphagia: Qualifiers: Dysphagia type: unspecified Qualified Code(s): R13.10 - Dysphagia, unspecified Code(s): R13.10 - Dysphagia, unspecified Status: Acute (2) Flu: Code(s): J11.1 - Influenza due to unidentified influenza virus with other respiratory manifestations Status: Acute (3) A-fib: Qualifiers: Atrial fibrillation type: unspecified Qualified Code(s): I48.91 - Unspecified atrial fibrillation Code(s): I48.91 - Unspecified atrial fibrillation Status: Acute (4) SVT (supraventricular tachycardia): Code(s): I47.1 - Supraventricular tachycardia Status: Acute DS: Discharge Diagnosis Discharge Diagnosis (1) Dysphagia: Qualifiers: Dysphagia type: unspecified Qualified Code(s): R13.10 - Dysphagia, unspecified Code(s): R13.10 - Dysphagia, unspecified Status: Acute (2) Flu: Code(s): J11.1 - Influenza due to unidentified influenza virus with other respiratory manifestations Status: Acute (3) A-fib: Qualifiers: Atrial fibrillation type: unspecified Qualified Code(s): I48.91 - Unspecified atrial fibrillation Code(s): I48.91 - Unspecified atrial fibrillation Status: Acute (4) SVT (supraventricular tachycardia): Code(s): I47.1 - Supraventricular tachycardia Status: Acute DS: Summary Hospital Course Hospital Course: 84-year-old male past medical history of hypothyroidism, skin cancer, iron deficiency anemia, orthostatic hypotension, hypertension and hyperlipidemia presents the hospital for shortness of breath. Patient states that he was diagnosed with influenza and completed his 5 day course of Tamiflu yesterday. He states that his breathing has only gotten worse and does not feel like the Tamiflu helped. He also does not want breathing treatments because he said that they did not help. Patient tachypneic on 4 L nasal cannula. ED labs show leukocytosis at 17.9, D-dimer 2.96, ABG pH 7.429, pCO2 of 30.1, PO2 of 60.8, HC03 of 19.5, anion gap 15, glucose 176, lactic acid of 3.0 repeat 1.3, BNP of 917. UA showing negative for acute infection. Influenza A positive, influenza B, RSV, COVID negative. CTA chest shows no acute pulmonary embolism, ground-glass opacities with right greater than left, likely pneumonia. EKG shows Ectopic atrial rhythm rate of 70, not previously seen EKGs.Patient given in the ED aspirin, Rocephin, doxycycline, 1 L fluid bolus, 5 IV metoprolol, and 50 of p.o. metoprolol. 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 Unremarkable Patient has risk of aspiration, does not want to pursue tube feeding. Discussed with patient, patient will follow-up with per care doctor for reevaluation with barium swallowing test (2) Flu: Code(s): J11.1 - Influenza due to unidentified influenza virus with other respiratory manifestations Status: Acute Assessment and Plan: Finished Tamiflu P.r.n. bronchodilators (3) Pneumonia, possible aspiration pneumonia due to aspiration Code(s): J18.9 - Pneumonia, unspecified organism Status: Acute Assessment and Plan: Received ceftriaxone, and doxycycline and add Flagyl IV change to Augmentin p.o. (4) Acute hypoxemic respiratory failure: Code(s): J96.01 - Acute respiratory failure with hypoxia Status: Acute Assessment and Plan: Likely secondary to pneumonia, aspiration versus influenza (5) Atrial fibrillation with rapid ventricular response: Code(s): I48.91 - Unspecified atrial fibrillation Status: Acute Assessment and Plan: Patient was in AFib RVR on admission. Given 5 IV metoprolol and 50 p.o. metoprolol in the ED Currently in sinus rhythm, rate controlled Telemetry monitoring Continue home metoprolol Hypothyroidism (acquired): Code(s): E03.9 - Hypothyroidism, unspecified Status: Acute Assessment and Plan: Continue levothyroxine (7) Iron deficiency anemia: Qualifiers: Iron deficiency anemia type: chronic blood loss Qualified Code(s): D50.0 - Iron deficiency anemia secondary to blood loss (chronic) Code(s): D50.9 - Iron deficiency anemia, unspecified Status: Acute Assessment and Plan: Likely hemoconcentrated from dehydration Hemoglobin 14.2 IVF Hemoglobin 12.6, no acute bleeding noted, platelet counts are within normal limit. INR was normal at 1.1 (8) Diabetes: Code(s): E11.9 - Type 2 diabetes mellitus without complications Status: Acute Assessment and Plan: Hold home anti hyperglycemic medications while in hospital Accu-Cheks a.c. HS Continue Accu-Cheks and sliding scale insulin Resume home medication on discharge, patient follow-up with primary care doctor for adjustment of medication (9) Chronic back pain: Qualifiers: Back pain location: back pain in unspecified location Back pain laterality: unspecified Qualified Code(s): M54.9 - Dorsalgia, unspecified; G89.29 - Other chronic pain Code(s): M54.9 - Dorsalgia, unspecified; G89.29 - Other chronic pain Status: Acute Assessment and Plan: Tylenol and Percocet ordered Pain is well controlled (10) Anxiety: Code(s): F41.9 - Anxiety disorder, unspecified Status: Acute Assessment and Plan: Continue home Seroquel, trazodone, Ativan as needed Time Spent with Patient Time attestation: Total time spent providing and/or coordinating discharge services: Exam Narrative: General: Pleasant gentleman in no acute distress HEENT: Pupils are equal and reactive, sclera is clear, moist oral mucosa, neck is supple, Respiratory: Breath sounds clear Cardiovascular: Regular rate and rhythm, normal S1-S2 Abdomen: Soft, protuberant/obese, nontender normoactive bowel sounds Extremities: No edema or cyanosis of the extremities , palpable pedal pulses. Active ROM to all four extremities. Neuro: Alert and orientatedx3. PERRLA. Nonfocal, follows simple commands in all extremities Skin: Warm, dry, no lesions noted Psych: pleasant, cooperative, normal speech, normal affect, DS: Data Data Completed and Pending Labs on day of discharge: Labs from last 24 hours 11/23/24 11/23/24 11/23/24 20:17 17:18 12:01 WBC RBC Hgb Hct MCV MCH MCHC RDW Plt Count MPV Sodium Potassium Chloride Carbon Dioxide Anion Gap BUN Creatinine Estim Creat Clear Calc Estimated GFR Glucose POC Capillary Glucose 159 H 117 H 135 H Calcium 11/23/24 11/23/24 09:12 08:19 WBC 7.4 RBC 4.51 L Hgb 12.9 L Hct 41.3 L MCV 91.6 MCH 28.6 MCHC 31.2 L RDW 14.6 H Plt Count 330 MPV 9.6 Sodium 141 Potassium 3.7 Chloride 105 Carbon Dioxide 28 Anion Gap 8 BUN 22 H Creatinine 0.66 L Estim Creat Clear Calc 80 Estimated GFR > 60 Glucose 164 H POC Capillary Glucose 139 H Calcium 9.2 Discharge Plan Discharge Attending physician on discharge: Phoebe Stone Discharging Clinician: Phoebe Stone Anticipated Discharge Date/Time: 11/24/24 08:10 Patient Disposition: Home, Self-Care Activity: as tolerated Diet: as tolerated Patient Instructions: Antibiotic Form Patient Language: Bahraini Stand Alone Forms: General Discharge Information Follow-up/Referrals: Fawad Hirsch MD [Primary Care Provider] - (See PCP in 1 week) Discharge Medications: New amoxicillin-pot clavulanate [Augmentin] 500-125 mg tablet 1 tablet PO Q12H Qty: 10 0RF Continued desvenlafaxine succinate [Pristiq] 100 mg tablet extended release 24 hr 100 mg PO DAILY cholecalciferol (vitamin D3) 2,000 unit tablet 2,000 unit PO DAILY trazodone 50 mg tablet 50 mg PO QHS PRN (Reason: Anxiety) aspirin [Adult Low Dose Aspirin] 81 mg tablet,delayed release (DR/EC) 81 mg PO DAILY mirtazapine 15 mg tablet 15 mg PO HS polyethylene glycol 3350 [Miralax] 17 gram powder in packet 17 g PO QAM PRN (Reason: constipation) Qty: 30 0RF Fish oil 1,300 mg BYMOUTH BID multivitamin Tablet 1 tablet PO DAILY ibuprofen 800 mg tablet 800 mg PO Q6H PRN (Reason: pain) metoprolol succinate 25 mg tablet extended release 24 hr 25 mg PO DAILY Qty: 90 1RF lorazepam 0.5 mg tablet 0.5 mg PO DAILY PRN (Reason: Anxiety) quetiapine [Seroquel] 50 mg tablet 50 mg PO QHS amoxicillin 500 mg capsule 500 mg PO ONCE PRN (Reason: dental ) oseltamivir 75 mg capsule 75 mg PO Q12H Patient Comments: FINISHED THERAPY 11/17/2024 omeprazole 40 mg capsule,delayed release(DR/EC) See Rx Instructions .ROUTE .COMPLEX Qty: 180 3RF Dose Instruction: TAKE 1 CAPSULE TWICE A DAY Rx Instructions: TAKE 1 CAPSULE TWICE A DAY losartan 25 mg tablet See Rx Instructions .ROUTE .COMPLEX Qty: 90 1RF Dose Instruction: TAKE 1 TABLET DAILY Rx Instructions: TAKE 1 TABLET DAILY ezetimibe 10 mg tablet See Rx Instructions .ROUTE .COMPLEX Qty: 90 1RF Dose Instruction: TAKE 1 TABLET DAILY Rx Instructions: TAKE 1 TABLET DAILY levothyroxine 125 mcg tablet See Rx Instructions .ROUTE .COMPLEX Qty: 90 3RF Dose Instruction: TAKE 1 TABLET DAILY Rx Instructions: TAKE 1 TABLET DAILY pravastatin 20 mg tablet See Rx Instructions .ROUTE .COMPLEX Qty: 90 1RF Dose Instruction: TAKE 1 TABLET DAILY Rx Instructions: TAKE 1 TABLET DAILY Januvia 100 mg tablet See Rx Instructions .ROUTE .COMPLEX Qty: 90 3RF Dose Instruction: TAKE 1 TABLET DAILY Rx Instructions: TAKE 1 TABLET DAILY benzonatate 200 mg capsule 200 mg PO TID PRN (Reason: cough) Qty: 40 0RF Other Ambulatory Orders: ST / Speech Therapy Outpatient Eval and Treat (ONCE) Timeframe: 20241201 Location: Determined by Patient Ordered By: Phoebe Stone Date of admission: 11/18/24 10:43 Primary Care Provider: Fawad Hirsch Admitting Provider: Phoebe Stone Attending physician on admission: Phoebe Stone Condition: Serious
[2024-11-24] MEDS: cefTRIAXone 2 GM/NS 100 ML 2 GM/100 ML BAG IVPB (08:14)
[2024-11-24] MEDS: DESVENLAFAXINE SUCCINATE 50 MG TAB.ER.24H 100 MG PO (08:15)
[2024-11-24] MEDS: METOPROLOL SUCCINATE EXT REL 25 MG TABCR PO (08:15)
[2024-11-24] MEDS: LOSARTAN POTASSIUM 25 MG TABLET PO (08:15)
[2024-11-24] MEDS: ASPIRIN 81 MG ENTERIC TABLET PO (08:15)
[2024-11-24] MEDS: ENOXAPARIN 40 MG/0.4 ML SYRINGE SUB-Q (08:16)
[2024-11-24 08:17] LABS: Glucose Point of Care 153 mg/dl (65-105)
[2024-11-24 12:28] LABS: Glucose Point of Care 151 mg/dl (65-105)
== END 2024-11-24 13:15 | disposition home or self-care (01) | DRG 177 ==
LOC: ANHED 10:46 → ANHIMU 11:00 → ANHICU 14:39 → ANH2MED 11-20 19:54
PROVIDERS: Internal Medicine; Internal Medicine Gastroenterology; Nurse Practitioner Gerontology; Admitting Provider Hospitalist; Emergency Provider Emergency Medicine; PCP Internal Medicine; Visit Provider Hospitalist
PROC: 0DJ08ZZ Inspection of Upper Intestinal Tract, Via Natural or Artificial Opening Endoscopic (ICD-10-PCS; principal; 2024-11-20 15:00)
DX: J69.0 Pneumonitis due to inhalation of food and vomit (principal); J96.01 Acute respiratory failure with hypoxia; I47.10 Supraventricular tachycardia, unspecified; J10.00 Influenza due to other identified influenza virus with unspecified type of pneumonia; R13.12 Dysphagia, oropharyngeal phase; I48.0 Paroxysmal atrial fibrillation; I73.9 Peripheral vascular disease, unspecified; E03.9 Hypothyroidism, unspecified; D50.9 Iron deficiency anemia, unspecified; E86.0 Dehydration; I65.22 Occlusion and stenosis of left carotid artery; R91.8 Other nonspecific abnormal finding of lung field; E11.42 Type 2 diabetes mellitus with diabetic polyneuropathy; F41.8 Other specified anxiety disorders; I10 Essential (primary) hypertension; E78.5 Hyperlipidemia, unspecified; G89.29 Other chronic pain; Z85.89 Personal history of malignant neoplasm of other organs and systems; E66.9 Obesity, unspecified; M54.9 Dorsalgia, unspecified; Z79.01 Long term (current) use of anticoagulants; Z85.828 Personal history of other malignant neoplasm of skin; Z95.2 Presence of prosthetic heart valve; Z85.46 Personal history of malignant neoplasm of prostate; Z96.642 Presence of left artificial hip joint; Z96.653 Presence of artificial knee joint, bilateral; Z98.1 Arthrodesis status; Z98.42 Cataract extraction status, left eye; Z98.41 Cataract extraction status, right eye; Z20.822 Contact with and (suspected) exposure to COVID-19
CPT/HCPCS: 36415; 36600; 71045; 71275; 80048; 80053; 81001; 82805; 82948; 83605; 83690; 83735; 83880; 84100; 84484; 85018; 85025; 85027; 85380; 85610; 85730; 87040; 87086; 87637; 92526; 92610; 92611; 93005; 93306; 94640; 96361; 96365; 96368; 96375; 97110; 97161; 97165; 97530; 99285; A9270; J0360; J0650; J0696; J1650; J1815; J1836; J2003; J2060; J2704; J3475; J7120; Q9967

== ENCOUNTER 2024-11-28 10:23 | Outpatient (CLI) | payer MEDICARE, OTHER, SELFPAY ==
--- NOTE | ~2024-11-28 | XR_ITS ---
XR chest 2V 11/28/2024 11:01 Indication: Pneumonia. Procedure: 2 view chest Comparison: Comparison to multiple prior studies sequentially, with oldest reviewed study dated 02/2025. Findings: Bibasilar airspace disease may represent atelectasis or developing pneumonia. Heart size no rmal. There is mild ectasia of the aorta. There is a closure device of the left atrial appendage. Impression: 1: Bibasilar airspace disease, atelectasis versus pneumonia. Reviewed, dictated and finalized at location L. ORATION TECHNICIAN Impression: 1: Bibasilar airspace disease, atelectasis versus pneumonia.
[2024-11-28 10:40] LABS: Basophils Absolute Auto 0.1 K/mm3 (0.0-0.1); Basophils Percent Auto 0.7 % (0.2-1.2); Eosinophils Absolute Auto 0.1 K/mm3 (0-0.3); Hemoglobin 12.1 g/dL (14.0-18.0); Immature Granulocyte Absolute 0.05 K/mm3 (0.00-0.031); Immature Granulocyte Percent A 0.5 % (0-0.5); Lymphocytes Absolute Auto 1.17 K/mm3 (0.9-3.2); Lymphocytes Percent Auto 12.2 % (18.3-44.2); Mean Corpuscular Hemoglobin 28.6 pg (26-34); Mean Corpuscular Volume 92.2 fl (80-100); Mean Platelet Volume 9.6 fl (7.4-10.4); Monocytes Absolute Auto 0.9 K/mm3 (0.1-0.6); Monocytes Percent Auto 8.9 % (2.6-8.5); Neutrophils Absolute Auto 7.4 K/mm3 (1.3-6.7); Neutrophils Percent Auto 76.7 % (45.5-73.1); Platelet Count Result 318 k/mm3 (150-375); Red Blood Count 4.23 M/mm3 (4.6-6.20); White Blood Count 9.6 K/mm3 (4.5-10.0)
--- OUTSIDE RECORDS SUMMARY | 2024-11-28 10:57 | XMS_ITS ---
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 Local tissue arrangement primary defect 8 x 2 cm, secondary defect 12 x 6 cm. Leg edema, right 01/15/2024 Arthritis of right hip 01/03/2024 Pain of right hip joint 03/14/2023 Osteomyelitis 05/03/2022 A-fib (CMS/HCC) 03/30/2022 Assessment & Plan (10/18/2022 10:34 AM TAKE AWAY MAN): Status post successful Watchman implant. Completed 5 months of clopidogrel, will discontinue today. Will continue ASA 81 mg daily indefinitely. Will have him follow-up in 6 months, 1 year from his implantation around March 2023. Assessment & Plan (07/06/2022 9:14 AM CDT): Controlled. Continue medical therapy. Coronary artery disease of n ative artery of [place] heart with stable angina pectoris 01/31/2022 Assessment & Plan (10/18/2022 10:35 AM TAKE AWAY MAN): Denies any complaints of chest pain or [...] 05/17/2020 Assessment & Plan (12/10/2020 1:30 PM TAKE AWAY MAN): Patient underwent TAVR are in July. He is continued on anticoagulation at this time. 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 Assessment & Plan (10/04/2020 10:00 AM TAKE AWAY MAN): Patient had severe aortic stenosis and underwent [...] 07/07/2019 Assessment & Plan (08/25/2019 3:40 PM TAKE AWAY MAN): 79 yo male with SCC with unknown [...] concerns. Assessment & Plan (12/10/2020 1:29 PM TAKE AWAY MAN): Patient has peripheral arterial disease but is [...] call. Assessment & Plan (10/04/2020 10:00 AM TAKE AWAY MAN): Patient has peripheral arterial disease however at [...] 12/03/2018 Assessment & Plan (10/18/2022 10:35 AM TAKE AWAY MAN): Status post TAVR. Essential hypertension 12/03/2018 Assessment & Plan (07/06/2022 9:15 AM CDT): Hypertension chronic and controlled. Continue medical therapy Assessment & Plan (12/10/2020 1:30 PM TAKE AWAY MAN): Followed by his PCP and controlled on his current medications. Hyperlipidemia associated with type 2 diabetes mayuri lucille 12/03/2018 Assessment & Plan (02/01/2022 10:25 AM CDT): Lipids are well controlled. Continue statin therapy. Assessment & Plan (12/10/2020 1:30 PM TAKE AWAY MAN): Followed by his PCP and controlled on a statin. Hypertension associated with diabetes 12/03/2018 Assessment & Plan (02/01/2022 10:22 AM CDT): Blood pressure is excellent. Continue same therapy. Diabetes mellitus type II, non insulin dependent ([facility]/HCC) 12/03/2018 Assessment & Plan (12/10/2020 1:30 PM TAKE AWAY MAN): Followed by his PCP and controlled on his current medications. 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 Assessment & Plan (10/04/2020 9:58 AM TAKE AWAY MAN): Patient had osteonecrosis of his draw and [...] 06/12/2012 Assessment & Plan (10/18/2022 10:35 AM TAKE AWAY MAN): Normotensive today. Continue current medical therapy. Elbow fracture, left 07/28/2011 Hypothyroid 07/28/2011 DM type 2 (diabetes mellitus, type 2) 07/28/2011 Assessment & Plan (06/20/2021 8:38 AM CDT): Followed by his PCP and controlled on his current medications. Assessment & Plan (10/04/2020 10:00 AM TAKE AWAY MAN): Followed by his PCP and controlled on medications. HTN (hypertension) 07/28/2011 Assessment & Plan (06/20/2021 8:38 AM CDT): Followed by his PCP and controlled on his current medications. Assessment & Plan (10/04/2020 10:00 AM TAKE AWAY MAN): Followed by his PCP and controlled on medications. Metastatic neoplasm 11/02/2010 Adenocarcinoma of prostate 11/19/2007 Current Treatment and Therapy Plans No current plan information found. Past Treatment and Therapy Plans No past plan information found. Lifetime Dose Tracking * Chemical Lifetime Dose [...] time. Assessment & Plan (10/04/2020 10:01 AM TAKE AWAY MAN): Patient is on Xarelto for his new valve. He is currently doing well on this medication.
--- OUTSIDE RECORDS SUMMARY | 2024-11-28 10:57 | XMS_ITS | Clinical Summary ---
Author Organization [facility] Address [address] [address] Care Team Providers Care Yarder Engineer Name Role Phone Fawad Hirsch MD Primary Care Provider [phone] Fawad Hirsch MD Unavailable [phone] Anders Cho MD Unavailable [phone] Kris Quintero MD Unavailable [phone] Zulma Faye MD Unavailable [phone] Allergies No known active allergies Medications levothyroxine [...] 03/30/2022 Assessment & Plan (10/18/2022 10:34 AM RN REHABILITATION): Status post successful Watchman implant. Completed 5 months of clopidogrel, will discontinue today. Will continue ASA 81 mg daily indefinitely. Will have him follow-up in 6 months, 1 year from his implantation around March 2023. Assessment & Plan (07/06/2022 9:14 AM CDT): Controlled. Continue medical therapy. Coronary artery disease of n ative artery of [place] heart with stable angina pectoris 01/31/2022 Assessment & Plan (10/18/2022 10:35 AM RN REHABILITATION): Denies any complaints of chest pain or discomfort. Continue medical therapy with aspirin, statin, Zetia, beta-lucy, ARB. Assessment & Plan (02/01/2022 10:21 AM CDT): Stable, moderate coronary disease only, without angina. Continue same therapy. Continue diet and exercise. Acute osteomyelitis of radius ([facility]/HCC) 11/27/19 22 Arthralgia of left elbow [...] 05/17/2020 Assessment & Plan (12/10/2020 1:30 PM RN REHABILITATION): Patient underwent TAVR are in July. He is continued on anticoagulation at this time. He has started to have shortness of breath and has an appointment with his supervisor harvesting this month. Assessment & Plan (10/04/2020 10:00 AM RN REHABILITATION): Patient had severe aortic stenosis and underwent TAVR. He is doing well since that time. Paroxysmal atrial flutter (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 Assessment & Plan (12/10/2020 1:29 PM RN REHABILITATION): Patient has peripheral arterial disease but is [...] call. Assessment & Plan (10/04/2020 10:00 AM RN REHABILITATION): Patient has peripheral arterial disease however at [...] 12/03/2018 Assessment & Plan (10/18/2022 10:35 AM RN REHABILITATION): Status post TAVR. Essential hypertension 12/03/2018 Assessment & Plan (07/06/2022 9:15 AM CDT): Hypertension chronic and controlled. Continue medical therapy Assessment & Plan (12/10/2020 1:30 PM RN REHABILITATION): Followed by his PCP and controlled on his current medications. Hyperlipidemia associated with type 2 diabetes mayuri adkins 12/03/2018 Assessment & Plan (02/01/2022 10:25 AM CDT): Lipids are well controlled. Continue statin therapy. Assessment & Plan (12/10/2020 1:30 PM RN REHABILITATION): Followed by his PCP and controlled on a statin. Hypertension associated with diabetes 12/03/2018 Assessment & Plan (02/01/2022 10:22 AM CDT): Blood pressure is excellent. Continue same therapy. Diabetes mellitus type II, non insulin dependent ([facility]) 12/03/2018 Assessment & Plan (12/10/2020 1:30 PM RN REHABILITATION): Followed by his PCP and controlled on his current medications. 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 Continue current medical therapy. Elbow fracture, left 07/28/2011 Hypothyroid 07/28/2011 DM type 2 (diabetes mellitus, type 2) 07/28/2011 Assessment & Plan (06/20/2021 8:38 AM CDT): Followed by his PCP and controlled on his current medications. Assessment & Plan (10/04/2020 10:00 AM RN REHABILITATION): Followed by his PCP and controlled on medications. HTN (hypertension) 07/28/2011 Assessment & Plan (06/20/2021 8:38 AM CDT): Followed by his PCP and controlled on his current medications. Assessment & Plan (10/04/2020 10:00 AM RN REHABILITATION): Followed by his PCP and controlled on medications. Metastatic neoplasm 11/02/2010 Adenocarcinoma of prostate 11/19/2007 Resolved Problems Problem Noted Date Diagnosed Date Resolved Date Chronic anticoagulation 06/24/2020 08/ Assessment & Plan (06/20/2021 8:38 AM CDT): Patient is on Xarelto and doing well at this time. Assessment & Plan (10/04/2020 10:01 AM RN REHABILITATION): Patient is on Xarelto for his new valve. He is currently doing well on this medication. Immunizations Immunization Administration Dates Next Due Influenza, Unspecified 07/22/2014 Pneumococcal Conjugate PCV 13 12/07/2016 Pneumococcal Conjugate, Unspecified 07/22/2014 Pneumococcal Polysaccharide PPV23 02/25/2018 Tdap 10/14/2014 Surgical History Surgery Date Site/Laterality Comments [place] PROSTATE NEEDLE BIOPSY AN Y APPROACH 10/08/2007 - 10/07/2008 [place] LAP,PROSTATECTOMY,RADICAL,W/N ERVE SPARE,INCL ROBOTIC 10/08/2007 - 10/07/2008 [...] on file Legal Sex Male 3:52 AM RN REHABILITATION Gender Identity Male 09/15/2020 1:37 PM RN REHABILITATION Sexual Orientation Straight 02/03/2019 5: 15 PM [...] 12/07/2016, 07/22/2014 Medical Devices Implanted Type Area Carpet Installation Specialist Device Identifier Shelf Expiration Date Model / Serial / Lot [employer] [place] Watchman Flx Procedure Device Wmflxperproc - [id number] - [id number] Implanted:Qty: 1 on 03/30/2022 by Mauri Olivia MD at [facility] Left Atrial Appendage Occluder N/A: Atrial Appendage [employer] [place] 08/31/2024 WMFLXPERPRO C / [id number] / [id number] [employer] [id number] Paul 3 29mm Transcatheter Valve Aortic Bovine Sterile - [id number] - [id number] Implanted:Qty: 1 on 07/08/2020 by Mauri Olivia MD at [facility] Prosthetic Valve N/A: Heart [employer] 02/15/2022 [id number] / [id number] / [id number] Description:TAVR Armijo Vascular Device Clsr Perclose Prostyle Sut-Mediatd Closure-Repair Sys 08675-53 - S0 - [id number] Implanted:Qty: 1 on 03/30/2022 by Mauri Olivia MD at [facility] Vascular Closure Device N/A: Femoral [employer] 01/06/2024 [id number] / 0 / Armijo Vascular Device Clsr Perclose Prostyle Sut-Mediatd Closure-Repair Sys 10256-63 - S0 - [id number] Implanted:Qty: 1 on 03/30/2022 by Mauri Olivia MD at [facility] Vascular Closure Device N/A: Femoral [employer] 01/06/2024 [id number] / 0 / [id number] Synthes .733 Matrixmandible 2mm 7x23 Hole Reconstruction Mandible Right Angle - [id number] Implanted:Qty: 1 on 12/05/2018 by Aden Azar DMD at [facility] Right: Mandible Synthes I 04503.733 / / Synthes 04.642.01 Matrixmandible 2.4mm 12mm Self Tap Lock Mandible Screw Bone - [id number] Implanted:Qty: 3 on 12/05/2018 by Aden Azar DMD at [facility] Right: Mandible Synthes I 04.503.642. / / Synthes 644. Matrixmandible 2.4mm 14mm Self Tap Lock Mandible Screw Bone - [id number] Implanted:Qty: 1 on 12/05/2018 by Aden Azar DMD at [facility] Right: Mandible Synthes I 4. / / Synthes 6. Matrixmandible 2.4mm 16mm Self Tap Lock Mandible Screw Bone - [id number] Implanted:Qty: 2 on 12/05/2018 by Aden Azar DMD at [facility] Right: Mandible Synthes I 646. / / Synthes 44. Matrixmandible 2.4mm 12mm Self Tap Mandible Screw Bone Titanium - [id number] Implanted:Qty: 1 on 12/05/2018 by Donis Estrada MD at [facility] Right: Mandible Synthes I . / / MaXware[employer] [id number] Crane Microvascular 3.5mm Ring Pin Protective Cover Jaw Assembly Latex Free - [id number] Implanted:Qty: 1 on 12/05/2018 by Anders Cho MD at [facility] Right: Neck [employer] 01/03/2023 [id number] / / [id number] [employer] [id number] Probe Doppler 17.4cm Standard Cuff Implantable 20mhz Latex Free Sterile Microvascular Anastomoses Kimball - [id number] Implanted:Qty: 1 on 12/05/2018 by Anders Cho MD at [facility] Right: Neck [employer] [id number] 08/07/2021 [id number] / / [id number] Synthes . Matrixmandible 2.4mm 10mm Self Tap Lock Mandible Screw Bone - [id number] Implanted:Qty: 2 on 12/05/2018 by Anders Cho MD at [facility] Right: Mandible Synthes I . 01 / / Depuy Orthopaedics Inc Liner Acet Hip Size 28 Poly Bi Mentum Altrx 53mm [id number] - [id number] Implanted:Qty: 1 on 01/03/[address] [facility] Right: Hip [employer] Orthopaed[employer] Inc 07/07/2027 [id number] / / [id number] Depuy Orthopaed[employer] Inc Actis Collar Hip 7 High Offset Stem Femoral [id number] - [id number] Implanted:Qty: 1 on 01/03/[address] [facility] Right: Hip [employer] Orth[employer] Inc 10/07/2033 [id number] / / [id number] Depuy Orthopaed[employer] Bi Mentum 53mm Press Fit Femoral Proximal Cup Acetabular [id number] - [id number] Implanted:Qty: 1 on 01/03/[address] [facility] Right: Hip [employer] Orth[employer] Inc 06/07/2025 [id number] / / [id number] [employer] Articul/Minesh 28mm Cementless Hip +1.5mm 12/14 Taper Head Femoral Latex Free [id number] - [id number] Implanted:Qty: 1 on 01/03/[address] [facility] Right: Hip [employer] Orthopaed[employer] Inc 10/07/2028 [id number] / / [id number] Procedures Procedure Name Priority Date/Time Associated Diagnosis Comments POCT LIPID PANEL Routine 05/19/2024 10:2 4 AM CDT CAD in [place] artery EGFR Routine 01/04/2024 6:22 AM CDT HEMOGLOBIN A1C Routine 12/13/2023 9:54 AM RN REHABILITATION Preoperative testing Type 2 diabetes mellitus without complication, without long-term current use of insulin ([facility]) (RALPH [...] LAB BLOOD ORDERABLES Alicia l Result [facility] [address] [facility] [address] * (ABNORMAL) Hemoglobin A1c (12/13/2023 9:54 AM RN REHABILITATION) Hgb A1C 6.5(H) 4.0 - 5.6 % Estimated Average Glucose 140 mg/dL CHRIS TERRY Comment: The ADA recommends reporting an estimated Average Glucose (eAG) with all Hemoglobin A1c results using the equation derived from a study of 507 normal and diabetic adults. Minority populations were underrepresented and children were not included. (Diabetes Care 31:8172-2168, 2008). The eAG is not equivalent to a fasting glucose. Blood 12/13/2023 9:54 AM RN REHABILITATION 12/13/2023 10:49 AM RN REHABILITATION us Norman Scott NP LAB BLOOD ORDERABLES Fin al Result Performing Organization Address City/State/[facility] [place] Phone Number [facility] [address] [facility] [address] from Last 3 Months or Most Recently Relevant to Health Maintenance Insurance MEDICARE [facility] MEDICARE [employer] [place] [facility] [place] [facility]IC[facility] Advance Directives For more information, please contact: [phone] Documents on File Type Date Recorded Patient Valve Machine Operator Expl anation Power of Anhydrous Ammonia Production Supervisor 07/16/2024 6:21 AM Tena nuation of first scanned poa Power of Anhydrous Ammonia Production Supervisor 12/13/2023 7:19 AM * Full Code (Latest [...] 9:43 PM 12/13/2018 7:45 PM Care Teams Yarder Engineer Relationship Specialty Start Date End Date Fawad Hirsch MD [address] [place] [address] PCP - General 12/08/20 Fawad Hirsch MD [address] [place] [address] 12/08/20 Anders Cho MD [address] [facility] [address] [place] [address] Referring Physician Otolaryngology 12/03/18 Kris Quintero MD [address] [facility] [place] [address] Surgeon Vascular Surgery 06/22/22 Zulma Faye MD [address] [facility] [place] [address] Surgeon Vascular Surgery 05/19/24
--- OUTSIDE RECORDS SUMMARY | 2024-11-28 10:57 | XMS_ITS | Clinical Summary ---
Author Organization [facility] Address [address] [place] [address] Care Team Providers Care Supervisor Molding Name Role Phone Unavailable Primary Care Provider [...]
--- OUTSIDE RECORDS SUMMARY | 2024-11-28 10:57 | XMS_ITS | Patient Health Record ---
Author Organization [facility] Address [address] [place] [address] Care Team Providers Care Crew Dispatcher Name Role Phone Joycelyn FORRESTER, Fawad Primary Care Provider Unavailab Mirlande Aguirre Unavailable [phone] LoraLiseth jinophelia Unavailable [phone] Migration, Provider Unavailable Unavailable Allergies No Known [...] Ac tive ASPIRIN 81 MG TABLET *Reorder [facility] for eRx and Interaction Alerts* 02/25/2024 Active [...] 1st dose Unknown 01/06/2022 Ad ministered Novel [id number], preservative free Unknown 05/28/2020 Administered Pneumococcal conjugate [...] Severe recurrent major depression without psychotic features (83296129) Major depressive disorder, recurrent severe without psychotic features (F33.2) Active confirmed Problem Generalized anxiety disorder (29267890) Generalized anxiety disorder (F41.1) Active confirmed Problem Obsessive-compul sive disorder (100298246) Obsessive-compu lsive disorder, unspecified (F42.9) Active confirmed Problem Insomnia disorder related to another mental disorder (71058580) 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) Active confirmed Vital Signs Heart Rate 62 /min 09/18/2024 Height-cm 170.21 cm 09/18/2024 Blood pressure diastolic 55 mm Hg 09/18/2024 Weight-kg 104.33 kg 09/18/2024 Height 67.01 in 09/18/2024 Blood pressure systolic 174 mm Hg 09/18/2024 Weight 230.0 lbs 09/18/2024 BMI 36.01 kg/m2 09/18/2024 Encounters Encounter Location Date Provider Diagnosis [facility] [address] [place] [address] 09/18/2024 Thena Lora Major depressive disorder, recurrent severe without psychotic features F33.2 ; Generalized anxiety disorder F41.1 ; Obsessive-compulsive disorder, unspecified F42.9 and 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 [facility] [address] [place] [address] 01/17/2024 Provider Migration Major depressive disorder, recurrent severe without psychotic features F33.2 [facility] [address] [place] [address] 01/29/2024 Provider Migration Major depressive disorder, recurrent severe without psychotic features F33.2 [facility] [address] [place] [address] 02/25/2024 Thena Lora Primary insomnia F51.01 ; Obsessive-compulsive disorder, unspecified F42.9 ; Major depressive disorder, recurrent, unspecified F33.9 and Generalized anxiety disorder F41.1 [facility] [address] [facility] [address] [place] [address] 08/25/2024 Thena Lora [facility], [facility] [address] [place] [address] 01/16/2024 Provider Migration [facility], [facility] [address] [place] [address] 01/17/2024 Provider Migration [facility], [facility] [address] [place] [address] 01/28/2024 Provider Migration [facility], [facility] [address] [place] [address] 02/23/2024 Provider Migration [facility], [facility] [address] [facility] [address] [place] [address] 02/24/2024 Provider Migration [facility], [facility] [address] [place] [address] 05/09/2024 Thena Lora Major depressive disorder, recurrent severe without psychotic features F33.2 ; Obsessive-compulsive disorder, unspecified F42.9 and Generalized anxiety disorder F41.1 [facility] [address] [facility] [address] [place] [address] 04/23/2024 Thena Lora Major depressive disorder, recurrent severe without psychotic features F33.2 [facility] [address] [facility] [address] [place] [address] 05/02/2024 Thena Lora Major depressive disorder, recurrent severe without psychotic features F33.2 [facility] [address] [facility] [address] [place] [address] 05/05/2024 Thena Lora Major depressive disorder, recurrent severe without psychotic features F33.2 [facility] [address] [facility] [address] [place] [address] 05/13/2024 Thena Lora [facility] [address] [address] 06/16/2024 Thena Lora Major depressive disorder, recurrent severe without psychotic features F33.2 ; Obsessive-compulsive disorder, unspecified F42.9 ; Generalized anxiety disorder F41.1 and 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 [facility] [address] [facility] [address] [place] [address] 06/25/2024 Thena Lora Major depressive disorder, recurrent severe without psychotic features F33.2 [facility] [address] [address] 08/11/2024 Thena Lora [facility], [facility] [address] [address] 08/12/2024 Thena Lora [facility], [facility] [address] [facility] [address] [place] [address] 08/19/2024 Thena Lora Major depressive disorder, recurrent severe without psychotic features F33.2 [facility], [facility] [address] [address] 11/16/2024 Mirlande Quarles Major depressive disorder, recurrent [...] Provider Name:Mirlande Quarles , 03/19/2025 02:00:00 PM, [address], [facility] [address], [place], [address], Insurance Providers Payer Name Payer Address Payer Phone Subscriber Number Group Number Insured Name Patient Relationship to Insured Coverage Start Date Coverage End Date Medicare-I l Medicare [address] [place] [address] [id number] ELÍAS BILLY Self - patient is the insured [employer] [place] [address] [place] [address] [id number] ELÍAS BILLY Self - patient is the insured Medical (General) History Medical History History ICD Code Problems: Aortic valve stenosis Atrial fibrillation Generalized anxiety disorder Malignant tumor of neck Obsessive-compulsive disorder Primary insomnia Recurrent major depression , Surgical History Surgery Date(Month/Year) Any surgical history Other Cataract surgery (65240) Tonsilectomy/adenoids 10/08/2009 Myringotomy tube placement 10/08/2017 Heart surgery 08/08/2019
--- OUTSIDE RECORDS SUMMARY | 2024-11-28 10:57 | XMS_ITS | Encounter Summary ---
Author Organization [facility] Address [address] [place] [address] Care Team Providers Care Border Inspector Name Role Phone Fawad Hirsch MD Primary Care Provider [phone] Fawad Hirsch MD Primary Care Provider [phone] Fawad Hirsch MD Unavailable [phone] Anders Cho MD Unavailable [phone] Kris Quintero MD Unavailable [phone] Zulma Faye MD Unavailable [phone] Encounter Details Date Type Department Care Team (Late st Contact Info) Description 06/16/[address] [facility] [address] [place] [address] Transcribed Order, Provider Social History Tobacco Use Types Packs/Day Years Used Date Smoking Tobacco: Never Smokeless Tobacco: Never Alcohol Use Standard Drinks/Week Comments No 0 (1 standard drink = 0.6 oz pur e alcohol) Sex and Gender Information Value Date Recorded Sex Assigned at Not on file Legal Sex Male 3:52 AM FIELD SALES REPRESENTATIVE Gender Identity Male 09/15/2020 1:37 PM FIELD SALES REPRESENTATIVE Sexual Orientation Straight 02/03/2019 5: 15 PM CDT documented as of this encounter Plan of Treatment Not on file documented as of this encounter Visit Diagnoses Not on filedocumented in this encounter Care Teams Border Inspector Relationship Specialty Start Date End Date Fawad Hirsch MD [address] [place] [address] PCP - General 05/17/17 12/07/20 Fawad Hirsch MD [address] [place] [address] PCP - General 12/08/20 Fawad Hirsch MD [address] [facility] [address] [place] [address] 12/08/20 Anders Cho MD [address] [place] [address] Referring Physician Otolaryngology 12/03/18 Kris Quintero MD [address] [place] [address] Surgeon Vascular Surgery 06/22/22 Zulma Faye MD [address] [place] [address] Surgeon Vascular Surgery 05/19/24 documented as of this encounter
--- OUTSIDE RECORDS SUMMARY | 2024-11-28 10:58 | XMS_ITS | Referral Summary ---
Author Organization [facility] Address [address] [place] [address] Care Team Providers Care Compressed Gases Tester Name Role Phone Fawad Hirsch MD Primary Care Provider Source Comments [facility],non-owned Affiliates and Associated Physician Practices is amultiple site organization consisting of ambulatory clinics and hospital sitesin [place], [place], [place] and [place]. This disclosure is being madepursuant to the Care Everywhere program and may not contain all information available regarding this patient. Last updated 18.[facility] Allergies No known active allergies Medications * [...] Comments Blood Pressure 138/84 10/05/2015 3:53 PM AVIATION ELECTRICAL TECHNICIAN Pulse 78 10/05/2015 3:53 PM AVIATION ELECTRICAL TECHNICIAN Temperature - - Respiratory Rate 18 07/24/2012 11:5 0 AM CDT Oxygen Saturation 94% 07/24/2012 11: 50 AM CDT Inhaled Oxygen Concentration - - Weight 114.4 kg (252 lb 1.6 oz) 10/05/2015 3:53 PM AVIATION ELECTRICAL TECHNICIAN Height 170.2 cm (5' 7 ) 10/05/2015 3:53 PM AVIATION ELECTRICAL TECHNICIAN Body Mass Index 39.48 10/05/2015 3:53 PM AVIATION ELECTRICAL TECHNICIAN Plan of Treatment Not on file Care Teams Compressed Gases Tester Relationship Specialty Start Date End Date Fawad Hirsch MD [address] [place] [address] PCP - General 07/23/12
--- OUTSIDE RECORDS SUMMARY | 2024-11-28 10:58 | XMS_ITS | Patient Health Summary ---
Author Organization [facility] Address [address] [place] [address] Care Team Providers Care Housekeeper Child Care Name Role Phone Fawad Hirsch MD Primary Care Provider [phone] Note from [facility],non-owned Affiliates and Associated Physician Practices is amultiple site organization consisting of ambulatory clinics and hospital sitesin [place], [place], [place] and [place]. This disclosure is being madepursuant to the Care Everywhere program and may not contain all information available regarding this patient. Last updated 18.[facility] Allergies No known active allergies Medications [...] Comments Blood Pressure 138/84 10/05/2015 3:53 PM UNIT MANAGER CONVENIENCE STORES Pulse 78 10/05/2015 3:53 PM UNIT MANAGER CONVENIENCE STORES Temperature - - Respiratory Rate 18 07/24/2012 11:5 0 AM CDT Oxygen Saturation 94% 07/24/2012 11: 50 AM CDT Inhaled Oxygen Concentration - - Weight 114.4 kg (252 lb 1.6 oz) 10/05/2015 3:53 PM UNIT MANAGER CONVENIENCE STORES Height 170.2 cm (5' 7 ) 10/05/2015 3:53 PM UNIT MANAGER CONVENIENCE STORES Body Mass Index 39.48 10/05/2015 3:53 PM UNIT MANAGER CONVENIENCE STORES Procedures * XR HIP LEFT 2VW OR [...] LEFT 2VW OR MORE (08/20/2020 12:50 PM UNIT MANAGER CONVENIENCE STORES) Anatomical Region Laterality Modality Pelvis, Lower Extremity Computed Radiography Narrative 08/20/2020 12:58 PM UNIT MANAGER CONVENIENCE STORES Edwige Ricks RT(R) 08/20/2020 2:46 PM See [...] Denise Ribeiro MD MR ORDERABLES Care Teams Housekeeper Child Care Relationship Specialty Start Date End Date Fawad Hirsch MD [address] [place] [address] [facility] - General 07/23/12
--- OUTSIDE RECORDS SUMMARY | 2024-11-28 10:58 | XMS_ITS | Clinical Summary ---
Author Organization [facility] [employer] Address [address] [place] [address] Care Team Providers Care Registration Representative Name Role Phone Fawad Hirsch MD Primary Care Provider [phone] Source Comments [facility] [employer],non-owned Affiliates and Associated Physician Practices is amultiple site organization consisting of ambulatory clinics and hospital sitesin [place], [place], [place] and [place]. This disclosure is being madepursuant to the Care Everywhere program and may not contain all information available regarding this patient. Last updated 18.[facility] [employer] Allergies No known active allergies Medications * [...] Comments Blood Pressure 138/84 10/05/2015 3:53 PM CONE BAKER MACHINE Pulse 78 10/05/2015 3:53 PM CONE BAKER MACHINE Temperature - - Respiratory Rate 18 07/24/2012 11:5 0 AM CDT Oxygen Saturation 94% 07/24/2012 11: 50 AM CDT Inhaled Oxygen Concentration - - Weight 114.4 kg (252 lb 1.6 oz) 10/05/2015 3:53 PM CONE BAKER MACHINE Height 170.2 cm (5' 7 ) 10/05/2015 3:53 PM CONE BAKER MACHINE Body Mass Index 39.48 10/05/2015 3:53 PM CONE BAKER MACHINE Plan of Treatment Health Maintenance Due Date [...] age to complete this topic Care Teams Registration Representative Relationship Specialty Start Date End Date Fawad Hirsch MD [address] [place] [address] PCP - General 07/23/12
--- OUTSIDE RECORDS SUMMARY | 2024-11-28 10:58 | XMS_ITS | Referral Summary ---
Author Organization [facility] Address [address] [address] Care Team Providers Care Shellfish Checker Name Role Phone Fawad Hirsch MD Primary Care Provider [phone] Fawad Hirsch MD Unavailable [phone] Anders Cho MD Unavailable Kris Quintero MD Unavailable [phone] Zulma Faye MD Unavailable [phone] Allergies No known active allergies Medications levothyroxine [...] right hip joint 03/14/2023 Osteomyelitis 05/03/2022 A-fib (CMS/[facility]ER[facility]) 03/30/2022 Assessment & Plan (10/18/2022 10:34 AM REGIONAL WILDLIFE AGENT): Status post successful Watchman implant. Completed 5 months of clopidogrel, will discontinue today. Will continue ASA 81 mg daily indefinitely. Will have him follow-up in 6 months, 1 year from his implantation around March 2023. Assessment & Plan (07/06/2022 9:14 AM CDT): Controlled. Continue medical therapy. Coronary artery disease of n ative artery of [place] heart with stable angina pectoris 01/31/2022 Assessment & Plan (10/18/2022 10:35 AM REGIONAL WILDLIFE AGENT): Denies any complaints of chest pain or discomfort. Continue medical therapy with aspirin, statin, Zetia, beta-lucy, ARB. Assessment & Plan (02/01/2022 10:21 AM CDT): Stable, moderate coronary disease only, without angina. Continue same therapy. Continue diet and exercise. Acute osteomyelitis of radius ([facility]/HCC) 11/27/19 22 Arthralgia of left elbow [...] 05/17/2020 Assessment & Plan (12/10/2020 1:30 PM REGIONAL WILDLIFE AGENT): Patient underwent TAVR are in July. He is continued on anticoagulation at this time. 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 Assessment & Plan (10/04/2020 10:00 AM REGIONAL WILDLIFE AGENT): Patient had severe aortic stenosis and underwent TAVR. He is doing well since that time. 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 Assessment & Plan (12/10/2020 1:29 PM REGIONAL WILDLIFE AGENT): Patient has peripheral arterial disease but is [...] call. Assessment & Plan (10/04/2020 10:00 AM REGIONAL WILDLIFE AGENT): Patient has peripheral arterial disease however at [...] 12/03/2018 Assessment & Plan (10/18/2022 10:35 AM REGIONAL WILDLIFE AGENT): Status post TAVR. Essential hypertension 12/03/2018 Assessment & Plan (07/06/2022 9:15 AM CDT): Hypertension chronic and controlled. Continue medical therapy Assessment & Plan (12/10/2020 1:30 PM REGIONAL WILDLIFE AGENT): Followed by his PCP and controlled on his current medications. Hyperlipidemia associated with type 2 diabetes mayuri adkins 12/03/2018 Assessment & Plan (02/01/2022 10:25 AM CDT): Lipids are well controlled. Continue statin therapy. Assessment & Plan (12/10/2020 1:30 PM REGIONAL WILDLIFE AGENT): Followed by his PCP and controlled on a statin. Hypertension associated with diabetes 12/03/2018 Assessment & Plan (02/01/2022 10:22 AM CDT): Blood pressure is excellent. Continue same therapy. Diabetes mellitus type II, non insulin dependent ([facility]) 12/03/2018 Assessment & Plan (12/10/2020 1:30 PM REGIONAL WILDLIFE AGENT): Followed by his PCP and controlled on his current medications. 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 Continue current medical therapy. Elbow fracture, left 07/28/2011 Hypothyroid 07/28/2011 DM type 2 (diabetes mellitus, type 2) 07/28/2011 Assessment & Plan (06/20/2021 8:38 AM CDT): Followed by his PCP and controlled on his current medications. Assessment & Plan (10/04/2020 10:00 AM REGIONAL WILDLIFE AGENT): Followed by his PCP and controlled on medications. HTN (hypertension) 07/28/2011 Assessment & Plan (06/20/2021 8:38 AM CDT): Followed by his PCP and controlled on his current medications. Assessment & Plan (10/04/2020 10:00 AM REGIONAL WILDLIFE AGENT): Followed by his PCP and controlled on medications. Metastatic neoplasm 11/02/2010 Adenocarcinoma of prostate 11/19/2007 Resolved Problems Problem Noted Date Diagnosed Date Resolved Date Chronic anticoagulation 06/24/202005/10 Assessment & Plan (06/20/2021 8:38 AM CDT): Patient is on Xarelto and doing well at this time. Assessment & Plan (10/04/2020 10:01 AM REGIONAL WILDLIFE AGENT): Patient is on Xarelto for his new [...] on file Legal Sex Male 3:52 AM REGIONAL WILDLIFE AGENT Gender Identity Male 09/15/2020 1:37 PM REGIONAL WILDLIFE AGENT Sexual Orientation Straight 02/03/2019 5: 15 PM [...] on file Medical Devices Implanted Type Area Punch Press Operator Device Identifier Shelf Expiration Date Model / Serial / Lot [employer] [place] Watchman Flx Procedure Device Wmflxperproc - [id number] - [id number] Implanted:Qty: 1 on 03/30/2022 by Mauri Olivia MD at [facility] Left Atrial Appendage Occluder N/A: Atrial Appendage [employer] [place] 08/31/2024 WMFLXPERPRO C / [id number] / [id number] [employer] [id number] Paul 3 29mm Transcatheter Valve Aortic Bovine Sterile - [id number] - [id number] Implanted:Qty: 1 on 07/08/2020 by Mauri Olivia MD at [facility] Prosthetic Valve N/A: Heart [employer] 02/15/2022 [id number] / [id number] / [id number] Description:TAVR Armijo Vascular Device Clsr Perclose Prostyle Sut-Mediatd Closure-Repair Sys 59975-29 - S0 - [id number] Implanted:Qty: 1 on 03/30/2022 by Mauri Olivia MD at [facility] Vascular Closure Device N/A: Femoral [employer] 01/06/2024 [id number] / 0 / [id number] Armijo Vascular Device Clsr Perclose Prostyle Sut-Mediatd Closure-Repair Sys 10759-04 - S0 - [id number] Implanted:Qty: 1 on 03/30/2022 by Mauri Olivia MD at [facility] Vascular Closure Device N/A: Femoral [employer] 01/06/2024 [id number] / 0 [id number] Synthes 04.503.733 Matrixmandible 2mm 7x23 Hole Reconstruction Mandible Right Angle - [id number] Implanted:Qty: 1 on 12/05/2018 by Aden Azar DMD at [facility] Right: Mandible Synthes I 04.503.733 / / Synthes 04.503.642.01 Matrixmandible 2.4mm 12mm Self Tap Lock Mandible Screw Bone - [id number] Implanted:Qty: 3 on 12/05/2018 by Aden Azar DMD at [facility] Right: Mandible Synthes I 04.503.642. 01 / / Synthes 04.503.644.01 Matrixmandible 2.4mm 14mm Self Tap Lock Mandible Screw Bone - [id number] Implanted:Qty: 1 on 12/05/2018 by Aden Azar DMD at [facility] Right: Mandible Synthes I 04.503.644. 01 / / Synthes 04.503.646.01 Matrixmandible 2.4mm 16mm Self Tap Lock Mandible Screw Bone - [id number] Implanted:Qty: 2 on 12/05/2018 by Aden zAar DMD at [facility] Right: Mandible Synthes I 04.503.646. 01 / / Synthes 04.503.442.01 Matrixmandible 2.4mm 12mm Self Tap Mandible Screw Bone Titanium - [id number] Implanted:Qty: 1 on 12/05/2018 by Donis Estrada MD at [facility] Right: Mandible Synthes I 04.503.442. 01 / / Infoflowian [id number] Fannin Microvascular 3.5mm Ring Pin Protective Cover Jaw Assembly Latex Free - [id number] Implanted:Qty: 1 on 12/05/2018 by Anders Cho MD at [facility] Right: Neck Zvents Allian 01/03/2023 [id number] / / [id number] [employer] [id number] Probe Doppler 17.4cm Standard Cuff Implantable 20mhz Latex Free Sterile Microvascular Anastomoses [place] - [id number] Implanted:Qty: 1 on 12/05/2018 by Anders Cho MD at [facility] Right: Neck [employer] [id number] 08/07/2021 [id number] / / [id number] Synthes 503.640.01 Matrixmandible 2.4mm 10mm Self Tap Lock Mandible Screw Bone - [id number] Implanted:Qty: 2 on 12/05/2018 by Anders Cho MD at [facility] Right: Mandible Synthes I 503.640. 01 / / Depuy Orthopa[employer] Liner Acet Hip Size 28 Poly Bi Mentum Altrx 53mm [id number] - [id number] Implanted:Qty: 1 on 01/03/2024 at [facility] Right: Hip [employer] Inc 07/07/2027 [id number] / / [id number] [employer] Actis Collar Hip 7 High Offset Stem Femoral [id number] - [id number] Implanted:Qty: 1 on 01/03/2024 at [facility] Right: Hip [employer] 10/07/2033 [id number] / / [id number] Dep[employer] Bi Mentum 53mm Press Fit Femoral Proximal Cup Acetabular [id number] - [id number] Implanted:Qty: 1 on 01/03/2024 at [facility] Right: Hip [employer] 06/07/2025 [id number] / / [id number] [employer] Articul/Minesh 28mm Cementless Hip +1.5mm /14 Taper Head Femoral Latex Free [id number] - [id number] Implanted:Qty: 1 on 01/03/2024 at [facility] Right: Hip [employer] 10/07/2028 [id number] / / [id number] Procedures Procedure Name Priority Date/Time Associated Diagnosis Comments POCT LIPID PANEL Routine 05/19/2024 10:2 4 AM CDT CAD in [place] artery EGFR Routine 01/04/2024 6:22 AM CDT HEMOGLOBIN A1C Routine 12/13/2023 9:54 AM REGIONAL WILDLIFE AGENT Preoperative testing Type 2 diabetes mellitus without complication, without long-term current use of insulin ([facility]) ([facility]) from Last 3 Months [...] ORDERABLES Alicia l Result Performing Organization Address [facility] de Phone Number [facility] [address] [employer]. [facility] [place] [place] [address] * (ABNORMAL) Hemoglobin A1c (12/13/2023 9:54 AM REGIONAL WILDLIFE AGENT) Hgb A1C 6.5(H) 4.0 - 5.6 % Estimated Average Glucose 140 mg/dL CHRIS TERRY Comment: The ADA recommends reporting an estimated Average Glucose (eAG) with all Hemoglobin A1c results using the equation derived from a study of 507 normal and diabetic adults. Minority populations were underrepresented and children were not included. (Diabetes Care 31:2246-0693, 2008). The eAG is not equivalent to a fasting glucose. Blood 12/13/2023 9:54 AM REGIONAL WILDLIFE AGENT 12/13/2023 10:49 AM REGIONAL WILDLIFE AGENT Norman Scott NP LAB BLOOD ORDERABLES Fin al Result Performing Organization Address [facility] de Phone Number CHRIS BJW[facility] [address] [employer]. [facility] [place] [address] from Last 3 Months or Most Recently Relevant to Health Maintenance Insurance MEDICARE [facility] MEDICARE [facility] MEDICARE [facility] MEDICARE [facility] Address: [address] [place] [phone] [facility] Advance Directives For more information, please contact: [phone] Documents on File Type Date Recorded Patient Process Laboratory Specialist Expl anation Power of Flap Presser 07/16/2024 6:21 AM Tena nuation of first scanned poa Power of Flap Presser 12/13/2023 7:19 AM * Full Code (Latest [...] 9:43 PM 12/13/2018 7:45 PM Care Teams Shellfish Checker Relationship Specialty Start Date End Date Fawad Hirsch MD [address] [place] [address] PCP - General 12/08/20 Fawad Hirsch MD [address] [place] [address] 12/08/20 Anders Cho MD [address] [facility] [address] [place] [address] Referring Physician Otolaryngology 12/03/18 Kris Quintero MD [address] [facility] [place] [address] Surgeon Vascular Surgery 06/22/22 Zulma Faye MD [address] [facility] [place] [address] Surgeon Vascular Surgery 05/19/24
[2024-11-28 11:02] LABS: Anion Gap 5 mmol/L (4-12); Blood Urea Nitrogen 19 mg/dL (9-20); Calcium 8.6 mg/dL (8.4-10.2); Carbon Dioxide 32 mmol/L (22-30); Chloride 102 mmol/L (98-107); Estimated Glomerular Filt Rate > 60; Glucose 115 mg/dL (65-110); Potassium 4.4 mmol/L (3.4-5.0); Sodium 139 mmol/L (137-145)
== END 2024-11-28 10:24 | disposition home or self-care (01) ==
LOC: ANHLAB 10:25
PROVIDERS: PCP Internal Medicine; Visit Provider Internal Medicine
DX: J98.11 Atelectasis (principal); J18.9 Pneumonia, unspecified organism; J10.1 Influenza due to other identified influenza virus with other respiratory manifestations; R09.89 Other specified symptoms and signs involving the circulatory and respiratory systems
CPT/HCPCS: 36415; 71046; 80048; 85025

== ENCOUNTER 2025-02-09 13:00 | Outpatient (RCR) | payer MEDICARE, OTHER, SELFPAY ==
--- NOTE | 2024-12-03 12:45 | BUSTOPEVAL1 ---
Assessment and note entered by Stephanie Roberts, CORRECTIONAL OFFICER CHIEF Evaluation Information Assessment Status Evaluation Diagnosis R47.02 ICD-10 Condition Codes (ST) Dysphagia, oropharyngeal phase R13.12 Other ICD-10 Condition Codes ( R13.[address]agia ST) Subjective Information Patient was referred for a skilled ST evaluation due to difficulties with swallowing after diagnosis of influenza A and pneumonia. Patient was admitted to the hospital around 11/17/2024 and was discharged 11/24/24. While in the hospital the patient had several bedside swallow evaluations along with a modified barium swallow study on 11/19. The swallow study indicated trace aspiration due to residual stasis in vallecula and pyriform sinuses as a result of decreased laryngeal elevation and reduced lingual backing. Patient reported that he has never had pneumonia in the past and has had some swallowing difficulties but not to the level of severity he did while in the hospital due to weakness. Upon discharge from hospital patient had a repeat chest x-ray indicating improvement in lung status and very minimal areas of concern. Patient and significant other report that since the patient has been home he has been doing better and better with his swallowing. He continues to cough/have difficulty but not near as often. 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 At that time patient had an NG tube and tracheostomy which were removed later on and he tolerated solids/liquids without difficulty. He then had another surgery in his jaw in 2023 and the doctor reported that things looked much better and the hardware was removed. Patient reported minimal difficulty with swallowing prior to recent hospitalization. Patient does not reported any difficulty swallowing his medication and can take 5+ pills at one time with thin water. He then also consumes a puree food after swallowing medication to assist in bolus transit. Reported Pain Level Pain Score 0: Self Report Assessment ST Clinical Summary Patient was referred for a skilled ST evaluation due to recent hospitalization for pneumonia with a completion of MBS indicating trace aspiration and laryngeal penetration with all consistencies trialed. Patient presented with backflow from UES which then was penetrated. MBS indicated decreased laryngeal elevation and decreased lingual backing . Patient has an extensive history of head/neck cancer with completion of 41 radiation treatments to throat 20 years ago. 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 Patient at that time had a tracheostomy and NG tube. As he improved both were removed and he was then able to tolerate a normal diet orally. Patient reported some difficulty with swallowing but not the the level of severity while in the hospital 2 weeks ago. He was diagnosed with influenza A along with pneumonia and was very weak at that time. The MBS was completed on 11-19-24 and it was recommended to remain NPO at that time due to backflow resulting in premature spillage and high risk for aspiration. PEG tube was discussed and patient indicated he did not want that. The patient began on an oral diet at that time. Once discharged from the hospital on 11-24-24 patient and significant other reported that the patient continues to tolerate an oral diet with an improvement in skills and less coughing noted. The patient was seen with trials of thin water single sips via straw, applesauce (self fed), and granola bar ( self fed). Patient presented with asymmetrical tongue/lips/cheeks due to jaw surgery. Weak labial seal was noted with suspected impact on pressure formation for bolus transit. Patient presented with cough 1x post deglutition with trials of thin water with single sips. Use of dry swallow post deglutition of solids/liquid throughout the session. Patient education regarding use of head tilt to left side/head turn to right side and use of left side placement of bolus to improve coordination/control and clearance. Some improvement noted through use of techniques. MASA was administered with a score of 169 indicating mild/moderate dysphagia and mild aspiration risk at this time. Recommendation for skilled ST to target oropharyngeal phase dysphagia R13.12 1x/ week for 10 visits to target diet modification/ training, compensatory techniques, laryngeal elevation/adduction exercises and oral motor exercises to improve ability to tolerate least restrictive diet without signs or symptoms of aspiration. Plan of Care Interventions Treatment of Swallowing Dysfunction Treatment Frequency and 1x/week for 10 visits Duration These treatments will address the objective and functional deficits as defined above. The patient will be advanced safely and appropriately in order for the patient to progress towards his/her prior level of function. Additional exercises will be introduced and as well as a comprehensive home exercise program upon discharge, if needed, ?to ensure carryover of functional gains achieved in the clinic. This treatment plan has been reviewed and agreement upon by the patient.
--- NOTE | 2024-12-17 10:02 | OPREHPOC ---
Outpatient Therapy Plan of Care This is a Multidisciplinary Plan of Care that may contain components documented by all disciplines (PT, OT, and ST.) PT Problem 1 PT Problem #1 Knowledge Deficit PT Goal 1 Goal / Goal Update *indep with HEP Target Visit 8 PT Problem 2 PT Problem #2 Impaired Functional Mobility PT Goal 1 Goal / Goal Update * Tinetti balance/gait score of 22/28 Target Visit 8 PT Goal 2 Goal / Goal Update * 2 minute walking test distance with rollator, 300', to improve community distance of ambulation Target Visit 8 PT Problem 3 PT Problem #3 Impaired Strength PT Goal 1 Goal / Goal Update * improve strength of trunk and hips, with static standing time, without UE support, for 90 seconds Target Visit 8 PT Problem 4 PT Problem #4 Impaired Strength PT Goal 1 Goal / Goal Update *improve hip abduction and trunk strength, to improve standing and walking ability: side lying hip abduction R and L to 10' x [address] Problem #[address] Goal 1 Goal / Goal Update 1. Patient will participate in home programming to promote carryover/generalization of skills to home environment. Target Visit [address] Problem #[address] Goal 1 Goal / Goal Update 1. Patient will tolerate least restrictive diet without signs/symptoms of aspiration through use of trained compensatory techniques with minimal cues. 2. Patient will complete laryngeal elevation/ adduction exercises 12 reps with minimal cues to improve airway protection. 3. Patient will complete oral motor exercises ( tongue, lip, cheeks) to improve strength/ coordination/ROM for bolus formation/propulsion 12 reps with minimal cues/moderate strength. 4. Patient will complete gabriella exercise (lingual backing exercises) to improve strength for bolus clearance 8+ repetitions with minimal cues. 5. Patient will complete max phonation exercises susatined 15+ seconds for 5 repetitions to improve respiratory support/control during deglutition. Target Visit 10
--- NOTE | 2024-12-17 10:02 | PTOPEVAL1 ---
Assessment and note entered by Marly Osorio, PT Evaluation Information Assessment Status Evaluation ICD-10 Condition Codes (PT) Difficulty Walking R26.2,Abnormalities of gait and mobility R26.9,Weakness R53.1 Other ICD-10 Condition Codes ( Z74.09 reduced mobility PT) Subjective Information went to the hospital for 7 days in Nov-influenza, a fib, flu; had more weakness and problems with walking; have had PT in the past for balance; in the past 6 months had 1 fall--tripped due to drop foot on L; afraid of falling; sometimes L leg goes numb and falls asleep, leg gives out and makes him fall-- also have drop foot since back surgery; activity: home with Renay, use rollator all the time; no steps at home; not doing any leg exercises at home; have treadmill at home--not use; GOAL: walk with cane Reported Pain Level Pain Score 0: Self Report Assessment PT Clinical Summary Mitch has the diagnosis of weakness and decreased mobility, increased after recent hospitalization/ flu and pneumonia. He uses a rollator all the time and has had 1 recent fall. He tries to be active and do as much as he can at home. is present and supportive to pt. His medical history includes: lumbar fusion, L foot drop with L LE intermittent numbness; bilateral THR and TKR; prostate and head/ neck cancer; With the evaluation: Tinetti balance/gait score of 15/28= high risk for falls; 2 minute walking test distance with rollator of 225' with report of tired; weakness of trunk and hips; gait with R/L lateral motion of trunk and hips; static standing time of 41 seconds and unable to stand with eyes closed. Skilled PT services are indicated for therapeutic exercises to increase strength of trunk and hips; education for HEP and safety with mobility. Plan of Care Interventions Gait Training,Neuro Re-education,Patient/Caregiver Education,Therapeutic Activities,Therapeutic Exercise PT Services Indicated Yes Treatment Frequency and 1-2 x/wk for 8 visits Duration These treatments will address the objective and functional deficits as defined above. The patient will be advanced safely and appropriately in order for the patient to progress towards his/her prior level of function. Additional exercises will be introduced and as well as a comprehensive home exercise program upon discharge, if needed, ?to ensure carryover of functional gains achieved in the clinic. This treatment plan has been reviewed and agreement upon by the patient.
--- NOTE | 2025-01-07 12:48 | BUSTOPDC ---
Assessment and note entered by Stephanie Roberts, [employer] Evaluation Information Assessment Status Discharge - Pt Not Present Diagnosis R47.02 ICD-10 Condition Codes (ST) Dysphagia, oropharyngeal phase R13.12 Other ICD-10 Condition Codes ( R13.[address]agia ST) Subjective Information Patient was referred for a skilled ST evaluation due to difficulties with swallowing after diagnosis of influenza A and pneumonia. Patient was admitted to the hospital around 11/17/2024 and was discharged 11/24/24. While in the hospital the patient had several bedside swallow evaluations along with a modified barium swallow study on 11/19. The swallow study indicated trace aspiration due to residual stasis in vallecula and pyriform sinuses as a result of decreased laryngeal elevation and reduced lingual backing. Patient reported that he has never had pneumonia in the past and has had some swallowing difficulties but not to the level of severity he did while in the hospital due to weakness. Upon discharge from hospital patient had a repeat chest x-ray indicating improvement in lung status and very minimal areas of concern. Patient and significant other report that since the patient has been home he has been doing better and better with his swallowing. He continues to cough/have difficulty but not near as often. 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 At that time patient had an NG tube and tracheostomy which were removed later on and he tolerated solids/liquids without difficulty. He then had another surgery in his jaw in 2023 and the doctor reported that things looked much better and the hardware was removed. Patient reported minimal difficulty with swallowing prior to recent hospitalization. Patient does not reported any difficulty swallowing his medication and can take 5+ pills at one time with thin water. He then also consumes a puree food after swallowing medication to assist in bolus transit. Patient has completed a total of [address] treatments for Dysphagia with reported noted improvements and desire to be discharged at this time due to minimal to no difficulties with swallowing through use of exercises, compensatory techniques and diet modification/training. Reported Pain Level Pain Score 4: Self Report Pain Score 4: Self Report Pain Score 4: Self Report Pain Score 4: Self Report Pain Score 5: Self Report Pain Score 0: Self Report Pain Score 0: Self Report Pain Score 0: Self Report Pain Score 0: Self Report Assessment ST Clinical Summary Patient was referred for a skilled ST evaluation due to recent hospitalization for pneumonia with a completion of MBS indicating trace aspiration and laryngeal penetration with all consistencies trialed. Patient presented with backflow from UES which then was penetrated. MBS indicated decreased laryngeal elevation and decreased lingual backing . Patient has an extensive history of head/neck cancer with completion of 41 radiation treatments to throat 20 years ago. 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 Patient at that time had a tracheostomy and NG tube. As he improved both were removed and he was then able to tolerate a normal diet orally. Patient reported some difficulty with swallowing but not the the level of severity while in the hospital 2 weeks ago. He was diagnosed with influenza A along with pneumonia and was very weak at that time. The MBS was completed on 11-19-24 and it was recommended to remain NPO at that time due to backflow resulting in premature spillage and high risk for aspiration. PEG tube was discussed and patient indicated he did not want that. The patient began on an oral diet at that time. Once discharged from the hospital on 11-24-24 patient and significant other reported that the patient continues to tolerate an oral diet with an improvement in skills and less coughing noted. The patient was seen with trials of thin water single sips via straw, applesauce (self fed), and granola bar ( self fed). Patient presented with asymmetrical tongue/lips/cheeks due to jaw surgery. Weak labial seal was noted with suspected impact on pressure formation for bolus transit. Patient presented with cough 1x post deglutition with trials of thin water with single sips. Use of dry swallow post deglutition of solids/liquid throughout the session. Patient education regarding use of head tilt to left side/head turn to right side and use of left side placement of bolus to improve coordination/control and clearance. Some improvement noted through use of techniques. MASA was administered with a score of 169 indicating mild/moderate dysphagia and mild aspiration risk at this time. Patient completed a total of [address] treatment sessions for dysphagia with noted improvements in swallowing function. Patient currently reports that he is tolerating a normal diet without difficulty. Patient continues to completed all swallowing exercises given daily. Discharge from skilled ST at this time. Plan of Care Interventions Treatment of Swallowing Dysfunction Treatment Frequency and Discharge from skilled ST at this time. Duration
--- NOTE | 2025-01-13 17:10 | OPREHPOC ---
Outpatient Therapy Plan of Care This is a Multidisciplinary Plan of Care that may contain components documented by all disciplines (PT, OT, and ST.) PT Problem 1 PT Problem #1 Knowledge Deficit PT Goal 1 Goal / Goal Update *indep with HEP Target Visit 8 Progress Met PT Problem 2 PT Problem #2 Impaired Functional Mobility PT Goal 1 Goal / Goal Update * Tinetti balance/gait score of 22/28 Target Visit 16 Progress Partially Met PT Goal 2 Goal / Goal Update * 2 minute walking test distance with rollator, 300', to improve community distance of ambulation Target Visit 8 Progress Met PT Problem 3 PT Problem #3 Impaired Strength PT Goal 1 Goal / Goal Update * improve strength of trunk and hips, with static standing time, without UE support, for 90 seconds Target Visit 16 Progress Partially Met PT Problem 4 PT Problem #4 Impaired Strength PT Goal 1 Goal / Goal Update *improve hip abduction and trunk strength, to improve standing and walking ability: side lying hip abduction R and L to 10' x 20 reps Target Visit [address] Problem 1 ST Problem #[address] Goal 1 Goal / Goal Update 1. Patient will participate in home programming to promote carryover/generalization of skills to home environment. -Patient and continue to participate in home programming to promote carryover/generalization of skills. Target Visit [address] Problem 2 ST Problem #[address] Goal 1 Goal / Goal Update 1. Patient will tolerate least restrictive diet without signs/symptoms of aspiration through use of trained compensatory techniques with minimal cues. -Goal met with no overt s/s of aspiration or difficulty with minimal cues. 2. Patient will complete laryngeal elevation/ adduction exercises 12 reps with minimal cues to improve airway protection. -Discharge goal 10-12 reps with minimal to moderate cues. 3. Patient will complete oral motor exercises ( tongue, lip, cheeks) to improve strength/ coordination/ROM for bolus formation/propulsion 12 reps with minimal cues/moderate strength. -Discharge goal with 10 reps and moderate cues. 4. Patient will complete gabriella exercise (lingual backing exercises) to improve strength for bolus clearance 8+ repetitions with minimal cues. -Discharge goal with 5 reps and moderate cues. 5. Patient will complete max phonation exercises susatined 15+ seconds for 5 repetitions to improve respiratory support/control during deglutition. -Discharge goal sustained 7-12 seconds for 5 reps. Target Visit 10 Progress Partially Met
--- NOTE | 2025-01-15 07:33 | PTOPPROG ---
Assessment and note entered by Luis Ansari, PT Evaluation Information Assessment Status Progress ICD-10 Condition Codes (PT) Difficulty Walking R26.2,Abnormalities of gait and mobility R26.9,Weakness R53.1 Other ICD-10 Condition Codes ( Z74.09 reduced mobility PT) Subjective Information Patient reports that overall he is a little lisa at this time. Still feels that the balance is a little off. Assessment PT Clinical Summary Patient has shown progress in ambulation distance, speed, and tolerance. He continues to show weakness on elias lower extremities and poor balance at this time. His pain concerns have shifted to his back and it is likely exacerbated by very poor hip mobility affecting stride and mobility. Patient will continue to benefit from skilled therapy to address deficits, strength, and balance . Plan of Care Interventions Gait Training,Neuro Re-education,Patient/Caregiver Education,Therapeutic Activities,Therapeutic Exercise PT Services Indicated Yes Treatment Frequency and 2x/week for 8 visits Duration These treatments will address the objective and functional deficits as defined above. The patient will be advanced safely and appropriately in order for the patient to progress towards his/her prior level of function. Additional exercises will be introduced and as well as a comprehensive home exercise program upon discharge, if needed, ?to ensure carryover of functional gains achieved in the clinic. This treatment plan has been reviewed and agreement upon by the patient.
--- NOTE | 2025-02-09 13:50 | OPREHPOC ---
Outpatient Therapy Plan of Care This is a Multidisciplinary Plan of Care that may contain components documented by all disciplines (PT, OT, and ST.) PT Problem 1 PT Problem #1 Knowledge Deficit PT Goal 1 Goal / Goal Update *indep with HEP Target Visit 8 Progress Met PT Problem 2 PT Problem #2 Impaired Functional Mobility PT Goal 1 Goal / Goal Update * Tinetti balance/gait score of 22/28 - Improved but short of exterminator goal Target Visit 16 Progress Partially Met PT Goal 2 Goal / Goal Update * 2 minute walking test distance with rollator, 300', to improve community distance of ambulation Target Visit 8 Progress Met PT Problem 3 PT Problem #3 Impaired Strength PT Goal 1 Goal / Goal Update * improve strength of trunk and hips, with static standing time, without UE support, for 90 seconds Target Visit 16 Progress Met PT Problem 4 PT Problem #4 Impaired Strength PT Goal 1 Goal / Goal Update *improve hip abduction and trunk strength, to improve standing and walking ability: side lying hip abduction R and L to 10' x 20 reps Target Visit [address] Problem 1 ST Problem #[address] Goal 1 Goal / Goal Update 1. Patient will participate in home programming to promote carryover/generalization of skills to home environment. -Patient and continue to participate in home programming to promote carryover/generalization of skills. Target Visit [address] Problem 2 ST Problem #[address] Goal 1 Goal / Goal Update 1. Patient will tolerate least restrictive diet without signs/symptoms of aspiration through use of trained compensatory techniques with minimal cues. -Goal met with no overt s/s of aspiration or difficulty with minimal cues. 2. Patient will complete laryngeal elevation/ adduction exercises 12 reps with minimal cues to improve airway protection. -Discharge goal 10-12 reps with minimal to moderate cues. 3. Patient will complete oral motor exercises ( tongue, lip, cheeks) to improve strength/ coordination/ROM for bolus formation/propulsion 12 reps with minimal cues/moderate strength. -Discharge goal with 10 reps and moderate cues. 4. Patient will complete gabriella exercise (lingual backing exercises) to improve strength for bolus clearance 8+ repetitions with minimal cues. -Discharge goal with 5 reps and moderate cues. 5. Patient will complete max phonation exercises susatined 15+ seconds for 5 repetitions to improve respiratory support/control during deglutition. -Discharge goal sustained 7-12 seconds for 5 reps. Target Visit 10 Progress Partially Met
--- NOTE | 2025-02-09 13:50 | PTOPDC ---
Assessment and note entered by Luis Ansari, PT Evaluation Information Assessment Status Discharge ICD-10 Condition Codes (PT) Difficulty Walking R26.2,Abnormalities of gait and mobility R26.9,Weakness R53.1 Other ICD-10 Condition Codes ( Z74.09 reduced mobility PT) Subjective Information Reports that overall he is doing really well. Back pain is controlled and feels he is much more mobile with more energy. No concerns at this time and feels ready for discharge. Reported Pain Level Pain Score 0: Self Report Assessment PT Clinical Summary Patient met majority of goals for therapy at this time. Fells slightly short of Tinetti goal but improved over initial evaluation. Patient compliant and independent with HEP and suitable for discharge at this time. Plan of Care PT Services Indicated Yes
== END 2025-02-09 16:45 | disposition home or self-care (01) ==
LOC: ANHPT 13:00
PROVIDERS: PCP Internal Medicine; Visit Provider Internal Medicine
DX: R47.02 Dysphasia (principal); Z74.09 Other reduced mobility
CPT/HCPCS: 92526; 92610; 97110; 97116; 97140; 97161; 97530